=== PATIENT | female | born 1965 | race Caucasian/White ===

== ENCOUNTER 2019-10-27 06:34 | Emergency (ER) | payer SELFPAY ==
[2019-10-27] VITALS (11 sets, daily range): BP systolic 138–180; BP diastolic 56–128; PULSE 60–102; RESP 14–22; TEMP 36.7; O2SAT 92–100; BMI 35.2
--- NOTE | 2019-10-27 06:53 | W.ED.NAVMDI ---
HPI - Nausea/Vomiting/Diarrhea General: Chief complaint: Nausea/Vomiting/Diarrhea Stated complaint: N/V Time Seen by Provider: 10/27/19 06:35 History of Present Illness: HPI Narrative: 54-year-old female presents emergency room with complaint of persistent nausea and vomiting. States symptoms began about 1 to 2 days ago. She is had a low-grade fever subjectively. She had frequent vomiting but no hematochezia or melena diarrhea began this morning she has not been able to eat yesterday or today. She is not really taking anything for it. She has previously had a cholecystectomy and appendectomy as well as a tubal ligation and some orthopedic surgeries. She denies dysuria urgency or frequency there is no association of the discomfort with food. MD elicited complaint: nausea and vomiting Pertinent past history: anorexia Onset (ago): day(s) (1-2) Description of vomiting: bilious Description of diarrhea: lose (Loose stools) Associated nausea: Yes Location of pain: Diffuse Pain consistency: constant Severity: severe Quality: cramping Associated symtoms: Reports anxiety, bloating, loss of apetite, malaise, myalgias and nausea; Denies chest pain or dysuria Review of Systems Const: Reports: malaise ENMT: Denies: throat pain, ear pain, nasal discharge or nasal congestion Card: Denies: chest pain, edema, shortness of breath on exertion or shortness of breath when lying down Resp: Denies: shortness of breath, productive cough or non-productive cough GI: Reports: nausea and bloating : Denies: flank pain, difficulty urinating, painful urination, urinary frequency or urinary urgency Skin/Breast: Denies: rash or itching Psych: Reports: anxiety PFSH ED PFSH: Social History (Updated 08/04/19 @ 13:51 by Nancy Dale LPN) Smoking and tobacco status: never smoked Alcohol intake: never Physical Exam Const: COMMON NORMALS: no apparent distress GENERAL APPEARANCE: cooperative and comfortable ORIENTATION/CONSCIOUSNESS: Yes awake, Yes oriented to person, Yes oriented to place and Yes oriented to time HENMT: COMMON NORMALS: normocephalic, head/scalp atraumatic, hearing grossly normal bilaterally, external ears normal, EAC's normal, TM's normal bilaterally, nasal mucous membranes and turbinates normal, moist oral mucous membranes and oropharynx normal HEAD & SCALP: normocephalic and atraumatic NOSE: nasal mucous membranes and turbinates normal EXTERNAL EAR: Yes external ears normal EXTERNAL AUDITORY CANAL: EAC's normal TYMPANIC MEMBRANE: TM's normal bilaterally Eye: COMMON NORMALS: PERRL, EOMs intact bilaterally, conjunctivae normal and no scleral icterus CONJUNCTIVA: Yes conjunctivae normal PUPIL: Yes PERRL Neck/C-Spine: COMMON NORMALS: full ROM, no lymphadenopathy, supple and no JVD Lymph: LYMPHATIC: no lymphadenopathy noted and no lymphedema noted Resp: COMMON NORMALS: normal respiratory effort, no retractions, no use of accessory muscles and clear to auscultation bilaterally AUSCULTATION: clear to auscultation bilaterally Cardio: COMMON NORMALS: no JVD, regular rate, regular rhythm and no murmurs RATE: regular rate RHYTHM: regular rhythm GI: COMMON NORMALS: soft to palpation and no hepatosplenomegaly AUSCULTATION: Yes normoactive bowel sounds PALPATION: Yes soft, No tender, No guarding and Yes no hepatosplenomegaly Extremity: COMMON NORMALS: normal to inspection, normal capillary refill, no clubbing, cyanosis or edema, no calf tenderness and no pedal edema Neuro: SENSORIUM/ORIENTATION: Yes oriented to person, Yes oriented to place and Yes oriented to time Skin: COMMON NORMALS: no rashes or lesions noted GENERAL SKIN EXAM: no rashes or lesions noted Course Vital Signs: Vital signs: Vital Signs Temperature 98.1 F 10/27/19 06:46 Pulse Rate 62 10/27/19 10:57 Respiratory Rate 16 10/27/19 10:57 Blood Pressure 147/86 10/27/19 10:57 Pulse Oximetry 96 10/27/19 10:57 MDM - Nausea/Vomiting/Diarrhea MDM Narrative: Medical decision making narrative: Patient is feeling somewhat better. Will discharge home with antiemetics avoid anti-inflammatories clear liquid diet for [address] findings. Lab Data: Labs: Lab Results 10/27/19 10/27/19 10/27/19 Range/Units 07:05 07:05 08:39 WBC 10.7 H (4.0-10.0) 10^3/ uL RBC 4.12 (4.1-5.3) 10^6/u L Hgb 12.7 (11.5-15.3) g/dL Hct 40.5 (37.0-47.0) % MCV 98.3 (81-99) fL MCH 30.8 (28.0-34.0) pg MCHC 31.4 (30.0-36.0) g/dL RDW 13.8 (12.1-15.1) % Plt Count 290 (130-400) 10^3/c mm MPV 9.5 (7.4-10.4) fL Neut % (Auto) 80.7 % Lymph % (Auto) 14.2 % [place] % (Auto) 4.4 % Eos % (Auto) 0.2 % Baso % (Auto) 0.3 % Neut # (Auto) 8.7 H (1.8-7.7) 10^3/u L Lymph # (Auto) 1.5 (0.8-4.8) 10^3/u L [place] # (Auto) 0.5 (0.2-0.9) 10^3/u L Eos # (Auto) 0.0 (0.0-0.8) 10^3/u L Baso # (Auto) 0.0 (0.0-0.1) 10^3/u L Nucleated RBC % (a uto) 0 % Nucleated RBCs # 0.0 /100WBC Sodium 139 (136-145) mmol/L Potassium 3.1 L (3.5-5.1) mmol/L Chloride 102 (98-107) mmol/L Carbon Dioxide 17 L (22-29) mmol/L Anion Gap 23.1 H (5-19) BUN 8 (6-20) mg/dL Creatinine 0.9 (0.5-0.9) mg/dL GFR Calculation 65.8 L (90-130) mL/min Glucose 182 H (65-115) mg/dL Calculated Osmolal ity 289 (285-295) mOsm/k g Calcium 10.1 (8.5-10.5) mg/dL Total Bilirubin 0.4 (0.15-1.2) mg/dL AST 18 (0-32) U/L ALT 12 (0-33) U/L Alkaline Phosphata se 123 H (35-105) IU/L Total Protein 8.2 (6.6-8.7) g/dL Albumin 4.4 (3.5-5.2) g/dL Globulin 3.8 (1.3-4.6) g/dL Lipase 16 (13-60) U/L Urine Color Yellow (Yellow) Urine Appearance Clear (CLEAR) Urine pH 6.5 (5-7) Ur Specific Gravit y 1.010 (1.005-1.030) Urine Protein Neg (Negative) Urine Glucose (UA) Norm (Normal) Urine Ketones 1+ H (Negative) Urine Blood Neg (Negative) Urine Nitrate Negative (Negative) Urine Bilirubin Neg (NEGATIVE) Urine Urobilinogen Norm (Negative) mg/dL Ur Leukocyte Geri ase Negative (Negative) Discharge Plan Discharge Patient Disposition: Home, Self-Care Clinical Impression: Gastroenteritis Condition: Stable Prescriptions: New Zofran 4 mg tablet 4 mg PO Q6H PRN (Reason: nausea and vomiting) Qty: 20 RF: 0 No Action ibuprofen 200 mg Tablet 800 mg PO BID PRN (Reason: Pain) RF: 0 phenylephrine HCl 10 mg Tablet 20 mg PO PRN RF: 0 Discharge Orders: Discharge Order (Routine); Ordered 10/27/19 Ordered By: Ariel Baer Referrals: Jacqueline Call MD [Primary Care Provider] - Patient Instructions: Clear Liquid Diet (ED), Gastroenteritis (ED) Discharge Date/Time: 10/27/19 10:58 Coding Level of Care Code ED Security Threat Analyst for Chg Fwd Exam Comprehensive
[2019-10-27] MEDS: ondansetron 2 mg/ML SDV 2 mL 4 MG IVP (07:13)
[2019-10-27 07:14] LABS: Basophils % 0.3 %; Eosinophils % 0.2 %; Hematocrit 40.5 % (37.0-47.0); Hemoglobin 12.7 g/dL (11.5-15.3); Lymphocytes # 1.5 10^3/uL (0.8-4.8); Lymphocytes % 14.2 %; Mean Corpuscular HGB Conc 31.4 g/dL (30.0-36.0); Mean Corpuscular Hemoglobin 30.8 pg (28.0-34.0); Mean Corpuscular Volume 98.3 fL (81-99); Mean Platelet Volume 9.5 fL (7.4-10.4); Monocytes # 0.5 10^3/uL (0.2-0.9); Monocytes % 4.4 %; Neutrophils # 8.7 10^3/uL (1.8-7.7); Neutrophils % 80.7 %; Nucleated Red Blood Cells % 0 %; Platelet Count 290 10^3/cmm (130-400); Red Blood Count 4.12 10^6/uL (4.1-5.3); Red Cell Distribution Width 13.8 % (12.1-15.1); White Blood Count 10.7 10^3/uL (4.0-10.0)
[2019-10-27] MEDS: sodium chloride 0.9% 1,000 ML 999 ML IV (07:14)
[2019-10-27] MEDS: morphine 4 mg/mL SDV 1 mL IVP (07:32)
[2019-10-27] MEDS: LORazepam 2 mg/mL INJ 1 mL 1 MG IVP (07:32)
--- NOTE | 2019-10-27 07:34 | PC.NURSE ---
Asked patient to provide a urine sample at this time. Patient states she is unable to urinate at this time. Bolus is infusing, patient aware a sample is needed. Refuses in and out cath at this time.
[2019-10-27 07:35] LABS: Alanine Aminotransferase 12 U/L (0-33); Albumin Level 4.4 g/dL (3.5-5.2); Alkaline Phosphatase 123 IU/L (35-105); Anion Gap 23.1 (5-19); Aspartate Amino Transferase 18 U/L (0-32); Blood Urea Nitrogen 8 mg/dL (6-20); Calcium 10.1 mg/dL (8.5-10.5); Carbon Dioxide 17 mmol/L (22-29); Chloride 102 mmol/L (98-107); Globulin 3.8 g/dL (1.3-4.6); Glomerular Filtration Rate 65.8 mL/min (90-130); Glucose 182 mg/dL (65-115); Lipase 16 U/L (13-60); Osmolality Calculated 289 mOsm/kg (285-295); Potassium 3.1 mmol/L (3.5-5.1); Sodium 139 mmol/L (136-145); Total Bilirubin 0.4 mg/dL (0.15-1.2); Total Protein 8.2 g/dL (6.6-8.7)
--- NOTE | 2019-10-27 08:02 | PC.NURSE ---
Patient resting in bed comfortably with both eyes closed. No objective or subjective s/s of acute distress or pain noted at this time. Will continue to monitor.
--- NOTE | 2019-10-27 08:32 | PC.NURSE ---
Patient ambulated to restroom with steady gait at this time. Returned to bed without injury.
--- NOTE | 2019-10-27 08:42 | CT_ITS ---
WS: [id number] CT ABDOMEN PELVIS TECHNIQUE: Contrast-enhanced CT of the abdomen and pelvis with coronal and sagittal reformatted image s. CLINICAL INFORMATION: abd pain COMPARISON: June 25, 2019 DLP: 1263.[address] scans at [facility] use at least one of these dose optimization techniques: automat ed exposure control; mA and/or kV adjustment per patient size (includes targeted exams where dose is matched to clinical indication); or iterative reconstruction. FINDINGS: Postoperative changes laparoscopic banding procedure. Mild intrahepatic biliary ductal dilatation unc hanged. Prior cholecystectomy. Liver is normal in appearance. Normal portal vein and splenic vein. Mi ld fatty atrophy of the pancreas. Normal spleen. Adrenal glands are normal. Normal renal parenchymal enhancement. No hydronephrosis. Slightly dilated fluid-filled loop of small bowel in the midabdomen measuring up to 2.3 cm can be see n with small bowel enteritis. No evidence of high-grade obstruction. Normal colon. Normal caliber abdominal aorta. Tiny fat-containing umbilical hernia. Normal bladder.Lung bases are w ell aerated. Prior postoperative changes pedicle screw fixation L2-S1 with interconnecting rods. Interconnecting r ods appear intact. Lucency along the L2 pedicle screws consistent with loosening. Bilateral sacroilia c screw fixation. Notified Ariel Baer DO at 10/27/2019 10:[address]/CT abdomen pelvis w con* [id number] IMPRESSION: 1. Slightly dilated fluid-filled loop of small bowel in the midabdomen can be seen with small bowel enteritis. Small and large bowel otherwise unremarkable. 2. No free fluid in the pelvis. 3. Prior laparoscopic banding procedure. 4. Cholecystectomy with intrahepatic bile duct dilatation likely physiologic. 5. No hydronephrosis in either kidney. 6. Prior postoperative changes pedicle screw fixation L2-S1 with bilateral sac ral iliac screws. Loosening of the L2 pedicle screws as described above.
[2019-10-27 09:07] LABS: Add Urine Microscopic? NO
[2019-10-27 09:15] LABS: Glucose Urine UA Norm (Normal); Protein Urine Neg (Negative); Urine Appearance Clear (CLEAR); Urine Color Yellow (Yellow); pH Urine 6.5 (5-7)
[2019-10-27 09:16] LABS: Bilirubin Urine Neg (NEGATIVE); Blood Urine Neg (Negative); Ketones Urine 1+ (Negative); Leukocyte Esterase Urine Negative (Negative); Nitrate Urine Negative (Negative); Urobilinogen Urine Norm (Negative)
--- NOTE | 2019-10-27 09:50 | PC.NURSE ---
Patient to CT via stretcher by pest control service technician at this time.
[2019-10-27] MEDS: iohexol 300 mg/mL 100 mL Btl IV (09:57)
--- NOTE | 2019-10-27 10:09 | PC.NURSE ---
Patient returned from CT.
--- NOTE | 2019-10-29 11:56 | DCPLANNER ---
Addendum entered by Karen Byrd 10/29/19 12:15: Patient did return mental health case manager phone call, stated that she has not seen her primary care physician, because she does not have any insurance at this time. care manager told patient that case liner will mail patient both of the financial systems analyst applications for the hospital to the patient. Patient also asked if case liner could help patient find a new primary care physician, case liner explained to patient that case liner will try, but with COVID-19 some clinics are not taking new patients at this time, but case liner will call the office of Dr. Mendez to see if she is taking new patients. Patient stated that would be fine. Original Note: care manager called to check on patient after recent visit to the ER. care manager was unable to speak with patient at this time, a voicemail was left for patient to return case liner phone call.
--- NOTE | 2019-11-05 13:46 | DCPLANNER ---
client experience manager called the office of Dr. Mendez to confirm if Dr. Mendez is taking new patients at this time. A follow up appointment is scheduled for October at 9:[address] Mendez. client experience manager called patient to inform patient of the scheduled appointment, unable to speak with patient at this time, a voicemail was left patient to return adult protective caseworker phone call. client experience manager will call patient later to give her the appointment information.
== END 2019-10-27 10:58 | disposition home or self-care (01) ==
PROVIDERS: Emergency Provider Family Medicine; Family Provider Family Medicine; PCP Family Medicine
DX: K52.9 Noninfective gastroenteritis and colitis, unspecified (principal); Z90.49 Acquired absence of other specified parts of digestive tract
CPT/HCPCS: 12345; 36415; 74177; 80053; 81003; 83690; 85025; 96360; 96361; 96374; 96375; 99283; 99284; J2060; J2270; J2405; J7030; Q9967

== ENCOUNTER 2019-12-11 13:50 | Emergency (ER) | payer SELFPAY ==
[2019-12-11] VITALS (7 sets, daily range): BP systolic 139–172; BP diastolic 98–135; PULSE 65–97; RESP 14–20; TEMP 36.8; O2SAT 96–99; BMI 35.2
--- NOTE | 2019-12-11 14:30 | ECG_ITS ---
Measurements Intervals [place] Rate: 84 P: 50 RI: 160 QRS: 37 QRSD: 84 T: 34 QT: 355 QTc: 420 SINUS RHYTHM LOW QRS VOLTAGE IN PRECORDIAL LEADS [QRS DEFLECTION < 1.0 mV IN CHEST LEADS] POSSIBLE RIGHT VENTRICULAR CONDUCTION DELAY [RSR (QR) IN V1/V2] Compared to ECG 05/14/2017 21:21:57 Low QRS voltage now present Indeterminate axis no longer present Electronically Signed On 12-12-2019 11:06:15 CDT by Kevan Ray MD [email or web address]
--- NOTE | 2019-12-11 14:43 | W.ED.GIBLEED ---
HPI - GI Bleed General: Chief complaint: GI Bleed Stated complaint: abd pain, black stool Time Seen by Provider: 12/11/19 14:37 History of Present Illness: HPI Narrative: Patient is a 54-year-old female presenting with abdominal pain for 4 days. She also has had 2 days of black tarry stools. She has had a fair bit of GI pathology in the past. She has a LAP-BAND that she said has slipped. She is been told she has a hiatal hernia. She is been in the ER for persistent vomiting several times in the past year. She has severe nausea but no vomiting today. She admits to a history of alcohol abuse but that was years ago. She does not take anything for reflux at this time. complaint: melena Onset (ago): day(s) (4) Pain Consistency: constant Severity: severe Relieving factors: none Exacerbating factors: eating and movement Associated symptoms: Reports abdominal pain, chills, fever(s), malaise, nausea, poor appetite and weakness; Denies easy bruising, headache(s) or rash Review of Systems General: Reports: 10 or more systems reviewed and unremarkable except in HPI and below Const: Reports: fever(s), chills and malaise Eyes: Denies: change in vision ENMT: Denies: odynophagia Card: Denies: chest pain or swelling of feet/ankles Resp: Denies: dyspnea, productive cough or non-productive cough GI: Reports: abdominal pain, nausea, change in bowel habits and melena : Denies: flank pain or difficulty voiding Musc: Denies: neck pain or back pain Skin/Breast: Denies: rash Neuro: Denies: headache(s), numbness in extremities or weakness in extremities Sergio/Lymph: Denies: easy bruising or easy bleeding PFSH ED PFSH: Social History Smoking and tobacco status: never smoked Alcohol intake: never Current gender identity: Female Physical Exam Const: COMMON NORMALS: patient oriented x3, no limitations and alert GENERAL APPEARANCE: cooperative and in distress HENMT: HEAD & SCALP: normal to inspection FACE & SINUS: normal facial exam Eye: GENERAL EYE: appearance normal, both eyes and all related structures Neck/C-Spine: COMMON NORMALS: supple, no meningeal signs and no JVD Chest: COMMONS NORMALS: normal inspection of the chest Resp: COMMON NORMALS: normal respiratory effort, No use of accessory muscles and clear to auscultation bilaterally AUSCULTATION: clear to auscultation bilaterally Cardio: COMMON NORMALS: no JVD, regular rate, regular rhythm and No murmurs present (Cardio) RATE: regular rate and tachycardic RHYTHM: regular rhythm GI: COMMON NORMALS: Soft to palpation; negative for no masses (Palpable mass below the epigastrium which does not seem to be particularly tender and is not pulsatile) INSPECTION: Yes normal to inspection AUSCULTATION: Yes normoactive bowel sounds PALPATION: Yes Soft to palpation and Yes Tenderness to palpation present (GI) (Diffuse) Back/Pelvis: COMMON NORMALS: thoracic and lumbar spine normal to inspection Extremity: COMMON NORMALS: normal to inspection Neuro: COMMON NORMALS: patient oriented x3, moves all extremities, no focal motor deficits and no sensory deficits noted SENSORIUM/ORIENTATION: Yes alert MENINGEAL SIGNS: Yes no meningeal signs Psych: COMMON NORMALS: mental status grossly normal, cooperative and normal affect Skin: COMMON NORMALS: no rashes or lesions noted and turgor normal GENERAL SKIN EXAM: no rashes or lesions noted and turgor normal Course ED course: The patient reports improvement in her pain with treatment in the ED. Her hemoglobin was basically stable changing from 13.1-12.3 and that was with the administration of a liter of fluid. She had 2 black bowel movements yesterday but has not had any today. We discussed that this is most likely a bleeding ulcer. Given her stable vital signs and fairly stable hemoglobin I think she is safe for discharge. We discussed the option of admission but she would prefer to go home. Her H. pylori was negative. I have put her on pantoprazole and Carafate. I also gave her a small prescription of hydrocodone for pain. She was advised to avoid sodas, acidic foods, aspirin, ibuprofen, Pepto-Bismol. She understands that if she continues to have black stools she must return to the ED for further evaluation. Vital Signs: Vital signs: Vital Signs Temperature 98.2 F 12/11/19 14:04 Pulse Rate 75 12/11/19 19:36 Respiratory Rate 14 12/11/19 19:36 Blood Pressure 146/115 12/11/19 19:36 Pulse Oximetry 97 12/11/19 19:36 MDM - GI Bleed Lab Data: Labs: Lab Results 12/11/19 12/11/19 12/11/19 Range/Units 15:08 15:08 15:08 WBC 7.2 (4.0-10.0) 10^3/ uL RBC 4.16 (4.1-5.3) 10^6/u L Hgb 13.1 (11.5-15.3) g/dL Hct 40.5 (37.0-47.0) % MCV 97.4 (81-99) fL MCH 31.5 (28.0-34.0) pg MCHC 32.3 (30.0-36.0) g/dL RDW 12.6 (12.1-15.1) % Plt Count 266 (130-400) 10^3/c mm MPV 9.6 (7.4-10.4) fL Neut % (Auto) 59.8 % Lymph % (Auto) 30.3 % [place] % (Auto) 6.8 % Eos % (Auto) 2.2 % Baso % (Auto) 0.8 % Neut # (Auto) 4.3 (1.8-7.7) 10^3/u L Lymph # (Auto) 2.2 (0.8-4.8) 10^3/u L [place] # (Auto) 0.5 (0.2-0.9) 10^3/u L Eos # (Auto) 0.2 (0.0-0.8) 10^3/u L Baso # (Auto) 0.1 (0.0-0.1) 10^3/u L Nucleated RBC % (a uto) 0 % Nucleated RBCs # 0.0 /100WBC PT 12.90 (10.5-13.3) SECO NDS INR 0.94 (0.8-1.2) APTT 28.5 (23.9-36.7) SECO NDS Sodium (136-145) mmol/L Potassium (3.5-5.1) mmol/L Chloride (98-107) mmol/L Carbon Dioxide (22-29) mmol/L Anion Gap (5-19) BUN (6-20) mg/dL Creatinine (0.5-0.9) mg/dL GFR Calculation (90-130) mL/min Glucose (65-115) mg/dL Calculated Osmolal ity (285-295) mOsm/k g Lactate (0.5-2.2) mmol/L Calcium (8.5-10.5) mg/dL Magnesium (1.7-2.3) mg/dL Total Bilirubin (0.15-1.2) mg/dL AST (0-32) U/L ALT (0-33) U/L Alkaline Phosphata se (35-105) IU/L Troponin T Baselin e (0-10) ng/mL Troponin T 120 Min [place] (0-10) ng/mL Delta Troponin T (0-10) ABS# Total Protein (6.6-8.7) g/dL Albumin (3.5-5.2) g/dL Globulin (1.3-4.6) g/dL Lipase (13-60) U/L HCG, Qual (Negative) Urine Color (Yellow) Urine Appearance (CLEAR) Urine pH (5-7) Ur Specific Gravit y (1.005-1.030) Urine Protein (Negative) Urine Glucose (UA) (Normal) Urine Ketones (Negative) Urine Blood (Negative) Urine Nitrate (Negative) Urine Bilirubin (NEGATIVE) Urine Urobilinogen (Negative) mg/dL Ur Leukocyte Geri ase (Negative) Urine RBC (0-2) /hpf Urine WBC (0-5) /hpf Ur Squamous Epith Cells (0-5) Urine Bacteria (NONE) Urine Mucus Ethyl Alcohol (0-10) mg/dL H. pylori IgG Anti body Negative (Negative) Blood Type Rho(D) Type Antibody Screen 12/11/19 12/11/19 12/11/19 Range/Units 15:08 15:08 15:08 WBC (4.0-10.0) 10^3/ uL RBC (4.1-5.3) 10^6/u L Hgb (11.5-15.3) g/dL Hct (37.0-47.0) % MCV (81-99) fL MCH (28.0-34.0) pg MCHC (30.0-36.0) g/dL RDW (12.1-15.1) % Plt Count (130-400) 10^3/c mm MPV (7.4-10.4) fL Neut % (Auto) % Lymph % (Auto) % [place] % (Auto) % Eos % (Auto) % Baso % (Auto) % Neut # (Auto) (1.8-7.7) 10^3/u L Lymph # (Auto) (0.8-4.8) 10^3/u L [place] # (Auto) (0.2-0.9) 10^3/u L Eos # (Auto) (0.0-0.8) 10^3/u L Baso # (Auto) (0.0-0.1) 10^3/u L Nucleated RBC % (a uto) % Nucleated RBCs # /100WBC PT (10.5-13.3) SECO NDS INR (0.8-1.2) APTT (23.9-36.7) SECO NDS Sodium 137 (136-145) mmol/L Potassium 4.0 (3.5-5.1) mmol/L Chloride 103 (98-107) mmol/L Carbon Dioxide 20 L (22-29) mmol/L Anion Gap 18.0 (5-19) BUN 13 (6-20) mg/dL Creatinine 0.8 (0.5-0.9) mg/dL GFR Calculation 75.3 L (90-130) mL/min Glucose 120 H (65-115) mg/dL Calculated Osmolal ity 281 L (285-295) mOsm/k g Lactate (0.5-2.2) mmol/L Calcium 9.1 (8.5-10.5) mg/dL Magnesium 2.3 (1.7-2.3) mg/dL Total Bilirubin 0.3 (0.15-1.2) mg/dL AST 17 (0-32) U/L ALT 13 (0-33) U/L Alkaline Phosphata se 121 H (35-105) IU/L Troponin T Baselin e 6 (0-10) ng/mL Troponin T 120 Min [place] (0-10) ng/mL Delta Troponin T (0-10) ABS# Total Protein 7.3 (6.6-8.7) g/dL Albumin 4.5 (3.5-5.2) g/dL Globulin 2.8 (1.3-4.6) g/dL Lipase 36 (13-60) U/L HCG, Qual Negative (Negative) Urine Color (Yellow) Urine Appearance (CLEAR) Urine pH (5-7) Ur Specific Gravit y (1.005-1.030) Urine Protein (Negative) Urine Glucose (UA) (Normal) Urine Ketones (Negative) Urine Blood (Negative) Urine Nitrate (Negative) Urine Bilirubin (NEGATIVE) Urine Urobilinogen (Negative) mg/dL Ur Leukocyte Geri ase (Negative) Urine RBC (0-2) /hpf Urine WBC (0-5) /hpf Ur Squamous Epith Cells (0-5) Urine Bacteria (NONE) Urine Mucus Ethyl Alcohol < 10 (0-10) mg/dL H. pylori IgG Anti body (Negative) Blood Type Rho(D) Type Antibody Screen 12/11/19 12/11/19 12/11/19 Range/Units 15:37 16:26 17:05 WBC (4.0-10.0) 10^3/ uL RBC (4.1-5.3) 10^6/u L Hgb (11.5-15.3) g/dL Hct (37.0-47.0) % MCV (81-99) fL MCH (28.0-34.0) pg MCHC (30.0-36.0) g/dL RDW (12.1-15.1) % Plt Count (130-400) 10^3/c mm MPV (7.4-10.4) fL Neut % (Auto) % Lymph % (Auto) % [place] % (Auto) % Eos % (Auto) % Baso % (Auto) % Neut # (Auto) (1.8-7.7) 10^3/u L Lymph # (Auto) (0.8-4.8) 10^3/u L [place] # (Auto) (0.2-0.9) 10^3/u L Eos # (Auto) (0.0-0.8) 10^3/u L Baso # (Auto) (0.0-0.1) 10^3/u L Nucleated RBC % (a uto) % Nucleated RBCs # /100WBC PT (10.5-13.3) SECO NDS INR (0.8-1.2) APTT (23.9-36.7) SECO NDS Sodium (136-145) mmol/L Potassium (3.5-5.1) mmol/L Chloride (98-107) mmol/L Carbon Dioxide (22-29) mmol/L Anion Gap (5-19) BUN (6-20) mg/dL Creatinine (0.5-0.9) mg/dL GFR Calculation (90-130) mL/min Glucose (65-115) mg/dL Calculated Osmolal ity (285-295) mOsm/k g Lactate (0.5-2.2) mmol/L Calcium (8.5-10.5) mg/dL Magnesium (1.7-2.3) mg/dL Total Bilirubin (0.15-1.2) mg/dL AST (0-32) U/L ALT (0-33) U/L Alkaline Phosphata se (35-105) IU/L Troponin T Baselin e (0-10) ng/mL Troponin T 120 Min [place] 6.00 (0-10) ng/mL Delta Troponin T 0 (0-10) ABS# Total Protein (6.6-8.7) g/dL Albumin (3.5-5.2) g/dL Globulin (1.3-4.6) g/dL Lipase (13-60) U/L HCG, Qual (Negative) Urine Color Yellow (Yellow) Urine Appearance Clear (CLEAR) Urine pH 5 (5-7) Ur Specific Gravit y 1.010 (1.005-1.030) Urine Protein Neg (Negative) Urine Glucose (UA) Norm (Normal) Urine Ketones Negative (Negative) Urine Blood Neg (Negative) Urine Nitrate Negative (Negative) Urine Bilirubin Neg (NEGATIVE) Urine Urobilinogen Norm (Negative) mg/dL Ur Leukocyte Geri ase Negative (Negative) Urine RBC None (0-2) /hpf Urine WBC None (0-5) /hpf Ur Squamous Epith Cells 10-15 H (0-5) Urine Bacteria Trace (NONE) Urine Mucus Trace Ethyl Alcohol (0-10) mg/dL H. pylori IgG Anti body (Negative) Blood Type O Positive Rho(D) Type Positive Antibody Screen Negative 12/11/19 12/11/19 Range/Units 17:05 18:40 WBC (4.0-10.0) 10^3/ uL RBC (4.1-5.3) 10^6/u L Hgb 12.3 (11.5-15.3) g/dL Hct (37.0-47.0) % MCV (81-99) fL MCH (28.0-34.0) pg MCHC (30.0-36.0) g/dL RDW (12.1-15.1) % Plt Count (130-400) 10^3/c mm MPV (7.4-10.4) fL Neut % (Auto) % Lymph % (Auto) % [place] % (Auto) % Eos % (Auto) % Baso % (Auto) % Neut # (Auto) (1.8-7.7) 10^3/u L Lymph # (Auto) (0.8-4.8) 10^3/u L [place] # (Auto) (0.2-0.9) 10^3/u L Eos # (Auto) (0.0-0.8) 10^3/u L Baso # (Auto) (0.0-0.1) 10^3/u L Nucleated RBC % (a uto) % Nucleated RBCs # /100WBC PT (10.5-13.3) SECO NDS INR (0.8-1.2) APTT (23.9-36.7) SECO NDS Sodium (136-145) mmol/L Potassium (3.5-5.1) mmol/L Chloride (98-107) mmol/L Carbon Dioxide (22-29) mmol/L Anion Gap (5-19) BUN (6-20) mg/dL Creatinine (0.5-0.9) mg/dL GFR Calculation (90-130) mL/min Glucose (65-115) mg/dL Calculated Osmolal ity (285-295) mOsm/k g Lactate 0.7 (0.5-2.2) mmol/L Calcium (8.5-10.5) mg/dL Magnesium (1.7-2.3) mg/dL Total Bilirubin (0.15-1.2) mg/dL AST (0-32) U/L ALT (0-33) U/L Alkaline Phosphata se (35-105) IU/L Troponin T Baselin e (0-10) ng/mL Troponin T 120 Min [place] (0-10) ng/mL Delta Troponin T (0-10) ABS# Total Protein (6.6-8.7) g/dL Albumin (3.5-5.2) g/dL Globulin (1.3-4.6) g/dL Lipase (13-60) U/L HCG, Qual (Negative) Urine Color (Yellow) Urine Appearance (CLEAR) Urine pH (5-7) Ur Specific Gravit y (1.005-1.030) Urine Protein (Negative) Urine Glucose (UA) (Normal) Urine Ketones (Negative) Urine Blood (Negative) Urine Nitrate (Negative) Urine Bilirubin (NEGATIVE) Urine Urobilinogen (Negative) mg/dL Ur Leukocyte Geri ase (Negative) Urine RBC (0-2) /hpf Urine WBC (0-5) /hpf Ur Squamous Epith Cells (0-5) Urine Bacteria (NONE) Urine Mucus Ethyl Alcohol (0-10) mg/dL H. pylori IgG Anti body (Negative) Blood Type Rho(D) Type Antibody Screen Discharge Plan Discharge Patient Disposition: Home, Self-Care Clinical Impression: Upper gastrointestinal hemorrhage, Gastritis Condition: Stable Prescriptions: New Carafate 1 gram tablet 1 gm PO TID 28 Days Qty: 84 RF: 0 [place] 5-325 mg tablet 1 tab PO Q6H PRN (Reason: pain) Qty: 14 RF: 0 pantoprazole 40 mg tablet,delayed release (DR/EC) 40 mg PO DAILY 28 Days Qty: 30 RF: 0 No Action Seroquel 100 mg Tablet 100 mg PO DAILY RF: 0 temazepam 15 mg Capsule 15 mg PO BEDTIME RF: 0 Discharge Orders: Discharge Order (Routine); Ordered 12/11/19 Ordered By: Tyesha Melendez Referrals: Jacqueline Call MD [Primary Care Provider] - Discharge Diet: Clear Liquid Discharge Activity: Resume usual activity Patient Instructions: Diet for Ulcers and Gastritis (ED) Activity Restrictions/Additional Instructions: Return to the ED if uncontrolled pain, more black stools, chest pain, shortness of breath, lightheadedness. Follow up with your new doctor early next week. Discharge Date/Time: 12/11/19 19:37 Coding Level of Care Code ED Stripper Black And White for Dami Fwd Exam Comprehensive
[2019-12-11] MEDS: ondansetron 2 mg/ML SDV 2 mL 4 MG IVP (15:13)
[2019-12-11] MEDS: morphine 4 mg/mL SDV 1 mL IVP ×2 (15:15→16:34)
[2019-12-11] MEDS: famotidine 20 mg/2 mL INJ 40 MG IVP (15:17)
[2019-12-11] MEDS: sodium chloride 0.9% 1,000 ML 999 ML IV (15:20)
[2019-12-11 15:27] LABS: Basophils # 0.1 10^3/uL (0.0-0.1); Basophils % 0.8 %; Eosinophils # 0.2 10^3/uL (0.0-0.8); Eosinophils % 2.2 %; Hematocrit 40.5 % (37.0-47.0); Hemoglobin 13.1 g/dL (11.5-15.3); Lymphocytes # 2.2 10^3/uL (0.8-4.8); Lymphocytes % 30.3 %; Mean Corpuscular HGB Conc 32.3 g/dL (30.0-36.0); Mean Corpuscular Hemoglobin 31.5 pg (28.0-34.0); Mean Corpuscular Volume 97.4 fL (81-99); Mean Platelet Volume 9.6 fL (7.4-10.4); Monocytes # 0.5 10^3/uL (0.2-0.9); Monocytes % 6.8 %; Neutrophils # 4.3 10^3/uL (1.8-7.7); Neutrophils % 59.8 %; Nucleated Red Blood Cells % 0 %; Platelet Count 266 10^3/cmm (130-400); Red Blood Count 4.16 10^6/uL (4.1-5.3); Red Cell Distribution Width 12.6 % (12.1-15.1); White Blood Count 7.2 10^3/uL (4.0-10.0)
[2019-12-11 15:36] LABS: INR 0.94 (0.8-1.2)
[2019-12-11 15:38] LABS: Partial Thromboplastin Time 28.5 SECONDS (23.9-36.7)
[2019-12-11 15:40] LABS: HCG, Serum Qual Negative (Negative)
[2019-12-11 15:46] LABS: H. Pylori IgG Antibody Negative (Negative)
[2019-12-11 15:47] LABS: Alanine Aminotransferase 13 U/L (0-33); Albumin Level 4.5 g/dL (3.5-5.2); Alkaline Phosphatase 121 IU/L (35-105); Aspartate Amino Transferase 17 U/L (0-32); Blood Urea Nitrogen 13 mg/dL (6-20); Calcium 9.1 mg/dL (8.5-10.5); Carbon Dioxide 20 mmol/L (22-29); Chloride 103 mmol/L (98-107); Globulin 2.8 g/dL (1.3-4.6); Glomerular Filtration Rate 75.3 mL/min (90-130); Glucose 120 mg/dL (65-115); Lipase 36 U/L (13-60); Magnesium 2.3 mg/dL (1.7-2.3); Osmolality Calculated 281 mOsm/kg (285-295); Sodium 137 mmol/L (136-145); Total Bilirubin 0.3 mg/dL (0.15-1.2); Total Protein 7.3 g/dL (6.6-8.7)
[2019-12-11 15:48] LABS: Troponin(5th) Baseline 6 ng/mL (0-10)
[2019-12-11 15:50] LABS: Bilirubin Urine Neg (NEGATIVE); Blood Urine Neg (Negative); Glucose Urine UA Norm (Normal); Ketones Urine Negative (Negative); Leukocyte Esterase Urine Negative (Negative); Nitrate Urine Negative (Negative); Protein Urine Neg (Negative); Urine Appearance Clear (CLEAR); Urine Color Yellow (Yellow); Urobilinogen Urine Norm (Negative); pH Urine 5 (5-7)
[2019-12-11 16:00] LABS: Add Urine Culture? No; Bacteria Urine TRACE; Mucus Urine TRACE
[2019-12-11 16:32] LABS: Alcohol Level < 10 mg/dL (0-10)
--- NOTE | 2019-12-11 16:32 | CTR_ITS ---
PROCEDURE INFORMATION: Exam: CT Abdomen And Pelvis With Contrast Exam date and time: 12/11/2019 4:38 PM Age: 54 years old Clinical indication: Abdominal pain; Generalized; Prior surgery; Surgery date: 6+ months; Surgery type: Multiple; Patient HX: C/O abd pain and nausea x 5 days now w dark tarry stool; Additional info: Abd pain, h/o lap band, hiatal hernia TECHNIQUE: Imaging protocol: Computed tomography of the abdomen and pelvis with intravenous contrast. Axial, coronal and sagittal reformatted images were created and reviewed. Radiation optimization: All CT scans at this facility use at least one of these dose optimization techniques: automated exposure control; mA and/or kV adjustment per patient size (includes targeted exams where dose is matched to clinical indication); or iterative reconstruction. Contrast material: OMNI 300; Contrast volume: 95 ml; Contrast route: 20G; COMPARISON: CT abdomen pelvis w con* [id number] 10/27/2019 9:53 AM RADIATION DOSE METRICS: Total DLP: 1187.56 mGy-cm FINDINGS: Lungs: Minimal bibasilar atelectatic change. Liver: Unremarkable. Gallbladder and bile ducts: Status post cholecystectomy. Mild central biliary ductal dilatation, likely postsurgical. Pancreas: Unremarkable. Spleen: Unremarkable. Adrenals: Unremarkable. Kidneys and ureters: No mass. No radiodense calculi. No hydronephrosis. Stomach and bowel: Unchanged gastric band. No obstruction. No bowel wall thickening. No pneumatosis. Appendix: Appendix not identified with certainty but no right lower quadrant inflammatory change to suggest acute appendicitis. Intraperitoneal space: No free fluid. No organized fluid collection. No free air. Vasculature: Unremarkable. No aneurysm. Lymph nodes: No pathologically enlarged lymph nodes. Bladder: Unremarkable. Reproductive: Unremarkable. Bones/joints: No acute osseous abnormality. Postsurgical changes associated with prior posterior lumbosacral fusion. Soft tissues: Unremarkable. CT/CT abdomen pelvis w con* [id number]: 1[address] No CT evidence of acute intra-abdominal or pelvic pathology. 2. Additional findings, as above. Radiation Dose CTDIVOL = (mGy): DLP = 1187.56 (mGy-cm)
[2019-12-11] MEDS: iohexol 300 mg/mL 100 mL Btl IV (16:57)
[2019-12-11 17:24] LABS: Lactate (Lactic Acid level) 0.7 mmol/L (0.5-2.2)
[2019-12-11 17:27] LABS: Troponin 5 2HR Delta 0 ABS# (0-10)
[2019-12-11 18:53] LABS: Hemoglobin 12.3 g/dL (11.5-15.3)
--- NOTE | 2019-12-11 19:12 | PC.NURSE ---
report received from JAY Hernandez and care transferred to JAY Shannon
--- NOTE | 2019-12-11 20:30 | ECG_ITS ---
Measurements Intervals [place] Rate: 66 P: 50 NE: 166 QRS: 26 QRSD: 94 T: 28 QT: 372 QTc: 391 SINUS RHYTHM INCOMPLETE RIGHT BUNDLE BRANCH BLOCK [90+ ms QRS DURATION, TERMINAL R IN V1/V2, 40+ ms S IN I/aVL/V4/V5/V6] SEPTAL MYOCARDIAL INFARCTION , OF INDETERMINATE AGE [40+ ms Q WAVE IN V1/V2] Compared to ECG 05/14/2017 21:21:57 Incomplete right bundle-branch block now present Myocardial infarct finding now present Indeterminate axis no longer present Electronically Signed On 12-12-2019 11:09:47 CDT by Kevan Ray MD [id number]
== END 2019-12-11 19:37 | disposition home or self-care (01) ==
PROVIDERS: Emergency Medicine; Emergency Provider Emergency Medicine; PCP Family Medicine
DX: K29.71 Gastritis, unspecified, with bleeding (principal)
CPT/HCPCS: 12345; 36415; 74177; 80053; 80307; 81001; 83605; 83690; 83735; 84484; 84703; 85018; 85025; 85610; 85730; 86677; 86850; 86900; 93005; 93010; 96361; 96374; 96375; 99284; A9270; J2270; J2405; J3490; J7030; Q9967

== ENCOUNTER 2020-03-24 06:06 | Emergency (ER) | payer SELFPAY ==
[2020-03-24 06:12] VITALS: BP 202/119; PULSE 87; RESP 18; TEMP 35.7; O2SAT 100; BMI 36.1
[2020-03-24 06:23] VITALS: BP 180/118
--- NOTE | 2020-03-24 06:34 | W.ED.EAR ---
HPI - Ear Problem General: Chief complaint: Ear Stated complaint: EAR PAIN Time Seen by Provider: 03/24/20 06:18 History of Present Illness: HPI Narrative: 54-year-old female comes in complaining of left ear pain. She is not had any drainage she denies manipulating the ear. There is not been any rash she is states it feels like it swollen shot. There is been no discharge or drainage MD Complaint: ear pain Location: left ear Duration: constant Severity: moderate Relieving factors: nothing Exacerbating factors: nothing Discharge from ear: no Associated symptoms: Reports ear or mastoid pain and external ear pain; Denies fever(s), headache(s), hearing loss, neck pain, rhinorrhea or tinnitus Treatment prior to arrival: none Review of Systems Const: Denies: fever(s) ENMT: Reports: ear or mastoid pain; Denies: tinnitus Resp: Denies: dyspnea, productive cough or non-productive cough GI: Denies: abdominal pain, nausea, vomiting, hematemesis, coffee ground emesis, diarrhea, constipation, bloating, hematochezia or melena Musc: Denies: neck pain Skin/Breast: Denies: rash or pruritus Neuro: Denies: headache(s) PFSH ED PFSH: Social History Smoking and tobacco status: never smoked Alcohol intake: never Current gender identity: Female Physical Exam Const: COMMON NORMALS: no acute distress GENERAL APPEARANCE: cooperative and comfortable ORIENTATION/CONSCIOUSNESS: Yes awake, Yes oriented to person, Yes oriented to place and Yes oriented to time HENMT: COMMON NORMALS: normocephalic, atraumatic, hearing grossly normal bilaterally, external ears normal, EAC's normal, TM's normal bilaterally, Normal nasal mucous membranes and turbinates present, moist oral mucous membranes and oropharynx normal HEAD & SCALP: normocephalic and atraumatic NOSE: Normal nasal mucous membranes and turbinates present EXTERNAL EAR: Yes external ears normal EXTERNAL AUDITORY CANAL: EAC's normal TYMPANIC MEMBRANE: TM's normal bilaterally Eye: COMMON NORMALS: Equal, round and reactive pupils present, EOMs intact bilaterally, conjunctivae normal and no scleral icterus CONJUNCTIVA: Yes conjunctivae normal PUPIL: Yes Equal, round and reactive pupils present Neck/C-Spine: COMMON NORMALS: full ROM, no lymphadenopathy, supple and no JVD Lymph: LYMPHATIC: no lymphadenopathy noted and no lymphedema noted Resp: COMMON NORMALS: normal respiratory effort, No retractions, No use of accessory muscles and clear to auscultation bilaterally AUSCULTATION: clear to auscultation bilaterally Cardio: COMMON NORMALS: no JVD, regular rate, regular rhythm and No murmurs present (Cardio) RATE: regular rate RHYTHM: regular rhythm Neuro: SENSORIUM/ORIENTATION: Yes oriented to person, Yes oriented to place and Yes oriented to time Skin: COMMON NORMALS: no rashes or lesions noted GENERAL SKIN EXAM: no rashes or lesions noted Course Vital Signs: Vital signs: Vital Signs Temperature 96.2 F L 03/24/20 06:12 Pulse Rate 87 03/24/20 06:12 Respiratory Rate 18 03/24/20 06:12 Blood Pressure 180/118 03/24/20 06:23 Pulse Oximetry 100 03/24/20 06:12 MDM - Ear MDM Narrative: Medical decision making narrative: No focal neurologic deficits on exam. There is no evidence of CVA. On examination a year there is no otitis externa no otitis media there is no changes in the skin of the outer ear no abscess no rash no vesicles. There is no other signs suggestive of an early Post's palsy either. Will start on some drops for the external ear I refer her to ENT return if has problems. Discharge Plan Discharge Patient Disposition: Home Clinical Impression: Otalgia of left ear Condition: Stable Prescriptions: New neomycin-polymyxin B-dexameth 3.5mg/mL-10,000 unit/mL-0.1 % drops,suspension 4 drop ophthalmic (eye) QID Qty: 5 RF: 0 diclofenac sodium 75 mg tablet,delayed release (DR/EC) 75 mg PO Q12H PRN (Reason: pain) Qty: 20 RF: 0 No Action Seroquel 100 mg Tablet 100 mg PO DAILY RF: 0 temazepam 15 mg Capsule 15 mg PO BEDTIME RF: 0 [place] 5-325 mg tablet 1 tab PO Q6H PRN (Reason: pain) Qty: 14 RF: 0 Discharge Orders: Discharge Order (Routine); Ordered 03/24/20 Ordered By: Ariel Baer Referrals: Jacqueline Call MD [Primary Care Provider] - Discharge Diet: Usual diet Discharge Activity: Resume usual activity Activity Restrictions/Additional Instructions: Case management will call with referral to ENT Discharge Date/Time: 03/24/20 06:44 Coding Level of Care Code ED Cement Side Laster for Dami Mendez
[2020-03-24 06:36] VITALS: BP 172/98; PULSE 68; RESP 16; O2SAT 99
[2020-03-24] MEDS: ketorolac 30 mg/mL INJ 60 MG IM (06:40)
--- NOTE | 2020-03-24 08:05 | DCPLANNER ---
warranty manager had message to schedule a follow up appointment for patient with Dr. Doyle, ENT. warranty manager faxed patients information to the office of Dr. Doyle. Clinic will call patient with appointment information.
--- NOTE | 2020-03-29 07:39 | DCPLANNER ---
Nat from Dr. Bailon, ENT, called employment case manager stating that the clinic was unable to reach patient. Clinic will mail patient a letter asking patient to contact the clinic to schedule an appointment. car inspection and repair manager was unable to reach patient at this time as well.
== END 2020-03-24 06:44 | disposition home or self-care (01) ==
PROVIDERS: Emergency Provider Family Medicine; PCP Family Medicine
DX: H92.02 Otalgia, left ear (principal)
CPT/HCPCS: 12345; 99281; 99282; J1885

== ENCOUNTER 2020-04-07 15:08 | Emergency (ER) | payer SELFPAY ==
[2020-04-07 15:35] VITALS: BP 172/105; PULSE 84; RESP 18; TEMP 36.5; O2SAT 100; BMI 37.0
--- NOTE | 2020-04-07 15:45 | XRR_ITS ---
PROCEDURE INFORMATION: Exam: XR Chest, 1 View Exam date and time: 04/07/2020 5:17 PM Age: 54 years old Clinical indication: Other: Hbp; Patient HX: High blood pressure; Additional info: HTN, cp TECHNIQUE: Imaging protocol: XR of the chest Views: 1 view. COMPARISON: CR Chest 1 [place] [id number] 05/17/2017 8:29 AM FINDINGS: Lungs: Unremarkable. No consolidation. Pleural space: Unremarkable. No pleural effusion. No pneumothorax. Heart/Mediastinum: Unremarkable. No cardiomegaly. Bones/joints: Unremarkable. XR/XR chest 1V portable [id number] IMPRESSION: No acute findings.
--- NOTE | 2020-04-07 17:45 | ECG_ITS ---
[facility] Test Date: 2020-04-07 Pat Name: Madison Maharaj Department: Room: Gender: Female Stave Block Roller: : 1965 Requested By: Jaydon Rios Order Number: [id number] Linh MD: Ladan Haines M.D. Measurements Intervals [place] Rate: 79 P: 63 [place]: 168 QRS: 59 QRSD: 98 T: 55 QT: 399 QTc: 460 Interpretive Statements SINUS RHYTHM Compared to ECG 12/11/2019 16:50:06 Incomplete right bundle-branch block no longer present Myocardial infarct finding no longer present Electronically Signed On 04-08-2020 8:55:47 CDT by Ladan Haines M.D. [id number]
[2020-04-07 20:24] VITALS: BP 185/117; PULSE 76; RESP 16; O2SAT 98
[2020-04-07 21:04] LABS: Basophils # 0.1 10^3/uL (0.0-0.1); Basophils % 0.6 %; Eosinophils # 0.2 10^3/uL (0.0-0.8); Hematocrit 42.1 % (37.0-47.0); Hemoglobin 13.4 g/dL (11.5-15.3); Lymphocytes # 3.3 10^3/uL (0.8-4.8); Lymphocytes % 35.7 %; Mean Corpuscular HGB Conc 31.8 g/dL (30.0-36.0); Mean Corpuscular Hemoglobin 29.8 pg (28.0-34.0); Mean Corpuscular Volume 93.8 fL (81-99); Mean Platelet Volume 9.5 fL (7.4-10.4); Monocytes # 0.7 10^3/uL (0.2-0.9); Monocytes % 7.3 %; Neutrophils # 5.03 10^3/uL (1.8-7.7); Neutrophils % 54.1 %; Nucleated Red Blood Cells % 0 %; Platelet Count 264 10^3/cmm (130-400); Red Blood Count 4.49 10^6/uL (4.1-5.3); Red Cell Distribution Width 12.7 % (12.1-15.1); White Blood Count 9.3 10^3/uL (4.0-10.0)
--- NOTE | 2020-04-07 21:07 | ED_ITS ---
HPI - Chest Pain General: Chief Complaint: Chest Pain Stated Complaint: HIGH BLOOD PRESSURE Time Seen by Provider: 04/07/20 21:02 History of Present Illness: Associated symptoms: Deny abdominal pain, dyspnea, fever(s), nausea or vomiting Review of Systems Const: Denies: fever(s), chills, body aches or change in appetite Eyes: Denies: blurry vision or eye discomfort ENMT: Denies: throat pain or dental pain Card: Denies: chest pain Resp: Denies: dyspnea GI: Denies: abdominal pain, nausea, vomiting or diarrhea : Denies: dysuria Musc: Denies: neck pain or back pain Skin/Breast: Denies: rash Neuro: Denies: headache(s) Psych: Denies: depression Sergio/Lymph: Denies: easy bruising All/Imm: Denies: urticaria PFSH ED PFSH: Social History Smoking and tobacco status: never smoked Alcohol intake: never Current gender identity: Female Physical Exam Const: COMMON NORMALS: no acute distress, patient oriented x3 and healthy appearing HENMT: COMMON NORMALS: normocephalic and atraumatic HEAD & SCALP: normocephalic and atraumatic Eye: COMMON NORMALS: Equal, round and reactive pupils present and EOMs intact bilaterally PUPIL: Yes Equal, round and reactive pupils present Neck/C-Spine: COMMON NORMALS: full ROM and supple Chest: COMMONS NORMALS: normal inspection of the chest and normal palpation of entire chest wall Resp: COMMON NORMALS: normal respiratory effort, No retractions, No use of accessory muscles and clear to auscultation bilaterally AUSCULTATION: clear to auscultation bilaterally Cardio: COMMON NORMALS: regular rate, regular rhythm and No murmurs present (Cardio) RATE: regular rate RHYTHM: regular rhythm GI: COMMON NORMALS: Normal to inspection, nondistended, normoactive bowel sounds present, Soft to palpation, non-tender and no masses PALPATION: Yes Soft to palpation Extremity: COMMON NORMALS: normal to inspection and full ROM Neuro: COMMON NORMALS: patient oriented x3, moves all extremities and no focal motor deficits Psych: COMMON NORMALS: mental status grossly normal, Normal thought process present and cooperative THOUGHT PROCESS: Normal thought process present Skin: COMMON NORMALS: no rashes or lesions noted and no wounds GENERAL SKIN EXAM: no rashes or lesions noted Course Vital Signs: Vital signs: Vital Signs Temperature 97.7 F 04/07/20 15:35 Pulse Rate 70 04/07/20 21:30 Respiratory Rate 15 04/07/20 21:30 Blood Pressure 183/113 04/07/20 21:30 Pulse Oximetry 98 04/07/20 21:30 MDM - Chest Pain MDM Narrative: Medical decision making narrative: Patient presents here with hypertension. Patient feels improved here and her blood work here is all normal. Her blood pressure has improved here as well. We will start her on lisinopril and she is to monitor her blood pressure 3 times a day and follow-up with PCP in 1 week. She is to return if worsening. Lab Data: Labs: Lab Results 04/07/20 04/07/20 04/07/20 Range/Units 20:51 20:51 20:51 WBC 9.3 (4.0-10.0) 10^3/ uL RBC 4.49 (4.1-5.3) 10^6/u L Hgb 13.4 (11.5-15.3) g/dL Hct 42.1 (37.0-47.0) % MCV 93.8 (81-99) fL MCH 29.8 (28.0-34.0) pg MCHC 31.8 (30.0-36.0) g/dL RDW 12.7 (12.1-15.1) % Plt Count 264 (130-400) 10^3/c mm MPV 9.5 (7.4-10.4) fL Neut % (Auto) 54.1 % Lymph % (Auto) 35.7 % [place] % (Auto) 7.3 % Eos % (Auto) 2.0 % Baso % (Auto) 0.6 % Neut # (Auto) 5.03 (1.8-7.7) 10^3/u L Lymph # (Auto) 3.3 (0.8-4.8) 10^3/u L [place] # (Auto) 0.7 (0.2-0.9) 10^3/u L Eos # (Auto) 0.2 (0.0-0.8) 10^3/u L Baso # (Auto) 0.1 (0.0-0.1) 10^3/u L Nucleated RBC % (a uto) 0 % Nucleated RBCs # 0.0 /100WBC Sodium 136 (136-145) mmol/L Potassium 3.7 (3.5-5.1) mmol/L Chloride 104 (98-107) mmol/L Carbon Dioxide 19 L (22-29) mmol/L Anion Gap 16.7 (5-19) BUN 9 (6-20) mg/dL Creatinine 0.9 (0.5-0.9) mg/dL GFR Calculation 65.8 L (90-130) mL/min Glucose 101 (65-115) mg/dL Calculated Osmolal ity 281 L (285-295) mOsm/k g Calcium 9.7 (8.5-10.5) mg/dL Total Bilirubin 0.2 (0.15-1.2) mg/dL AST 14 (0-32) U/L ALT 11 (0-33) U/L Alkaline Phosphata se 131 H (35-105) IU/L Troponin T Baselin e 6 (0-10) ng/L Total Protein 7.8 (6.6-8.7) g/dL Albumin 4.8 (3.5-5.2) g/dL Globulin 3.0 (1.3-4.6) g/dL EKG Data^: EKG 1: Attestation: I personally reviewed and interpreted this EKG as follows: EKG interpretation date: 04/07/20 EKG interpretation time: 15:42 Interpretation: nsr hr [address] or t wave abnormalities qrs 89 qtc 410 EKG 2: Attestation: I personally reviewed and interpreted this EKG as follows: EKG interpretation date: 04/07/20 EKG interpretation time: 17:50 Interpretation: nsr hr [address] or t wave abnormalities qrs 98 qtc 434 Discharge Plan Discharge Patient Disposition: Home Clinical Impression: Hypertension Qualifiers: Hypertension type: essential hypertension Qualified Code(s): I10 - Essential (primary) hypertension Condition: Stable Prescriptions: New lisinopril 10 mg tablet 10 mg PO DAILY Qty: 30 RF: 0 No Action quetiapine [Seroquel] 100 mg Tablet 100 mg PO DAILY RF: 0 temazepam 15 mg Capsule 15 mg PO BEDTIME RF: 0 ibuprofen 200 mg Tablet 200 - 400 mg PO Q4H PRN (Reason: FEVER/PAIN) RF: 0 Discharge Orders: Discharge Order (Routine); Ordered 04/07/20 Ordered By: Kristi Blanco Referrals: Jacqueline Call MD [Primary Care Provider] - 1-3 days Discharge Diet: Advance as tolerated Discharge Activity: Resume usual activity Patient Instructions: Hypertension (ED) Coding Level of Care Code ED 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
[2020-04-07 21:20] LABS: Troponin(5th) Baseline 6 ng/L (0-10)
[2020-04-07 21:22] LABS: Alanine Aminotransferase 11 U/L (0-33); Albumin Level 4.8 g/dL (3.5-5.2); Alkaline Phosphatase 131 IU/L (35-105); Anion Gap 16.7 (5-19); Aspartate Amino Transferase 14 U/L (0-32); Blood Urea Nitrogen 9 mg/dL (6-20); Calcium 9.7 mg/dL (8.5-10.5); Carbon Dioxide 19 mmol/L (22-29); Chloride 104 mmol/L (98-107); Glomerular Filtration Rate 65.8 mL/min (90-130); Glucose 101 mg/dL (65-115); Osmolality Calculated 281 mOsm/kg (285-295); Potassium 3.7 mmol/L (3.5-5.1); Sodium 136 mmol/L (136-145); Total Bilirubin 0.2 mg/dL (0.15-1.2); Total Protein 7.8 g/dL (6.6-8.7)
[2020-04-07 21:30] VITALS: BP 183/113; PULSE 70; RESP 15; O2SAT 98
[2020-04-07] MEDS: hyDRALAzine 20 mg/mL INJ 1 mL 10 MG IVP (21:31)
[2020-04-07 21:50] VITALS: BP 175/92; PULSE 71; RESP 15; O2SAT 99
[2020-04-07 22:00] VITALS: BP 175/92; PULSE 70; RESP 19; TEMP 36.5; O2SAT 98
== END 2020-04-07 22:00 | disposition home or self-care (01) ==
PROVIDERS: Nurse Practitioner Family; Emergency Provider Emergency Medicine; PCP Family Medicine
DX: I10 Essential (primary) hypertension (principal)
CPT/HCPCS: 12345; 36415; 71045; 80053; 84484; 85025; 93005; 96374; 96375; 99283; J0360

== ENCOUNTER 2020-10-13 18:58 | Outpatient (CLI) | payer SELFPAY ==
--- NOTE | 2020-10-13 19:19 | XRR_ITS ---
PROCEDURE INFORMATION: Exam: XR Pelvis Exam date and time: 10/13/2020 7:29 PM Age: 55 years old Clinical indication: Pelvic pain; Prior surgery; Surgery date: 6+ months; Additional info: Bony pelvic pain TECHNIQUE: Imaging protocol: XR pelvis. Views: 1 or 2 view. COMPARISON: No relevant prior studies available. FINDINGS: Bones/joints: There are postsurgical changes of posterior spinal fusion not completely included on this examination. There are pedicle screws into the pedicles at L3 through S2 and also into both iliac bones. There is old healed fracture of the right inferior pubic ramus. No acute fracture is identified. Soft tissues: Unremarkable. XR/XR pelvis 1-2V* [id number] IMPRESSION: 1. No acute fracture is identified. 2. Postsurgical findings.
== END 2020-10-13 18:59 | disposition home or self-care (01) ==
LOC: RAD 19:02
PROVIDERS: PCP Family Medicine; Visit Provider Nurse Practitioner
DX: M89.8X8 Other specified disorders of bone, other site (principal)
CPT/HCPCS: 72170

== ENCOUNTER 2020-10-15 14:58 | Emergency (ER) | payer SELFPAY ==
[2020-10-15 15:28] VITALS: BP 172/112; PULSE 82; RESP 18; TEMP 37.3; O2SAT 100; BMI 42.0
--- NOTE | 2020-10-15 15:43 | W.ED.EXTPRO ---
HPI - Extremity Problem General: Chief complaint: Extremity Problem,Nontraumatic Stated complaint: Right elbow pain Time Seen by Provider: 10/15/20 15:35 Source: patient Mode of arrival: ambulatory Limitations: no limitations History of Present Illness: HPI Narrative: 55-year-old female who has history of chronic right elbow pain. She has had multiple surgeries on her right elbow in the past. Housework yesterday and thinks she strained that elbow. States she woke up this morning with severe pain is much worse with any movement. States is improved with rest. She rates her pain a 7 out of 10. Denies any fevers. Denies any vomiting or diarrhea. MD Complaint: extremity pain Associated symptoms: Deny chest pain, fever(s) or rash Review of Systems Const: Denies: fever(s), chills, body aches or change in appetite Eyes: Denies: blurry vision or eye discomfort ENMT: Denies: throat pain or dental pain Card: Denies: chest pain Resp: Denies: dyspnea GI: Denies: abdominal pain, nausea, vomiting or diarrhea : Denies: dysuria Musc: Reports: joint pain Skin/Breast: Denies: rash Neuro: Denies: headache(s) Psych: Denies: depression Sergio/Lymph: Denies: easy bruising All/Imm: Denies: urticaria PFSH ED PFSH: Social History Smoking and tobacco status: never smoked Alcohol intake: never Current gender identity: Female Physical Exam Const: COMMON NORMALS: no acute distress, patient oriented x3 and healthy appearing HENMT: COMMON NORMALS: normocephalic and atraumatic HEAD & SCALP: normocephalic and atraumatic Eye: COMMON NORMALS: Equal, round and reactive pupils present and EOMs intact bilaterally PUPIL: Yes Equal, round and reactive pupils present Neck/C-Spine: COMMON NORMALS: full ROM and supple Chest: COMMONS NORMALS: normal inspection of the chest and normal palpation of entire chest wall Resp: COMMON NORMALS: normal respiratory effort, No retractions, No use of accessory muscles and clear to auscultation bilaterally AUSCULTATION: clear to auscultation bilaterally Cardio: COMMON NORMALS: regular rate, regular rhythm and No murmurs present (Cardio) RATE: regular rate RHYTHM: regular rhythm GI: COMMON NORMALS: Normal to inspection, nondistended, normoactive bowel sounds present, Soft to palpation, non-tender and no masses PALPATION: Yes Soft to palpation Extremity: COMMON NORMALS: full ROM NARRATIVE EXTREMITY EXAM: Multiple scars to right elbow from previous surgeries no warmth to touch. Patient does have range of motion but has pain with range of motion. Distal pulses and sensation intact. Neuro: COMMON NORMALS: patient oriented x3, moves all extremities and no focal motor deficits Psych: COMMON NORMALS: mental status grossly normal, Normal thought process present and cooperative THOUGHT PROCESS: Normal thought process present Skin: COMMON NORMALS: no rashes or lesions noted and no wounds GENERAL SKIN EXAM: no rashes or lesions noted Course Vital Signs: Vital signs: Vital Signs Temperature 99.1 F 10/15/20 15:28 Pulse Rate 82 10/15/20 15:28 Respiratory Rate 18 10/15/20 15:28 Blood Pressure 172/112 10/15/20 15:28 Pulse Oximetry 100 10/15/20 15:28 MDM - Extremity (Nontraumatic) MDM Narrative: Medical decision making narrative: Patient presents with elbow pain that is chronic in nature. X-ray showed no acute abnormalities. 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 She has full range of motion of her arm here. She has had multiple surgeries on her arm as well. We will place her in a sling write her pain meds and she is to follow-up with PCP in 2 to 4 days. She is return if worsening. She understands agrees to plan. Imaging Data^: Xray Ortho: Attestation: I personally reviewed and interpreted this imaging study as follows: Radiologist's impression: [address] [address] XRay Report Signed Patient: Madison Maharaj Unit #: [id number] : 1965 Age/Sex: 55 / F ADM Date: 10/15/20 Loc: ER Room/Bed: Attending Dr: Ordering Provider/Ordering MD: Kristi Blanco MD Date of Service: 10/15/20 Procedure(s): XR elbow RT min 3V* [id number] Accession Number(s): [id number] Report Number: [id number] PROCEDURE INFORMATION: Exam: XR Right Elbow Exam date and time: 10/15/2020 3:42 PM Age: 55 years old Clinical indication: Pain; Elbow; Right; Prior surgery TECHNIQUE: Imaging protocol: XR Right elbow. Views: 3 or more views. COMPARISON: No relevant prior studies available. FINDINGS: Bones/joints: Severe arthritis. Subluxation of elbow joint. Radius and olecranon on positioned posteriorly. Erosive changes of radial head, likely chronic impaction by the distal humerus. Sclerotic remodeling changes distal humeral bone and flattening of the cortical bone. Diffuse osteophytic spurring. Probably elbow joint effusion. Soft tissues: No significant finding. XR/XR elbow RT min 3V* [id number] IMPRESSION: 1. There is subluxation of the elbow joint with likely chronic impaction of the humerus upon the coronoid process region of the ulna and the radial head causing chronic osseous remodeling changes and severe productive osteoarthritis changes. Acute injury cannot be excluded. 2. Prior elbow radiographs from 11/15/2018 were not available for review at the time of this interpretation; recommend correlation with those images. Dictated By: Rodney Abebe Signed By: Rodney Abebe Signed Date/Time: 10/15/201615 DD/ 14 Discharge Plan Discharge Patient Disposition: Home Clinical Impression: Elbow pain, right Condition: Stable Prescriptions: New hydrocodone-acetaminophen 5-325 mg tablet 1 tab PO Q6H PRN (Reason: pain) Qty: 10 RF: 0 No Action quetiapine [Seroquel] 100 mg Tablet 100 mg PO DAILY RF: 0 temazepam 15 mg Capsule 15 mg PO BEDTIME RF: 0 ibuprofen 200 mg Tablet 200 - 400 mg PO Q4H PRN (Reason: FEVER/PAIN) RF: 0 lisinopril 10 mg tablet 10 mg PO DAILY Qty: 30 RF: 0 Discharge Orders: Discharge ED (Routine); Ordered 10/15/20 Ordered By: Kristi Blanco Referrals: Jacqueline Call MD [Primary Care Provider] - 1-3 days Discharge Diet: Advance as tolerated Discharge Activity: Resume usual activity Patient Instructions: Elbow Sprain (ED), Opioid Safety Coding Level of Care Code ED Discount Clerk for [facility] Fwd Exam Comprehensive
[2020-10-15] MEDS: HYDROcodone-acetaminophen 5-325 mg Tablet 1 TAB PO (15:49)
== END 2020-10-15 16:29 | disposition home or self-care (01) ==
PROVIDERS: Emergency Provider Emergency Medicine; PCP Family Medicine
DX: M25.521 Pain in right elbow (principal)
CPT/HCPCS: 73080; 99283

== ENCOUNTER 2021-02-22 12:32 | Emergency (ER) | payer SELFPAY ==
[2021-02-22 13:16] VITALS: BP 168/120; PULSE 83; RESP 18; TEMP 36.7; O2SAT 96
--- NOTE | 2021-02-22 15:43 | CT_ITS ---
WS: [id number] CT ABDOMEN AND PELVIS WITH CONTRAST HISTORY: rule out LEFT sided pelvic mass TECHNIQUE: Imaging performed of the abdomen and pelvis with IV contrast. Single phase imaging of the abdomen. Coronal and sagittal reformats are submitted. All CT scans at [facility] use at least one of these dose optimization techniques: automated exposure control; mA and/or kV adjustment per patient size (includes targeted exams where dose is matched to clinical indication); or iterativ e reconstruction. IV CONTRAST: Omnipaque 300; 95 mL IV. Oral contrast: No DLP: 1608.96 mGy.cm COMPARISON: 12/11/2019 Lower thorax: Lung bases are clear. Heart is normal size. Small hiatal hernia. Prior gastric banding. Liver/biliary system: Normal size with no intrahepatic dilatation. Gallbladder: Status post cholecystectomy. Pancreas: Normal size pancreas and pancreatic duct. No adjacent inflammation. Spleen: Normal size spleen. No mass or infarct. Adrenal glands: Normal. Right kidney: Normal. Left kidney: Normal. Aorta: Normal. Lymphadenopathy: None. Free fluid: None. GI tract: Appendix is not identified. No GI tract obstruction. No diverticulitis or diverticulosis. Abdominal wall: Very small fat-containing umbilical hernia. Pelvis: No free fluid or adenopathy within the pelvis. Bones: Posterior lumbar fusion hardware from L2 to S1. Prior healed fracture RIGHT superior and infer ior pubic rami. CT/CT abdomen pelvis w con* [id number] IMPRESSION: 1. No pelvic mass. 2. Prior cholecystectomy. 3. Appendix not identified may been surgically removed. 4. Prior gastric banding. 5. No ascites or adenopathy.
[2021-02-22 16:04] LABS: Basophils # 0.1 10^3/uL (0.0-0.1); Basophils % 0.6 %; Eosinophils # 0.3 10^3/uL (0.0-0.8); Eosinophils % 2.4 %; Hemoglobin 12.8 g/dL (11.5-15.3); Lymphocytes # 2.6 10^3/uL (0.8-4.8); Lymphocytes % 23.8 %; Mean Corpuscular HGB Conc 31.2 g/dL (30.0-36.0); Mean Corpuscular Hemoglobin 29.2 pg (28.0-34.0); Mean Corpuscular Volume 93.6 fL (81-99); Mean Platelet Volume 9.4 fL (7.4-10.4); Monocytes # 0.9 10^3/uL (0.2-0.9); Monocytes % 7.8 %; Neutrophils # 7.02 10^3/uL (1.8-7.7); Neutrophils % 64.8 %; Nucleated Red Blood Cells % 0 %; Platelet Count 305 10^3/cmm (130-400); Red Blood Count 4.38 10^6/uL (4.1-5.3); Red Cell Distribution Width 14.6 % (12.1-15.1); White Blood Count 10.8 10^3/uL (4.0-10.0)
[2021-02-22] MEDS: iohexol 300 mg/mL 100 mL Btl IV (16:10)
[2021-02-22 16:14] LABS: Add Urine Microscopic? YES; Bilirubin Urine Neg (Negative); Blood Urine Neg (Negative); Glucose Urine UA Norm (Normal); Ketones Urine Negative (Negative); Leukocyte Esterase Urine 2+ (Negative); Nitrate Urine Negative (Negative); Protein Urine Neg (Negative); Urine Appearance Hazy (CLEAR); Urine Color Yellow (Yellow); Urobilinogen Urine Norm (Negative); pH Urine 6.5 (5-7)
[2021-02-22 16:16] LABS: Add Urine Culture? No; Bacteria Urine 2+ /hpf; Squamous Epithelial Cell Urine 25-40 /hpf (0-5); WBC Urine 15-25 /hpf (0-5)
--- NOTE | 2021-02-22 16:21 | USR_ITS ---
PROCEDURE INFORMATION: Exam: US Pelvis, Transvaginal Exam date and time: 02/22/2021 4:21 PM Age: 55 years old Clinical indication: Pelvic pain. Uterine ablation. Left ovary removal for cysts. Five months of severe left-sided pain. Evaluate for lesion. TECHNIQUE: Imaging protocol: Real-time transvaginal pelvic ultrasound with image documentation. Transvaginal imaging was used for better evaluation of the endometrium, adnexa, and/or cervix. COMPARISON: CT abdomen pelvis w con* [id number] 02/22/2021 3:56 PM FINDINGS: The uterus measures 6.1 x 1.8 x 3.4 cm. The endometrial stripe measures 0.1 cm in thickness. A nabothian cyst is noted in the cervix. The right ovary measures 2.5 x 1.6 x 2.8 cm. No suspicious lesion is seen in the right ovary. The left ovary has been removed. Doppler interrogation of the right ovary reveals high resistance arterial blood flow. There is no free pelvic fluid. The postvoid residual is 289 cc. There is apparent dependent debris in the bladder. US/US transvaginal [id number] IMPRESSION: 1. Normal appearing right ovary. The blood flow in the right ovary appears high resistance. Correlate for right pelvic pain. 2. Large postvoid residual (289 cc). Apparent dependent debris in the bladder. Correlate with urinalysis to assess for cystitis. 3. Status post left oophorectomy.
[2021-02-22 17:02] LABS: Alanine Aminotransferase 13 U/L (0-33); Albumin Level 3.8 g/dL (3.5-5.2); Alkaline Phosphatase 131 IU/L (35-105); Anion Gap 14.2 (5-19); Aspartate Amino Transferase 14 U/L (0-32); Blood Urea Nitrogen 14 mg/dL (6-20); Calcium 8.2 mg/dL (8.5-10.5); Carbon Dioxide 25 mmol/L (22-29); Chloride 103 mmol/L (98-107); Globulin 3.1 g/dL (1.3-4.6); Glucose 117 mg/dL (65-115); Lipase 31 U/L (13-60); Osmolality Calculated 290 mOsm/kg (285-295); Potassium 3.2 mmol/L (3.5-5.1); Sodium 139 mmol/L (136-145); Total Bilirubin 0.3 mg/dL (0.15-1.2); Total Protein 6.9 g/dL (6.6-8.7)
[2021-02-22] MEDS: ketorolac 30 mg/mL INJ IVP (17:20)
[2021-02-22] MEDS: acetaminophen 500 mg Tablet PO (17:20)
[2021-02-22 17:24] VITALS: BP 181/107; PULSE 84; RESP 18; TEMP 37.1; O2SAT 98
--- NOTE | 2021-02-22 17:39 | ED_ITS ---
HPI - Female Genitourinary General: Chief complaint: Urogenital-Female Stated complaint: states feels like prolapsed uterus Time Seen by Provider: 02/22/21 14:51 History of Present Illness: HPI Narrative: Patient is a 55-year-old female presents the emergency room with complaints of worsening left pelvic pain for the last year. Patient states that since 5 days ago this pain has gotten worse. Patient describes intermittent cramping pain upon ambulating. Patient denies any history of vaginal prolapse, vaginal discharge, dysuria, hematuria, or any recent sexual activity. No history of GC or complaining a past. Patient says that since that time, she also has difficulty urinating. She has a history of prior spinal fusion from more than 10 years ago denies any recent trauma or fall. Patient denies any saddle symptoms, difficulty stooling, melena or hematochezia, lower extremity weakness or numbness. Patient tells me that over the last 5 days, she has only been able to urinate a small amount. Onset: 5 days ago acutely, 1 year chronically Duration: 1 year Location: home severity moderate Review of Systems Narrative: Constitutional: no subjective fever, no generalized weakness HEENT: No vision changes CV: No chest pain, no palpitations PULM: no cough, nodyspnea. GI: No abdominal pain, no N/V/D. : No dysuria, +L pelvic pain MSKEL: No muscle pain SKIN: No new rashes, no lesions. NEURO: No headache, no focal weakness. HEME: No visible bruises PSYCH: Normal mood PFSH ED PFSH: Social History Smoking and tobacco status: never smoked Alcohol intake: never Current gender identity: Female Physical Exam Narrative: EXAM NARRATIVE: Head: Atraumatic Eyes: PERRL, conjunctiva without injection ENT: Mucous membrane moist NECK: Supple without lymphadenopathy LUNGS: LCAB, no crackles/rhonchi or rales CV: RRR ABDOMEN: Soft, nontender in all quadrants, no guarding or rebound tenderness EXTREMITY: Normal ROM, 5/5 strength in all extremities, SKIN: No rash or erythema NEURO: Awake and alert. No focal motor deficits. no saddle anesthesia, sensation intact in the lower extremities PSYCH: Normal mood and affect. : Exam supervised by patient's nurse provider. External genitalia intact, mild discharge in the vaginal vault, no visbile protruding prolapse, +moderate L adnexal tenderness, no CMT or cervical drainage BACK: Well-healed scar in the lumbar area, no fluctuance, no induration, no erythema in the lumbar region. Course Vital Signs: Vital signs: Vital Signs Temperature 98.8 F 02/22/21 18:36 Pulse Rate 87 02/22/21 18:36 Respiratory Rate 16 02/22/21 18:36 Blood Pressure 166/90 02/22/21 18:36 Pulse Oximetry 99 02/22/21 18:36 MDM - Female MDM Narrative: Medical decision making narrative: Patient is a 55-year-old female who presents the emergency room with complaints of left pelvic pain x1 year now acutely worsening x5 days in the setting of decreased urinary output. On exam, patient has left-sided's adnexal tenderness and mild vaginal discharge. She does not have any signs of cauda equina. It is unclear what is a source of urinary retention. Patient has been observed to make 20cc urine in the emergency room. After voiding, patient is noted to still have a [address] abdomen pelvis did not show any signs of focal infection or other IMPREGNATING MACHINE OPERATOR pathologies. Patient was offered a Hawkins catheter for which she agrees. Have discussed with patient that she needs to follow-up with her primary care doctor as well as a IMPREGNATING MACHINE OPERATOR provider for further evaluation of her pain. It is unclear at this point time what is the cause of her symptoms. UA showed WBC with bacteria. Will treat as UTI today. At 7PM, patient was successfully able to void. There are debris of the bladder on US and I have informed patient to follow up with her PCP for this finding. Increased resistance seen on ultrasound report of the right side. Patient has no right-sided adnexal tenderness. No suspicion for IMPREGNATING MACHINE OPERATOR pathology on the right pelvis. I have discussed findings extensively with patient. Rx cephalexin BID x 7 days She is given strict return precautions any worsening pain, increased drainage, dysuria, urinary retention, or any complication from the Hawkins. Lab Data: Labs: Lab Results 02/22/21 02/22/21 02/22/21 Range/Units 15:25 16:00 16:00 WBC 10.8 H (4.0-10.0) 10^3/ uL RBC 4.38 (4.1-5.3) 10^6/u L Hgb 12.8 (11.5-15.3) g/dL Hct 41.0 (37.0-47.0) % MCV 93.6 (81-99) fL MCH 29.2 (28.0-34.0) pg MCHC 31.2 (30.0-36.0) g/dL RDW 14.6 (12.1-15.1) % Plt Count 305 (130-400) 10^3/c mm MPV 9.4 (7.4-10.4) fL Neut % (Auto) 64.8 % Lymph % (Auto) 23.8 % [place] % (Auto) 7.8 % Eos % (Auto) 2.4 % Baso % (Auto) 0.6 % Neut # (Auto) 7.02 (1.8-7.7) 10^3/u L Lymph # (Auto) 2.6 (0.8-4.8) 10^3/u L [place] # (Auto) 0.9 (0.2-0.9) 10^3/u L Eos # (Auto) 0.3 (0.0-0.8) 10^3/u L Baso # (Auto) 0.1 (0.0-0.1) 10^3/u L Nucleated RBC % (a uto) 0 % Nucleated RBCs # 0.0 /100WBC Sodium 139 (136-145) mmol/L Potassium 3.2 L (3.5-5.1) mmol/L Chloride 103 (98-107) mmol/L Carbon Dioxide 25 (22-29) mmol/L Anion Gap 14.2 (5-19) BUN 14 (6-20) mg/dL Creatinine 1.0 H (0.5-0.9) mg/dL GFR Calculation 58.0 L (90-130) mL/min Glucose 117 H (65-115) mg/dL Calculated Osmolal ity 290 (285-295) mOsm/k g Calcium 8.2 L (8.5-10.5) mg/dL Total Bilirubin 0.3 (0.15-1.2) mg/dL AST 14 (0-32) U/L ALT 13 (0-33) U/L Alkaline Phosphata se 131 H (35-105) IU/L Total Protein 6.9 (6.6-8.7) g/dL Albumin 3.8 (3.5-5.2) g/dL Globulin 3.1 (1.3-4.6) g/dL Lipase 31 (13-60) U/L Urine Color Yellow (Yellow) Urine Appearance Hazy A (CLEAR) Urine pH 6.5 (5-7) Ur Specific Gravit y 1.010 (1.005-1.030) Urine Protein Neg (Negative) Urine Glucose (UA) Norm (Normal) Urine Ketones Negative (Negative) Urine Blood Neg (Negative) Urine Nitrate Negative (Negative) Urine Bilirubin Neg (Negative) Urine Urobilinogen Norm (Negative) mg/dL Ur Leukocyte Geri ase 2+ H (Negative) Urine RBC None (0-2) /hpf Urine WBC 15-25 H (0-5) /hpf Ur Squamous Epith Cells 25-40 H (0-5) /hpf Amorphous Sediment Not Reportable Urine Bacteria 2+ H (NONE) /hpf Imaging Data: Other Imaging: Radiologist's impression: [address] [id number] Scan ReportSigned Patient: Madison Maharaj #: [id number]: 1965Acct#:[id number]/Sex: 55 / FADM Date: 02/22/21Loc: ERRoom/Bed:Attending Dr: Ordering Provider/Ordering MD: Joseph Parker MD Date of Service: 02/22/21 Procedure(s): CT abdomen pelvis w con* [id number] Accession Number(s): [id number] Report Number: [id number] WS: [id number] CT ABDOMEN AND PELVIS WITH CONTRAST HISTORY: rule out LEFT sided pelvic mass TECHNIQUE: Imaging performed of the abdomen and pelvis with IV contrast. Single phase imaging of the abdomen. Coronal and sagittal reformats are submitted. All CT scans at [facility] use at least one of these dose optimization techniques: automated exposure control; mA and/or kV adjustment per patient size (includes targeted exams where dose is matched to clinical indication); or iterative reconstruction. IV CONTRAST: Omnipaque 300; 95 mL IV. Oral contrast: No DLP: 1608.96 mGy.cm COMPARISON: 12/11/2019 Lower thorax: Lung bases are clear. Heart is normal size. Small hiatal hernia. Prior gastric banding. Liver/biliary system: Normal size with no intrahepatic dilatation. Gallbladder: Status post cholecystectomy. Pancreas: Normal size pancreas and pancreatic duct. No adjacent inflammation. Spleen: Normal size spleen. No mass or infarct. Adrenal glands: Normal. Right kidney: Normal. Left kidney: Normal. Aorta: Normal. Lymphadenopathy: None. Free fluid: None. GI tract: Appendix is not identified. No GI tract obstruction. No diverticulitis or diverticulosis. Abdominal wall: Very small fat-containing umbilical hernia. Pelvis: No free fluid or adenopathy within the pelvis. Bones: Posterior lumbar fusion hardware from L2 to S1. Prior healed fracture RIGHT superior and inferior pubic rami. CT/CT abdomen pelvis w con* [id number] IMPRESSION: 1. No pelvic mass. 2. Prior cholecystectomy. 3. Appendix not identified may been surgically removed. 4. Prior gastric banding. 5. No ascites or adenopathy. Dictated By:Cherri Martinez DOSigned By:Cherri Martinez DOSigned Date/Time:02/22/21 1612 Discharge Plan Discharge Patient Disposition: Home Clinical Impression: Pelvic pain Condition: Stable Prescriptions: New cephalexin 500 mg capsule 500 mg PO BID 7 Days Qty: 14 RF: 0 No Action tizanidine 2 mg capsule 2 mg PO TID PRN (Reason: MUSCLE SPASMS) RF: 0 temazepam 15 mg Capsule 30 mg PO BEDTIME RF: 0 ibuprofen 200 mg Tablet 200 - 400 mg PO Q4H PRN (Reason: FEVER/PAIN) RF: 0 lisinopril 10 mg tablet 10 mg PO DAILY Qty: 30 RF: 0 quetiapine 50 mg tablet 50 mg PO DAILY RF: 0 Discharge Orders: Discharge ED (Routine); Ordered 02/22/21 Ordered By: Joseph Parker Referrals: Jacqueline Call MD [Primary Care Provider] - Discharge Diet: Usual diet Discharge Activity: Resume usual activity Patient Instructions: Pelvic Pain Coding Level of Care Code ED Accounts Payable Coordinator for Dami Mendez
[2021-02-22 18:36] VITALS: BP 166/90; PULSE 87; RESP 16; TEMP 37.1; O2SAT 99
--- NOTE | 2021-02-26 14:04 | DCPLANNER ---
Patient called field case manager asking about a referral to [facility]. molding manager looked to an order for the referral, there was no order, but physician mentioned in notes that patient would need to follow up with [facility]. molding manager called [facility], gave clinic patients information. molding manager was told that patients information would be printed and reviewed. Clinic will call patient with appointment information.
--- NOTE | 2021-03-06 08:28 | DCPLANNER ---
Patient has a follow up appointment scheduled for Friday, March 30, 2021 at 8:[address] Araiza at [facility]. Clinic will call patient with appointment information.
--- NOTE | 2021-04-04 14:52 | DCPLANNER ---
Patient has a followup appointment scheduled with [facility] - this appointment was cancelled.
== END 2021-02-22 18:55 | disposition home or self-care (01) ==
PROVIDERS: Emergency Provider Emergency Medicine; PCP Family Medicine
DX: R10.2 Pelvic and perineal pain (principal)
CPT/HCPCS: 74177; 76830; 80053; 81001; 83690; 85025; 87081; 87205; 87210; 96374; 99283; J1885; Q9967

== ENCOUNTER 2021-02-26 16:27 | Emergency (ER) | payer SELFPAY ==
[2021-02-26 17:36] VITALS: BP 177/115; PULSE 91; RESP 20; TEMP 36.8; O2SAT 98
[2021-02-26 21:15] LABS: Basophils # 0.1 10^3/uL (0.0-0.1); Basophils % 0.5 %; Eosinophils # 0.2 10^3/uL (0.0-0.8); Eosinophils % 2.1 %; Hematocrit 42.3 % (37.0-47.0); Hemoglobin 13.3 g/dL (11.5-15.3); Lymphocytes # 2.6 10^3/uL (0.8-4.8); Lymphocytes % 25.3 %; Mean Corpuscular HGB Conc 31.4 g/dL (30.0-36.0); Mean Corpuscular Hemoglobin 29.8 pg (28.0-34.0); Mean Corpuscular Volume 94.8 fL (81-99); Mean Platelet Volume 9.9 fL (7.4-10.4); Monocytes # 0.7 10^3/uL (0.2-0.9); Monocytes % 7.2 %; Neutrophils # 6.52 10^3/uL (1.8-7.7); Neutrophils % 64.2 %; Nucleated Red Blood Cells % 0 %; Platelet Count 272 10^3/cmm (130-400); Red Blood Count 4.46 10^6/uL (4.1-5.3); Red Cell Distribution Width 14.5 % (12.1-15.1); White Blood Count 10.2 10^3/uL (4.0-10.0)
[2021-02-26 21:42] LABS: Alanine Aminotransferase 11 U/L (0-33); Albumin Level 3.8 g/dL (3.5-5.2); Alkaline Phosphatase 139 IU/L (35-105); Anion Gap 17.6 (5-19); Aspartate Amino Transferase 16 U/L (0-32); Blood Urea Nitrogen 9 mg/dL (6-20); Calcium 8.4 mg/dL (8.5-10.5); Carbon Dioxide 20 mmol/L (22-29); Chloride 102 mmol/L (98-107); Globulin 3.7 g/dL (1.3-4.6); Glucose 106 mg/dL (65-115); Osmolality Calculated 283 mOsm/kg (285-295); Sodium 137 mmol/L (136-145); Total Bilirubin 0.3 mg/dL (0.15-1.2); Total Protein 7.5 g/dL (6.6-8.7)
[2021-02-26 21:44] LABS: Potassium 2.6 mmol/L (3.5-5.1)
--- NOTE | 2021-02-26 21:45 | PC.NURSE ---
lab called and stated that critical low potassium 2.6. reported to dr. bright.
--- NOTE | 2021-02-26 23:53 | CTR_ITS ---
PROCEDURE INFORMATION: Exam: CT Abdomen And Pelvis With Contrast Exam date and time: 02/26/2021 11:53 PM Age: 55 years old Clinical indication: Abdominal pain; Localized; Lower; Prior surgery; Surgery type: Gastric, gb; Additional info: Abd pain. Increased vaginal pain TECHNIQUE: Imaging protocol: Computed tomography of the abdomen and pelvis with contrast. Radiation optimization: All CT scans at this facility use at least one of these dose optimization techniques: automated exposure control; mA and/or kV adjustment per patient size (includes targeted exams where dose is matched to clinical indication); or iterative reconstruction. Contrast material: OMNI 300; Contrast volume: 95 ml; Contrast route: INTRAVENOUS (IV); COMPARISON: CT abdomen pelvis w con* [id number] 02/22/2021 3:56 PM RADIATION DOSE METRICS: Total DLP (mGy-cm): 1541.62 FINDINGS: Lungs: The lung bases are clear. Liver: Unremarkable. Gallbladder and bile ducts: Prior cholecystectomy, no significant biliary tree dilation. Pancreas: Unremarkable. Spleen: Unremarkable. Adrenal glands: Unremarkable. Kidneys and ureters: No hydronephrosis of either kidney. No visible ureteral calculus. No perinephric fluid. The kidneys enhance homogeneously. Stomach and bowel: Prior gastric banding surgery. Possibility of slightly thickened mucosa/wall in the distal antrum of the stomach. This is a nonspecific appearance, and could be transient on CT, but could also represent evidence for gastritis or peptic ulcer disease. Please correlate clinically. There are no CT findings to strongly suggest diverticulitis. Appendix: The appendix is not identified with certainty, however no pericecal inflammatory changes are seen. Intraperitoneal space: No free air, ascites, or bowel distention. Vasculature: No evidence for abdominal aortic aneurysm. Lymph nodes: No retroperitoneal adenopathy. Urinary bladder: Possibly some mild diffuse urinary bladder wall thickening. Evaluation is somewhat limited, as the bladder is not well distended. While nonspecific, this could indicate evidence for cystitis. Please correlate clinically. Reproductive: No definite abnormal ovarian/adnexal cyst or mass by CT. Bones/joints: As before, prior lumbar spine surgical fusion from L2 through S1. Old fractures of the right superior and inferior pubic rami. Soft tissues: Very small umbilical hernia, containing only fat. CT/CT abdomen pelvis w con* [id number] IMPRESSION: 1. No free air or bowel distention. 2. Possible mild urinary bladder wall thickening, see above. 3. No hydronephrosis of either kidney. No visible ureteral calculus. No perinephric fluid. 4. Possible thickened mucosa/wall in the distal stomach, see above discussion. 5. No CT evidence to suggest appendicitis, however a normal appendix is not definitely visible. 6. No diverticulitis. 7. Other findings discussed above. Radiation Dose CTDIVOL = (mGy): DLP = 1541.62 (mGy-cm)
--- NOTE | 2021-02-26 23:59 | ED_ITS ---
HPI - Female Genitourinary General: Chief complaint: Urogenital-Female Stated complaint: PELVIC PAIN/UTI COMPLICATIONS Time Seen by Provider: 02/26/21 23:44 Source: patient and EMS Mode of arrival: EMS Limitations: no limitations History of Present Illness: HPI Narrative: 55-year-old female states that she diagnosed a UTI 4 days ago and states that her symptoms of worsened. She states she is having worsening vaginal pain and dysuria. States her pain is very sharp in nature and rates today 7 out of 10. She denies any vomiting diarrhea. Denies any fever. She is currently on Keflex. Denies any flank pain. Associated symptoms: Reports abdominal pain; Deny headache(s) Review of Systems Const: Denies: fever(s), chills, body aches or change in appetite Eyes: Denies: blurry vision or eye discomfort ENMT: Denies: throat pain or dental pain Card: Denies: chest pain Resp: Denies: dyspnea GI: Reports: abdominal pain : Reports: dysuria Musc: Denies: neck pain or back pain Skin/Breast: Denies: rash Neuro: Denies: headache(s) Psych: Denies: depression Sergio/Lymph: Denies: easy bruising All/Imm: Denies: urticaria PFSH ED PFSH: Social History Smoking and tobacco status: never smoked Alcohol intake: never Current gender identity: Female Physical Exam Const: COMMON NORMALS: no acute distress, patient oriented x3 and healthy appearing HENMT: COMMON NORMALS: normocephalic and atraumatic HEAD & SCALP: normocephalic and atraumatic Eye: COMMON NORMALS: Equal, round and reactive pupils present and EOMs intact bilaterally PUPIL: Yes Equal, round and reactive pupils present Neck/C-Spine: COMMON NORMALS: full ROM and supple Chest: COMMONS NORMALS: normal inspection of the chest and normal palpation of entire chest wall Resp: COMMON NORMALS: normal respiratory effort, No retractions, No use of accessory muscles and clear to auscultation bilaterally AUSCULTATION: clear to auscultation bilaterally Cardio: COMMON NORMALS: regular rate, regular rhythm and No murmurs present (Cardio) RATE: regular rate RHYTHM: regular rhythm GI: COMMON NORMALS: Normal to inspection, nondistended, normoactive bowel sounds present, Soft to palpation, non-tender and no masses PALPATION: Yes So ft to palpation Extremity: COMMON NORMALS: normal to inspection and full ROM Neuro: COMMON NORMALS: patient oriented x3, moves all extremities and no focal motor deficits Psych: COMMON NORMALS: mental status grossly normal, Normal thought process present and cooperative THOUGHT PROCESS: Normal thought process present Skin: COMMON NORMALS: no rashes or lesions noted and no wounds GENERAL SKIN EXAM: no rashes or lesions noted Course Vital Signs: Vital signs: Vital Signs Temperature 98.2 F 02/26/21 17:36 Pulse Rate 84 02/27/21 01:00 Respiratory Rate 18 02/27/21 01:33 Blood Pressure 118/68 02/27/21 01:00 Pulse Oximetry 98 02/27/21 01:00 MDM - Female MDM Narrative: Medical decision making narrative: Patient presents here with pelvic pain CT scan here is negative blood work is normal as well. Her potassium improved after potassium replacement she is stable for discharge. She is to follow-up with PCP and return if worsening. Lab Data: Labs: Lab Results 02/26/21 02/26/21 02/26/21 Range/Units 21:05 21:05 21:05 WBC 10.2 H (4.0-10.0) 10^3/ uL RBC 4.46 (4.1-5.3) 10^6/u L Hgb 13.3 (11.5-15.3) g/dL Hct 42.3 (37.0-47.0) % MCV 94.8 (81-99) fL MCH 29.8 (28.0-34.0) pg MCHC 31.4 (30.0-36.0) g/dL RDW 14.5 (12.1-15.1) % Plt Count 272 (130-400) 10^3/c mm MPV 9.9 (7.4-10.4) fL Neut % (Auto) 64.2 % Lymph % (Auto) 25.3 % [place] % (Auto) 7.2 % Eos % (Auto) 2.1 % Baso % (Auto) 0.5 % Neut # (Auto) 6.52 (1.8-7.7) 10^3/u L Lymph # (Auto) 2.6 (0.8-4.8) 10^3/u L [place] # (Auto) 0.7 (0.2-0.9) 10^3/u L Eos # (Auto) 0.2 (0.0-0.8) 10^3/u L Baso # (Auto) 0.1 (0.0-0.1) 10^3/u L Nucleated RBC % (a uto) 0 % Nucleated RBCs # 0.0 /100WBC Sodium 137 (136-145) mmol/L Potassium 2.6 L* (3.5-5.1) mmol/L Chloride 102 (98-107) mmol/L Carbon Dioxide 20 L (22-29) mmol/L Anion Gap 17.6 (5-19) BUN 9 (6-20) mg/dL Creatinine 0.8 (0.5-0.9) mg/dL GFR Calculation 75.0 L (90-130) mL/min Glucose 106 (65-115) mg/dL Calculated Osmolal ity 283 L (285-295) mOsm/k g Calcium 8.4 L (8.5-10.5) mg/dL Magnesium 2.4 H (1.7-2.3) mg/dL Total Bilirubin 0.3 (0.15-1.2) mg/dL AST 16 (0-32) U/L ALT 11 (0-33) U/L Alkaline Phosphata se 139 H (35-105) IU/L Total Protein 7.5 (6.6-8.7) g/dL Albumin 3.8 (3.5-5.2) g/dL Globulin 3.7 (1.3-4.6) g/dL Urine Color (Yellow) Urine Appearance (CLEAR) Urine pH (5-7) Ur Specific Gravit y (1.005-1.030) Urine Protein (Negative) Urine Glucose (UA) (Normal) Urine Ketones (Negative) Urine Blood (Negative) Urine Nitrate (Negative) Urine Bilirubin (Negative) Urine Urobilinogen (Negative) mg/dL Ur Leukocyte Geri ase (Negative) Urine RBC (0-2) /hpf Urine WBC (0-5) /hpf Ur Squamous Epith Cells (0-5) /hpf Amorphous Sediment Urine Bacteria (NONE) /hpf Urine Sperm /hpf 02/27/21 02/27/21 Range/Units 01:12 02:03 WBC (4.0-10.0) 10^3/ uL RBC (4.1-5.3) 10^6/u L Hgb (11.5-15.3) g/dL Hct (37.0-47.0) % MCV (81-99) fL MCH (28.0-34.0) pg MCHC (30.0-36.0) g/dL RDW (12.1-15.1) % Plt Count (130-400) 10^3/c mm MPV (7.4-10.4) fL Neut % (Auto) % Lymph % (Auto) % [place] % (Auto) % Eos % (Auto) % Baso % (Auto) % Neut # (Auto) (1.8-7.7) 10^3/u L Lymph # (Auto) (0.8-4.8) 10^3/u L [place] # (Auto) (0.2-0.9) 10^3/u L Eos # (Auto) (0.0-0.8) 10^3/u L Baso # (Auto) (0.0-0.1) 10^3/u L Nucleated RBC % (a uto) % Nucleated RBCs # /100WBC Sodium 139 (136-145) mmol/L Potassium 3.4 L (3.5-5.1) mmol/L Chloride 104 (98-107) mmol/L Carbon Dioxide 22 (22-29) mmol/L Anion Gap 16.4 (5-19) BUN 10 (6-20) mg/dL Creatinine 0.7 (0.5-0.9) mg/dL GFR Calculation 87.5 L (90-130) mL/min Glucose 109 (65-115) mg/dL Calculated Osmolal ity 288 (285-295) mOsm/k g Calcium 8.6 (8.5-10.5) mg/dL Magnesium (1.7-2.3) mg/dL Total Bilirubin (0.15-1.2) mg/dL AST (0-32) U/L ALT (0-33) U/L Alkaline Phosphata se (35-105) IU/L Total Protein (6.6-8.7) g/dL Albumin (3.5-5.2) g/dL Globulin (1.3-4.6) g/dL Urine Color Yellow (Yellow) Urine Appearance Turbid (CLEAR) Urine pH 7 (5-7) Ur Specific Gravit y 1.005 (1.005-1.030) Urine Protein Trace (Negative) Urine Glucose (UA) Norm (Normal) Urine Ketones Negative (Negative) Urine Blood Neg (Negative) Urine Nitrate Negative (Negative) Urine Bilirubin Neg (Negative) Urine Urobilinogen Norm (Negative) mg/dL Ur Leukocyte Geri ase Trace H (Negative) Urine RBC 0-4 H (0-2) /hpf Urine WBC 5-10 H (0-5) /hpf Ur Squamous Epith Cells 5-10 H (0-5) /hpf Amorphous Sediment Not Reportable Urine Bacteria Trace (NONE) /hpf Urine Sperm 1+ /hpf Imaging Data: CT Abd/Pel: Attestation: I personally reviewed and interpreted this imaging study as follows: Radiologist's impression: [place] [address] CT Scan Report Signed Patient: Madison Maharaj Unit #: [id number] : 1965 Age/Sex: 55 / F ADM Date: 02/26/21 Loc: ER Room/Bed: Attending Dr: Ordering Provider/Ordering MD: Kristi Blanco MD Date of Service: 02/26/21 Procedure(s): CT abdomen pelvis w con* [id number] Accession Number(s): [id number] Report Number: [id number] PROCEDURE INFORMATION: Exam: CT Abdomen And Pelvis With Contrast Exam date and time: 02/26/2021 11:53 PM Age: 55 years old Clinical indication: Abdominal pain; Localized; Lower; Prior surgery; Surgery type: Gastric, gb; Additional info: Abd pain. Increased vaginal pain TECHNIQUE: Imaging protocol: Computed tomography of the abdomen and pelvis with contrast. Radiation optimization: All CT scans at this facility use at least one of these dose optimization techniques: automated exposure control; mA and/or kV adjustment per patient size (includes targeted exams where dose is matched to clinical indication); or iterative reconstruction. Contrast material: OMNI 300; Contrast volume: 95 ml; Contrast route: INTRAVENOUS (IV); COMPARISON: CT abdomen pelvis w con* [id number] 02/22/2021 3:56 PM RADIATION DOSE METRICS: Total DLP (mGy-cm): 1541.62 FINDINGS: Lungs: The lung bases are clear. Liver: Unremarkable. Gallbladder and bile ducts: Prior cholecystectomy, no significant biliary tree dilation. Pancreas: Unremarkable. Spleen: Unremarkable. Adrenal glands: Unremarkable. Kidneys and ureters: No hydronephrosis of either kidney. No visible ureteral calculus. No perinephric fluid. The kidneys enhance homogeneously. Stomach and bowel: Prior gastric banding surgery. Possibility of slightly thickened mucosa/wall in the distal antrum of the stomach. This is a nonspecific appearance, and could be transient on CT, but could also represent evidence for gastritis or peptic ulcer disease. Please correlate clinically. There are no CT findings to strongly suggest diverticulitis. Appendix: The appendix is not identified with certainty, however no pericecal inflammatory changes are seen. Intraperitoneal space: No free air, ascites, or bowel distention. Vasculature: No evidence for abdominal aortic aneurysm. Lymph nodes: No retroperitoneal adenopathy. Urinary bladder: Possibly some mild diffuse urinary bladder wall thickening. Evaluation is somewhat limited, as the bladder is not well distended. While nonspecific, this could indicate evidence for cystitis. Please correlate clinically. Reproductive: No definite abnormal ovarian/adnexal cyst or mass by CT. Bones/joints: As before, prior lumbar spine surgical fusion from L2 through S1. Old fractures of the right superior and inferior pubic rami. Soft tissues: Very small umbilical hernia, containing only fat. CT/CT abdomen pelvis w con* [id number] IMPRESSION: 1. No free air or bowel distention. 2. Possible mild urinary bladder wall thickening, see above. 3. No hydronephrosis of either kidney. No visible ureteral calculus. No perinephric fluid. 4. Possible thickened mucosa/wall in the distal stomach, see above discussion. 5. No CT evidence to suggest appendicitis, however a normal appendix is not definitely visible. 6. No diverticulitis. 7. Other findings discussed above. Radiation Dose CTDIVOL = (mGy): DLP = 1541.62 (mGy-cm) Dictated By: Colin Xiong MD Signed By: Colin Xiong MD Signed Date/Time: 02/27/21152 DD/ 0 Discharge Plan Discharge Patient Disposition: Home Clinical Impression: Pelvic pain, Hypokalemia Condition: Stable Prescriptions: New hydrocodone-acetaminophen 5-325 mg tablet 1 tab PO Q6H PRN (Reason: pain) Qty: 14 RF: 0 ondansetron 4 mg tablet,disintegrating 4 mg PO Q6H PRN (Reason: nausea and vomiting) Qty: 14 RF: 0 No Action tizanidine 2 mg capsule 2 mg PO TID PRN (Reason: MUSCLE SPASMS) RF: 0 temazepam 15 mg Capsule 30 mg PO BEDTIME RF: 0 ibuprofen 200 mg Tablet 200 - 400 mg PO Q4H PRN (Reason: FEVER/PAIN) RF: 0 lisinopril 10 mg tablet 10 mg PO DAILY Qty: 30 RF: 0 quetiapine 50 mg tablet 50 mg PO DAILY RF: 0 cephalexin 500 mg capsule 500 mg PO BID 7 Days Qty: 14 RF: 0 Discharge Orders: Discharge ED (Routine); Ordered 02/27/21 Ordered By: Kristi Blanco Referrals: Jacqueline Call MD [Primary Care Provider] - 1-3 days Discharge Diet: Advance as tolerated Discharge Activity: Resume usual activity Patient Instructions: Hypokalemia (ED), Opioid Safety, Pelvic Pain Coding Level of Care Code ED Emergency Dispatcher for Chg Fwd Exam Comprehensive
[2021-02-27 00:07] LABS: Magnesium 2.4 mg/dL (1.7-2.3)
[2021-02-27] MEDS: iohexol 300 mg/mL 100 mL Btl IV (00:11)
[2021-02-27] MEDS: ondansetron 2 mg/ML SDV 2 mL 4 MG IVP (00:50)
[2021-02-27 01:00] VITALS: BP 118/68; PULSE 84; RESP 20; O2SAT 98
[2021-02-27] MEDS: potassium chloride premix 100 ML 50 MEQ IV (01:00)
[2021-02-27 01:29] LABS: Bilirubin Urine Neg (Negative); Blood Urine Neg (Negative); Glucose Urine UA Norm (Normal); Ketones Urine Negative (Negative); Leukocyte Esterase Urine Trace (Negative); Nitrate Urine Negative (Negative); Protein Urine Trace (Negative); Specific Gravity, Urine 1.005 (1.005-1.030); Urine Appearance Turbid (CLEAR); Urine Color Yellow (Yellow); Urobilinogen Urine Norm (Negative); pH Urine 7 (5-7)
[2021-02-27 01:30] LABS: Add Urine Culture? Yes; Add Urine Microscopic? YES; Bacteria Urine TRACE /hpf; RBC Urine 0-4 /hpf (0-2); Sperm Urine 1+ /hpf
[2021-02-27 01:33] VITALS: RESP 18
[2021-02-27] MEDS: morphine 4 mg/mL SDV 1 mL IVP (01:33)
[2021-02-27] MEDS: potassium chloride ER 20 mEq Tablet 40 MEQ PO (01:34)
[2021-02-27 02:31] LABS: Anion Gap 16.4 (5-19); Blood Urea Nitrogen 10 mg/dL (6-20); Calcium 8.6 mg/dL (8.5-10.5); Carbon Dioxide 22 mmol/L (22-29); Chloride 104 mmol/L (98-107); Glomerular Filtration Rate 87.5 mL/min (90-130); Glucose 109 mg/dL (65-115); Osmolality Calculated 288 mOsm/kg (285-295); Potassium 3.4 mmol/L (3.5-5.1); Sodium 139 mmol/L (136-145)
[2021-02-27 03:44] VITALS: BP 132/78; PULSE 88; RESP 18; O2SAT 96
== END 2021-02-27 03:45 | disposition home or self-care (01) ==
PROVIDERS: Physician Assistant; Emergency Provider Emergency Medicine; PCP Family Medicine
DX: R10.2 Pelvic and perineal pain (principal); E87.6 Hypokalemia
CPT/HCPCS: 36415; 74177; 80048; 80053; 81001; 83735; 85025; 87086; 96365; 96366; 96375; 99284; J2270; J2405; J3480; Q9967

== ENCOUNTER 2021-03-16 13:54 | Outpatient (CLI) | payer SELFPAY ==
--- NOTE | 2021-03-16 14:00 | CT_ITS ---
WS: [id number] Exam: CT lumbar spine w con [id number] Date/Time of Exam: 03/16/2021 2:01 PM Reason For Exam: PAIN IN LEFT HIP, HX OF LUMBAR FUSION DLP: 1989.[address] scans at [facility] use at least one of these dose optimization techniques: automat ed exposure control; mA and/or kV adjustment per patient size (includes targeted exams where dose is matched to clinical indication); or iterative reconstruction. The lumbar spine evaluated in the axial plane with sagittal and coronal reformatted images. Compared to prior study 11/24/2007. There is interbody fusion of the lumbar spine from L2 to S1 with posterior rods and pedicle screws. T he fusion is in normal alignment. Decompression laminectomy also noted at L4-5. The pedicle screws in the upper plate of T2 appear to have eroded into the cephalad end plate of L2. There is a lucent laurie ction about the pedicle screws of L2 suggesting there may be a motion or loosening. No sign of the paulson rdware fracture. Detail of the spinal canal and neural sac is somewhat limited due to metallic deflex ion artifact however no obvious canal stenosis is noted. Screws also extend into the bilateral iliac bones. No acute fracture or bone destruction noted. Paraspinal soft tissue structures appear grossly normal. CT/CT lumbar spine w con [id number] IMPRESSION: 1. Interbody fusion of the lumbar spine from L2 to S1 with posterior rods and p edicle screws. The fusion appears to be in satisfactory alignment. Decompressio n laminectomy at L4-5. 2. No obvious spinal canal stenosis or disc herniation however detail of the sp inal canal is limited by metallic deflexion artifact. 3. The pedicle screws in L2 have eroded through the cephalad end plate of the L 2 vertebra with lucent interface along both screws suggesting the possibility o f loosening. The remaining hardware components appear to be intact.
--- NOTE | 2021-03-16 14:00 | CT_ITS ---
WS: [id number] Exam: CT hip LT wo con* [id number] Date/Time of Exam: 03/16/2021 2:01 PM Reason For Exam: PAIN IN LEFT HIP DLP: 662.[address] scans at [facility] use at least one of these dose optimization techniques: automat ed exposure control; mA and/or kV adjustment per patient size (includes targeted exams where dose is matched to clinical indication); or iterative reconstruction. The left hip is evaluated in the axial plane with sagittal and coronal reformatted images. No acute hip fracture or dislocation. There are nondisplaced healing fractures of the right and left inferior pubic rami. An additional old healed fracture of the inferior right pubic ramus is noted. No joint effusion is seen. The joint compartment is relatively well maintained. Adjacent myofascial str uctures are unremarkable. Extensive hardware in the lower lumbar spine and sacrum with screws extendi ng into the right and left iliac bones. The subcutaneous fat is clear. CT/CT hip LT wo con* [id number] IMPRESSION: 1. No acute hip fracture. 2. Healing nondisplaced fractures of the right and left inferior pubic rami. 3. There is also an old healed fracture of the right inferior pubic ramus.
[2021-03-16] MEDS: iohexol 300 mg/mL 100 mL Btl IV (14:40)
== END 2021-03-16 13:55 | disposition home or self-care (01) ==
LOC: RADWPI 13:56
PROVIDERS: PCP Family Medicine; Visit Provider Family Medicine
DX: M25.552 Pain in left hip (principal); Z98.890 Other specified postprocedural states; M43.26 Fusion of spine, lumbar region
CPT/HCPCS: 72132; 73700; Q9967

== ENCOUNTER 2021-04-26 08:19 | Observation (INO) | payer SELFPAY ==
[2021-04-26] VITALS (9 sets, daily range): BP systolic 137–171; BP diastolic 72–129; PULSE 67–134; RESP 12–18; TEMP 36.3–37.1; O2SAT 95–99; BMI 40.6; BMI 40.4
--- NOTE | 2021-04-26 | US_ITS ---
WS: [id number] Ultrasound-guided port access INDICATION: Gastric lap banding drainage TECHNIQUE: The procedure including risks benefits complications were discussed with the patient who a greed to proceed. Patient was prepped and draped in usual sterile fashion. After 1% lidocaine using u ltrasound guidance the gastric lap band port was accessed with a 20-gauge spinal needle and approxima tely 3 to 4 cc of fluid aspirated. No immediate complications. US/US guide [facility] [id number] IMPRESSION: Uncomplicated gastric lap band port access
--- NOTE | 2021-04-26 08:46 | CT_ITS ---
WS: [id number] CT ABDOMEN PELVIS TECHNIQUE: Contrast-enhanced CT of the abdomen and pelvis with coronal and sagittal reformatted image s. CLINICAL INFORMATION: abd pain COMPARISON: March 16, 2021 DLP: 1505.[address] scans at [facility] use at least one of these dose optimization techniques: automated e xposure control; mA and/or kV adjustment per patient size (includes targeted exams where dose is matc hed to clinical indication); or iterative reconstruction. FINDINGS: Prior postoperative changes gastric banding. Small esophageal hiatal hernia appears progressed since February 27, 2021. Fluid and food products in the distal esophagus at the esophageal hiatal hernia abov e the gastric banding with air-fluid level. Distal stomach is normal in appearance. Lung bases are well aerated. Mild diffuse fatty infiltration liver. Prior cholecystectomy. Normal spl een. Normal pancreatic parenchymal enhancement. Adrenal glands are normal. Normal renal parenchymal e nhancement. Normal caliber abdominal aorta. No evidence of high-grade small or large bowel obstruction. Tiny fat-containing umbilical hernia. No abdominal or periaortic lymphadenopathy. No pelvic or inguinal lymphadenopathy. Prior postoperative c hanges pedicle screw fixation L2-S1. Associated laminectomy defects. Bilateral sacroiliac screw fixat ion. Chronic inferior pubic rami fractures with callus formation. Right inferior pubic ramus fracture with callus formation. CT/CT abdomen pelvis w con* [id number] IMPRESSION: 1. Prior gastric banding with progressed small esophageal hiatal hernia with a ir-fluid level and debris in the distal esophagus above the gastric banding. Re commend bariatric surgery consultation and correlation for gastric banding slip page with intermittent obstruction above the banding. 2. Mild diffuse fatty infiltration of the liver. 3. Fat-containing umbilical hernia. 4. Postoperative changes lumbar spine and pelvis. 5. Chronic pubic rami fractures with callus formation. Notified Ariel Baer DO at 04/26/2021 9:39 AM.
--- NOTE | 2021-04-26 09:05 | W.ED.ABDPA2 ---
HPI - Abdominal Pain General: Chief Complaint: Abdominal Pain Stated Complaint: Abdominal Pain, Dehydrated Time Seen by Provider: 04/26/21 08:22 History of Present Illness: HPI narrative: 56-year-old female presents emergency room with complaints of nausea vomiting and diarrhea for the last 2 days. She states she cannot keep anything down including her medications. She denies any hematochezia melena hematemesis cough cramps denies any dysuria urgency or frequency. She denies any fever. She has had a previous bariatric surgery she states it failed she had had a gastric sleeve and it is malpositioned now but have not done anything to correct this evidently. MD elicited complaint: abdominal pain Pertinent past history: other (Previous gastric bypass) Onset (ago): day(s) Pain Consistency: constant Location: Epigastric Severity: severe Quality: cramping Radiation: none Exacerbating factors: eating Relieving factors: nothing Associated Symptoms: Reports anorexia, bloating, GI cramping, heartburn, nausea, poor appetite and vomiting; Denies belching, change in bowel habits, change in stool character, chills, coffee ground emesis, constipation, diarrhea, dyspepsia, dysuria, excessive flatus, fever(s), hematochezia, hematuria, hematemesis, fecal incontinence, loose stools, melena and syncope Review of Systems Const: Denies: fever(s) or chills ENMT: Denies: throat pain, ear or mastoid pain, nasal discharge or nasal congestion Card: Denies: syncope Resp: Denies: dyspnea, productive cough or non-productive cough GI: Reports: nausea, vomiting, heartburn, bloating and GI cramping; Denies: hematemesis, coffee ground emesis, diarrhea, constipation, belching, excessive flatus, fecal incontinence, change in bowel habits, change in stool character, hematochezia or melena : Denies: dysuria or hematuria Skin/Breast: Denies: rash or pruritus PFSH ED PFSH: Medical History Gastritis Hypertension Hypokalemia Upper gastrointestinal hemorrhage Surgical History H/O gastric sleeve Social History (Reviewed 04/27/21 @ 07:03 by DEANNA Reeves Smoking and tobacco status: never smoked Alcohol intake: former Year of sobriety/quit date alcohol: 3 yr Substance/Drug Use: never Adopted: No Caregiver/support person: No Lives independently: Yes Household members: friend(s) Housing: Apartment Current gender identity: Female Physical Exam Const: COMMON NORMALS: no acute distress GENERAL APPEARANCE: cooperative and comfortable ORIENTATION/CONSCIOUSNESS: Yes awake, Yes oriented to person, Yes oriented to place and Yes oriented to time HENMT: COMMON NORMALS: normocephalic, atraumatic and hearing grossly normal bilaterally HEAD & SCALP: normocephalic and atraumatic Neck/C-Spine: COMMON NORMALS: no JVD Resp: COMMON NORMALS: normal respiratory effort, No retractions, No use of accessory muscles and clear to auscultation bilaterally AUSCULTATION: clear to auscultation bilaterally Cardio: COMMON NORMALS: no JVD, regular rate, regular rhythm and No murmurs present (Cardio) RATE: regular rate RHYTHM: regular rhythm GI: COMMON NORMALS: No hepatosplenomegaly present AUSCULTATION: Yes normoactive bowel sounds PALPATION: Yes Tenderness to palpation present (GI) (Epigastric), No Guarding due to palpation present (GI) and Yes No hepatosplenomegaly present Extremity: COMMON NORMALS: normal to inspection, capillary refill normal, no clubbing, cyanosis or edema, no calf tenderness and no pedal edema Neuro: SENSORIUM/ORIENTATION: Yes oriented to person, Yes oriented to place and Yes oriented to time Skin: COMMON NORMALS: no rashes or lesions noted GENERAL SKIN EXAM: no rashes or lesions noted Course Vital Signs: Vital signs: Vital Signs Temperature 98.7 F 04/27/21 03:25 Pulse Rate 55 L 04/27/21 03:25 Respiratory Rate 18 04/27/21 03:28 Blood Pressure 164/94 04/27/21 03:25 Pulse Oximetry 97 04/27/21 03:25 MDM - Abdominal Pain MDM Narrative: Medical decision making narrative: Reviewed images with Dr. Ruiz discussed with Dr. Rose. Patient has a gastric band in place. Dr. Rose old that is well-positioned. However there is low distal esophageal thickening and fluid collection its essentially causing what amounts of distal esophageal obstruction. The reservoir for the band is visible in the abdominal wall however is angled. Dr. Puga asked that we try to withdraw some fluid out of it. Patient states fluids been taken out previously but she states he only took 2 to 3 mL out. Under ultrasound guidance using sterile technique visualize the reservoir using the CT was able to determine the location of the diaphragm it is oriented soup. Yearly but somewhat canted posteriorly. Was able to visualize the needle impacting the reservoir but was not able to get the needle to enter into the reservoir. Made several attempts and asked Dr. Ruiz to attempt. He also made several attempts was able to get a couple of mils out. However did not seem to cause too much symptom relief with the patient. By that time fluids and antiemetics given had resolved quite a bit of her symptoms. Sandra go ahead and place patient in observation discussed with hospitalist orders are written Dr. Rose will consult. Labs and imaging and EKG reviewed on the as found on the chart. Lab Data: Labs: Lab Results 04/26/21 04/26/21 04/26/21 09:10 09:27 09:27 WBC 7.5 10^3/uL 10^3/ uL (4.0-10.0) RBC 4.24 10^6/uL 10^6 /uL (4.1-5.3) Hgb 12.7 g/dL g/dL (11.5-15.3) Hct 40.1 % % (37.0-47.0) MCV 94.6 fl fl (81-99) MCH 30.0 pg pg (28.0-34.0) MCHC 31.7 g/dL g/dL (30.0-36.0) RDW 13.7 % % (12.1-15.1) Plt Count 250 10^3/cmm 10^3 /cmm (130-400) MPV 9.8 fL fL (7.4-10.4) Neut % (Auto) 74.2 % % Lymph % (Auto) 17.9 % % [place] % (Auto) 6.3 % % Eos % (Auto) 0.8 % % Baso % (Auto) 0.5 % % Neut # (Auto) 5.54 10^3/uL 10^3 /uL (1.8-7.7) Lymph # (Auto) 1.3 10^3/uL 10^3/ uL (0.8-4.8) [place] # (Auto) 0.5 10^3/uL 10^3/ uL (0.2-0.9) Eos # (Auto) 0.1 10^3/uL 10^3/ uL (0.0-0.8) Baso # (Auto) 0.0 10^3/uL 10^3/ uL (0.0-0.1) Nucleated RBC % (a uto) 0 % % Nucleated RBCs # 0.0 /100WBC /100W BC Sodium 136 mmol/L mmol/L (136-145) Potassium 3.0 mmol/L L mmol /L (3.5-5.1) Chloride 105 mmol/L mmol/L (98-107) Carbon Dioxide 15 mmol/L L mmol/ L (22-29) Anion Gap 19.0 (5-19) BUN 10 mg/dL mg/dL (6-20) Creatinine 1.0 mg/dL H mg/dL (0.5-0.9) GFR Calculation 57.8 mL/min L mL/ min (90-130) Glucose 132 mg/dL H mg/dL (65-115) Calculated Osmolal ity 283 mOsm/kg L mOs m/kg (285-295) Calcium 9.1 mg/dL mg/dL (8.5-10.5) Iron TIBC % Saturation Unsat Iron Binding Total Bilirubin 0.2 mg/dL mg/dL (0.15-1.2) AST 12 U/L U/L (0-32) ALT 14 U/L U/L (0-33) Alkaline Phosphata se 166 IU/L H IU/L (35-105) Total Protein 7.0 g/dL g/dL (6.6-8.7) Albumin 3.9 g/dL g/dL (3.5-5.2) Globulin 3.1 g/dL g/dL (1.3-4.6) Lipase 28 U/L U/L (13-60) Vitamin B12 Folate Procalcitonin TSH Urine Color Yellow (Yellow) Urine Appearance Cloudy (CLEAR) Urine pH 5 (5-7) Ur Specific Gravit y 1.020 (1.005-1.030) Urine Protein 1+ H (Negative) Urine Glucose (UA) Norm (Normal) Urine Ketones 1+ H (Negative) Urine Blood Neg (Negative) Urine Nitrate Negative (Negative) Urine Bilirubin 1+ H (Negative) Urine Urobilinogen 1 mg/dL H mg/dL (Negative) Ur Leukocyte Geri ase 1+ H (Negative) Urine RBC 0-4 /hpf H /hpf (0-2) Urine WBC 10-15 /hpf H /hpf (0-5) Ur Squamous Epith Cells 15-25 /hpf H /hpf (0-5) Amorphous Sediment Not Reportable Urine Bacteria 2+ /hpf H /hpf (NONE) Hyaline Casts 10-15 /lpf H /lpf Urine Mucus Trace /hpf /hpf 04/26/21 04/26/21 04/26/21 09:27 09:27 09:27 WBC RBC Hgb Hct MCV MCH MCHC RDW Plt Count MPV Neut % (Auto) Lymph % (Auto) [place] % (Auto) Eos % (Auto) Baso % (Auto) Neut # (Auto) Lymph # (Auto) [place] # (Auto) Eos # (Auto) Baso # (Auto) Nucleated RBC % (a uto) Nucleated RBCs # Sodium Potassium Chloride Carbon Dioxide Anion Gap BUN Creatinine GFR Calculation Glucose Calculated Osmolal ity Calcium Iron 49 ug/dL ug/dL (37-145) TIBC 245 mcg/dl mcg/dl % Saturation 20.0 % % (20-50) Unsat Iron Binding 196 ug/dL ug/dL (112-347) Total Bilirubin AST ALT Alkaline Phosphata se Total Protein Albumin Globulin Lipase Vitamin B12 438 pg/mL pg/mL (232-1245) Folate 5.7 ng/mL ng/mL (4.8-37.3) Procalcitonin 0.04 ng/mL ng/mL (0-0.5) TSH 0.43 uIU/mL uIU/m L (0.27-4.20) Urine Color Urine Appearance Urine pH Ur Specific Gravit y Urine Protein Urine Glucose (UA) Urine Ketones Urine Blood Urine Nitrate Urine Bilirubin Urine Urobilinogen Ur Leukocyte Geri ase Urine RBC Urine WBC Ur Squamous Epith Cells Amorphous Sediment Urine Bacteria Hyaline Casts Urine Mucus Discharge Plan Discharge Patient Disposition: Admitted As Inpatient Admit Provider: Cruz Frye Clinical Impression: Nausea and vomiting, Complication of gastric band procedure, Hypokalemia, H/O gastric sleeve Condition: Stable Coding Level of Care Code ED Information Technology Project Manager for Chg Fwd Exam Comprehensive
[2021-04-26] MEDS: ondansetron 2 mg/ML SDV 2 mL 4 MG IVP ×2 (09:14→19:19)
[2021-04-26] MEDS: sodium chloride 0.9% 1,000 ML 999 ML IV ×2 (09:14→10:24)
[2021-04-26 09:36] LABS: Basophils % 0.5 %; Eosinophils # 0.1 10^3/uL (0.0-0.8); Eosinophils % 0.8 %; Hematocrit 40.1 % (37.0-47.0); Hemoglobin 12.7 g/dL (11.5-15.3); Lymphocytes # 1.3 10^3/uL (0.8-4.8); Lymphocytes % 17.9 %; Mean Corpuscular HGB Conc 31.7 g/dL (30.0-36.0); Mean Corpuscular Volume 94.6 fl (81-99); Mean Platelet Volume 9.8 fL (7.4-10.4); Monocytes # 0.5 10^3/uL (0.2-0.9); Monocytes % 6.3 %; Neutrophils # 5.54 10^3/uL (1.8-7.7); Neutrophils % 74.2 %; Nucleated Red Blood Cells % 0 %; Platelet Count 250 10^3/cmm (130-400); Red Blood Count 4.24 10^6/uL (4.1-5.3); Red Cell Distribution Width 13.7 % (12.1-15.1); White Blood Count 7.5 10^3/uL (4.0-10.0)
[2021-04-26 09:45] LABS: Add Urine Microscopic? YES; Bilirubin Urine 1+ (Negative); Blood Urine Neg (Negative); Glucose Urine UA Norm (Normal); Ketones Urine 1+ (Negative); Leukocyte Esterase Urine 1+ (Negative); Nitrate Urine Negative (Negative); Protein Urine 1+ (Negative); Urine Appearance Cloudy (CLEAR); Urine Color Yellow (Yellow); Urobilinogen Urine 1 mg/dL (Negative); pH Urine 5 (5-7)
[2021-04-26] MEDS: morphine 4 mg/mL SDV 1 mL IVP (09:56)
[2021-04-26 10:02] LABS: Alanine Aminotransferase 14 U/L (0-33); Albumin Level 3.9 g/dL (3.5-5.2); Alkaline Phosphatase 166 IU/L (35-105); Aspartate Amino Transferase 12 U/L (0-32); Blood Urea Nitrogen 10 mg/dL (6-20); Calcium 9.1 mg/dL (8.5-10.5); Carbon Dioxide 15 mmol/L (22-29); Chloride 105 mmol/L (98-107); Globulin 3.1 g/dL (1.3-4.6); Glomerular Filtration Rate 57.8 mL/min (90-130); Glucose 132 mg/dL (65-115); Lipase 28 U/L (13-60); Osmolality Calculated 283 mOsm/kg (285-295); Sodium 136 mmol/L (136-145); Total Bilirubin 0.2 mg/dL (0.15-1.2)
[2021-04-26 10:06] LABS: RBC Urine 0-4 /hpf (0-2)
[2021-04-26 10:07] LABS: Add Urine Culture? No; Bacteria Urine 2+ /hpf; Mucus Urine TRACE /hpf; Squamous Epithelial Cell Urine 15-25 /hpf (0-5)
[2021-04-26 14:46] LABS: Iron 49 ug/dL (37-145); Total Iron Binding Capacity 245 mcg/dl; Unsaturated Iron Binding 196 ug/dL (112-347)
[2021-04-26 14:54] LABS: Thyroid Stimulating Hormone 0.43 uIU/mL (0.27-4.20)
[2021-04-26 15:00] LABS: Folate Level 5.7 ng/mL (4.8-37.3)
[2021-04-26 15:01] LABS: Procalcitonin 0.04 ng/mL (0-0.5); Vitamin B12 438 pg/mL (232-1245)
--- NOTE | 2021-04-26 15:15 | PM.HP ---
Providers/Chief Complaint Admitting Physician: Cruz Frye MD Primary Care Provider: Jacqueline Call MD Chief Complaint: Abdominal Pain, Dehydrated History of Present Illness Madison Maharaj is a 56 year old female past medical history of hypertension, anxiety disorder, post gastric sleeve more than 20 years ago presented to the ER today because of poor oral intake, nausea and vomiting worsening over last 1 week. Patient states since she had gastric sleeve she has never felt okay. She states she has never been able to drink or eat more than 3 cc. States for the last 10 years patient has been suffering because of poor oral intake, GERD and nausea with vomiting. States 5 years ago she was recommended to have gastric sleeve removed but could not because she had lost her insurance. States for last 1 week she has has worsening of symptoms with reflux, nausea and vomiting even on thinking about food. On presentation to the ER was found to have a normal CBC, chemistry showing potassium of 3, creatinine of 1 with alkaline phosphatase of 166. CT abdomen pelvis was done with results as below. Port was accessed with radiology and 3 mL of fluid was removed through the gastric sleeve to relieve pressure Review of Systems General: Reports: 10 or more systems reviewed and unremarkable except in HPI and below Const: Denies: fever(s), chills, body aches, change in appetite, change in weight, malaise, night sweats, diaphoresis, change in sleep pattern, daytime sleepiness or snoring Eyes: Denies: change in vision, blurry vision, photophobia, eye discomfort or eye discharge ENMT: Denies: throat pain, enlarged tonsils, hoarseness, mouth pain, oral sores, dry mouth, tinnitus, nasal congestion or post nasal drip Card: Denies: chest pain, palpitations, irregular heart rhythm, edema, swelling of feet/ankles, lightheadedness, syncope, pre-syncope, dyspnea on exertion, orthopnea, leg pain with exertion or acrocyanosis Resp: Denies: dyspnea, productive cough, non-productive cough, wheezing, stridor, pain on inspiration, change in phlegm color, hemoptysis or chest congestion GI: Denies: abdominal pain, nausea, vomiting, hematemesis, coffee ground emesis, dysphagia, heartburn, diarrhea, constipation, bloating, GI cramping, change in bowel habits, pain on defecation, hematochezia or melena : Denies: flank pain, dysuria, urinary frequency, urinary urgency, urinary hesitancy, nocturia or hematuria Musc: Denies: neck pain, back pain, extremity pain, joint pain, joint swelling, joint redness, joint stiffness or limited range of motion Neuro: Denies: headache(s), numbness in extremities, weakness in extremities, sensory changes, lack of coordination, difficulty walking, frequent falls, dizziness, vertigo, confusion, Slurred speech present, difficulty communicating thoughts or seizure-like activity Psych: Denies: anxiety, depression, mood swings, panic attacks, hopelessness or irritability Endo: Denies: polyuria, polydipsia, tired all the time, cold intolerance, excessive sweating, flushing or heat intolerance Sergio/Lymph: Denies: easy bruising or easy bleeding All/Imm: Denies: tongue swelling, facial swelling or acute wheezing Medications/Allergies Home Medications Medication Instructions Recorded Confirmed Last Taken Type temazepam 30 mg PO BEDTIME 12/11/19 04/26/21 02/21/21 History ibuprofen 800 mg PO BID 04/07/20 04/26/21 02/22/21 History quetiapine 50 mg PO BEDTIME 02/22/21 04/26/21 02/22/21 History hydrocodone-ibuprofen 1 tab PO BID PRN 04/26/21 04/26/21 04/24/21 History lisinopril 20 mg PO QAM 04/26/21 04/26/21 04/26/21 History tizanidine 2 mg PO TID PRN 04/26/21 04/26/21 Unknown History Allergies Allergy/AdvReac Type Severity Reaction Status Date / Time codeine Allergy rash Verified 04/26/21 11:46 PFSH Acute PFSH: Medical History (Updated 04/26/21 @ 15:19 by Cruz Frye MD) Gastritis Hypertension Hypokalemia Upper gastrointestinal hemorrhage Surgical History (Updated 04/26/21 @ 15:19 by Cruz Frye MD) H/O gastric sleeve Social History (Updated 04/26/21 @ 15:19 by Cruz Frye MD) Smoking and tobacco status: never smoked Alcohol intake: former Year of sobriety/quit date alcohol: 3 yr Substance/Drug Use: never Adopted: No Caregiver/support person: No Lives independently: Yes Household members: friend(s) Housing: Apartment Current gender identity: Female Vitals/I&O/Wt Last Vital Signs Temp 97.3 F L 04/26/21 08:34 Pulse 67 04/26/21 13:32 Resp 12 04/26/21 13:32 BP 137/72 04/26/21 13:32 Pulse Ox 99 04/26/21 13:32 04/26/21 04/26/21 04/26/21 06:59 14:59 22:59 Intake Total 1999 Balance 1999 Weight last 48 hrs Weight 93.894 kg Weight 94.347 kg Physical Exam Narrative: EXAM NARRATIVE: General: No acute distress, AO x3, anxious HEENT: PERRLA, pupils bilaterally equal and reactive Chest: Normal vesicular breath sounds, no added sounds, equal good air entry bilaterally CVS: S1-S2 regular, no murmurs, no tachycardia, no gallops, no rubs Abdomen: Soft, nontender, no organomegaly, bowel sounds present Neuro: No focal deficits, no facial deformity, AO x3, power 5/5 in all limbs Data : 04/26/21 09:27 04/26/21 09:27 A&P Assessment and plan (1) Nausea and vomiting: Status: Acute (2) H/O gastric sleeve: Status: Acute (3) Hypokalemia: Status: Acute (4) Hypertension: Status: Acute Qualifiers: Hypertension type: essential hypertension Qualified Code(s): I10 - Essential (primary) hypertension Additional A&P Information Nausea and vomiting: Post gastric sleeve surgery: Most likely secondary to gastric band slippage with intermittent obstruction above banding. 3 mL fluid removed. Case discussed with Dr. Rose. Has been consulted from ER. Ice chips. Advance gradually. Zofran as needed. Protonix [address] potassium. D5 NS with 20 mEq fluid at 100 cc/h Hypertension: Goal blood pressure less than 140/90 mmHg. Continue home dose of lisinopril. We will continue to monitor. Continue other chronic medication. Check iron panel, lipid panel, A1c, vitamin B12, folate level. Full code. N.p.o. except ice chips. Protonix for PUD prophylaxis. Attestations Medical Necessity Statement*: less than 2 MN for poor oral intake in setting of gastric band dysfunction Time Spent in Patient Care: Greater than 35 minutes (>than 50% of time spent in counselling and/or direct pt care on unit). Coding Level of Care Code Acute Public Information Relations Manager for Chg Fwd Diagnoses Nausea and vomiting R11.2 H/O gastric sleeve Z90.3 Hypokalemia E87.6 Hypertension I10 Hypertension type: essential hypertension
[2021-04-26] MEDS: potassium chloride ER 20 mEq Tablet 40 MEQ PO (15:35)
[2021-04-26] MEDS: morphine 4 mg/mL SDV 1 mL 1 MG IVP (15:35)
[2021-04-26] MEDS: pantoprazole 40 mg SDV IVP (15:35)
[2021-04-26] MEDS: D5-NS 0.45% + KCL 20 mEq 20 MEQ/1,000 ML BAG 100 MEQ IV (15:36)
--- NOTE | 2021-04-26 17:23 | P.CONIM_ITS ---
Providers/Reason For Consult Consulting Physician/Specialty*: Aden Rose MD Reason for Consult*: Complication related to gastric band Requesting Physician: Dr. Atkinson Attending Physician: Cruz Frye MD Primary Care Provider: Jacqueline Call MD History of Present Illness History of Present Illness Chief Complaint: Issues with the band History of present illness: Ms. Madison Maharaj is a pleasant 56 year old fem toshia had laparoscopic gastric band placed about 10 years ago or so in [facility] with initial weight of 242 pounds where she dropped to 200 pounds and currently she is 207, patient's last time had a gastric band adjustment about 5 years ago,patient reporst she always had issues with adjustments and could tolerate much fluid being added,patient had repeated visits to the emergency department with repeated CT scans of the abdomen and pelvis likely due to complication related to her gastric band. Patient cames today to the ER with worsening symptoms over the past week with repeated nausea and vomiting. And undergone a CT scan of the abdomen pelvis that did show; 1. Prior gastric banding with progressed small esophageal hiatal hernia with air-fluid level and debris in the distal esophagus above the gastric banding. Recommend bariatric surgery consultation and correlation for gastric banding slippage with intermittent obstruction above the banding. 2. Mild diffuse fatty infiltration of the liver. 3. Fat-containing umbilical hernia. 4. Postoperative changes lumbar spine and pelvis. 5. Chronic pubic rami fractures with callus formation. Bariatric surgery was consulted for further evaluation. and Potential intervention. My recommendation when I was contacted to aspirate all the fluid in the band as multiple attempts were done and ultimately interventional radi ology was able to aspirate 3 to 4 mL under ultrasound guidance bedside in the ER.to give some relief to the patient. Patient was seen and evaluated thereafter on medsurg floor. Review of Systems General: Reports: 10 or more systems reviewed and unremarkable except in HPI and below Meds/Allergies Home Medications and Allergies Home Medications Medication Instructions Recorded Confirmed Last Taken Type temazepam 30 mg PO BEDTIME 12/11/19 04/26/21 02/21/21 History ibuprofen 800 mg PO BID 04/07/20 04/26/21 02/22/21 History quetiapine 50 mg PO BEDTIME 02/22/21 04/26/21 02/22/21 History hydrocodone-ibuprofen 1 tab PO BID PRN 04/26/21 04/26/21 04/24/21 History lisinopril 20 mg PO QAM 04/26/21 04/26/21 04/26/21 History tizanidine 2 mg PO TID PRN 04/26/21 04/26/21 Unknown History Allergies Allergy/AdvReac Type Severity Reaction Status Date / Time codeine Allergy rash Verified 04/26/21 11:46 Current Medications Current Medications Generic Name Dose Route Start Last Admin Trade Name Freq PRN Reason Stop Dose Admin Potassium Chloride/Dextrose/Sod Cl 20 meq in 1,000 mls @ 100 mls/hr 04/26/21 14:04 04/26/21 15:36 D5-Ns 0.45% + Kcl 20 Meq IV 100 mls/hr .Q10H EILEEN Administration Morphine Sulfate 1 mg 04/26/21 15:02 04/26/21 15:35 Morphine 4 Mg/Ml Sdv 1 Ml IVP 1 mg Q4H PRN Administration SEVERE PAIN Pantoprazole Sodium 40 mg 04/26/21 15:30 04/26/21 15:35 Pantoprazole 40 Mg Sdv IVP 40 mg Q12H EILEEN Administration PFSH Acute PFSH: Medical History Gastritis Hypertension Hypokalemia Upper gastrointestinal hemorrhage Surgical History H/O gastric sleeve Social History Smoking and tobacco status: never smoked Alcohol intake: former Year of sobriety/quit date alcohol: 3 yr Substance/Drug Use: never Adopted: No Caregiver/support person: No Lives independently: Yes Household members: friend(s) Housing: Apartment Current gender identity: Female Vitals/I&O/Wt Last Vital Signs Temp 98.8 F 04/26/21 16:00 Pulse 79 04/26/21 16:00 Resp 18 04/26/21 16:00 BP 165/78 04/26/21 16:00 Pulse Ox 98 04/26/21 16:00 04/26/21 04/26/21 04/26/21 06:59 14:59 22:59 Intake Total 1999 Balance 2000 / 2000 60 / 2060 Weight last 48 hrs Weight 207 lb Weight 208 lb Physical Exam Const: COMMON NORMALS: no acute distress and patient oriented x3 GENERAL APPEARANCE: cooperative ORIENTATION/CONSCIOUSNESS: Yes awake, Yes oriented to person, Yes oriented to place and Yes oriented to time HENMT: COMMON NORMALS: normocephalic HEAD & SCALP: normocephalic Eye: COMMON NORMALS: Equal, round and reactive pupils present and no scleral icterus PUPIL: Yes Equal, round and reactive pupils present Lymph: LYMPHATIC: no lymphadenopathy noted Chest: COMMONS NORMALS: normal inspection of the chest Resp: COMMON NORMALS: normal respiratory effort and clear to auscultation bilaterally AUSCULTATION: clear to auscultation bilaterally Cardio: COMMON NORMALS: S1 normal heart sound present and S2 normal heart sound present; negative for No murmurs present (Cardio) HEART SOUNDS: S1 normal heart sound present and S2 normal heart sound present GI: COMMON NORMALS: Soft to palpation; negative for No hepatosplenomegaly present INSPECTION: Yes normal to inspection PALPATION: Yes Soft to palpation, No Firmness to palpation present (GI), No Tenderness to palpation present (GI), No Guarding due to palpation present (GI), No Rigid due to palpation, No No hepatosplenomegaly present and Yes Other GI palpation findings present (Palpable port of the gastric band and epigastric area.) Neuro: COMMON NORMALS: patient oriented x3 SENSORIUM/ORIENTATION: Yes oriented to person, Yes oriented to place and Yes oriented to time Psych: COMMON NORMALS: mental status grossly normal Skin: COMMON NORMALS: no rashes or lesions noted GENERAL SKIN EXAM: no rashes or lesions noted A&P Assessment and plan (1) Complication of gastric band procedure: After thorough history physical examination and reviewing the chart and images with my personal interpretation of the CT scan of the Abdomen and pelvis.The placement of the gastric band has a normal phi angle without evidence of prolapse or slippage. Or evidence of erosion. We will start the patient slowly on ice chips and water tonight Patient will benefit tremendously from laparoscopic explantation of the gastric band down the road We will have the patient prior to surgery to be placed on liquid protein diet to downsize the volume of the liver to facilitate exposure. Meanwhile continue IV fluid resuscitation and monitor urine output with repeat blood work in the morning Assurance and education All questions have been answered and all concerns have been addressed to patient's satisfaction. Status: Acute Consult Attestations Medical Necessity Statement: Per admitting service Time Spent in Patient Care: 16 - 35 minutes (>than 50% of time spent in counselling and/or direct pt care on unit) . Coding Level of Care Code Acute Table And Desk Finisher for Chg Fwd Exam Comprehensive Diagnoses Complication of gastric band procedure K95.09
[2021-04-26] MEDS: scopolamine 1.5 Patch 1 PATCH TRANSDERMA (18:01)
[2021-04-26] MEDS: quetiapine 25 mg Tablet 50 MG PO (20:45)
[2021-04-26] MEDS: temazepam 15 mg Capsule 30 MG PO (20:45)
[2021-04-27 03:25] VITALS: BP 164/94; PULSE 55; RESP 14; TEMP 37.1; O2SAT 97
[2021-04-27 03:28] VITALS: RESP 18
[2021-04-27] MEDS: morphine 4 mg/mL SDV 1 mL 1 MG IVP (03:28)
[2021-04-27] MEDS: D5-NS 0.45% + KCL 20 mEq 20 MEQ/1,000 ML BAG 100 MEQ IV ×2 (03:29→12:38)
[2021-04-27] MEDS: pantoprazole 40 mg SDV IVP (03:40)
[2021-04-27] MEDS: ondansetron 2 mg/ML SDV 2 mL 4 MG IVP ×2 (04:48→12:38)
[2021-04-27] MEDS: lisinopril 10 mg Tablet 20 MG PO (05:15)
[2021-04-27 05:44] LABS: Basophils % 0.5 %; Eosinophils # 0.2 10^3/uL (0.0-0.8); Eosinophils % 2.7 %; Hematocrit 35.8 % (37.0-47.0); Hemoglobin 11.5 g/dL (11.5-15.3); Lymphocytes # 1.9 10^3/uL (0.8-4.8); Lymphocytes % 34.2 %; Mean Corpuscular HGB Conc 32.1 g/dL (30.0-36.0); Mean Corpuscular Hemoglobin 30.6 pg (28.0-34.0); Mean Corpuscular Volume 95.2 fl (81-99); Mean Platelet Volume 9.9 fL (7.4-10.4); Monocytes # 0.5 10^3/uL (0.2-0.9); Monocytes % 9.8 %; Neutrophils # 2.88 10^3/uL (1.8-7.7); Neutrophils % 52.6 %; Nucleated Red Blood Cells % 0 %; Platelet Count 202 10^3/cmm (130-400); Red Blood Count 3.76 10^6/uL (4.1-5.3); Red Cell Distribution Width 13.9 % (12.1-15.1); White Blood Count 5.5 10^3/uL (4.0-10.0)
[2021-04-27 06:06] LABS: Alanine Aminotransferase 61 U/L (0-33); Albumin Level 3.6 g/dL (3.5-5.2); Alkaline Phosphatase 251 IU/L (35-105); Anion Gap 11.5 (5-19); Aspartate Amino Transferase 95 U/L (0-32); Blood Urea Nitrogen 7 mg/dL (6-20); Calcium 8.6 mg/dL (8.5-10.5); Carbon Dioxide 19 mmol/L (22-29); Chloride 113 mmol/L (98-107); Chol HDL Ratio 4.59 mg/dL (0.0-4.40); Cholesterol 202 mg/dL (0-200); Globulin 2.8 g/dL (1.3-4.6); Glomerular Filtration Rate 104.2 mL/min (90-130); Glucose 95 mg/dL (65-115); HDL Cholesterol 44 mg/dL (60-100); LDL Cholesterol Calculated 139 mg/dL (50-129); Magnesium 1.8 mg/dL (1.7-2.3); Osmolality Calculated 288 mOsm/kg (285-295); Phosphorus 2.2 mg/dL (2.5-4.5); Potassium 3.5 mmol/L (3.5-5.1); Sodium 140 mmol/L (136-145); Total Bilirubin 0.6 mg/dL (0.15-1.2); Total Protein 6.4 g/dL (6.6-8.7); Triglycerides 97 mg/dL (0-150); VLDL Cholestrol Calculation 19 mg/dL (0-30)
[2021-04-27 06:08] LABS: Estmated Average Glucose 100; Hemoglobin A1C 5.1 % (4.0-6.0)
[2021-04-27 07:24] VITALS: BP 132/80; PULSE 52; RESP 16; TEMP 36.8; O2SAT 97
--- NOTE | 2021-04-27 11:08 | PC.CHAP ---
Pastoral Care Encounter/Spiritual Assessment Type of Contact [] Declined jewelry setter visit [] Patient/Family/Request visit [] Outpatient visit [] Follow-up visit [] Physician referral [] Code/Alert [x] Routine visit [] Staff referral [] Actively dying [] Patient sleeping [] Family support [] [] Out of room [] Palliative care [] [] Receiving care in room [] Pre-surgical visit [] Trauma [] Long length of stay [] ICU visit [] Other: Relational/Emotional Strength [] Patient feels connected with others/family/visitors/staff [] Distress [] Loneliness/isolation [] Abandonment Spirituality of Patient [] Person of Sabra [] Attends Druze of their Sabra [] Believes in Prayer [] Reads Bible or Orthodoxy materials [] There are Spiritual issues to be addressed Head Of Product Interventions [x] Prayer [x Active listening [x] Non-anxious presence [x] Spiritual/emotional support [] Crisis/trauma care [] Spiritual counseling [] Bereavement support [] Provided bereavement packet [] Provided Bible/devotional materials [] Provided toy/stuffed animal, coloring book to patient or family member [] Provided Communion [] Anointing/[place] [] Salvation [x] Completed spiritual assessment [] Other: Impact on Illness or Injury [] Angry [] Fearful [] Anxious [] Often cries [] Exhaustion [] Unable to work [] Unable to attend sabianist [] Unable to walk/stand [] Unable to read [] Unable to drive [] Unable to eat/drink [] Unable to sleep [] Unable to be with family [] Patient intubated [] Other: Summary preparing to return home... will be back in hospital in approx 10 days for surgery ... we prayed for surgery and total healing of her body Time spent with patient 5 min
[2021-04-27 11:33] VITALS: BP 160/90; PULSE 66; RESP 16; TEMP 36.8; O2SAT 99
--- NOTE | 2021-04-27 12:30 | PM.PN ---
Subjective Subjective: Interval history: Patient was seen and examined today, seems to be overall doing better. Tolerating better p.o. intake. Adequate urine output. No acute events overnight. Medications: Reviewed: Yes Vitals/I&O/Wt Last Vital Signs Temp 98.3 F 04/27/21 11:33 Pulse 66 04/27/21 11:33 Resp 16 04/27/21 11:33 BP 160/90 04/27/21 11:33 Pulse Ox 99 04/27/21 11:33 04/26/21 04/27/21 04/27/21 22:59 06:59 14:59 Intake Total 60 / 2060 1000 / 3060 480 / 480 Output Total 600 / 600 400 / 1000 Balance -540 / 1460 600 / 2060 480 / 480 Weight last 48 hrs Weight 207 lb 6 oz Weight 207 lb Weight 208 lb Physical Exam Narrative: EXAM NARRATIVE: Patient is conscious alert oriented X3 BMI 40.5 Head and neck examination PERRLA no masses no cervical lymphadenopathy no jaundice Abdomen nontender nondistended soft no organomegaly guarding or rigidity/no signs of peritonitis Port palpable in place in the epigastric area Morbidly obese Data : 04/27/21 05:16 04/27/21 05:16 A&P Assessment and plan (1) Complication of gastric band procedure: We will start the patient on post bariatric surgery phase 1 diet Also, education with regard to liquid protein diet for 10 days to downsize the volume of the liver. With the plan for laparoscopic possible open explantation of gastric band Once patient tolerates p.o. intake can be discharged and follow-up at the bariatric surgery office in a week Raise the head of the bed 4-6 inches Frequent small meals through the day Avoid smoking or Chewing Tobacco Avoid excess coffee, tea, and other caffeinated beverages Avoid garments that fit tightly through the abdomen Avoid eating before going to sleep Avoid nonsteroidal anti-inflammatory drugs (NSAIDs) when possible Anti-reflux diet Anti-reflux medications as prescribed Emphasis on weight management Status: Acute Attestations Medical Necessity Statement*: Per admitting service Time Spent in Patient Care: (>than 50% of time spent in counselling and/or direct pt care on unit). Coding Level of Care Code Acute Inspector Production Plastic Parts for Dami Mendez Diagnoses Complication of gastric band procedure K95.09
--- NOTE | 2021-04-27 13:37 | PM.DCS ---
Discharge Providers Date of Admission: 04/26/21 14:06 Date of Discharge: April 27, 2021 Attending Provider at Admission: Cruz Frye MD Attending Provider at Discharge: Cruz Frye MD Primary Care Provider: Jacqueline Call MD Diagnoses at Discharge Discharge Diagnosis (1) Complication of gastric band procedure: Status: Acute Reason for Visit Reason for Visit: Abdominal Pain, Dehydrated Hospital Course Hospital Course Madison Maharaj is a 56 year old female past medical history of hypertension, anxiety disorder, post gastric sleeve more than 20 years ago presented to the ER today because of poor oral intake, nausea and vomiting worsening over last 1 week. Patient states since she had gastric sleeve she has never felt okay. She states she has never been able to drink or eat more than 3 cc. States for the last 10 years patient has been suffering because of poor oral intake, GERD and nausea with vomiting. States 5 years ago she was recommended to have gastric sleeve removed but could not because she had lost her insurance. States for last 1 week she has has worsening of symptoms with reflux, nausea and vomiting even on thinking about food. On presentation to the ER was found to have a normal CBC, chemistry showing potassium of 3, creatinine of 1 with alkaline phosphatase of 166. CT abdomen pelvis was done with results as below. Port was accessed with radiology and 3 mL of fluid was removed through the gastric sleeve to relieve pressure. Patient was started on IV resuscitation. Started on ice chips. Bariatric surgeon was consulted. Diet was gradually advanced to clear liquid diet. She tolerated clear liquid diet. On admission was found to be hypokalemic which was repleted. She has been discharged in hemodynamically stable condition with advised to follow-up with bariatric surgery as an outpatient. Diet has been modified as per bariatric team. Physical Exam Narrative: EXAM NARRATIVE: General: No acute distress, AO x3, anxious HEENT: PERRLA, pupils bilaterally equal and reactive Chest: Normal vesicular breath sounds, no added sounds, equal good air entry bilaterally CVS: S1-S2 regular, no murmurs, no tachycardia, no gallops, no rubs Abdomen: Soft, nontender, no organomegaly, bowel sounds present Neuro: No focal deficits, no facial deformity, AO x3, power 5/5 in all limbs Discharge Data Data Completed and Pending: Completed Studies During Hospitalization Category Date Time Status CT abdomen pelvis w con* [id number] Stat Cat Scan 04/26/21 08:46 Completed [place] softtissue fl dr wick [id number] Urge nt Ultrasound 04/26/21 Completed Labs from last 24 hours 04/27/21 04/27/21 04/27/21 05:16 05:16 05:16 WBC 5.5 RBC 3.76 L Hgb 11.5 Hct 35.8 L MCV 95.2 MCH 30.6 MCHC 32.1 RDW 13.9 Plt Count 202 MPV 9.9 Neut % (Auto) 52.6 Lymph % (Auto) 34.2 Cataño % (Auto) 9.8 Eos % (Auto) 2.7 Baso % (Auto) 0.5 Neut # (Auto) 2.88 Lymph # (Auto) 1.9 Cataño # (Auto) 0.5 Eos # (Auto) 0.2 Baso # (Auto) 0.0 Nucleated RBC % (a uto) 0 Nucleated RBCs # 0.0 Sodium 140 Potassium 3.5 Chloride 113 H Carbon Dioxide 19 L Anion Gap 11.5 BUN 7 Creatinine 0.6 GFR Calculation 104.2 Glucose 95 Estimat Average Gl ucose 100 Hemoglobin A1c 5.1 Calculated Osmolal ity 288 Calcium 8.6 Phosphorus 2.2 L Magnesium 1.8 Iron TIBC % Saturation Unsat Iron Binding Total Bilirubin 0.6 AST 95 H ALT 61 H Alkaline Phosphata se 251 H Total Protein 6.4 L Albumin 3.6 Globulin 2.8 Triglycerides 97 Cholesterol 202 H LDL Cholesterol, C alc 139 H Total VLDL Cholest mateo 19 HDL Cholesterol 44 L Cholesterol/HDL Ra braxton 4.59 H Vitamin B12 Folate Procalcitonin TSH 04/26/21 04/26/21 04/26/21 09:27 09:27 09:27 WBC RBC Hgb Hct MCV MCH MCHC RDW Plt Count MPV Neut % (Auto) Lymph % (Auto) Cataño % (Auto) Eos % (Auto) Baso % (Auto) Neut # (Auto) Lymph # (Auto) Cataño # (Auto) Eos # (Auto) Baso # (Auto) Nucleated RBC % (a uto) Nucleated RBCs # Sodium Potassium Chloride Carbon Dioxide Anion Gap BUN Creatinine GFR Calculation Glucose Estimat Average Gl ucose Hemoglobin A1c Calculated Osmolal ity Calcium Phosphorus Magnesium Iron 49 TIBC 245 % Saturation 20.0 Unsat Iron Binding 196 Total Bilirubin AST ALT Alkaline Phosphata se Total Protein Albumin Globulin Triglycerides Cholesterol LDL Cholesterol, C alc Total VLDL Cholest mateo HDL Cholesterol Cholesterol/HDL Ra braxton Vitamin B12 438 Folate 5.7 Procalcitonin 0.04 TSH 0.43 Addt'l Data from Hospital Stay: Laboratory Results WBC 5.5 10^3/uL (4.0- 10.0) 04/27/21 05:16 RBC 3.76 10^6/uL (4.1 -5.3) L 04/27/21 05:16 Hgb 11.5 g/dL (11.5-1 5.3) 04/27/21 05:16 Hct 35.8 % (37.0-47.0 ) L 04/27/21 05:16 MCV 95.2 fl (81-99) 04/27/21 05:16 MCH 30.6 pg (28.0-34. 0) 04/27/21 05:16 MCHC 32.1 g/dL (30.0-3 6.0) 04/27/21 05:16 RDW 13.9 % (12.1-15.1 ) 04/27/21 05:16 Plt Count 202 10^3/cmm (130 -400) 04/27/21 05:16 MPV 9.9 fL (7.4-10.4) 04/27/21 05:16 Neut % (Auto) 52.6 % 04/27/21 05:16 Lymph % (Auto) 34.2 % 04/27/21 05:16 Cataño % (Auto) 9.8 % 04/27/21 05:16 Eos % (Auto) 2.7 % 04/27/21 05:16 Baso % (Auto) 0.5 % 04/27/21 05:16 Neut # (Auto) 2.88 10^3/uL (1.8 -7.7) 04/27/21 05:16 Lymph # (Auto) 1.9 10^3/uL (0.8- 4.8) 04/27/21 05:16 Cataño # (Auto) 0.5 10^3/uL (0.2- 0.9) 04/27/21 05:16 Eos # (Auto) 0.2 10^3/uL (0.0- 0.8) 04/27/21 05:16 Baso # (Auto) 0.0 10^3/uL (0.0- 0.1) 04/27/21 05:16 Nucleated RBC % (a uto) 0 % 04/27/21 05:16 Nucleated RBCs # 0.0 /100WBC 04/27/21 05:16 Sodium 140 mmol/L (136-1 45) 04/27/21 05:16 Potassium 3.5 mmol/L (3.5-5 .1) 04/27/21 05:16 Chloride 113 mmol/L (98-10 7) H 04/27/21 05:16 Carbon Dioxide 19 mmol/L (22-29) L 04/27/21 05:16 Anion Gap 11.5 (5-19) 04/27/21 05:16 BUN 7 mg/dL (6-20) 04/27/21 05:16 Creatinine 0.6 mg/dL (0.5-0. 9) 04/27/21 05:16 GFR Calculation 104.2 mL/min (90- 130) 04/27/21 05:16 Glucose 95 mg/dL (65-115) 04/27/21 05:16 Estimat Average Gl ucose 100 04/27/21 05:16 Hemoglobin A1c 5.1 % (4.0-6.0) 04/27/21 05:16 Calculated Osmolal ity 288 mOsm/kg (285- 295) 04/27/21 05:16 Calcium 8.6 mg/dL (8.5-10 .5) 04/27/21 05:16 Phosphorus 2.2 mg/dL (2.5-4. 5) L 04/27/21 05:16 Magnesium 1.8 mg/dL (1.7-2. 3) 04/27/21 05:16 Iron 49 ug/dL (37-145) 04/26/21 09:27 TIBC 245 mcg/dl 04/26/21 09:27 % Saturation 20.0 % (20-50) 04/26/21 09:27 Unsat Iron Binding 196 ug/dL (112-34 7) 04/26/21 09:27 Total Bilirubin 0.6 mg/dL (0.15-1 .2) 04/27/21 05:16 AST 95 U/L (0-32) H 04/27/21 05:16 ALT 61 U/L (0-33) H 04/27/21 05:16 Alkaline Phosphata se 251 IU/L (35-105) H 04/27/21 05:16 Total Protein 6.4 g/dL (6.6-8.7 ) L 04/27/21 05:16 Albumin 3.6 g/dL (3.5-5.2 ) 04/27/21 05:16 Globulin 2.8 g/dL (1.3-4.6 ) 04/27/21 05:16 Triglycerides 97 mg/dL (0-150) 04/27/21 05:16 Cholesterol 202 mg/dL (0-200) H 04/27/21 05:16 LDL Cholesterol, C alc 139 mg/dL (50-129 ) H 04/27/21 05:16 Total VLDL Cholest mateo 19 mg/dL (0-30) 04/27/21 05:16 HDL Cholesterol 44 mg/dL (60-100) L 04/27/21 05:16 Cholesterol/HDL Ra braxton 4.59 mg/dL (0.0-4 .40) H 04/27/21 05:16 Lipase 28 U/L (13-60) 04/26/21 09:27 Vitamin B12 438 pg/mL (232-12 45) 04/26/21 09:27 Folate 5.7 ng/mL (4.8-37 .3) 04/26/21 09:27 Procalcitonin 0.04 ng/mL (0-0.5 ) 04/26/21 09:27 TSH 0.43 uIU/mL (0.27 -4.20) 04/26/21 09:27 Urine Color Yellow (Yellow) 04/26/21 09:10 Urine Appearance Cloudy (CLEAR) 04/26/21 09:10 Urine pH 5 (5-7) 04/26/21 09:10 Ur Specific Gravit y 1.020 (1.005-1.0 30) 04/26/21 09:10 Urine Protein 1+ (Negative) H 04/26/21 09:10 Urine Glucose (UA) Norm (Normal) 04/26/21 09:10 Urine Ketones 1+ (Negative) H 04/26/21 09:10 Urine Blood Neg (Negative) 04/26/21 09:10 Urine Nitrate Negative (Negati ve) 04/26/21 09:10 Urine Bilirubin 1+ (Negative) H 04/26/21 09:10 Urine Urobilinogen 1 mg/dL (Negative ) H 04/26/21 09:10 Ur Leukocyte Geri ase 1+ (Negative) H 04/26/21 09:10 Urine RBC 0-4 /hpf (0-2) H 04/26/21 09:10 Urine WBC 10-15 /hpf (0-5) H 04/26/21 09:10 Ur Squamous Epith Cells 15-25 /hpf (0-5) H 04/26/21 09:10 Amorphous Sediment Not Reportable 04/26/21 09:10 Urine Bacteria 2+ /hpf (NONE) H 04/26/21 09:10 Hyaline Casts 10-15 /lpf H 04/26/21 09:10 Urine Mucus Trace /hpf 04/26/21 09:10 Impressions Drainage Catheter Insertion 04/26/21 00:00 IMPRESSION: Uncomplicated gastric lap band port access Abdomen/Pelvis CT 04/26/21 08:46 IMPRESSION: 1. Prior gastric banding with progressed small esophageal hiatal hernia with air-fluid level and debris in the distal esophagus above the gastric banding. Recommend bariatric surgery consultation and correlation for gastric banding slippage with intermittent obstruction above the banding. 2. Mild diffuse fatty infiltration of the liver. 3. Fat-containing umbilical hernia. 4. Postoperative changes lumbar spine and pelvis. 5. Chronic pubic rami fractures with callus formation. Notified Ariel Bear DO at 04/26/2021 9:39 AM. Vitals: Last Vital Signs Temp 98.3 F 04/27/21 11:33 Pulse 66 04/27/21 11:33 Resp 16 04/27/21 11:33 BP 160/90 04/27/21 11:33 Pulse Ox 99 04/27/21 11:33 Discharge Plan Discharge Patient Disposition: Home Condition: Stable Prescriptions: New ondansetron HCl [Zofran] 4 mg tablet 4 mg PO Q8H PRN (Reason: nausea and vomiting) 4 Days Qty: 10 RF: 0 Continued temazepam 15 mg Capsule 30 mg PO BEDTIME RF: 0 hydrocodone-ibuprofen 7.5-200 mg tablet 1 tab PO BID PRN (Reason: Pain) RF: 0 tizanidine 2 mg tablet 2 mg PO TID PRN (Reason: Muscle Spasm) RF: 0 lisinopril 10 mg tablet 20 mg PO QAM RF: 0 ibuprofen 200 mg Tablet 800 mg PO BID RF: 0 quetiapine 50 mg tablet 50 mg PO BEDTIME RF: 0 Discharge Orders: Discharge Order (Routine); Ordered 04/27/21 Ordered By: Aden Rose Referrals: Aden Rose MD [Physician] - 04/30/21 10:00 am () Discharge Diet: As Directed Patient Instructions: Full Liquid Diet (DC), Opioid Safety Activity Restrictions/Additional Instructions: Raise the head of the bed 4-6 inches Frequent small meals through the day Avoid smoking or Chewing Tobacco Avoid excess coffee, tea, and other caffeinated beverages Avoid garments that fit tightly through the abdomen Avoid eating before going to sleep Avoid nonsteroidal anti-inflammatory drugs (NSAIDs) when possible Anti-reflux diet Anti-reflux medications as prescribed Emphasis on weight management Diet Stage 1 Goals: ? Drink 4 to 6 ounces of fluid per hour. ? Aim for a total of 64 ounces of fluid daily. Add the following food/beverages to your diet: Clear broth or bouillon 100% no sugar added apple, cranberry, or grape juice. Dilute with 1 part juice and 1 part water. No citrus justice (i.e. organe juice, grapefruit juice, etc.) Limit to 8 ounces per or less per day. Tea (do not add milk) Coffee (do not add milk or creamer) Sugar-free gelatin Sugar-free popsicles Sugar-free flavored beverages (Crystal Light?, Sugar-Free Ag-Aid?, Propel?, PowerAde Zero?, Vitamin Water 10?, Fruit?0?, Sob? Lean?, etc.) Artificial sweetener of your choice Specific education and handouts were given to the patient with regard to liquid protein shakes Discharge Attestations Time Spent in Discharge Care*: greater than 30 min Specific Discharge Activities: educating patient, discussing with pcp/other providers, discussing with clinical case manager/social workers/dc planners, documenting/other paperwork and evaluating patient/reviewing data Status at Discharge: Cognitive status at discharge: cognitively intact, Behavioral status at discharge: cooperative, Functional status at discharge: independent ambulation Overall status at discharge: patient is back to baseline Quality Metrics Clinical Quality Measures During this hospital stay, did patient experience: None Coding Level of Care Code Acute Chg FW DC note Diagnoses Complication of gastric band procedure K95.09
--- NOTE | 2021-04-27 15:29 | PC.NURSE ---
patient verbalized understanding of discharge instructions, home medications, and follow up appointments. patient was given written instructions from Dr. Rose office about following a high protein diet for the next 10-15 days. I discussed this information extensively with the patient and she verbalized understanding.
[2021-04-27 15:41] VITALS: BP 160/90; PULSE 66; RESP 16; TEMP 36.8; O2SAT 99
--- NOTE | 2021-05-03 10:10 | PC.SOCIAL ---
discharge follow up call made, spoke with patient. patient reports she is better. patient had her follow up appointment with Dr. Rose yesterday. at this appointment she scheduled to have her lap band removed on 05-08. patient is tolerating diet and following instructions per Dr. Rose. patient denies questions or concerns.
== END 2021-04-27 15:43 | disposition home or self-care (01) ==
LOC: ER 11:28 → MEDSURG 04-27 05:24
PROVIDERS: Physician Assistant; Admitting Provider Student in an Organized Health Care Education/Training Program; Emergency Provider Family Medicine; PCP Family Medicine; Visit Provider Student in an Organized Health Care Education/Training Program
DX: K95.09 Other complications of gastric band procedure (principal); I10 Essential (primary) hypertension; F41.9 Anxiety disorder, unspecified; E66.01 Morbid (severe) obesity due to excess calories; Z68.41 Body mass index [BMI] 40.0-44.9, adult; E87.6 Hypokalemia; Z90.3 Acquired absence of stomach [part of]
CPT/HCPCS: 10030; 36415; 74177; 76942; 80053; 80061; 81001; 82607; 82746; 83036; 83540; 83550; 83690; 83735; 84100; 84145; 84443; 85025; 96361; 96365; 96366; 96367; 96375; 96376; 99285; C9113; G0378; J0690; J2270; J2405; J7030; Q9967; S2083

== ENCOUNTER → 2021-05-02 16:22 | Outpatient (BNVA) | payer SELFPAY | PROVIDERS: PCP Family Medicine; Visit Provider Surgery | DX: Z20.822 Contact with and (suspected) exposure to COVID-19 (principal); K95.09 Other complications of gastric band procedure | CPT/HCPCS: 87635 ==

== ENCOUNTER 2021-05-08 16:12 | Observation (INO) | payer SELFPAY ==
[2021-05-07 10:33] VITALS: BMI 5736.5
[2021-05-08] VITALS (17 sets, daily range): BP systolic 146–183; BP diastolic 88–108; PULSE 63–93; RESP 14–20; TEMP 36.2–36.7; O2SAT 94–98; BMI 39.8
[2021-05-08] MEDS: pantoprazole 40 mg SDV IVP (14:01)
[2021-05-08] MEDS: heparin 5,000 unit/mL INJ 1 mL 5000 UNIT SUBCUT (14:02)
[2021-05-08] MEDS: scopolamine 1.5 Patch 1 PATCH TRANSDERMA (14:03)
[2021-05-08] MEDS: acetaminophen 1,000 MG/100 ML PIGGYBACK 400 MG IV ×2 (14:03→19:59)
[2021-05-08] MEDS: midazolam 1 mg/mL INJ 2 mL 2 MG IVP (14:09)
--- NOTE | 2021-05-08 14:14 | P.ANESASSM_ITS ---
Pre-Anesthetic Assessment Pre-Anesthetic Assessment: Height/Weight: Height 1.52 m Weight 92.533 kg Temp Pulse Resp BP Pulse Ox 97.9 F 63 18 183/107 97 05/08/21 13:39 05/08/21 13:39 05/08/21 13:39 05/08/21 13:39 05/08/21 13:39 Proposed Procedure: Operation Date: 05/08/21 13:15 Proposed Procedures p Laparoscopic Removal Gastric Band [id number] K95.0(Not Applicable) - Aden Rose MD s EGD(Not Applicable) - Aden Rose MD Was Beta Demetra taken within 24 hours: N/A Was Clonidine taken within 24 hours: N/A Last intake: Intake Last Liquid Date 05/08/21 Last Liquid Time 09:00 Last Solid Date 05/08/21 Last Solid Time 09:00 Social: Social History: No alcohol and No tobacco Exam: Pre-Anes Outpt Exam: alert, oriented x 3, clear to auscultation bilate rally and regular rate & rhythm Airway: Submandibular: WNL Cervical ROM: WNL MP: 2 Dentition: False CV/HEM: CV/HEM: HTN GI: Comments: N/V with previous gastric band Neuropsych: Neuropsych: Anxiety Anesthetic Plan: ASA status: 3 Anesthesia: General Other: Mod RSI Risk of > 500 ml blood loss (7ml/kg in children): No Meds/Allergies Current Medications: Current Medications Generic Name Dose Route Start Last Admin Trade Name Freq PRN Reason Stop Dose Admin Midazolam HCl 2 mg 05/08/21 12:53 05/08/21 14:09 Midazolam 1 Mg/M l Inj 2 Ml IVP 1 mg Q5M PRN Administration Preop Anxiety PFSH Anesthesia PFSH: Medical History Gastritis Hypertension Hypokalemia Upper gastrointestinal hemorrhage Surgical History (Updated 05/02/21 @ 15:57 by Denice Brown) H/O gastric sleeve Social History Alcohol intake: former Year of sobriety/quit date alcohol: 3 yr Adopted: No Caregiver/support person: No Lives independently: Yes Household members: friend(s) Housing: Apartment Current gender identity: Female Data Anesthesia Cardiac Studies: No Data to Display
[2021-05-08] MEDS: sodium chloride 0.9% 1,000 ML 999 ML IV (14:17)
--- NOTE | 2021-05-08 14:34 | W.PM.OPSUD ---
Surgery/Procedure H&P Update DATE OF PROCEDURE: May 08, 2021 DATE H&P PERFORMED: 05/02/21 H&P UPDATE INFORMATION: I have reviewed H&P completed within last 30 days, I have examined patient prior to procedure and No changes to prior documentation PREOP DIAGNOSIS: The same PLANNED PROCEDURE: Operation Date: 05/08/21 13:15 Proposed Procedures p Laparoscopic Removal Gastric Band [id number] K95.0(Not Applicable) - Aden Rose MD s EGD(Not Applicable) - Aden Rose MD
--- NOTE | 2021-05-08 16:27 | PM.OP ---
Operative Report Date of procedure: May 08, 2021 Pre-op Diagnosis: The same Post-op diagnosis: same Procedure Done: Laparoscopic explantation of gastric band and intraoperative EGD Implants: 15 [place] Citizen round Dale drain Specimens removed/disposition: Gastric band see a realize type for gross pathology Surgeon: Aden Rose Business Administration Program Chair: Surgical christine Billings Circulating nurse Ines Anesthesia: General (GETA DARIUS Monique, Dr. Toscano and Beatriz) Estimated blood loss (mL): 20 IV fluids (mL): 900 Urine output (mL): 500 Condition: stable Disposition: observation Procedure: After identifying the patient in the holding area, patient was given Heparin subcutaneous, patient was then taken to the OR placed in supine position, intubated by anesthesia, IV antibiotics were given per protocol, SCDs were on and functioning, and the blockers were updated. Hawkins catheter was inserted by the circulating nurse revealing clear urine, prep and drape of the abdomen was done under the usual sterile technique. I started by 15 cm below the xiphoid and 3 cm to the left of the midline 15 blade knife was used for skin incision, I used a 5 mm Opti-Vu port access to the abdominal cavity with a (0)10 mm scope, low flow gas followed by high flow at a pressure of 15 mm Hg, Anesthesia was asked to have the patient in reverse T Roldan.Under direct vision I was able to place another 12 mm port at the epigastric region towards the left of the midline , followed by 5 mm trocar was placed 3 fingerbreadths below the 12 mm trocar and towards the midline. At this point the index 5 mm trocar was replaced by 12 mm trocar Some adhesions were noticed towards the right side of the abdomen that there were taken down by LigaSure device under direct visualization. Retched forceps was introduced via an epigastric incision to left the liver up after placing it onto the left charity of the diaphragm. I started Dissection using the LigaSure at the band(Realize Brand) site following the tubing system ,combination of sharp and blunt dissection was used revealing the band encircling the stomach and evidence of pseudocapsule was noticed.I was able to take some of the adhesions down with appropriate hemostasis without violating the stomach.,appropriate dissection was achieved freeing the band from the surrounding adhesions without difficulty. Noticed that the gastric pouch proximal to the gastric band shows edema and mild inflammatory changes At this point I was able to unbuckle the band buckle,at this point the band was completely freed out from the encirclement around the stomach. I scrubbed out and inserted in an upper endoscopy for completion purpose and had my personnel assistant to clamp distally onto the stomach,irrigation was done,I insufflated CO2 gas within the stomach to check for any leaks and there was nothing identified nor injuries, was no evidence of leak of air within the abdominal cavity,the esophagus and stomach looked within normal, the upper endoscopy was performed under direct visualization of the laparoscopic view. At that point I deflated the stomach and the scope was retrieved out without complication I re-scrubbed again and created transverse incision at the previous scar of the actual port placement, I was able to dissect it and laparoscopically I cut the tubing and retrieved the port part and passed it to the circulating nurse for gross pathology, the rest of the tubing and the band system was retrieved out from the epigastric 12 mm trocar and the whole band system now was sent for gross pathology. Thorough irrigation and suction was done, a laparoscopic survey was achieved showing no injury or bleeding At that point I elected to place a 15 [place] Citizen rounded Dale drain underneath the left lobe of the liver at the site of the explantation of the band, appropriate hemostasis was achieved, the drain was introduced via the 5 mm port, secured to the abdominal wall with 2/0 nylon x2 Bilateral TAP (transversus abdominous plain peripheral nerve block )block using Exparel 20 mL Exparel 40 ml Normal saline 20 ml bupivacaine 0.25% 30 mL on each side injected 20 mL injected the port sites Under direct visualization a Jose Puri device was used to close the 12 mm port sites using #1 PDS suture, at that point gas was allowed to deflate, trocars were taken out under direct visualization.Skin dotty were used to close skin incisions, thorough irrigation was done at the port site followed by hemostasis, 2-0 Vicryl was used to close the subcutaneous layer, followed by skin dotty then dry dressings Counts of instruments,needles and sponges were completed at the end of the procedure The Hawkins catheter was kept I Was present for the whole entire procedure Patient tolerated the procedure well and got extubated and was taken to the recovery room.
[2021-05-08] MEDS: HYDROmorphone 1 mg/mL INJ 1 mL 0.5 MG IVP ×2 (16:45→17:00)
[2021-05-08] MEDS: ondansetron 2 mg/ML SDV 2 mL 4 MG IVP (16:57)
[2021-05-08] MEDS: diphenhydrAMINE 50 mg/mL SDV 1mL 12.5 MG IVP (16:59)
[2021-05-08] MEDS: sodium chloride 0.9% 1,000 ML 30 ML IV (17:05)
--- NOTE | 2021-05-08 17:09 | ANE.PACU2 ---
Inpatient post-anesthesia follow up: Airway intact: Yes Vital signs: Temperature 97.9 F Pulse Rate 63 Respiratory Rate 18 Blood Pressure 183/107 Pulse Oximetry 94 Oxygen Delivery Me thod Room Air Oxygen Flow Rate Fraction of Inspir ed Oxygen Hydration adequate: Yes Nausea and vomiting: No Pain level: 4 Mental status: Baseline
[2021-05-08] MEDS: morphine 4 mg/mL SDV 1 mL 2 MG IVP ×3 (18:36→23:51)
[2021-05-08] MEDS: lactated ringers 1,000 ML 150 ML IV (18:37)
[2021-05-09] VITALS (14 sets, daily range): BP systolic 104–174; BP diastolic 62–90; PULSE 61–88; RESP 12–20; TEMP 36.6–36.8; O2SAT 92–97
[2021-05-09] MEDS: lactated ringers 1,000 ML 150 ML IV ×3 (00:41→15:19)
[2021-05-09 03:00] LABS: Hematocrit 35.3 % (37.0-47.0)
[2021-05-09 03:13] LABS: Anion Gap 13.8 (5-19); Blood Urea Nitrogen 8 mg/dL (6-20); Calcium 7.8 mg/dL (8.5-10.5); Carbon Dioxide 19 mmol/L (22-29); Chloride 108 mmol/L (98-107); Glomerular Filtration Rate 87.2 mL/min (90-130); Glucose 114 mg/dL (65-115); Osmolality Calculated 283 mOsm/kg (285-295); Potassium 3.8 mmol/L (3.5-5.1); Sodium 137 mmol/L (136-145)
[2021-05-09] MEDS: morphine 4 mg/mL SDV 1 mL 2 MG IVP ×4 (03:26→10:15)
[2021-05-09] MEDS: heparin 5,000 unit/mL INJ 1 mL 5000 UNIT SUBCUT ×2 (04:45→16:31)
--- NOTE | 2021-05-09 05:43 | PC.NURSE ---
SHIFT SUMMARY Has had a good night. Received IV Morphine for pain prn and has had good relief with this. Did also receive dose of IV Tylenol. IV fluids infusing at 150ml/hr rate. Dressing and bandaids to abdomen all C&D. Drain intact with 30ml drainage emptied tonight. Sanguinous at beginning of shift and is now more serosanguinous. Has remained NPO and has had no c/o nausea. 1700ml urine output from Hawkins this shift. Up this am and ambulated in deutsch well. To chair after ambulation. Working on IS. c/o getting thirsty. Will have GI series this am then will be allowed liquids. Pt voices understanding
--- NOTE | 2021-05-09 06:17 | P.PN_ITS ---
Subjective Subjective: Interval history: Patient overall feels well, little bit sore. Adequate urine output. 30 mL serosanguinous output per drain Medications: Reviewed: Yes Vitals/I&O/Wt Last Vital Signs Temp 97.9 F 05/09/21 05:44 Pulse 71 05/09/21 06:00 Resp 16 05/09/21 05:44 BP 104/62 05/09/21 05:44 Pulse Ox 92 05/09/21 05:44 05/08/21 05/08/21 05/09/21 14:59 22:59 06:59 Intake Total 100 / 100 1160 / 1260 910 / 2170 Output Total 2295 / 2295 455 / 2750 Balance 100 / 100 -1135 / -1035 455 / -580 Weight last 48 hrs Weight 204 lb Weight 204 lb Physical Exam Narrative: EXAM NARRATIVE: Patient is conscious alert oriented X3 BMI 39.8 Head and neck examination PERRLA no masses no cervical lymphadenopathy no jaundice Cardiac examination audible S1-S2 no murmurs no gallops no arrhythmias Chest is clear bilateral,abscence of Rhonchi or wheezes,no surgical emphysema Abdomen nontender except mildly at the incision sites. Nondistended soft no organomegaly guarding or rigidity/no signs of peritonitis. Drain in place with serosanguineous output. Hawkins catheter in place with clear urine Extremities no cyanosis no clubbing no edema Urinary Catheter Management^: F: Cath Placed During This Visit: yes, but has since been removed by the nurse Reason for Continuing Indwelling Catheter: Decision to DC Catheter Urinary Catheter Date of Insertion: 05/08/21 Urinary Catheter Time of Insertion: 15:00 Date Urinary Catheter Removed: 05/09/21 Time Urinary Catheter Discontinued: 06:15 Data : 05/09/21 02:17 05/09/21 02:17 A&P Assessment and plan (1) Status post gastric banding surgery: Assessment 56 years old female patient undergone laparoscopic explantation of gastric band 05/08/2021 and intra-abdominal drain placement Plan Follow an upper GI study once this is done we will start the patient slowly on clear liquid diet. Encourage ambulation Plan to discharge patient home today once tolerates appropriate p.o. intake Assurance and education All questions have been answered and all concerns have been addressed to patient's satisfaction. Status: Acute Attestations Medical Necessity Statement*: Observation status for perioperative care, following an upper GI study in patients clinical progress Time Spent in Patient Care: (>than 50% of time spent in counselling and/or direct pt care on unit) . Coding Level of Care Code Acute Manager Employee Relations for Chg Fwd Diagnoses Status post gastric banding surgery Z98.84
--- NOTE | 2021-05-09 06:19 | PC.NURSE ---
DR BRONSON Rose here this am to see pt. Order received to remove Hawkins.
--- NOTE | 2021-05-09 08:00 | FL_ITS ---
WS: [id number] UPPER GI TECHNICAL: Limited upper GI postoperative with Gastrografin FLUOROSCOPY TIME: 3 minutes CLINICAL INFORMATION: Status Post laparoscopic gastric band explantation COMPARISON: None. FINDINGS: Limited upper GI postoperative with Gastrografin. Small amount of Gastrografin was ingested . No evidence of leak. Removal of gastric band with improved narrowing at the gastroesophageal juncti on. Tertiary contractions with esophageal spasm in the distal esophagus with slightly delayed emptyin g. Normal filling of the stomach. Small volume stomach. Stomach did not empty after several minutes l ikely postoperative. Surgical drains. PA/PA upper GI series [id number] IMPRESSION: 1. Removal of laparoscopic band with improved esophageal narrowing at the GE j unction compared to the prior examinations. 2. Slightly delayed esophageal emptying with tertiary contractions and esophag eal spasm distal esophagus. 3. Normal filling of the proximal and mid stomach. Overall small volume stomac h. 4. No evidence of leak.
[2021-05-09] MEDS: diatrizoate meglumine 120 mL Sol PO (09:10)
--- NOTE | 2021-05-09 10:29 | PC.CHAP ---
Pastoral Care Encounter/Spiritual Assessment Type of Contact [] Declined therapeutic strategy lead visit [] Patient/Family/Request visit [] Outpatient visit [] Follow-up visit [] Physician referral [] Code/Alert [X] Routine visit [] Staff referral [] Actively dying [] Patient sleeping [] Family support [] [] Out of room [] Palliative care [] [X] Receiving care in room [] Pre-surgical visit [] Trauma [] Long length of stay [] ICU visit [] Other: Relational/Emotional Strength [] Patient feels connected with others/family/visitors/staff [] Distress [] Loneliness/isolation [] Abandonment Spirituality of Patient [] Person of Sabra [] Attends Baptist of their Sabra [] Believes in Prayer [] Reads Bible or Restorationism materials [] There are Spiritual issues to be addressed Lamination Inspector Interventions [] Prayer [] Active listening [] Non-anxious presence [] Spiritual/emotional support [] Crisis/trauma care [] Spiritual counseling [] Bereavement support [] Provided bereavement packet [] Provided Bible/devotional materials [] Provided toy/stuffed animal, coloring book to patient or family member [] Provided Communion [] Anointing/Stowell [] Salvation [] Completed spiritual assessment [] Other: Impact on Illness or Injury [] Angry [] Fearful [] Anxious [] Often cries [] Exhaustion [] Unable to work [] Unable to attend catholic [] Unable to walk/stand [] Unable to read [] Unable to drive [] Unable to eat/drink [] Unable to sleep [] Unable to be with family [] Patient intubated [] Other: Summary Time spent with patient
[2021-05-09] MEDS: HYDROcodone-acetaminophen 5-325 mg Tablet 1 TAB PO ×2 (13:03→19:07)
--- NOTE | 2021-05-09 14:35 | PC.NUTR ---
Nutrition consult received for post bariatric surgery. Modified diet order per protocol to reflect Bariatric Phase 1 diet per bariatric clinic guidelines. Spoke with pt who denies questions/concerns at this time. Encouraged consumption of Prosource supplement as tolerated. Encouraged pt to discuss MVI with physician, given difficulty consuming balanced diet. See full RD assessment for further details.
[2021-05-09] MEDS: acetaminophen 1,000 MG/100 ML PIGGYBACK 400 MG IV (16:30)
--- NOTE | 2021-05-09 19:10 | PC.NURSE ---
PATIENT HAS BEEN UNCOMFORTABLE SEVERAL TIMES TODAY. THIS NURSE ADMINISTERED PAIN MEDICATION. PATIENT WAS UNABLE TO VOID AFTER ARENAS REMOVAL. DR. PARTIDA NOTIFIED AND ORDERED STRAIGHT CATH. THIS NURSE STRAIGHT CATH X1. PATIENT WAS STILL UNABLE TO VOID. DR. MUNSON NOTIFIED. ARENAS INSERTED. 1500ML OF URINE OUTPUT. PATIENT ENCOURAGED TO SLOW DOWN THE PO INTAKE. PATIENT WALKED 4 LAPS TODAY. ENCOURAGE AMBULATION AND SITTING IN THE CHAIR.
[2021-05-09] MEDS: tizanidine 4 mg Tablet 2 MG PO (20:37)
[2021-05-09] MEDS: quetiapine 25 mg Tablet 50 MG PO (20:37)
[2021-05-09] MEDS: temazepam 15 mg Capsule 30 MG PO (20:37)
[2021-05-10] VITALS: BP 119/71; PULSE 72; RESP 16; TEMP 36.7; O2SAT 92
[2021-05-10] MEDS: acetaminophen 1,000 MG/100 ML PIGGYBACK 400 MG IV (01:22)
[2021-05-10 02:46] LABS: Hematocrit 32.2 % (37.0-47.0)
[2021-05-10 03:18] VITALS: RESP 16
[2021-05-10] MEDS: morphine 4 mg/mL SDV 1 mL 2 MG IVP (03:18)
[2021-05-10 03:21] LABS: Anion Gap 13.3 (5-19); Blood Urea Nitrogen 7 mg/dL (6-20); Calcium 8.1 mg/dL (8.5-10.5); Carbon Dioxide 21 mmol/L (22-29); Chloride 106 mmol/L (98-107); Glomerular Filtration Rate 87.2 mL/min (90-130); Glucose 83 mg/dL (65-115); Osmolality Calculated 281 mOsm/kg (285-295); Potassium 3.3 mmol/L (3.5-5.1); Sodium 137 mmol/L (136-145)
[2021-05-10] MEDS: lactated ringers 1,000 ML 75 ML IV (03:42)
[2021-05-10 04:00] VITALS: BP 122/73; PULSE 70; RESP 17; TEMP 36.8; O2SAT 91
[2021-05-10] MEDS: heparin 5,000 unit/mL INJ 1 mL 5000 UNIT SUBCUT (04:57)
[2021-05-10] MEDS: HYDROcodone-acetaminophen 5-325 mg Tablet 1 TAB PO ×2 (06:24→13:58)
[2021-05-10] MEDS: tizanidine 4 mg Tablet 2 MG PO (07:53)
[2021-05-10 08:00] VITALS: BP 165/99; PULSE 92; RESP 18; TEMP 36.7; O2SAT 91
--- NOTE | 2021-05-10 10:49 | P.PN_ITS ---
Subjective Subjective: Interval history: Patient overall feels better. Adequate urine output. Pain under better control. Minimal output per abdominal drain Medications: Reviewed: Yes Vitals/I&O/Wt Last Vital Signs Temp 98.1 F 05/10/21 08:00 Pulse 92 05/10/21 08:00 Resp 18 05/10/21 08:00 BP 165/99 05/10/21 08:00 Pulse Ox 91 05/10/21 08:00 05/09/21 05/10/21 05/10/21 22:59 06:59 14:59 Intake Total 340 / 2530 100 / 2630 Output Total 1040 / 1540 1256 / 2796 1500 / 1500 Balance -700 / 990 -1156 / -166 -1500 / -1500 Weight last 48 hrs Weight 204 lb Physical Exam Narrative: EXAM NARRATIVE: Patient is conscious alert oriented X3 BMI 39.8 Head and neck examination PERRLA no masses no cervical lymphadenopathy no jaundice Cardiac examination audible S1-S2 no murmurs no gallops no arrhythmias Chest is clear bilateral,abscence of Rhonchi or wheezes,no surgical emphysema Abdomen nontender except mildly at the incision sites. Nondistended soft no organomegaly guarding or rigidity/no signs of peritonitis. Drain in place with minimal serosanguineous output. Hawkins catheter in place with clear urine Extremities no cyanosis no clubbing no edema Urinary Catheter Management^: F: Cath Placed During This Visit: yes, but has since been removed by the nurse Reason for Continuing Indwelling Catheter: Acute Urinary Retention or Obstruction Urinary Catheter Date of Insertion: 05/10/21 Urinary Catheter Time of Insertion: 09:30 Date Urinary Catheter Removed: 05/10/21 Time Urinary Catheter Discontinued: 07:01 Data : 05/10/21 02:32 05/10/21 02:32 A&P Assessment and plan (1) Status post gastric banding surgery: Assessment 56 years old female patient undergone laparoscopic explantation of gastric band 05/08/2021 and intra-abdominal drain placement Plan We will attempt discontinue Hawkins catheter and monitor the patient clinically, if she continues to have retention of urine we may need to administer another one. DC scopolamine patch for concern of potential side effects about urinary retention Otherwise we will plan to send the patient home today on oral pain medications and antinausea agents. Drain care and education Assurance and education All questions have been answered and all concerns have been addressed to patient's satisfaction. Status: Acute Attestations Medical Necessity Statement*: Patient required observation status for perioperative care including appropriate pain control.. And met the appropriate criteria for discharge home today. Time Spent in Patient Care: (>than 50% of time spent in counselling and/or direct pt care on unit) . Coding Level of Care Code Acute Underwater Welder for Chg Fwd Diagnoses Status post gastric banding surgery Z98.84
--- NOTE | 2021-05-10 10:52 | P.SS_ITS ---
Short Stay Summary Providers Date of Admit/Discharge: 05/10/21 Attending Provider: Aden Rose MD Primary Care Provider: Jacqueline Call MD Chief Complaint: lap gastric band HPI History of Present Illness Ms. Madison Maharaj is a 56 year old female had complications with a previously placed laparoscopic adjustable gastric band more than 10 years ago. Started to encounter issues with the band in the form of repeated nausea and vomiting. Multiple visits to the emergency department. Bariatric surgery was consulted for further evaluation and patient undergone preop evaluation for potential laparoscopic explantation of gastric band Review of Systems General: Reports: 10 or more systems reviewed and unremarkable except in HPI and below Home Meds/Allergies Home Medications and Allergies Home Medications Medication Instructions Recorded Confirmed Type temazepam 30 mg PO BEDTIME 12/11/19 05/07/21 History quetiapine 50 mg PO BEDTIME 02/22/21 05/07/21 History hydrocodone-ibuprofen 1 tab PO BID PRN 04/26/21 05/07/21 History lisinopril 20 mg PO QAM 04/26/21 05/07/21 History tizanidine 2 mg PO TID PRN 04/26/21 05/07/21 History Allergies Allergy/AdvReac Type Severity Reaction Status Date / Time codeine Allergy rash Verified 05/10/21 10:53 PFSH Acute PFSH: Medical History Gastritis Hypertension Hypokalemia Upper gastrointestinal hemorrhage Surgical History (Updated 05/10/21 @ 10:53 by Aden Rose MD) H/O gastric sleeve Social History Alcohol intake: former Year of sobriety/quit date alcohol: 3 yr Adopted: No Caregiver/support person: No Lives independently: Yes Household members: friend(s) Housing: Apartment Current gender identity: Female Vitals/I&O/Wt Last Vital Signs Temp 98.1 F 05/10/21 08:00 Pulse 92 05/10/21 08:00 Resp 18 05/10/21 08:00 BP 165/99 05/10/21 08:00 Pulse Ox 91 05/10/21 08:00 05/09/21 05/10/21 05/10/21 22:59 06:59 14:59 Intake Total 340 / 2530 100 / 2630 Output Total 1040 / 1540 1256 / 2796 1500 / 1500 Balance -700 / 990 -1156 / -166 -1500 / -1500 Weight last 48 hrs Weight 204 lb Physical Exam Urinary Catheter Management^: F: Cath Placed During This Visit: yes, but has since been removed by the nurse Reason for Continuing Indwelling Catheter: Acute Urinary Retention or Obstruction Urinary Catheter Date of Insertion: 05/10/21 Urinary Catheter Time of Insertion: 09:30 Date Urinary Catheter Removed: 05/10/21 Time Urinary Catheter Discontinued: 07:01 Hospital Course Hospital Course This is a pleasant 56 years old female patient undergone uneventful laparoscopic explantation of gastric band with intra-abdominal drain placement. And intraoperative EGD. Postoperative day 1 patient undergone upper GI study that showed no evidence of extravasation or leak. Patient tolerated p.o. intake and continued to have stable vital signs and adequate urine output. Yet she did have some issues with pain control that required extending her hospital stay for another night, for better pain control. Also an attempt of discontinuing the Hawkins catheter was not successful as the patient had urinary retention that required initially in and out catheter. Followed by insertion of Hawkins catheter. And another attempt today to discontinue the Hawkins catheter and patient continued to retain urine. So an other Hawkins catheter was inserted and the plan to discharge home with Hawkins catheter education. Otherwise patient continued to be tolerating p.o. intake and passing gas Discharge Summary 56 years old female patient undergone laparoscopic adjustable gastric band explantation and intraoperative EGD. Patient continued to be tolerating p.o. intake and met the appropriate and safe criteria for discharge home today with specific education about drain care and education as well as Hawkins catheter care and education. Incentive spirometer education as well was given to the patient. We will plan to have the patient follow-up in 1 week at the bariatric surgery office. SSS Data Data Completed and Pending: Completed Studies During Hospitalization Category Date Time [place] [id number] Routine Exams 05/09/21 08:00 Completed Pending at discharge Category Date Time Status ES surgery / GI i mages Routine Exams 05/08/21 13:42 Taken Basic Metabolic P jose AM LABS Lab 05/11/21 04:00 Ordered Hemoglobin and He matocrit AM LABS Lab 05/11/21 04:00 Ordered Pathology: Surgic al [PTH] Routine Pth 05/08/21 17:05 Received Diagnoses at Discharge Discharge Diagnosis (1) Status post gastric banding surgery: Status: Acute Permanent problem details: We will plan to discharge patient home today Discharge Plan Discharge Patient Disposition: Home Condition: Stable Prescriptions: New tramadol 50 mg tablet 50 mg PO Q6H PRN (Reason: pain) Qty: 28 RF: 0 Zofran 4 mg tablet 4 mg PO Q6H PRN (Reason: nausea and vomiting) Qty: 30 RF: 1 cyclobenzaprine 10 mg tablet 10 mg PO TID PRN (Reason: muscle spasm) Qty: 30 RF: 1 Continued temazepam 15 mg Capsule 30 mg PO BEDTIME RF: 0 hydrocodone-ibuprofen 7.5-200 mg tablet 1 tab PO BID PRN (Reason: Pain) RF: 0 tizanidine 2 mg tablet 2 mg PO TID PRN (Reason: Muscle Spasm) RF: 0 lisinopril 10 mg tablet 20 mg PO QAM RF: 0 quetiapine 50 mg tablet 50 mg PO BEDTIME RF: 0 Discharge Orders: Discharge Order (Routine); Ordered 05/10/21 Ordered By: Aden Rose Referrals: Aden Rose MD [Physician] - (Return to bariatric surgery office in 1 week) Discharge Diet: As Directed Discharge Activity: Limit activity as instructed Patient Instructions: Opioid Safety Activity Restrictions/Additional Instructions: 1. Patient can shower after 48 hours from surgery 2. Remove secondary dressing can take down after 48 hours. Please pay attention to drain while taking a shower. 3. Up and walking as tolerated 4. Do not lift more than 5 pounds first 2 weeks after surgery and not more than 25 pounds 6 to 8 weeks after surgery. 5. Do not operate heavy machinery or drive while using pain medications. 6.Contact the office or return to the ER for worsening nausea vomiting fevers or chills, or noticing any redness around incision sites or discharge. Diet education Stage 1 When do I start this stage? The day after your surgery (Day 1). You will get to start this stage after you pass the upper GI study and/or methylene blue test. How long will I be on this stage? Day 1 thru day 2 or until you are discharged from the hospital. Goals: ? Drink 4 to 6 ounces of fluid per hour. ? Aim for a total of 64 ounces of fluid daily. Add the following food/beverages to your diet: Clear broth or bouillon 100% no sugar added apple, cranberry, or grape juice. Dilute with 1 part juice and 1 part water. No citrus justice (i.e. organe juice, grapefruit juice, etc.) Limit to 8 ounces per or less per day. Tea (do not add milk) Coffee (do not add milk or creamer) Sugar-free gelatin Sugar-free popsicles Sugar-free flavored beverages (Crystal Light?, Sugar-Free Ag-Aid?, Propel?, PowerAde Zero?, Vitamin Water 10?, Fruit?0?, Sob? Lean?, etc.) Artificial sweetener of your choice Stage 2 When do I start this stage? Day 3 (or once you are discharged from the hospital) How long will I be on this stage? Day 3 thru Day 13 Goals: ? Drink 4 to 6 ounces of fluid per hour. ? Aim for a total of 64 ounces of fluid daily. ? Aim to meet protein goals with liquid protein supplements Add the following food/beverages to your diet: Protein supplements (thin, water-based supplement may be easier to digest at first while milk-based supplements may feel ``heavy?? and uncomfortable at first) Milk: 1%, skim, light soy milk, or lactose-free milk Attestations Medical Necessity Statement*: Observation for perioperative care. Time Spent in Patient Care*: greater than 30 min Specific Discharge Activities: Specific discharge activities: educating patient Status at Discharge: Cognitive status at discharge: cognitively intact , Behavioral status at discharge: cooperative , Overall status at discharge: patient is progressing back to baseline Quality Metrics Clinical Quality Measures: During this hospital stay, did patient experience: None Coding Level of Care Code Acute Metal Patternmaker for Chg Fwd Diagnoses Status post gastric banding surgery Z98.84
[2021-05-10 14:18] VITALS: BP 165/99; PULSE 92; RESP 18; TEMP 36.7; O2SAT 91
[2021-05-10 14:21] VITALS: BP 165/99; PULSE 92; RESP 18; TEMP 36.7; O2SAT 91
--- NOTE | 2021-05-10 15:06 | PC.NURSE ---
Dr. Rose recommended patient follow up with Dr. Do regarding the casarez catheter. I and made the patient an appointment with Dr. Do on 05/25 at 0730. I called multiple times in an attempt to speak directly with the patient, however it went straight to voicemail. I left a voicemail for patient of when her appointment is with Dr. Do and if she was needing to call and change the appointment, the number is to reach his clinic. I also informed her of the new pain Rx that was sent to [facility] pharmacy and instructed her to call [phone]. [phone] if she has any further questions/concerns.
== END 2021-05-10 14:21 | disposition home or self-care (01) ==
LOC: MEDSURG 16:12
PROVIDERS: Admitting Provider Surgery; PCP Family Medicine; Visit Provider Surgery
PROC: 0DP64CZ Removal of Extraluminal Device from Stomach, Percutaneous Endoscopic Approach (ICD-10-PCS; CPT 43772; principal; 2021-05-08 13:05)
PROC: 0DJ08ZZ Inspection of Upper Intestinal Tract, Via Natural or Artificial Opening Endoscopic (ICD-10-PCS; CPT 43235; 2021-05-08 13:05)
DX: K95.89 Other complications of other bariatric procedure (principal); R11.2 Nausea with vomiting, unspecified; I10 Essential (primary) hypertension; F41.9 Anxiety disorder, unspecified
CPT/HCPCS: 43774; 36415; 51702; 51798; 74240; 80048; 85014; 85018; 88300; 96365; 96372; C9113; G0378; J0360; J0690; J1100; J1170; J1200; J1644; J2250; J2270; J2405; J2704; J2710; J3010; J3490; J7030; Q9963

== ENCOUNTER 2021-11-03 04:32 | Emergency (ER) | payer SELFPAY ==
[2021-11-03 04:37] VITALS: BP 182/152; PULSE 132; RESP 18; TEMP 36.7; O2SAT 96; BMI 39.0
--- NOTE | 2021-11-03 04:43 | ED_ITS ---
HPI - Allergic Reaction General: Chief complaint: Allergic Reaction Stated complaint: Allergic Reaction Time Seen by Provider: 11/03/21 04:36 Source: patient Mode of arrival: ambulatory Limitations: no limitations History of Present Illness: HPI narrative: 56-year-old female states that she had an area of redness on her chin few days ago she thought it might be poison sumac. States she been using a cream on it and woke up this morning with a yellow and crusting and having increased pain and swelling. She has no tongue swelling no difficulty swallowing at this time. She does have quite a bit of redness to her chin denies any fevers. Associated symptoms: Deny abdominal pain, nausea or vomiting Review of Systems Const: Denies: fever(s), chills, body aches or change in appetite Eyes: Denies: blurry vision or eye discomfort ENMT: Denies: throat pain or dental pain Card: Denies: chest pain Resp: Denies: dyspnea GI: Denies: abdominal pain, nausea, vomiting or diarrhea : Denies: dysuria Musc: Denies: neck pain or back pain Skin/Breast: Reports: rash and erythema Neuro: Denies: headache(s) Psych: Denies: depression Sergio/Lymph: Denies: easy bruising All/Imm: Denies: urticaria PFSH ED PFSH: Medical History Complication of gastric band procedure Gastritis Hypertension Hypokalemia Nausea and vomiting Upper gastrointestinal hemorrhage Urinary retention Surgical History H/O gastric sleeve Status post gastric banding surgery We will plan to discharge patient home today Social History Alcohol intake: former Year of sobriety/quit date alcohol: 3 yr Physical Exam Const: COMMON NORMALS: no acute distress, patient oriented x3 and healthy appearing HENMT: COMMON NORMALS: normocephalic and atraumatic HEAD & SCALP: normocephalic and atraumatic OTHER: Erythema and swelling to chin with secondary impetigo no tongue swelling no difficulty swallowing Eye: COMMON NORMALS: Equal, round and reactive pupils present and EOMs intact bilaterally PUPIL: Yes Equal, round and reactive pupils present Neck/C-Spine: COMMON NORMALS: full ROM and supple Chest: COMMONS NORMALS: normal inspection of the chest and normal palpation of entire chest wall Resp: COMMON NORMALS: normal respiratory effort, No retractions, No use of accessory muscles and clear to auscultation bilaterally AUSCULTATION: clear to auscultation bilaterally Cardio: COMMON NORMALS: regular rate, regular rhythm and No murmurs present (Cardio) RATE: regular rate RHYTHM: regular rhythm GI: COMMON NORMALS: Normal to inspection, nondistended, normoactive bowel sounds present, Soft to palpation, non-tender and no masses PALPATION: Yes Soft to palpation Extremity: COMMON NORMALS: normal to inspection and full ROM Neuro: COMMON NORMALS: patient oriented x3, moves all extremities and no focal motor deficits Psych: COMMON NORMALS: mental status grossly normal, Normal thought process present and cooperative THOUGHT PROCESS: Normal thought process present Skin: COMMON NORMALS: no rashes or lesions noted and no wounds GENERAL SKIN EXAM: no rashes or lesions noted Course Vital Signs: Vital signs: Vital Signs Temperature 98.0 F 11/03/21 04:37 Pulse Rate 132 H 11/03/21 04:37 Respiratory Rate 18 11/03/21 04:37 Blood Pressure 182/152 11/03/21 04:37 Pulse Oximetry 96 11/03/21 04:37 MDM - Allergic Reaction Medical Decision Making Patient presents here with allergic reaction possibly to facial cream does have secondary impetigo as well we will place her on Bactroban along with prednisone also is having some sinus pain we will place her on Keflex as well she is to follow-up with PCP in 2 to 4 days return if worsening she understands agrees to plan. Discharge Plan Discharge Patient Disposition: Home Clinical Impression: Allergic reaction, Impetigo, Sinusitis Condition: Stable Prescriptions: New cephalexin 500 mg capsule 500 mg PO QID 7 Days Qty: 28 0RF prednisone 50 mg tablet 50 mg PO DAILY Qty: 5 0RF mupirocin 2 % ointment 1 applic topical TID 7 Days Qty: 22 0RF No Action hydrocodone-acetaminophen 5-325 mg tablet 1 tab PO Q6H PRN (Reason: pain) 7 Days Qty: 28 0RF tramadol 50 mg tablet 50 mg PO Q6H PRN (Reason: pain) Qty: 14 0RF temazepam 15 mg Capsule 30 mg PO BEDTIME 0RF hydrocodone-ibuprofen 7.5-200 mg tablet 1 tab PO BID PRN (Reason: Pain) 0RF tizanidine 2 mg tablet 2 mg PO TID PRN (Reason: Muscle Spasm) 0RF lisinopril 10 mg tablet 20 mg PO QAM 0RF Zofran 4 mg tablet 4 mg PO Q6H PRN (Reason: nausea and vomiting) Qty: 30 1RF cyclobenzaprine 10 mg tablet 10 mg PO TID PRN (Reason: muscle spasm) Qty: 30 1RF hydrocodone-acetaminophen 5-325 mg tablet 1 tab PO Q6H PRN (Reason: pain) Qty: 28 0RF quetiapine 50 mg tablet 50 mg PO BEDTIME 0RF Discharge Orders: Discharge ED (Routine); Ordered 11/03/21 Ordered By: Kristi Blanco Referrals: Jacqueline Call MD [Primary Care Provider] - 1-3 days Discharge Diet: Advance as tolerated Discharge Activity: Resume usual activity Patient Instructions: Impetigo (ED), General Allergic Reaction (ED), Opioid Safety Coding Level of Care Code ED Physical Therapy Professor for Chg Fwd Exam Comprehensive
[2021-11-03] MEDS: diphenhydrAMINE 50 mg/mL SDV 1mL IVP (05:09)
[2021-11-03 05:10] VITALS: BP 169/114; PULSE 102; RESP 18; O2SAT 95
[2021-11-03 05:30] VITALS: BP 160/106; PULSE 107; RESP 18; O2SAT 96
== END 2021-11-03 05:30 | disposition home or self-care (01) ==
PROVIDERS: Emergency Provider Emergency Medicine; PCP Family Medicine
DX: T78.40XA Allergy, unspecified, initial encounter (principal); L01.09 Other impetigo; J32.9 Chronic sinusitis, unspecified; I10 Essential (primary) hypertension
CPT/HCPCS: 96374; 96375; 99283; J1200; J2930

== ENCOUNTER 2021-12-30 08:45 | Emergency (ER) | payer SELFPAY ==
[2021-12-30 08:51] VITALS: BP 179/137; PULSE 94; RESP 16; TEMP 36.7; O2SAT 99; BMI 40.0
--- NOTE | 2021-12-30 09:25 | W.ED.ALLEREA ---
HPI - Allergic Reaction General: Chief complaint: Allergic Reaction Stated complaint: rash/swelling of face/pain Time Seen by Provider: 12/30/21 09:01 Source: patient Mode of arrival: ambulatory Limitations: no limitations History of Present Illness: HPI narrative: 56-year-old female presents to the ER today for reaction. Patient reports she had something similar to this about 3 months ago. At that time she thought she was exposed to poison yousif and received steroids and improved. Patient reports about a week ago she started noticing some swelling and went to an urgent care and was given a steroid shot. Patient reports there was some improvement for a couple days however over the last 24 hours things have significantly worsened. Patient reports the swelling and itching is located only on her face. She reports swelling around her lips in addition to major itching. She reports feeling around her eyes. She denies any tongue swelling or shortness of breath. Patient is unsure of what she might of come in contact with. She reports she does have some outside plants however she has tried everything to avoid any type of poison yousif and does not know where she would be exposed at. Patient has never had food allergy testing. She reports she does not like seafood however does admit she ate at a [employer] last week prior to this starting. Patient has been taking Claritin and Benadryl sometimes at home. Review of Systems General: Reports: 10 or more systems reviewed and unremarkable except in HPI and below PFSH ED PFSH: Medical History Complication of gastric band procedure Gastritis Hypertension Hypokalemia Nausea and vomiting Upper gastrointestinal hemorrhage Urinary retention Surgical History H/O gastric sleeve Status post gastric banding surgery We will plan to discharge patient home today Social History Alcohol intake: former Year of sobriety/quit date alcohol: 3 yr Physical Exam Const: COMMON NORMALS: average body habitus, patient oriented x3, no limitations, healthy appearing and alert HENMT: FACE & SINUS: erythema and edema OTHER: Patient has significant swelling of the face along with erythema. There is no drainage noted. No blisters noted. This is the diffuse angioedema of the face. No tongue or throat swelling is noted. Patient is speaking without difficulty. Patients airway appears clear. Eye: OTHER: Swelling noted around bilateral eyes Neck/C-Spine: COMMON NORMALS: full ROM and no lymphadenopathy Resp: COMMON NORMALS: normal respiratory effort and No retractions EFFORT & INSPECTION: Yes able to speak in complete sentences Cardio: COMMON NORMALS: regular rate and regular rhythm RATE: regular rate RHYTHM: regular rhythm Extremity: COMMON NORMALS: normal to inspection and full ROM Neuro: COMMON NORMALS: patient oriented x3 SENSORIUM/ORIENTATION: Yes alert Psych: COMMON NORMALS: mental status grossly normal and Normal thought process present THOUGHT PROCESS: Normal thought process present Skin: NARRATIVE SKIN EXAM: See facial exam. Mild maculopapular rash noted to left thumb. Course ED course: 56-year-old female presents to the ER today for an allergic reaction. Patient reports she had this about 2 months ago but then about a week ago it reappeared and was significantly worse this time. Patient reports she went to an urgent care and received a steroid shot 2 days ago. She reports that improved slightly that day however when she woke up this morning it was significantly worse. Patient reports swelling around her entire face. Denies any difficulty breathing, throat or tongue swelling. Patient is unsure what she might of come into contact with. We discussed that patient appears to be having allergic reaction. This does not appear to be an infection. Patient does not have a PCP and has never had allergy testing. We will do Solu-Medrol 125 mg in the ER today in addition to Benadryl. Vital Signs: Vital signs: Vital Signs Temperature 98.0 F 12/30/21 08:51 Pulse Rate 94 12/30/21 08:51 Respiratory Rate 16 12/30/21 08:51 Blood Pressure 179/137 12/30/21 08:51 Pulse Oximetry 99 12/30/21 08:51 MDM - Allergic Reaction Medical Decision Making 56-year-old female presents to the ER today for an allergic reaction. Patient reports she had this about 2 months ago but then about a week ago it reappeared and was significantly worse this time. Patient reports she went to an urgent care and received a steroid shot 2 days ago. She reports that improved slightly that day however when she woke up this morning it was significantly worse. Patient reports swelling around her entire face. Denies any difficulty breathing, throat or tongue swelling. Patient is unsure what she might of come into contact with. We discussed that patient appears to be having allergic reaction. This does not appear to be an infection. Patient does not have a PCP and has never had allergy testing. We will do Solu-Medrol 125 mg in the ER today in addition to Benadryl. We will send patient home with a 2-week taper of prednisone as likely she was not given enough last time and therefore never completely improved. We will also send patient home with famotidine. She should continue daily Claritin and Benadryl. Discussed with patient the importance of establishing care with a PCP for allergy testing. I feel this is likely something she is ingested such as shellfish that she needs to be aware of. Patient also has elevated blood pressure in the ER which needs to be discussed with the PCP. I think likely today's elevated blood pressure is secondary to patient's discomfort. Return to the ER with new or worsening symptoms. Patient verbalized understanding and is in agreement with the treatment plan. Critical Care Time Critical Care Time: Critical Care Time: No Discharge Plan Discharge Patient Disposition: Home Clinical Impression: Allergic reaction Condition: Stable Prescriptions: New famotidine 20 mg tablet 20 mg PO BID 14 Days Qty: 28 0RF prednisone 10 mg tablet 10 mg PO DAILY Qty: 40 0RF Rx Instructions: Take 4 tabs PO daily x 4 days, then 3 tabs daily x 4 days, then 2 tabs daily x 4 days, then 1 tab daily x 4 days. No Action dexamethasone sodium phosphate 4 mg/mL solution 8 mg IM ONCE Qty: 2 0RF temazepam 15 mg Capsule 30 mg PO BEDTIME 0RF tizanidine 2 mg tablet 2 mg PO TID PRN (Reason: Muscle Spasm) 0RF lisinopril 10 mg tablet 20 mg PO QAM 0RF Zofran 4 mg tablet 4 mg PO Q6H PRN (Reason: nausea and vomiting) Qty: 30 1RF cyclobenzaprine 10 mg tablet 10 mg PO TID PRN (Reason: muscle spasm) Qty: 30 1RF quetiapine 50 mg tablet 50 mg PO BEDTIME 0RF Discharge Orders: Discharge ED (Routine); Ordered 12/30/21 Ordered By: Sussy Mckeon Referrals: Jacqueline Call MD [Primary Care Provider] - Discharge Diet: Usual diet Discharge Activity: Resume usual activity Activity Restrictions/Additional Instructions: Take prednisone and famotidine as prescribed. Okay to also take Benadryl every 4-6 hours for itching. Continue to take Claritin daily. Would recommend following up with a PCP to discuss allergy testing. Return to the ER with new or worsening symptoms. Coding Level of Care Code ED Net Developer With [employer] for Dami Mendez
[2021-12-30] MEDS: diphenhydrAMINE 50 mg/mL SDV 1mL 25 MG IVP ×2 (09:28→09:58)
[2021-12-30] MEDS: famotidine 20 mg/2 mL INJ 40 MG IVP (09:58)
[2021-12-30 11:05] VITALS: PULSE 67; RESP 16; O2SAT 97
== END 2021-12-30 11:11 | disposition home or self-care (01) ==
PROVIDERS: Emergency Provider Physician Assistant; PCP Family Medicine
DX: T78.40XA Allergy, unspecified, initial encounter (principal); R22.0 Localized swelling, mass and lump, head; I10 Essential (primary) hypertension
CPT/HCPCS: 96374; 96375; 96376; 99284; J1200; J2930; J3490

== ENCOUNTER 2022-01-01 12:06 | Emergency (ER) | payer SELFPAY ==
[2022-01-01 12:11] VITALS: BP 190/128; PULSE 97; RESP 18; TEMP 36.8; O2SAT 98; BMI 40.2
--- NOTE | 2022-01-01 12:45 | W.ED.ALLEREA ---
HPI - Allergic Reaction General: Chief complaint: Allergic Reaction Stated complaint: Face swollen, Allergic rx Time Seen by Provider: 01/01/22 12:23 Source: patient Mode of arrival: ambulatory Limitations: no limitations History of Present Illness: HPI narrative: 56-year-old female presents to the emergency room with complaint of facial swelling redness and desquamation. She has been taking oral steroids at home states he feels like her face is burning. She had a recent outdoor exposure to poison sumac and she has been using topical MD complaint: allergic reaction and facial swelling Onset (ago): day(s) Associated symptoms: Reports facial swelling, itching, lip swelling and rash; Deny abdominal pain, difficulty breathing, dysphagia, dizziness, hoarseness, nausea, tongue swelling or vomiting Severity: moderate Treatment prior to arrival: steroids and topical medicine Review of Systems Const: Denies: fever(s), chills, body aches, change in appetite, fatigue or malaise ENMT: Denies: hoarseness Card: Denies: chest pain, edema, dyspnea on exertion or orthopnea Resp: Denies: dyspnea, productive cough or non-productive cough GI: Denies: abdominal pain, nausea, vomiting or dysphagia : Denies: flank pain, difficulty voiding, dysuria, urinary frequency or urinary urgency Skin/Breast: Reports: rash, pruritus, erythema and skin pain Neuro: Denies: dizziness All/Imm: Reports: facial swelling; Denies: tongue swelling PFSH ED PFSH: Medical History Complication of gastric band procedure Gastritis Hypertension Hypokalemia Nausea and vomiting Upper gastrointestinal hemorrhage Urinary retention Surgical History H/O gastric sleeve Status post gastric banding surgery We will plan to discharge patient home today Social History Alcohol intake: former Year of sobriety/quit date alcohol: 3 yr Physical Exam Const: GENERAL APPEARANCE: cooperative and comfortable ORIENTATION/CONSCIOUSNESS: Yes awake, Yes oriented to person, Yes oriented to place and Yes oriented to time HENMT: COMMON NORMALS: normocephalic and atraumatic HEAD & SCALP: normocephalic and atraumatic Neck/C-Spine: COMMON NORMALS: no JVD Resp: COMMON NORMALS: normal respiratory effort, No retractions, No use of accessory muscles and clear to auscultation bilaterally AUSCULTATION: clear to auscultation bilaterally Cardio: COMMON NORMALS: no JVD, regular rate, regular rhythm and No murmurs present (Cardio) RATE: regular rate RHYTHM: regular rhythm Extremity: COMMON NORMALS: normal to inspection, capillary refill normal, no clubbing, cyanosis or edema, no calf tenderness and no pedal edema Neuro: SENSORIUM/ORIENTATION: Yes oriented to person, Yes oriented to place and Yes oriented to time Skin: COMMON NORMALS: no rashes or lesions noted GENERAL SKIN EXAM: no rashes or lesions noted Course Vital Signs: Vital signs: Vital Signs Temperature 98.2 F 01/01/22 12:11 Pulse Rate 97 01/01/22 12:11 Respiratory Rate 18 01/01/22 12:11 Blood Pressure 190/128 01/01/22 12:11 Pulse Oximetry 98 01/01/22 12:11 MDM - Allergic Reaction Medical Decision Making With the patient's permission sent a picture of the rash of the patient's face Dr. Gottlieb. Discussed that with her we both think this is probably a topical neomycin sensitivity. Dr. Gottlieb recommended that in cases like this she will frequently have the patient use topical hydrocortisone 2.5% and a oral steroid taper. Medical Records I reviewed the patient's medical records. Lab Data I reviewed the patient's lab results. Discharge Plan Discharge Patient Disposition: Home Clinical Impression: Contact dermatitis due to neomycin Condition: Stable Prescriptions: New hydrocortisone 2.5 % cream 1 applic topical BID 7 Days Qty: 28 0RF No Action temazepam 15 mg Capsule 30 mg PO BEDTIME 0RF tizanidine 2 mg tablet 2 mg PO TID PRN (Reason: Muscle Spasm) 0RF lisinopril 10 mg tablet 20 mg PO QAM 0RF Zofran 4 mg tablet 4 mg PO Q6H PRN (Reason: nausea and vomiting) Qty: 30 1RF cyclobenzaprine 10 mg tablet 10 mg PO TID PRN (Reason: muscle spasm) Qty: 30 1RF quetiapine 50 mg tablet 50 mg PO BEDTIME 0RF famotidine 20 mg tablet 20 mg PO BID 14 Days Qty: 28 0RF prednisone 10 mg tablet 10 mg PO DAILY Qty: 40 0RF Rx Instructions: Take 4 tabs PO daily x 4 days, then 3 tabs daily x 4 days, then 2 tabs daily x 4 days, then 1 tab daily x 4 days. Discharge Orders: Discharge ED (Routine); Ordered 01/01/22 Ordered By: Ariel Baer Referrals: Jacqueline Call MD [Primary Care Provider] - Discharge Diet: Usual diet Discharge Activity: Resume usual activity Patient Instructions: Opioid Safety Activity Restrictions/Additional Instructions: Follow-up with your primary care if not improving. Coding Level of Care Code ED Telephone Answering Service Operator for Chg Fwd Exam Detailed
[2022-01-01 13:21] VITALS: BP 164/124; PULSE 98; RESP 18; O2SAT 98
[2022-01-01] MEDS: HYDROcodone-acetaminophen 5-325 mg Tablet 1 TAB PO (13:23)
== END 2022-01-01 13:23 | disposition home or self-care (01) ==
PROVIDERS: Emergency Provider Family Medicine; PCP Family Medicine
DX: L23.3 Allergic contact dermatitis due to drugs in contact with skin (principal); T36.5X5A Adverse effect of aminoglycosides, initial encounter
CPT/HCPCS: 99283

== ENCOUNTER 2022-02-03 01:30 | Emergency (ER) | payer MEDICAID, SELFPAY ==
[2022-02-03 01:52] VITALS: BP 169/108; PULSE 105; RESP 16; TEMP 36.6; O2SAT 99; BMI 38.8
[2022-02-03 02:36] VITALS: BP 169/108; PULSE 105; RESP 16; TEMP 36.6; O2SAT 99
--- NOTE | 2022-02-03 02:47 | W.ED.GENADLT ---
HPI - General Adult General: Chief complaint: General Medical Stated complaint: allergic reaction Time Seen by Provider: 02/03/22 02:22 History of Present Illness: 56-year-old female who has had 5 episodic outbreaks of this similar rash since July. She is unaware of a cause. At first she thought it might be exposure to a food versus poison yousif or sumac. She has a burning rash to her entire face with some small areas of desquamation. It stretches down into her neck. She has itching to her arms with patchy areas of rash there is well. No fever. No mucosal involvement. No other systemic symptoms Onset (ago): day(s) Location: head, neck, left, right and upper extremity Severity: moderate Quality: burning Relieving factors: other Associated symptoms: Reports rash; Deny chest pain, confusion, cough, dyspnea, fevers/chills, headache(s), nausea, short of breath or vomiting Review of Systems Card: Denies: chest pain Resp: Denies: dyspnea GI: Denies: nausea or vomiting Skin/Breast: Reports: rash, pruritus, erythema, skin pain and skin swelling Neuro: Denies: headache(s) or confusion PFSH ED PFSH: Medical History Complication of gastric band procedure Gastritis Hypertension Hypokalemia Nausea and vomiting Upper gastrointestinal hemorrhage Urinary retention Surgical History H/O gastric sleeve Status post gastric banding surgery We will plan to discharge patient home today Social History Alcohol intake: former Year of sobriety/quit date alcohol: 3 yr Physical Exam Const: GENERAL APPEARANCE: cooperative; not comfortable HENMT: COMMON NORMALS: normocephalic and atraumatic HEAD & SCALP: normocephalic and atraumatic FACE & SINUS: erythema and edema (mild) NOSE: Normal nares present MOUTH: Normal oral and palatal mucosa present and tongue normal Eye: COMMON NORMALS: Equal, round and reactive pupils present and EOMs intact bilaterally PUPIL: Yes Equal, round and reactive pupils present Chest: CHEST: Yes Symmetrical chest wall rise Resp: COMMON NORMALS: normal respiratory effort, No use of accessory muscles and clear to auscultation bilaterally AUSCULTATION: clear to auscultation bilaterally Cardio: COMMON NORMALS: regular rate and regular rhythm RATE: regular rate RHYTHM: regular rhythm GI: COMMON NORMALS: Soft to palpation PALPATION: Yes Soft to palpation Skin: NARRATIVE SKIN EXAM: Widespread facial erythema with mild edema. There is some desquamation present. No signs of necrosis. Erythema stretches to neck. No neck edema. Urticarial type lesions to the bilateral forearms. Course Vital Signs: Vital signs: Vital Signs Temperature 97.8 F 02/03/22 03:33 Pulse Rate 98 02/03/22 03:33 Respiratory Rate 16 02/03/22 03:33 Blood Pressure 157/97 02/03/22 03:33 Pulse Oximetry 98 02/03/22 03:33 [facility] - General Adult Medical Decision Making 5 episodes of a similar burning rash to the face and arms in this patient. Does not appear to be simple contact dermatitis. She has some mild swelling. She will be prescribed steroids and antihistamines, steroids and a taper for 2 weeks. Given the repeated nature of this problem, she will be referred to dermatology for further management, and potentially a biopsy. Discharge Plan Discharge Patient Disposition: Home Clinical Impression: Dermatitis Condition: Stable Prescriptions: New prednisone 10 mg tablet See Rx Instructions .ROUTE .COMPLEX Qty: 40 0RF Rx Instructions: 4 [id number], 3 [id number], 2 [id number], 1 [id number] No Action temazepam 15 mg Capsule 30 mg PO BEDTIME 0RF tizanidine 2 mg tablet 2 mg PO TID PRN (Reason: Muscle Spasm) 0RF lisinopril 10 mg tablet 20 mg PO QAM 0RF Zofran 4 mg tablet 4 mg PO Q6H PRN (Reason: nausea and vomiting) Qty: 30 1RF cyclobenzaprine 10 mg tablet 10 mg PO TID PRN (Reason: muscle spasm) Qty: 30 1RF quetiapine 50 mg tablet 50 mg PO BEDTIME 0RF prednisone 10 mg tablet 10 mg PO DAILY Qty: 40 0RF Rx Instructions: Take 4 tabs PO daily x 4 days, then 3 tabs daily x 4 days, then 2 tabs daily x 4 days, then 1 tab daily x 4 days. Discharge Orders: Discharge ED (Routine); Ordered 02/03/22 Ordered By: Calvin Kumar Referrals: Jacqueline Call MD [Primary Care Provider] - Rosa Gottlieb DO [Physician] - 4-7 days Patient Instructions: Dermatitis (ED) Activity Restrictions/Additional Instructions: Take Benadryl every 6 hours, 25 mg, for the next 48 hours, then as needed. You should also use famotidine twice daily, 20 mg. Prescribed prednisone as directed. Case management order has been placed for a dermatology referral for you. You should get a call from them this coming week regarding an appointment. Coding Level of Care Code ED Sales Clerk Food for Dami Mendez
[2022-02-03] MEDS: diphenhydrAMINE 50 mg Capsule PO (02:57)
[2022-02-03] MEDS: LORazepam 1 mg Tablet PO (02:57)
[2022-02-03] MEDS: famotidine 20 mg Tablet 40 MG PO (02:57)
[2022-02-03] MEDS: predniSONE 20 mg Tablet 60 MG PO (02:57)
[2022-02-03 03:33] VITALS: BP 157/97; PULSE 98; RESP 16; TEMP 36.6; O2SAT 98
--- NOTE | 2022-02-04 12:27 | DCPLANNER ---
sort manager had message to schedule a follow up appointment for patient with dermatology. sort manager can not make a referral to dermatology from the ER unless the ER physician speaks with Dr. Gottlieb about patient. sort manager called patient and informed patient of this.
== END 2022-02-03 03:34 | disposition home or self-care (01) ==
PROVIDERS: Emergency Provider Emergency Medicine; PCP Family Medicine
DX: L30.9 Dermatitis, unspecified (principal); I10 Essential (primary) hypertension
CPT/HCPCS: 99283; J7512; Q0163

== ENCOUNTER 2022-02-05 08:37 | Emergency (ER) | payer MEDICAID, SELFPAY ==
[2022-02-05 08:45] VITALS: BP 179/121; PULSE 115; RESP 18; TEMP 36.6; O2SAT 99; BMI 39.0
--- NOTE | 2022-02-05 08:47 | W.ED.SKABFB ---
Documented by User: LUIS FERNANDO Eckert 02/05/22 09:41 HPI - Skin/Abscess/Foreign Bdy General: Chief complaint: Skin/Abscess/Foreign Body Stated complaint: poison yousif all over face Time Seen by Provider: 02/05/22 08:39 Source: patient Mode of arrival: ambulatory Limitations: no limitations History of Present Illness: Patient is a 56-year-old female presents to ED today with complaints of a rash. Patient states the rash initially started in October. She has been seen here in the ED 5 times for this rash as well as an urgent care visit and states she is continually getting diagnosed with allergic/contact dermatitis and treated with steroids and antihistamines. She states over this time period rash has just progressively worsened and states she is absolutely miserable. She describes the rash as extremely painful, burning, and tight. States rash to the face weeps clear fluid. Denies mucosal lesions. She states rash was initially just on her face but is now spreading to her anterior trunk and upper extremities. She does feel like steroids will help short-term. MD complaint: rash Onset (ago): month(s) Tetanus up to date: yes Location: face, chest, LUE, RUE, L hand and R hand Severity: severe Quality: burning Pain Consistency: constant Relieving factors: other (steroids) Exacerbating factors: none Context: none Associated symptoms: Reports no associated symptoms; Deny chills, fever(s), nausea or vomiting Treatments prior to arrival: OTC topical medication, Benadryl and corticosteroid Review of Systems Const: Denies: fever(s), chills, body aches, fatigue or malaise Eyes: Reports: other (swelling periorbitally); Denies: change in vision, blurry vision or photophobia ENMT: Denies: throat pain or odynophagia Card: Denies: chest pain Resp: Denies: dyspnea GI: Denies: abdominal pain, nausea, vomiting or diarrhea Musc: Denies: neck pain, back pain, extremity pain or joint pain Skin/Breast: Reports: rash Neuro: Denies: headache(s), numbness in extremities, weakness in extremities or sensory changes PFS ED PFSH: Medical History (Updated 02/05/22 @ 10:53 by MARILYN Mcdaniel) Complication of gastric band procedure Gastritis Hypertension Hypokalemia Nausea and vomiting Polymorphic photodermatitis Upper gastrointestinal hemorrhage Urinary retention Surgical History H/O gastric sleeve Status post gastric banding surgery We will plan to discharge patient home today Social History Smoking and tobacco status: never smoked Alcohol intake: former Year of sobriety/quit date alcohol: 3 yr Physical Exam Const: COMMON NORMALS: patient oriented x3, no limitations, alert and well nourished GENERAL APPEARANCE: cooperative and in distress (patient is sobing due to burning nature of rash) ORIENTATION/CONSCIOUSNESS: Yes awake, Yes oriented to person, Yes oriented to place and Yes oriented to time HENMT: COMMON NORMALS: normocephalic and atraumatic HEAD & SCALP: normal to inspection, normocephalic and atraumatic FACE & SINUS: other (see skin assessment below) MOUTH: Normal oral and palatal mucosa present, lip normal and other (does have some white plaques noted to tongue) THROAT: posterior oropharynx normal, tonsils normal and uvula midline Neck/C-Spine: COMMON NORMALS: full ROM and no lymphadenopathy GENERAL: Yes normal visual inspection Resp: COMMON NORMALS: normal respiratory effort and clear to auscultation bilaterally AUSCULTATION: clear to auscultation bilaterally Cardio: COMMON NORMALS: regular rhythm RATE: tachycardic RHYTHM: regular rhythm Extremity: GENERAL: Yes normal exam except as noted Neuro: NAV COMA SCALE: document GCS findings Elizabeth coma scale eye opening: Spontaneous Elizabeth coma scale verbal response: Orientated Nav coma scale motor response: Obey commands Nav coma scale total score: 15 COMMON NORMALS: patient oriented x3, CN's II-XII intact bilaterally, moves all extremities, no focal motor deficits and no sensory deficits noted SENSORIUM/ORIENTATION: Yes alert, Yes oriented to person, Yes oriented to place and Yes oriented to time Skin: RASHES: rashes noted OTHER: patient has a diffusely erythematous rash affecting her entire face with sloughing scales; erythema extends onto anterior chest and onto dorsal aspects of bilateral UEs/hands; rash to extremities consists more of maculopapular excoriated lesions Course Consultations: Consultation #1: Dr. Gottlieb-sent pictures of rash and she will graciously see in office for evaluation/possible biopsy. Vital Signs: Vital signs: Vital Signs Temperature 97.9 F 02/05/22 08:45 Pulse Rate 99 02/05/22 09:45 Respiratory Rate 18 02/05/22 09:45 Blood Pressure 158/120 02/05/22 09:45 Pulse Oximetry 98 02/05/22 09:45 MDM - Skin/Abscess/Foreign Bdy Medicial Decision Making This makes patient's 5th ED visit for rash. She has also been seen at walk-in clinics. Ultimately she continues to be placed on steroids, antihistamines, topical therapies and rash is not improving. Patient is absolutely miserable on exam. I do not think we are doing her much justice from an ED standpoint. I consulted with Dr. Gottlieb who graciously will see her immediately after her DC here and will evaluate her/biopsy rash if indicated. Discharge Plan Discharge Patient Disposition: Home Clinical Impression: Dermatitis Condition: Stable Prescriptions: No Action lidocaine-epinephrine (PF) 2 %-1:200,000 solution 2 ml SUBCUT ONCE Qty: 20 0RF Triple Antibiotic 3.5-400-5,000 [id number] ointment in packet 1 applic topical ONCE Qty: 1 0RF hydroxyzine HCl 25 mg tablet 25 mg PO QID PRN (Reason: itching) 7 Days Qty: 30 0RF triamcinolone acetonide 0.1 % ointment 1 applic topical BID Qty: 454 2RF Rx Instructions: apply to affected area no more than 2 weeks per month. prednisone 10 mg tablet See Rx Instructions PO DAILY Qty: 84 0RF Rx Instructions: 6 tabs PO X 4 days 5 tabs PO X 4 days 4 tabs by mouth X 4 days 3 tabs by mouth X 4 days 2 tab by mouth X 4 days 1 tab daily for 4 days temazepam 15 mg Capsule 30 mg PO BEDTIME 0RF tizanidine 2 mg tablet 2 mg PO TID PRN (Reason: Muscle Spasm) 0RF lisinopril 10 mg tablet 20 mg PO QAM 0RF Zofran 4 mg tablet 4 mg PO Q6H PRN (Reason: nausea and vomiting) Qty: 30 1RF cyclobenzaprine 10 mg tablet 10 mg PO TID PRN (Reason: muscle spasm) Qty: 30 1RF quetiapine 50 mg tablet 50 mg PO BEDTIME 0RF prednisone 10 mg tablet See Rx Instructions .ROUTE .COMPLEX Qty: 40 0RF Rx Instructions: 4 [id number], 3 [id number], 2 LJyYheg7b, 1 JNyVgxs5h prednisone 10 mg tablet 10 mg PO DAILY Qty: 40 0RF Rx Instructions: Take 4 tabs PO daily x 4 days, then 3 tabs daily x 4 days, then 2 tabs daily x 4 days, then 1 tab daily x 4 days. Discharge Orders: Discharge ED (Routine); Ordered 02/05/22 Ordered By: Martina Anglin Referrals: Jacqueline Call MD [Primary Care Provider] - Rosa Gottlieb DO [Physician] - Activity Restrictions/Additional Instructions: GO STRAIGHT OVER TO [facility] TO SEE DR. GOTTLIEB FOR FURTHER EVALUATION OF YOUR RASH. Coding Level of Care Code ED Machine Featheredger And Reducer for Chg Fwd Exam Comprehensive Documented by User: Ariel Baer DO 02/05/22 16:46 HPI - Skin/Abscess/Foreign Bdy General: Chief complaint: Skin/Abscess/Foreign Body Stated complaint: poison yousif all over face Time Seen by Provider: 02/05/22 08:39 PFSH ED PFSH: Medical History (Updated 02/05/22 @ 10:53 by MARILYN Mcdaniel) Complication of gastric band procedure Gastritis Hypertension Hypokalemia Nausea and vomiting Polymorphic photodermatitis Upper gastrointestinal hemorrhage Urinary retention Surgical History H/O gastric sleeve Status post gastric banding surgery We will plan to discharge patient home today Social History Smoking and tobacco status: never smoked Alcohol intake: former Year of sobriety/quit date alcohol: 3 yr Physical Exam Neuro: NAV COMA SCALE: document GCS findings Nav coma scale total score: 15 Course Vital Signs: Vital signs: Vital Signs Temperature 97.9 F 02/05/22 08:45 Pulse Rate 99 07/19/22 09:45 Respiratory Rate 18 02/05/22 09:45 Blood Pressure 158/120 02/05/22 09:45 Pulse Oximetry 98 02/05/22 09:45 MDM - Skin/Abscess/Foreign Bdy Medicial Decision Making This makes patient's 5th ED visit for rash. She has also been seen at walk-in clinics. Ultimately she continues to be placed on steroids, antihistamines, topical therapies and rash is not improving. Patient is absolutely miserable on exam. I do not think we are doing her much justice from an ED standpoint. I consulted with Dr. Gottlieb who graciously will see her immediately after her DC here and will evaluate her/biopsy rash if indicated. Chart reviewed and patient discussed with midlevel. Agree with assessment and plan. Discharge Plan Discharge Patient Disposition: Home Clinical Impression: Dermatitis Condition: Stable Prescriptions: No Action lidocaine-epinephrine (PF) 2 %-1:200,000 solution 2 ml SUBCUT ONCE Qty: 20 0RF Triple Antibiotic 3.5-400-5,000 [id number] ointment in packet 1 applic topical ONCE Qty: 1 0RF hydroxyzine HCl 25 mg tablet 25 mg PO QID PRN (Reason: itching) 7 Days Qty: 30 0RF triamcinolone acetonide 0.1 % ointment 1 applic topical BID Qty: 454 2RF Rx Instructions: apply to affected area no more than 2 weeks per month. prednisone 10 mg tablet See Rx Instructions PO DAILY Qty: 84 0RF Rx Instructions: 6 tabs PO X 4 days 5 tabs PO X 4 days 4 tabs by mouth X 4 days 3 tabs by mouth X 4 days 2 tab by mouth X 4 days 1 tab daily for 4 days temazepam 15 mg Capsule 30 mg PO BEDTIME 0RF tizanidine 2 mg tablet 2 mg PO TID PRN (Reason: Muscle Spasm) 0RF lisinopril 10 mg tablet 20 mg PO QAM 0RF Zofran 4 mg tablet 4 mg PO Q6H PRN (Reason: nausea and vomiting) Qty: 30 1RF cyclobenzaprine 10 mg tablet 10 mg PO TID PRN (Reason: muscle spasm) Qty: 30 1RF quetiapine 50 mg tablet 50 mg PO BEDTIME 0RF prednisone 10 mg tablet See Rx Instructions .ROUTE .COMPLEX Qty: 40 0RF Rx Instructions: 4 [id number], 3 KAlRfyk9e, 2 HWqKram2x, 1 [id number] prednisone 10 mg tablet 10 mg PO DAILY Qty: 40 0RF Rx Instructions: Take 4 tabs PO daily x 4 days, then 3 tabs daily x 4 days, then 2 tabs daily x 4 days, then 1 tab daily x 4 days. Discharge Orders: Discharge ED (Routine); Ordered 02/05/22 Ordered By: Martina Anglin Referrals: Jacqueline Call MD [Primary Care Provider] - Rosa Gottlieb DO [Physician] - Activity Restrictions/Additional Instructions: GO STRAIGHT OVER TO [facility] TO SEE DR. GOTTLIEB FOR FURTHER EVALUATION OF YOUR RASH. Coding Level of Care Code ED Machine Featheredger And Reducer for Chg Fwd Exam Comprehensive
[2022-02-05 09:43] VITALS: BP 158/120; PULSE 99; RESP 18; O2SAT 98
[2022-02-05 09:45] VITALS: BP 158/120; PULSE 99; RESP 18; O2SAT 98
== END 2022-02-05 09:47 | disposition home or self-care (01) ==
PROVIDERS: Emergency Provider Physician Assistant; PCP Family Medicine
DX: L30.9 Dermatitis, unspecified (principal); I10 Essential (primary) hypertension
CPT/HCPCS: 99282

== ENCOUNTER 2022-02-07 13:55 | Outpatient (CLI) | payer MEDICAID, SELFPAY ==
[2022-02-07 14:43] LABS: Basophils # 0.1 10^3/uL (0.0-0.1); Basophils % 0.3 %; Eosinophils # 0.1 10^3/uL (0.0-0.8); Eosinophils % 0.5 %; Hematocrit 43.5 % (37.0-47.0); Hemoglobin 13.2 g/dL (11.5-15.3); Lymphocytes # 3.4 10^3/uL (0.8-4.8); Mean Corpuscular HGB Conc 30.3 g/dL (30.0-36.0); Mean Corpuscular Hemoglobin 30.3 pg (28.0-34.0); Mean Corpuscular Volume 99.8 fl (81-99); Mean Platelet Volume 9.5 fL (7.4-10.4); Monocytes # 1.2 10^3/uL (0.2-0.9); Monocytes % 8.4 %; Neutrophils # 9.72 10^3/uL (1.8-7.7); Neutrophils % 66.8 %; Nucleated Red Blood Cells % 0 %; Platelet Count 333 10^3/cmm (130-400); Red Blood Count 4.36 10^6/uL (4.1-5.3); Red Cell Distribution Width 13.6 % (12.1-15.1); White Blood Count 14.6 10^3/uL (4.0-10.0)
[2022-02-07 15:06] LABS: Alanine Aminotransferase 20 U/L (0-33); Albumin Level 4.4 g/dL (3.5-5.2); Alkaline Phosphatase 133 IU/L (35-105); Aspartate Amino Transferase 21 U/L (0-32); Blood Urea Nitrogen 18 mg/dL (6-20); Calcium 9.4 mg/dL (8.5-10.5); Carbon Dioxide 20 mmol/L (22-29); Chloride 104 mmol/L (98-107); Globulin 3.1 g/dL (1.3-4.6); Glomerular Filtration Rate 57.8 mL/min (90-130); Glucose 91 mg/dL (65-115); Osmolality Calculated 291 mOsm/kg (285-295); Sodium 140 mmol/L (136-145); Total Bilirubin 0.3 mg/dL (0.15-1.2); Total Protein 7.5 g/dL (6.6-8.7)
[2022-02-07 15:07] LABS: Anion Gap 19.2 (5-19); Potassium 3.2 mmol/L (3.5-5.1)
[2022-02-08 11:13] LABS: COMPLEMENT COMPONENT C3C 133 mg/dL (83-193); COMPLEMENT COMPONENT C4C 40 mg/dL (15-57)
[2022-02-08 12:28] LABS: THYROID PEROXIDASE ANTIBODIES <1 IU/mL (<9)
[2022-02-08 13:43] LABS: CENTROMERE B ANTIBODY <1.0 NEG AI (<1.0 NEG); JO-1 ANTIBODY <1.0 NEG AI (<1.0 NEG); RNP ANTIBODY <1.0 NEG AI (<1.0 NEG); SCL-70 ANTIBODY <1.0 NEG AI (<1.0 NEG); SJOGREN'S ANTIBODY (SS-A) <1.0 NEG AI (<1.0 NEG); SM ANTIBODY <1.0 NEG AI (<1.0 NEG); SS-B <1.0 NEG AI (<1.0 NEG)
[2022-02-08 14:44] LABS: COMPLEMENT, TOTAL (CH50) >60 U/mL (31-60)
[2022-02-08 15:52] LABS: ANA SCREEN, IFA NEGATIVE (NEGATIVE)
[2022-02-09 09:28] LABS: DNA AB (DS) CRITHIDIA,IFA NEGATIVE (NEGATIVE)
== END 2022-02-07 13:56 | disposition home or self-care (01) ==
PROVIDERS: PCP Family Medicine; Visit Provider Nurse Practitioner Family
DX: L56.4 Polymorphous light eruption (principal)
CPT/HCPCS: 36415; 80053; 85025; 86160; 86162; 86235; 86255; 86376

== ENCOUNTER 2022-02-14 09:47 | Observation (INO) | payer MEDICAID, SELFPAY ==
[2022-02-14] VITALS (15 sets, daily range): BP systolic 104–176; BP diastolic 86–127; PULSE 89–105; RESP 14–30; TEMP 36.9–37.4; O2SAT 93–100; BMI 39.0
--- NOTE | 2022-02-14 10:03 | CT_ITS ---
WS: [id number] CT ABDOMEN AND PELVIS NONCONTRAST HISTORY: Mid abdominal pain for 6 hours. TECHNIQUE: Imaging performed through the abdomen and pelvis. Coronal and sagittal reformats are submi tted. All CT scans at [facility] use at least one of these dose optimization techniques: auto mated exposure control; mA and/or kV adjustment per patient size (includes targeted exams where dose is matched to clinical indication); or iterative reconstruction. DLP: 767.39 mGy.cm COMPARISON: 04/26/2021 Lower thorax: Lung bases are clear. Visualized heart is normal. Small hiatal hernia. Gastric band has been removed since the prior examination. Liver: Hepatic steatosis. No mass or bile duct dilatation. Gallbladder: Prior cholecystectomy. Pancreas: Normal size and attenuation. Normal pancreatic duct. No pancreatitis or mass. Spleen: Normal. Adrenal glands: Normal. No mass. Right kidney: Very minimal central pelvis dilatation and mild fat stranding. No obstruction. No stone identified within the ureter or kidney. Left kidney: Normal size kidney with no mass or hydronephrosis. Aorta: Normal abdominal aorta, no aneurysm or atherosclerosis. No free fluid, intraperitoneal air or significant lymphadenopathy. GI tract: Prior appendectomy. Normal stomach distention. Normal small bowel. Normal colon. Abdominal wall: Small umbilical hernia contains fat only. Pelvis: No free fluid or adenopathy. Normally distended bladder. Normal uterus and ovaries. Osseous structures: Posterior lumbar fusion at multiple levels. Increase in the lumbar lordosis. CT/CT abdomen pelvis wo con [id number] IMPRESSION: 1. Prior appendectomy and cholecystectomy. 2. Very minimal fat stranding in the RIGHT renal pelvis and ectasia of the sil al pelvis. May represent a mild case of pyelonephritis. No obstructing stone id entified. 3. Interval removal of the gastric lap band. 4. Small hiatal hernia.
[2022-02-14 10:13] LABS: Basophils # 0.1 10^3/uL (0.0-0.1); Basophils % 0.3 %; Hematocrit 37.1 % (37.0-47.0); Lymphocytes % 7.8 %; Mean Corpuscular HGB Conc 32.3 g/dL (30.0-36.0); Mean Corpuscular Hemoglobin 30.4 pg (28.0-34.0); Mean Corpuscular Volume 93.9 fl (81-99); Mean Platelet Volume 9.8 fL (7.4-10.4); Monocytes # 1.2 10^3/uL (0.2-0.9); Monocytes % 4.9 %; Neutrophils # 21.76 10^3/uL (1.8-7.7); Neutrophils % 85.7 %; Nucleated Red Blood Cells % 0 %; Platelet Count 297 10^3/cmm (130-400); Red Blood Count 3.95 10^6/uL (4.1-5.3); Red Cell Distribution Width 12.8 % (12.1-15.1); White Blood Count 25.4 10^3/uL (4.0-10.0)
--- NOTE | 2022-02-14 10:22 | W.ED.ABDPA2 ---
HPI - Abdominal Pain General: Chief Complaint: Abdominal Pain Stated Complaint: ABD PAIN Source: patient Mode of arrival: ambulatory Limitations: no limitations History of Present Illness: 56-year-old female presents emergency room complaining of abdominal pain. Is complaining of pain she first can the epigastric area. States it began about 6 hours ago she has been nauseous complaining severe cramping. Patient previous had bariatric surgery and then subsequently went on to have a gastric sleeve removed. Denies any dysuria urgency or frequency no hematemesis coffee-ground emesis. No diarrhea. She denies any chest pain or shortness of breath. MD elicited complaint: abdominal pain Pertinent past history: other (History of bariatric surgery with gastric sleeve and subsequent removal) Onset (ago): hour(s) (6) Pain Consistency: constant Location: None Severity: mild Quality: cramping Radiation: none Migration to: no migration Exacerbating factors: eating and movement Relieving factors: nothing Associated Symptoms: Reports bloating, GI cramping, dyspepsia, nausea and poor appetite; Denies anorexia, belching, change in bowel habits, change in stool character, chills, coffee ground emesis, constipation, diarrhea, dysuria, excessive flatus, fever(s), heartburn, hematochezia, hematuria, hematemesis, fecal incontinence, loose stools, melena, syncope and vomiting Review of Systems Const: Denies: fever(s), chills, fatigue or malaise ENMT: Denies: throat pain, ear or mastoid pain, nasal discharge or nasal congestion Card: Denies: chest pain, palpitations or syncope Resp: Denies: dyspnea, productive cough or non-productive cough GI: Reports: abdominal pain, nausea, bloating and GI cramping; Denies: vomiting, hematemesis, coffee ground emesis, dysphagia, heartburn, early satiety, diarrhea, constipation, belching, excessive flatus, fecal incontinence, change in bowel habits, change in stool character, hematochezia or melena : Denies: flank pain, difficulty voiding, dysuria, urinary frequency, urinary urgency or hematuria Skin/Breast: Denies: rash or pruritus PFSH ED PFSH: Medical History Complication of gastric band procedure Gastritis Hypertension Hypokalemia Nausea and vomiting Polymorphic photodermatitis Upper gastrointestinal hemorrhage Urinary retention Surgical History H/O gastric sleeve History of ankle surgery History of appendectomy History of back surgery x2 History of cholecystectomy History of elbow surgery History of oophorectomy History of tubal ligation 1998 Status post gastric banding surgery We will plan to discharge patient home today Social History Smoking and tobacco status: never smoked Alcohol intake: former Year of sobriety/quit date alcohol: 3 yr Physical Exam Const: GENERAL APPEARANCE: cooperative and comfortable ORIENTATION/CONSCIOUSNESS: Yes awake, Yes oriented to person, Yes oriented to place and Yes oriented to time HENMT: COMMON NORMALS: normocephalic, atraumatic and hearing grossly normal bilaterally HEAD & SCALP: normocephalic and atraumatic Resp: COMMON NORMALS: normal respiratory effort, No retractions, No use of accessory muscles and clear to auscultation bilaterally AUSCULTATION: clear to auscultation bilaterally Cardio: COMMON NORMALS: regular rate, regular rhythm and No murmurs present (Cardio) RATE: regular rate RHYTHM: regular rhythm GI: COMMON NORMALS: No hepatosplenomegaly present AUSCULTATION: Yes normoactive bowel sounds PALPATION: Yes Tenderness to palpation present (GI) (Periumbilical epigastric region relatively diffuse), No Guarding due to palpation present (GI) and Yes No hepatosplenomegaly present : COMMON NORMALS: No no CVA tenderness BLADDER/KIDNEY EXAM: No no CVA tenderness Back/Pelvis: COMMON NORMALS: negative for no CVA tenderness Extremity: COMMON NORMALS: normal to inspection, capillary refill normal, no clubbing, cyanosis or edema, no calf tenderness and no pedal edema Neuro: SENSORIUM/ORIENTATION: Yes oriented to person, Yes oriented to place and Yes oriented to time Skin: COMMON NORMALS: no rashes or lesions noted GENERAL SKIN EXAM: no rashes or lesions noted Course Vital Signs: Vital signs: Vital Signs Temperature 99.4 F 02/14/22 11:57 Pulse Rate 89 02/14/22 17:12 Respiratory Rate 20 H 02/14/22 17:12 Blood Pressure 171/118 02/14/22 17:12 Pulse Oximetry 98 02/14/22 17:12 Oxygen Delivery Me thod 02/14/22 16:36 MDM - Abdominal Pain Medical Decision Making White count markedly elevated CT does not show anything definitive there is question of pyelonephritis her urine is clear. We will go ahead and admit her discussed the hospitalist orders written Medical Records I reviewed the patient's medical records. Lab Data I reviewed the patient's lab results. : 02/14/22 10:07 02/14/22 13:21 Labs/Radiology: Radiology Impressions Abdomen/Pelvis CT 02/14/22 10:03 IMPRESSION: 1. Prior appendectomy and cholecystectomy. 2. Very minimal fat stranding in the RIGHT renal pelvis and ectasia of the renal pelvis. May represent a mild case of pyelonephritis. No obstructing stone identified. 3. Interval removal of the gastric lap band. 4. Small hiatal hernia. Laboratory Results WBC 25.4 10^3/uL (4.0-10.0) H 02/14/22 10:07 RBC 3.95 10^6/uL (4.1-5.3) L 02/14/22 10:07 Hgb 12.0 g/dL (11.5-15.3) 02/14/22 10:07 Hct 37.1 % (37.0-47.0) 02/14/22 10:07 MCV 93.9 fl (81-99) 02/14/22 10:07 MCH 30.4 pg (28.0-34.0) 02/14/22 10:07 MCHC 32.3 g/dL (30.0-36.0) 02/14/22 10:07 RDW 12.8 % (12.1-15.1) 02/14/22 10:07 Plt Count 297 10^3/cmm (130-400) 02/14/22 10:07 MPV 9.8 fL (7.4-10.4) 02/14/22 10:07 Neut % (Auto) 85.7 % 02/14/22 10:07 Lymph % (Auto) 7.8 % 02/14/22 10:07 [place] % (Auto) 4.9 % 02/14/22 10:07 Eos % (Auto) 0.0 % 02/14/22 10:07 Baso % (Auto) 0.3 % 02/14/22 10:07 Neut # (Auto) 21.76 10^3/uL (1.8-7.7) H 02/14/22 10:07 Lymph # (Auto) 2.0 10^3/uL (0.8-4.8) 02/14/22 10:07 [place] # (Auto) 1.2 10^3/uL (0.2-0.9) H 02/14/22 10:07 Eos # (Auto) 0.0 10^3/uL (0.0-0.8) 02/14/22 10:07 Baso # (Auto) 0.1 10^3/uL (0.0-0.1) 02/14/22 10:07 Nucleated RBC % (auto) 0 % 02/14/22 10:07 Nucleated RBCs # 0.0 /100WBC 02/14/22 10:07 Sodium 133 mmol/L (136-145) L 02/14/22 13:21 Potassium 2.9 mmol/L (3.5-5.1) L 02/14/22 13:21 Chloride 93 mmol/L (98-107) L 02/14/22 13:21 Carbon Dioxide 19 mmol/L (22-29) L 02/14/22 13:21 Anion Gap 23.9 (5-19) H 02/14/22 13:21 BUN 17 mg/dL (6-20) 02/14/22 13:21 Creatinine 1.4 mg/dL (0.5-0.9) H 02/14/22 13:21 GFR Calculation 39.2 mL/min (90-130) L 02/14/22 13:21 Glucose 132 mg/dL (65-115) H 02/14/22 13:21 Calculated Osmolality 279 mOsm/kg (285-295) L 02/14/22 13:21 Calcium 9.2 mg/dL (8.5-10.5) 02/14/22 13:21 Total Bilirubin 1.2 mg/dL (0.15-1.2) 02/14/22 13:21 AST 84 U/L (0-32) H 02/14/22 13:21 ALT 50 U/L (0-33) H 02/14/22 13:21 Alkaline Phosphatase 324 IU/L (35-105) H 02/14/22 13:21 Total Protein 7.8 g/dL (6.6-8.7) 02/14/22 13:21 Albumin 4.3 g/dL (3.5-5.2) 02/14/22 13:21 Globulin 3.5 g/dL (1.3-4.6) 02/14/22 13:21 Lipase 64 U/L (13-60) H 02/14/22 13:21 Urine Color Yellow (Yellow) 02/14/22 11:42 Urine Appearance Clear (CLEAR) 02/14/22 11:42 Urine pH 5 (5-7) 02/14/22 11:42 Ur Specific [place] 1.010 (1.005-1.030) 02/14/22 11:42 Urine Protein Neg (Negative) 02/14/22 11:42 Urine Glucose (UA) Norm (Normal) 02/14/22 11:42 Urine Ketones Negative (Negative) 02/14/22 11:42 Urine Blood Neg (Negative) 02/14/22 11:42 Urine Nitrate Negative (Negative) 02/14/22 11:42 Urine Bilirubin Neg (Negative) 02/14/22 11:42 Urine Urobilinogen Norm mg/dL (Negative) 02/14/22 11:42 Ur Leukocyte Esterase Negative (Negative) 02/14/22 11:42 Discharge Plan Discharge Patient Disposition: Admitted As Inpatient Admit Provider: Davion Alejandro Clinical Impression: Abdominal pain, Leukocytosis Condition: Stable Coding Level of Care Code ED Reaming Press Operator for Chg Fwd Exam Detailed
[2022-02-14] MEDS: ondansetron 2 mg/ML SDV 2 mL 4 MG IVP (10:23)
[2022-02-14] MEDS: morphine 4 mg/mL SDV 1 mL IVP ×3 (10:24→21:47)
[2022-02-14] MEDS: sodium chloride 0.9% 1,000 ML 999 ML IV (10:26)
--- NOTE | 2022-02-14 11:41 | PC.NURSE ---
Assisted patient to restroom. Patient crying, appears uncomfortable. This RN also updated daughter, Keyana, via telephone.
[2022-02-14 11:59] LABS: Add Urine Microscopic? NO; Charge for UA Resulting for Rev
[2022-02-14 12:10] LABS: Bilirubin Urine Neg (Negative); Blood Urine Neg (Negative); Glucose Urine UA Norm (Normal); Ketones Urine Negative (Negative); Leukocyte Esterase Urine Negative (Negative); Nitrate Urine Negative (Negative); Protein Urine Neg (Negative); Urine Appearance Clear (CLEAR); Urine Color Yellow (Yellow); Urobilinogen Urine Norm (Negative); pH Urine 5 (5-7)
[2022-02-14 13:51] LABS: Alanine Aminotransferase 50 U/L (0-33); Albumin Level 4.3 g/dL (3.5-5.2); Alkaline Phosphatase 324 IU/L (35-105); Aspartate Amino Transferase 84 U/L (0-32); Blood Urea Nitrogen 17 mg/dL (6-20); Calcium 9.2 mg/dL (8.5-10.5); Carbon Dioxide 19 mmol/L (22-29); Chloride 93 mmol/L (98-107); Globulin 3.5 g/dL (1.3-4.6); Glomerular Filtration Rate 39.2 mL/min (90-130); Glucose 132 mg/dL (65-115); Lipase 64 U/L (13-60); Osmolality Calculated 279 mOsm/kg (285-295); Sodium 133 mmol/L (136-145); Total Bilirubin 1.2 mg/dL (0.15-1.2); Total Protein 7.8 g/dL (6.6-8.7)
[2022-02-14 13:58] LABS: Anion Gap 23.9 (5-19); Potassium 2.9 mmol/L (3.5-5.1)
[2022-02-14] MEDS: cefTRIAXone 1,000 MG in sodium chloride 0.9% (plus) 50 ML 100 MG IV (14:34)
[2022-02-14] MEDS: HYDROmorphone 1 mg/mL INJ 1 mL 0.5 MG IVP (16:31)
[2022-02-14] MEDS: piperacillin-tazobactam 3.375 GM in sodium chloride 0.9% (plus) 50 ML IV ×2 (16:34→23:49)
--- NOTE | 2022-02-14 16:37 | PM.HP ---
Providers/Chief Complaint Primary Care Provider: Jacqueline Call MD Chief Complaint: ABD PAIN History of Present Illness Madison Maharaj is a 56 year old female who carries history of hiatal hernia, hypertension, presented to the hospital chief complaint of worsening dental pain. Patient is stating that yesterday around 6:30 PM she started experiencing abdominal cramps and pain which gradually gotten worse, she also felt dizzy when she was shopping with her daughter, she has vomited more than 15 times since last night. She has not noticed any fever, chest pain, shortness of breath, diarrhea. She is denying dysuria, urinary frequency. Is suffering from poison yousif skin dermatitis She is on steroids Her work-up is consistent with leukocytosis without signs of sepsis she is dehydrated, has ABE, hypokalemia, I have given her hyoscyamine Her laparoscopic band was removed by Dr. Rose CT scan abdomen pelvis consistent with pyelonephritis Small hiatal hernia She does not meet sepsis criteria, she is tachypneic because of abdominal pain, leukocytosis is secondary to use of steroids she has been taking for contact dermatitis Review of Systems Const: Denies: fever(s) Eyes: Denies: change in vision ENMT: Denies: throat pain Card: Denies: chest pain Resp: Denies: dyspnea GI: Reports: abdominal pain, nausea and vomiting : Denies: flank pain Musc: Denies: neck pain Skin/Breast: Reports: rash Neuro: Denies: headache(s) Psych: Reports: anxiety Endo: Denies: polyuria Sergio/Lymph: Denies: easy bruising All/Imm: Reports: urticaria Medications/Allergies Home Medications Medication Instructions Recorded Confirmed Last Taken Type temazepam 15 mg capsule 30 mg PO BEDTIME 12/11/19 02/14/22 02/13/22 History lisinopril 10 mg tablet 20 mg PO QAM 04/26/21 02/14/22 05/07/21 History tizanidine 2 mg tablet 2 mg PO TID PRN Muscle Spasm 04/26/21 02/14/22 05/06/21 History prednisone 10 mg tablet See Rx Instructions PO DAILY #84 02/05/22 02/14/22 Unknown Rx tabs triamcinolone acetonide 0.1 % 1 applic topical BID #454 grams 02/05/22 02/14/22 Unknown Rx topical ointment gabapentin 100 mg capsule 100 mg PO BEDTIME 02/14/22 02/14/22 02/13/22 History ibuprofen 200 mg tablet (Advil) 400 mg PO Q6H PRN Pain 02/14/22 02/14/22 Unknown History Allergies Allergy/AdvReac Type Severity Reaction Status Date / Time codeine Allergy rash Verified 02/14/22 11:40 PFSH Acute PFSH: Medical History Complication of gastric band procedure Gastritis Hypertension Hypokalemia Nausea and vomiting Polymorphic photodermatitis Upper gastrointestinal hemorrhage Urinary retention Surgical History H/O gastric sleeve History of ankle surgery History of appendectomy History of back surgery x2 History of cholecystectomy History of elbow surgery History of oophorectomy History of tubal ligation 1998 Status post gastric banding surgery We will plan to discharge patient home today Social History Smoking and tobacco status: never smoked Alcohol intake: former Year of sobriety/quit date alcohol: 3 yr Vitals/I&O/Wt Last Vital Signs Temp 99.4 F 02/14/22 11:57 Pulse 99 02/14/22 16:36 Resp 16 02/14/22 16:36 BP 156/127 02/14/22 16:36 Pulse Ox 96 02/14/22 16:36 O2 Del Method 02/14/22 16:36 02/14/22 02/14/22 02/14/22 06:59 14:59 22:59 Intake Total 1050 / 1050 Balance 1050 / 1050 Weight last 48 hrs Weight 90.718 kg Physical Exam Narrative: Patient is in distress complaining of abdominal pain However abdominal exam is soft nontender to palpate, slight tenderness in midepigastric region She has maculopapular rash, contact dermatitis Awake and alert nonfocal neuro exam No signs of edema Clinically looks dehydrated Dry cracked lips She is on room air saturating well Able to follow my commands Appropriate mood and affect Data : 02/14/22 10:07 02/14/22 13:21 Micro: Microbiology 02/14/22 14:29 Blood Culture - Preliminary Blood SPECIMEN COLLECTED 02/14/22 14:27 Blood Culture - Preliminary Blood SPECIMEN COLLECTED A&P Assessment and plan (1) Abdominal pain: Status: Acute (2) Leukocytosis: Status: Acute (3) Polymorphic photodermatitis: Status: Acute (4) ABE (acute kidney injury): Status: Acute (5) Dehydration: Status: Acute (6) Hypokalemia: Status: Acute Plan Symptomatic exacerbation of hiatal hernia Pyelonephritis concern on CT abdomen pelvis I will start her on Zosyn She did not meet sepsis criteria Leukocytosis secondary to use of steroids which she has been taking for IV poison contact dermatitis She is afebrile Satting well on room air I will give her hyoscyamine and opioids Ischemic status concern is low at this point, her abdomen is soft to touch, responding to hyoscyamine No signs of peritonitis Check lactic acid If her lactic acid is high this could be secondary to dehydration, patient is stating that she has more than 20 episodes of emesis in last 12 hours Hypokalemia related to dehydration and vomiting Potassium repleted continue on D5 normal saline with potassium ABE related to dehydration and Improvement anticipated with IV fluid hydration Patient is full code Clear liquid diet advance gradually DVT prophylaxis: Heparin Attestations Medical Necessity Statement*: Anticipating discharge within 48 hours Time Spent in Patient Care: 40 Coding Level of Care Code Acute Repairer Veneer Sheet for Dami Mendez Diagnoses Abdominal pain R10.9 Leukocytosis D72.829 Polymorphic photodermatitis L56.4 ABE (acute kidney injury) N17.9 Dehydration E86.0 Hypokalemia E87.6
--- NOTE | 2022-02-14 17:34 | PC.NURSE ---
Report called to JAY Ruggiero
[2022-02-14] MEDS: dextrose 5%-ns + KCl 40 40 MEQ/1,000 ML BAG 100 MEQ IV (18:10)
[2022-02-14] MEDS: pantoprazole 40 mg SDV IVP (18:13)
[2022-02-14] MEDS: heparin 5,000 unit/mL INJ 1 mL 5000 UNIT SUBCUT (18:19)
[2022-02-14 19:20] LABS: Lactate (Lactic Acid level) 1.8 mmol/L (0.5-2.2)
[2022-02-14 19:27] LABS: Procalcitonin 0.16 ng/mL (0-0.5)
[2022-02-14] MEDS: temazepam 15 mg Capsule 30 MG PO (21:47)
[2022-02-15] VITALS (13 sets, daily range): BP systolic 110–172; BP diastolic 68–95; PULSE 73–96; RESP 12–20; TEMP 36.8–37.2; O2SAT 93–98
[2022-02-15] MEDS: morphine 4 mg/mL SDV 1 mL IVP ×4 (02:12→18:51)
[2022-02-15] MEDS: ondansetron 2 mg/ML SDV 2 mL 4 MG IVP (02:38)
[2022-02-15] MEDS: dextrose 5%-ns + KCl 40 40 MEQ/1,000 ML BAG 100 MEQ IV ×2 (02:38→16:19)
--- NOTE | 2022-02-15 02:49 | PC.NURSE ---
Patient has only been able to void 100 ml of urine tonight after multiple attempts. Bladder scan showed >[address] Lindsey notified.
[2022-02-15] MEDS: heparin 5,000 unit/mL INJ 1 mL 5000 UNIT SUBCUT ×2 (03:46→17:59)
[2022-02-15] MEDS: HYDROmorphone 1 mg/mL INJ 1 mL 0.2 MG IVP (03:46)
[2022-02-15 03:48] LABS: Amphetamines Screen Urine Negative (Negative); Barbiturates Screen Urine Negative (Negative); Benzodiazepines Screen Urine Positive (Negative); Cocaine Screen Urine Negative (Negative); Opiate Screen Urine Positive (Negative); PCP Screen Urine Negative (Negative); THC Screen Urine Positive (Negative)
[2022-02-15 05:31] LABS: Basophils # 0.1 10^3/uL (0.0-0.1); Basophils % 0.4 %; Eosinophils # 0.1 10^3/uL (0.0-0.8); Eosinophils % 0.6 %; Hematocrit 40.1 % (37.0-47.0); Lymphocytes # 2.8 10^3/uL (0.8-4.8); Lymphocytes % 21.6 %; Mean Corpuscular HGB Conc 29.9 g/dL (30.0-36.0); Mean Corpuscular Volume 100.3 fl (81-99); Mean Platelet Volume 9.6 fL (7.4-10.4); Monocytes # 1.1 10^3/uL (0.2-0.9); Monocytes % 8.3 %; Neutrophils # 8.89 10^3/uL (1.8-7.7); Neutrophils % 68.4 %; Nucleated Red Blood Cells % 0 %; Platelet Count 250 10^3/cmm (130-400); Red Cell Distribution Width 13.2 % (12.1-15.1)
[2022-02-15 05:57] LABS: C Reactive Protein 66.6 mg/L (0.0-4.9)
[2022-02-15 05:58] LABS: Alanine Aminotransferase 124 U/L (0-33); Albumin Level 3.7 g/dL (3.5-5.2); Alkaline Phosphatase 338 IU/L (35-105); Anion Gap 17.4 (5-19); Aspartate Amino Transferase 183 U/L (0-32); Blood Urea Nitrogen 13 mg/dL (6-20); Calcium 8.3 mg/dL (8.5-10.5); Carbon Dioxide 22 mmol/L (22-29); Chloride 104 mmol/L (98-107); Globulin 2.6 g/dL (1.3-4.6); Glomerular Filtration Rate 65.2 mL/min (90-130); Glucose 133 mg/dL (65-115); Magnesium 1.8 mg/dL (1.7-2.3); Osmolality Calculated 292 mOsm/kg (285-295); Potassium 3.4 mmol/L (3.5-5.1); Sodium 140 mmol/L (136-145); Total Bilirubin 1.5 mg/dL (0.15-1.2); Total Protein 6.3 g/dL (6.6-8.7)
[2022-02-15] MEDS: piperacillin-tazobactam 3.375 GM in sodium chloride 0.9% (plus) 50 ML IV ×2 (07:50→15:19)
[2022-02-15] MEDS: pantoprazole 40 mg SDV IVP ×2 (08:05→17:58)
[2022-02-15] MEDS: amlodipine 10 mg Tablet PO (08:14)
--- NOTE | 2022-02-15 09:55 | PC.CHAP ---
Pastoral Care Encounter/Spiritual Assessment Type of Contact [] Declined butcher helper visit [] Patient/Family/Request visit [] Outpatient visit [] Follow-up visit [] Physician referral [] Code/Alert [x] Routine visit [] Staff referral [] Actively dying [] Patient sleeping [] Family support [] [] Out of room [] Palliative care [] [] Receiving care in room [] Pre-surgical visit [] Trauma [] Long length of stay [] ICU visit [] Other: Relational/Emotional Strength []x Patient feels connected with others/family/visitors/staff [] Distress [] Loneliness/isolation [] Abandonment Spirituality of Patient [x] Person of Sabra [] Attends Gnosticist of their Sabra [x [] There are Spiritual issues to be addressed Before And After School Daycare Worker Interventions [x] Prayer [x] Spiritual counseling [] Bereavement support [] Provided bereavement packet [] Provided Bible/devotional materials [] Provided toy/stuffed animal, coloring book to patient or family member [] Provided Communion [] Anointing/[place] [] Salvation [x] Completed spiritual assessment [] Other: Impact on Illness or Injury [] Angry [] Fearful [] Anxious [] Often cries [] Exhaustion [] Unable to work [] Unable to attend samaritan [] Unable to walk/stand [] Unable to read [] Unable to drive [] Unable to eat/drink [] Unable to sleep [] Unable to be with family [] Patient intubated [] Other: Summary Time spent with patient
--- NOTE | 2022-02-15 09:56 | PC.CHAP ---
Pastoral Care Encounter/Spiritual Assessment Type of Contact [] Declined sales intern visit [] Patient/Family/Request visit [] Outpatient visit [] Follow-up visit [] Physician referral [] Code/Alert [] Routine visit [] Staff referral [] Actively dying [] Patient sleeping [] Family support [] [] Out of room [] Palliative care [] [] Receiving care in room [] Pre-surgical visit [] Trauma [] Long length of stay [] ICU visit [] Other: Relational/Emotional Strength [] Patient feels connected with others/family/visitors/staff [] Distress [] Loneliness/isolation [] Abandonment Spirituality of Patient [] Person of Sabra [] Attends Faith of their Sabra [] Believes in Prayer [] Reads Bible or Muslim materials [] There are Spiritual issues to be addressed Nailing Machine Operator Automatic Interventions [] Prayer [] Active listening [] Non-anxious presence [] Spiritual/emotional support [] Crisis/trauma care [] Spiritual counseling [] Bereavement support [] Provided bereavement packet [] Provided Bible/devotional materials [] Provided toy/stuffed animal, coloring book to patient or family member [] Provided Communion [] Anointing/[place] [] Salvation [] Completed spiritual assessment [] Other: Impact on Illness or Injury [] Angry [] Fearful [] Anxious [] Often cries [] Exhaustion [] Unable to work [] Unable to attend lutheran [] Unable to walk/stand [] Unable to read [] Unable to drive [] Unable to eat/drink [] Unable to sleep [] Unable to be with family [] Patient intubated [] Other: Summary Time spent with patient
--- NOTE | 2022-02-15 10:50 | PM.PN ---
Subjective Subjective: Leukocytosis trending down Does endorse to taking medical marijuana Afebrile Patient is not ready to be discharged, she has had emesis overnight Hypokalemia Vitals/I&O/Wt Last Vital Signs Temp 98.6 F 02/15/22 07:51 Pulse 96 02/15/22 09:31 Resp 17 02/15/22 09:31 BP 146/76 02/15/22 07:51 Pulse Ox 95 02/15/22 09:31 O2 Del Method 02/15/22 09:31 02/14/22 02/15/22 02/15/22 22:59 06:59 14:59 Intake Total 1340 / 1340 896.667 / 2236.667 120 / 120 Output Total 700 / 701 Balance 1339 / 1339 196.667 / 1535.667 120 / 120 Weight last 48 hrs Weight 90.718 kg Weight 90.718 kg Physical Exam Narrative: patient is in semi-Anderson position Currently on room air Skin erythema has improved I do not appreciate any conjunctival ulcer, mucosal ulcers Nonfocal neuro exam Abdomen is soft, no tenderness rigidity guarding or peritonitis Clinically she looks dehydrated In distress because abdominal discomfort S1, S2 Lungs are clear to auscultation Urinary Catheter Management: Hawkins: Cath Placed During This Visit: yes Reason for Continuing Indwelling Catheter: Acute Urinary Retention or Obstruction Urinary Catheter Date of Insertion: 02/15/22 Urinary Catheter Time of Insertion: 03:36 Data : 02/15/22 05:07 02/15/22 05:07 Micro: Microbiology 02/14/22 14:29 Blood Culture - Preliminary Blood SPECIMEN COLLECTED 02/14/22 14:27 Blood Culture - Preliminary Blood SPECIMEN COLLECTED A&P Assessment and plan (1) Hypokalemia: Status: Acute (2) Dehydration: Status: Acute (3) ABE (acute kidney injury): Status: Acute (4) Abdominal pain: Status: Acute (5) Leukocytosis: Status: Acute (6) Polymorphic photodermatitis: Status: Acute Plan Recurrent nausea vomiting Hiatal hernia, cyclical vomiting Skin is showing blistering lesion 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 Will request lab to send for ferritin level I would not give steroids at this point Leukocytosis trending down Afebrile Concern for pyelonephritis Zosyn was given empirically at the time of admission She is still experiencing emesis I will check A1c level to see if she has any component of gastroparesis Normotensive Continue IV fluid hydration ABE resolved Full code Advance diet to GI soft DVT prophylaxis on board Continue hyoscyamine Attestations Medical Necessity Statement*: Continue medical management Time Spent in Patient Care: 30 Coding Level of Care Code Acute Retirement Administrator for Chg Fwd Diagnoses Hypokalemia E87.6 Dehydration E86.0 ABE (acute kidney injury) N17.9 Abdominal pain R10.9 Leukocytosis D72.829 Polymorphic photodermatitis L56.4
[2022-02-15] MEDS: metoclopramide 5 mg/mL SDV 2 mL IVP ×2 (12:00→17:59)
[2022-02-15 12:09] LABS: Estmated Average Glucose 108; Hemoglobin A1C 5.4 % (4.0-6.0)
[2022-02-15] MEDS: temazepam 15 mg Capsule 30 MG PO (20:54)
[2022-02-16] MEDS: piperacillin-tazobactam 3.375 GM in sodium chloride 0.9% (plus) 50 ML IV (01:08)
[2022-02-16] MEDS: tizanidine 4 mg Tablet 2 MG PO (01:09)
--- NOTE | 2022-02-16 03:17 | PC.NURSE ---
notified by ms access database developer of pt wanting to leave [facility]a. entered pts room and she was very upset and stated, i am leaving! notified of her intent. I then educ pt of all risks of leaving and why she needs to stay. I also educ pt of benefits of staying. pt is [id number], able to make decisions for herself pt still insisted on leaving and signed ama paper. casarez and iv removed without incident. security on floor escorted her safely to the er entrance and called ride.
--- NOTE | 2022-02-16 13:48 | PM.DCS ---
Discharge Providers Date of Admission: 02/14/22 15:06 Date of Discharge: February 21, 2022 Attending Provider at Admission: Davion Alejandro MD Attending Provider at Discharge: Davion Alejandro MD Primary Care Provider: Jacqueline Call MD Diagnoses at Discharge Discharge Diagnosis (1) Hypokalemia: Status: Acute (2) Dehydration: Status: Acute (3) ABE (acute kidney injury): Status: Acute (4) Abdominal pain: Status: Acute (5) Leukocytosis: Status: Acute (6) Polymorphic photodermatitis: Status: Acute Reason for Visit Reason for Visit: ABD PAIN Hospital Course Hospital Course 56-year female who was admitted for management of recurrent vomiting. 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 Her symptoms subsided with use of multiple antiemetics especially Reglan and Phenergan. She did not respond much to Zofran. Replenished. Hemoglobin A1c was not high, no signs of obstruction on abdominal imaging. She was treated for possible pyelonephritis with IV antibiotics. Patient left AGAINST MEDICAL ADVICE Physical Exam Urinary Catheter Management: Hawkins: Cath Placed During This Visit: yes Reason for Continuing Indwelling Catheter: Acute Urinary Retention or Obstruction Urinary Catheter Date of Insertion: 02/15/22 Urinary Catheter Time of Insertion: 03:36 Discharge Data Studies Completed and Pending Completed Studies During Hospitalization Category Date Time Status CT abdomen pelvis con [id number] Stat Cat Scan 02/14/22 10:03 Completed Pending at discharge Category Date Time Status Miscellaneous Test Routine Lab 02/15/22 12:02 Received Radiology Impressions Abdomen/Pelvis CT 02/14/22 10:03 IMPRESSION: 1. Prior appendectomy and cholecystectomy. 2. Very minimal fat stranding in the RIGHT renal pelvis and ectasia of the renal pelvis. May represent a mild case of pyelonephritis. No obstructing stone identified. 3. Interval removal of the gastric lap band. 4. Small hiatal hernia. Laboratory Results WBC 13.0 10^3/uL (4.0-10.0) H 02/15/22 05:07 RBC 4.00 10^6/uL (4.1-5.3) L 02/15/22 05:07 Hgb 12.0 g/dL (11.5-15.3) 02/15/22 05:07 Hct 40.1 % (37.0-47.0) 02/15/22 05:07 MCV 100.3 fl (81-99) H D 02/15/22 05:07 MCH 30.0 pg (28.0-34.0) 02/15/22 05:07 MCHC 29.9 g/dL (30.0-36.0) L D 02/15/22 05:07 RDW 13.2 % (12.1-15.1) 02/15/22 05:07 Plt Count 250 10^3/cmm (130-400) 02/15/22 05:07 MPV 9.6 fL (7.4-10.4) 02/15/22 05:07 Neut % (Auto) 68.4 % 02/15/22 05:07 Lymph % (Auto) 21.6 % 02/15/22 05:07 [place] % (Auto) 8.3 % 02/15/22 05:07 Eos % (Auto) 0.6 % 02/15/22 05:07 Baso % (Auto) 0.4 % 02/15/22 05:07 Neut # (Auto) 8.89 10^3/uL (1.8-7.7) H 02/15/22 05:07 Lymph # (Auto) 2.8 10^3/uL (0.8-4.8) 02/15/22 05:07 [place] # (Auto) 1.1 10^3/uL (0.2-0.9) H 02/15/22 05:07 Eos # (Auto) 0.1 10^3/uL (0.0-0.8) 02/15/22 05:07 Baso # (Auto) 0.1 10^3/uL (0.0-0.1) 02/15/22 05:07 Nucleated RBC % (auto) 0 % 02/15/22 05:07 Nucleated RBCs # 0.0 /100WBC 02/15/22 05:07 Sodium 140 mmol/L (136-145) 02/15/22 05:07 Potassium 3.4 mmol/L (3.5-5.1) L 02/15/22 05:07 Chloride 104 mmol/L (98-107) 02/15/22 05:07 Carbon Dioxide 22 mmol/L (22-29) 02/15/22 05:07 Anion Gap 17.4 (5-19) 02/15/22 05:07 BUN 13 mg/dL (6-20) 02/15/22 05:07 Creatinine 0.9 mg/dL (0.5-0.9) 02/15/22 05:07 GFR Calculation 65.2 mL/min (90-130) L 02/15/22 05:07 Glucose 133 mg/dL (65-115) H 02/15/22 05:07 Estimat Average Glucose 108 02/15/22 05:07 Hemoglobin A1c 5.4 % (4.0-6.0) 02/15/22 05:07 Calculated Osmolality 292 mOsm/kg (285-295) 02/15/22 05:07 Lactate 1.8 mmol/L (0.5-2.2) 02/14/22 18:19 Calcium 8.3 mg/dL (8.5-10.5) L 02/15/22 05:07 Magnesium 1.8 mg/dL (1.7-2.3) 02/15/22 05:07 Total Bilirubin 1.5 mg/dL (0.15-1.2) H 02/15/22 05:07 AST 183 U/L (0-32) H 02/15/22 05:07 ALT 124 U/L (0-33) H 02/15/22 05:07 Alkaline Phosphatase 338 IU/L (35-105) H 02/15/22 05:07 C-Reactive Protein 66.6 mg/L (0.0-4.9) H 02/15/22 05:07 Total Protein 6.3 g/dL (6.6-8.7) L 02/15/22 05:07 Albumin 3.7 g/dL (3.5-5.2) 02/15/22 05:07 Globulin 2.6 g/dL (1.3-4.6) 02/15/22 05:07 Lipase 64 U/L (13-60) H 02/14/22 13:21 Procalcitonin 0.16 ng/mL (0-0.5) 02/14/22 18:19 Urine Color Yellow (Yellow) 02/14/22 11:42 Urine Appearance Clear (CLEAR) 02/14/22 11:42 Urine pH 5 (5-7) 02/14/22 11:42 Ur Specific [place] 1.010 (1.005-1.030) 02/14/22 11:42 Urine Protein Neg (Negative) 02/14/22 11:42 Urine Glucose (UA) Norm (Normal) 02/14/22 11:42 Urine Ketones Negative (Negative) 02/14/22 11:42 Urine Blood Neg (Negative) 02/14/22 11:42 Urine Nitrate Negative (Negative) 02/14/22 11:42 Urine Bilirubin Neg (Negative) 02/14/22 11:42 Urine Urobilinogen Norm mg/dL (Negative) 02/14/22 11:42 Ur Leukocyte Esterase Negative (Negative) 02/14/22 11:42 Urine Opiates Screen Positive ng/mL (Negative) H 02/15/22 02:50 Ur Barbiturates Screen Negative ng/mL (Negative) 02/15/22 02:50 Ur Phencyclidine Scrn Negative ng/mL (Negative) 02/15/22 02:50 Ur Amphetamines Screen Negative ng/mL (Negative) 02/15/22 02:50 U Benzodiazepines Scrn Positive ng/mL (Negative) H 02/15/22 02:50 Urine Cocaine Screen Negative ng/mL (Negative) 02/15/22 02:50 U Marijuana (THC) Screen Positive ng/mL (Negative) H 02/15/22 02:50 Vitals Last Vital Signs Temp 98.3 F 02/15/22 23:00 Pulse 83 02/15/22 23:00 Resp 13 02/15/22 23:00 BP 151/83 02/15/22 23:00 Pulse Ox 95 02/15/22 23:00 O2 Del Method 02/15/22 23:00 Discharge Plan Discharge Patient Disposition: Left Against Medical Advice Condition: Stable Prescriptions: No Action triamcinolone acetonide 0.1 % ointment 1 applic topical BID Qty: 454 2RF Rx Instructions: apply to affected area no more than 2 weeks per month. prednisone 10 mg tablet See Rx Instructions PO DAILY Qty: 84 0RF Rx Instructions: 6 tabs PO X 4 days 5 tabs PO X 4 days 4 tabs by mouth X 4 days 3 tabs by mouth X 4 days 2 tab by mouth X 4 days 1 tab daily for 4 days temazepam 15 mg Capsule 30 mg PO BEDTIME tizanidine 2 mg tablet 2 mg PO TID PRN (Reason: Muscle Spasm) lisinopril 10 mg tablet 20 mg PO QAM gabapentin 100 mg capsule 100 mg PO BEDTIME Advil 200 mg Tablet 400 mg PO Q6H PRN (Reason: Pain) Referrals: Jacqueline Call MD [Primary Care Provider] - Discharge Attestations Time Spent in Discharge Care*: less than 30 min Status at Discharge: Cognitive status at discharge: cognitively intact, Behavioral status at discharge: cooperative, Quality Metrics Clinical Quality Measures [ No reported AMI, CVA or VTE this stay] Coding Level of Care Code Acute Chg [facility] note Diagnoses Hypokalemia E87.6 Dehydration E86.0 ABE (acute kidney injury) N17.9 Abdominal pain R10.9 Leukocytosis D72.829 Polymorphic photodermatitis L56.4
== END 2022-02-16 03:00 | disposition left against medical advice (07) ==
LOC: ER 10:25 → MEDSURG 17:19
PROVIDERS: Admitting Provider Internal Medicine; Emergency Provider Family Medicine; PCP Family Medicine; Visit Provider Internal Medicine
DX: E87.6 Hypokalemia (principal); E86.0 Dehydration; N17.9 Acute kidney failure, unspecified; R10.9 Unspecified abdominal pain; D72.829 Elevated white blood cell count, unspecified; L56.4 Polymorphous light eruption; Z53.29 Procedure and treatment not carried out because of patient's decision for other reasons; Z98.84 Bariatric surgery status
CPT/HCPCS: 36415; 51702; 51798; 74176; 80053; 80306; 81003; 83036; 83605; 83690; 83735; 84145; 84202; 85025; 86140; 87040; 96365; 96367; 96372; 96375; 96376; 99285; C9113; G0378; J0696; J1170; J1644; J1980; J2270; J2405; J2543; J2765; J7030

== ENCOUNTER 2022-03-19 11:14 | Emergency (ER) | payer MEDICAID, SELFPAY ==
[2022-03-19 11:18] VITALS: BP 201/128; PULSE 122; RESP 20; TEMP 36.6; O2SAT 97; BMI 38.0
[2022-03-19 13:07] LABS: Basophils # 0.1 10^3/uL (0.0-0.1); Basophils % 0.3 %; Hematocrit 41.1 % (37.0-47.0); Hemoglobin 12.8 g/dL (11.5-15.3); Lymphocytes # 1.4 10^3/uL (0.8-4.8); Lymphocytes % 8.3 %; Mean Corpuscular HGB Conc 31.1 g/dL (30.0-36.0); Mean Corpuscular Hemoglobin 30.3 pg (28.0-34.0); Mean Corpuscular Volume 97.2 fl (81-99); Mean Platelet Volume 9.9 fL (7.4-10.4); Monocytes # 0.7 10^3/uL (0.2-0.9); Neutrophils # 15.11 10^3/uL (1.8-7.7); Neutrophils % 86.7 %; Nucleated Red Blood Cells % 0 %; Platelet Count 350 10^3/cmm (130-400); Red Blood Count 4.23 10^6/uL (4.1-5.3); Red Cell Distribution Width 13.8 % (12.1-15.1); White Blood Count 17.4 10^3/uL (4.0-10.0)
[2022-03-19 13:30] LABS: Protein Urine Trace (Negative); Urine Appearance Cloudy (CLEAR); Urine Color Yellow (Yellow); pH Urine 5 (5-7)
[2022-03-19 13:31] LABS: Alanine Aminotransferase 22 U/L (0-33); Albumin Level 4.4 g/dL (3.5-5.2); Alkaline Phosphatase 173 U/L (35-105); Anion Gap 24.6 (5-19); Aspartate Amino Transferase 21 U/L (0-32); Blood Urea Nitrogen 18 mg/dL (6-20); Calcium 10.4 mg/dL (8.5-10.5); Carbon Dioxide 17 mmol/L (22-29); Chloride 98 mmol/L (98-107); Globulin 4.3 g/dL (1.3-4.6); Glomerular Filtration Rate 51.8 mL/min (90-130); Glucose 195 mg/dL (65-115); Lipase 44 U/L (13-60); Osmolality Calculated 289 mOsm/kg (285-295); Potassium 3.6 mmol/L (3.5-5.1); Sodium 136 mmol/L (136-145); Total Bilirubin 0.3 mg/dL (0.15-1.2); Total Protein 8.7 g/dL (6.6-8.7)
[2022-03-19 13:31] LABS: Add Urine Microscopic? YES; Bilirubin Urine Neg (Negative); Blood Urine 2+ (Negative); Glucose Urine UA Trace (Normal); Ketones Urine Negative (Negative); Leukocyte Esterase Urine 1+ (Negative); Nitrate Urine Negative (Negative); Urobilinogen Urine Norm (Negative)
[2022-03-19 13:38] LABS: Creatinine Clr Calc Pharmacy 57.8527
[2022-03-19] MEDS: ondansetron 2 mg/ML SDV 2 mL 4 MG IVP (13:38)
[2022-03-19] MEDS: sodium chloride 0.9% 1,000 ML 999 ML IV ×2 (13:42→15:34)
--- NOTE | 2022-03-19 13:56 | ED_ITS ---
HPI - Nausea/Vomiting/Diarrhea General: Chief complaint: Nausea/Vomiting/Diarrhea Stated complaint: Vomitting/Fever Time Seen by Provider: 03/19/22 13:11 Source: patient Mode of arrival: ambulatory History of Present Illness: 56-year-old female presents emergency room with nausea and vomiting she also complaining of a low-grade fever. She is tachycardic. She had a similar episode a month ago and was found to be in acute acute renal failure. She has had a low-grade fever no cough no anosmia she had some diarrhea early on but that is resolved. No dysuria urgency or frequency. MD elicited complaint: nausea and vomiting Onset (ago): hour(s) Description of vomiting: watery Description of diarrhea: semi-solid Associated nausea: Yes Associated abdominal pain: Yes Location of pain: Diffuse Pain consistency: intermittent Severity: moderate Quality: cramping Exacerbating factors: none Relieving factors: none Associated symtoms: Reports anxiety, anorexia and nausea; Denies altered mental status, bloating, change in vision, chest pain, cough, diaphoresis, decreased urine output, dizziness, dysuria, epistaxis, fatigue, fecal incontinence, fevers/chills, headache(s), malaise, myalgias, numbness, palpitations, rash, short of breath, syncope, tenesmus or tinnitus Review of Systems Const: Denies: fever(s), chills, fatigue, malaise or diaphoresis Eyes: Denies: change in vision ENMT: Denies: tinnitus or epistaxis Card: Denies: chest pain, palpitations or syncope Resp: Denies: dyspnea, productive cough or non-productive cough GI: Reports: abdominal pain, nausea, vomiting and diarrhea; Denies: bloating or fecal incontinence : Denies: flank pain, difficulty voiding, dysuria, urinary frequency or urinary urgency Skin/Breast: Denies: rash or pruritus Neuro: Denies: headache(s) or dizziness Psych: Reports: anxiety PFSH ED PFSH: Medical History Abdominal pain ABE (acute kidney injury) Complication of gastric band procedure Dehydration Gastritis Hypertension Hypokalemia Hypokalemia Leukocytosis Nausea and vomiting Polymorphic photodermatitis Upper gastrointestinal hemorrhage Urinary retention Surgical History H/O gastric sleeve History of ankle surgery History of appendectomy History of back surgery x2 History of cholecystectomy History of elbow surgery History of oophorectomy History of tubal ligation 1998 Status post gastric banding surgery We will plan to discharge patient home today Social History Smoking and tobacco status: never smoked Alcohol intake: former Year of sobriety/quit date alcohol: 3 yr Physical Exam Const: EXAM LIMITATIONS: no altered mental status GENERAL APPEARANCE: cooperative and comfortable ORIENTATION/CONSCIOUSNESS: Yes awake, Yes oriented to person, Yes oriented to place and Yes oriented to time HENMT: COMMON NORMALS: normocephalic, atraumatic, hearing grossly normal bilaterally, external ears normal, EAC's normal, TM's normal bilaterally, Normal nasal mucous membranes and turbinates present, moist oral mucous membranes and oropharynx normal HEAD & SCALP: normocephalic and atraumatic NOSE: Normal nasal mucous membranes and turbinates present EXTERNAL EAR: Yes external ears normal EXTERNAL AUDITORY CANAL: EAC's normal TYMPANIC MEMBRANE: TM's normal bilaterally Eye: COMMON NORMALS: Equal, round and reactive pupils present, EOMs intact bilaterally, conjunctivae normal and no scleral icterus CONJUNCTIVA: Yes conj unctivae normal PUPIL: Yes Equal, round and reactive pupils present Neck/C-Spine: COMMON NORMALS: full ROM, no lymphadenopathy, supple and no JVD Lymph: LYMPHATIC: no lymphadenopathy noted and no lymphedema noted Resp: COMMON NORMALS: normal respiratory effort, No retractions, No use of accessory muscles and clear to auscultation bilaterally AUSCULTATION: clear to auscultation bilaterally Cardio: COMMON NORMALS: no JVD, regular rate, regular rhythm and No murmurs present (Cardio) RATE: regular rate RHYTHM: regular rhythm GI: COMMON NORMALS: Soft to palpation and No hepatosplenomegaly present AUSCULTATION: Yes normoactive bowel sounds PALPATION: Yes Soft to palpation, No Tenderness to palpation present (GI), No Guarding due to palpation present (GI) and Yes No hepatosplenomegaly present Extremity: COMMON NORMALS: normal to inspection, capillary refill normal, no clubbing, cyanosis or edema, no calf tenderness and no pedal edema Neuro: SENSORIUM/ORIENTATION: Yes oriented to person, Yes oriented to place and Yes oriented to time Skin: COMMON NORMALS: no rashes or lesions noted GENERAL SKIN EXAM: no rashes or lesions noted Course Vital Signs: Vital signs: Vital Signs Temperature 97.9 F 03/19/22 11:18 Pulse Rate 115 H 03/19/22 16:56 Respiratory Rate 18 03/19/22 16:56 Blood Pressure 198/124 03/19/22 16:56 Pulse Oximetry 99 03/19/22 16:56 Oxygen Delivery Me thod 03/19/22 11:18 MDM - Nausea/Vomiting/Diarrhea Medical Decision Making Labs and imaging reviewed. Patient is feeling better after fluids. Anion gap is elevated she is feeling much better after IV fluids. We will go and disch arge home encourage clear liquid diet for 48 hours. Medical Records I reviewed the patient's medical records. Lab Data I reviewed the patient's lab results. : 03/19/22 12:53 03/19/22 12:53 Radiology Impressions Abdomen/Pelvis CT 03/19/22 14:57 IMPRESSION: 1. No acute abdominal or pelvic abnormalities are identified. 2. No free air or ascites. 3. Prior cholecystectomy and appendectomy. 4. Extensive postsurgical lumbar fusion changes and laminectomy defects from L2 to the pelvis. 5. Suspect loosening involving the L2 pedicle screws due to the lucency. Chest X-Ray 03/19/22 14:57 IMPRESSION: 1. Negative chest. Laboratory Results WBC 17.4 10^3/uL (4.0-10.0) H 03/19/22 12:53 RBC 4.23 10^6/uL (4.1-5.3) 03/19/22 12:53 Hgb 12.8 g/dL (11.5-15.3) 03/19/22 12:53 Hct 41.1 % (37.0-47.0) 03/19/22 12:53 MCV 97.2 fl (81-99) 03/19/22 12:53 MCH 30.3 pg (28.0-34.0) 03/19/22 12:53 MCHC 31.1 g/dL (30.0-36.0) 03/19/22 12:53 RDW 13.8 % (12.1-15.1) 03/19/22 12:53 Plt Count 350 10^3/cmm (130-400) 03/19/22 12:53 MPV 9.9 fL (7.4-10.4) 03/19/22 12:53 Neut % (Auto) 86.7 % 03/19/22 12:53 Lymph % (Auto) 8.3 % 03/19/22 12:53 [place] % (Auto) 4.0 % 03/19/22 12:53 Eos % (Auto) 0.0 % 03/19/22 12:53 Baso % (Auto) 0.3 % 03/19/22 12:53 Neut # (Auto) 15.11 10^3/uL (1.8-7.7) H 03/19/22 12:53 Lymph # (Auto) 1.4 10^3/uL (0.8-4.8) 03/19/22 12:53 [place] # (Auto) 0.7 10^3/uL (0.2-0.9) 03/19/22 12:53 Eos # (Auto) 0.0 10^3/uL (0.0-0.8) 03/19/22 12:53 Baso # (Auto) 0.1 10^3/uL (0.0-0.1) 03/19/22 12:53 Nucleated RBC % (auto) 0 % 03/19/22 12:53 Nucleated RBCs # 0.0 /100WBC 03/19/22 12:53 Sodium 136 mmol/L (136-145) 03/19/22 12:53 Potassium 3.6 mmol/L (3.5-5.1) 03/19/22 12:53 Chloride 98 mmol/L (98-107) 03/19/22 12:53 Carbon Dioxide 17 mmol/L (22-29) L 03/19/22 12:53 Anion Gap 24.6 (5-19) H 03/19/22 12:53 BUN 18 mg/dL (6-20) 03/19/22 12:53 Creatinine 1.1 mg/dL (0.5-0.9) H 03/19/22 12:53 GFR Calculation 51.8 mL/min (90-130) L 03/19/22 12:53 Glucose 195 mg/dL (65-115) H 03/19/22 12:53 Calculated Osmolality 289 mOsm/kg (285-295) 03/19/22 12:53 Calcium 10.4 mg/dL (8.5-10.5) 03/19/22 12:53 Total Bilirubin 0.3 mg/dL (0.15-1.2) 03/19/22 12:53 AST 21 U/L (0-32) 03/19/22 12:53 ALT 22 U/L (0-33) 03/19/22 12:53 Alkaline Phosphatase 173 U/L (35-105) H 03/19/22 12:53 Total Protein 8.7 g/dL (6.6-8.7) 03/19/22 12:53 Albumin 4.4 g/dL (3.5-5.2) 03/19/22 12:53 Globulin 4.3 g/dL (1.3-4.6) 03/19/22 12:53 Lipase 44 U/L (13-60) 03/19/22 12:53 Urine Color Yellow (Yellow) 03/19/22 12:52 Urine Appearance Cloudy (CLEAR) 03/19/22 12:52 Urine pH 5 (5-7) 03/19/22 12:52 Ur Specific [place] 1.030 (1.005-1.030) 03/19/22 12:52 Urine Protein Trace (Negative) 03/19/22 12:52 Urine Glucose (UA) Trace (Normal) H 03/19/22 12:52 Urine Ketones Negative (Negative) 03/19/22 12:52 Urine Blood 2+ (Negative) H 03/19/22 12:52 Urine Nitrate Negative (Negative) 03/19/22 12:52 Urine Bilirubin Neg (Negative) 03/19/22 12:52 Urine Urobilinogen Norm mg/dL (Negative) 03/19/22 12:52 Ur Leukocyte Esterase 1+ (Negative) H 03/19/22 12:52 Urine RBC 0-4 /hpf (0-2) H 03/19/22 12:52 Urine WBC 0-4 /hpf (0-5) H 03/19/22 12:52 Ur Squamous Epith Cells 5-10 /hpf (0-5) H 03/19/22 12:52 Amorphous Sediment Not Reportable 03/19/22 12:52 Urine Bacteria 1+ /hpf (NONE) H 03/19/22 12:52 Discharge Plan Discharge Patient Disposition: Home Clinical Impression: Gastroenteritis Condition: Stable Prescriptions: New promethazine 25 mg tablet 25 mg PO Q6H PRN (Reason: nausea and vomiting) Qty: 20 0RF No Action temazepam 15 mg Capsule 30 mg PO BEDTIME tizanidine 2 mg tablet 2 mg PO TID PRN (Reason: Muscle Spasm) lisinopril 10 mg tablet 20 mg PO QAM Discharge Orders: Discharge ED (Routine); Ordered 03/19/22 Ordered By: Ariel Baer Referrals: Jacqueline Call MD [Primary Care Provider] - Discharge Diet: Clear Liquid Discharge Activity: Increase activity as tolerated Patient Instructions: Opioid Safety Activity Restrictions/Additional Instructions: 24 to 48 hours clinical diet advance as tolerated. Use promethazine as needed. Coding Level of Care Code ED [employer] for Dami Fwd Exam Comprehensive
[2022-03-19 14:08] LABS: Add Urine Culture? No; Bacteria Urine 1+ /hpf; RBC Urine 0-4 /hpf (0-2); WBC Urine 0-4 /hpf (0-5)
--- NOTE | 2022-03-19 14:57 | CT_ITS ---
WS: [id number] CT ABDOMEN AND PELVIS WITH CONTRAST HISTORY: Abdominal pain, vomiting and fever. TECHNIQUE: Imaging performed of the abdomen and pelvis with IV contrast. Single phase imaging of the abdomen. Coronal and sagittal reformats are submitted. All CT scans at [facility] use at [address] one of these dose optimization techniques: automated exposure control; mA and/or kV adjustment per patient size (includes targeted exams where dose is matched to clinical indication); or iterative re construction. IV CONTRAST: Omnipaque 350; 80 mL IV. Oral contrast: No DLP: 777.07 mGy.cm COMPARISON: 02/14/2022 Lower thorax: Lung bases are clear. Heart is normal size. Mild circumferential thickening of the dist al esophagus and small hiatal hernia. Liver/biliary system: Normal size liver with mild central bile duct dilatation. Gallbladder: Status post cholecystectomy. Pancreas: Normal size pancreas and pancreatic duct. No adjacent inflammation. Spleen: Normal size spleen. No mass or infarct. Adrenal glands: Normal. Right kidney: Low normal size kidney at 8.7 cm in length. There is a small extrarenal pelvis with no obstruction. No perinephric stranding or ureteral dilatation. Left kidney: Normal. Aorta: Mild atherosclerosis with no aneurysm. Lymphadenopathy: None. Free fluid: None. GI tract: Stomach is mildly distended with fluid. No small bowel obstruction. Prior appendectomy. No mucosal thickening throughout the colon. No evidence for acute diverticulitis. Abdominal wall: Fat containing umbilical hernia. Pelvis: Normally distended urinary bladder. No soft tissue masses. Uterus is normal size. Bones: Extensive posterior lumbar fusion from L2 to the sacrum. Lucency noted around the L2 pedicle s crews may indicate loosening. CT/CT abdomen pelvis w con* [id number] IMPRESSION: 1. No acute abdominal or pelvic abnormalities are identified. 2. No free air or ascites. 3. Prior cholecystectomy and appendectomy. 4. Extensive postsurgical lumbar fusion changes and laminectomy defects from L 2 to the pelvis. 5. Suspect loosening involving the L2 pedicle screws due to the lucency.
--- NOTE | 2022-03-19 14:57 | XR_ITS ---
WS: [id number] Exam: XR chest 1V portable [id number] Date/Time of Exam: 03/19/2022 3:15 PM Reason For Exam: dyspnea/cough Comparison 07/11/2021. The lungs are clear and fully expanded. Normal cardiomediastinal silhouette. Several old right-sided rib fractures. No pleural effusion. XR/XR chest 1V portable [id number] IMPRESSION: 1. Negative chest.
[2022-03-19 15:14] VITALS: RESP 18
[2022-03-19] MEDS: fentaNYL 50 mcg/mL INJ 2mL IVP (15:14)
[2022-03-19] MEDS: iohexol 350 mg/mL 100 mL Btl IV (15:24)
[2022-03-19 15:35] VITALS: BP 198/124; PULSE 111; RESP 18; O2SAT 99
[2022-03-19 16:56] VITALS: BP 198/124; PULSE 115; RESP 18; O2SAT 99
== END 2022-03-19 16:57 | disposition home or self-care (01) ==
PROVIDERS: Emergency Medicine; Emergency Provider Family Medicine; PCP Family Medicine
DX: K52.9 Noninfective gastroenteritis and colitis, unspecified (principal); I10 Essential (primary) hypertension
CPT/HCPCS: 71045; 74177; 80053; 81001; 83690; 85025; 96361; 96374; 96375; 99285; J2405; J3010; J7030; Q9967

== ENCOUNTER 2022-06-21 12:54 | Outpatient (CLI) | payer BC, MEDICAID, SELFPAY ==
[2022-06-21 13:25] LABS: Basophils % 0.4 %; Eosinophils # 0.2 10^3/uL (0.0-0.8); Eosinophils % 2.4 %; Hematocrit 41.2 % (37.0-47.0); Hemoglobin 13.3 g/dL (11.5-15.3); Lymphocytes % 27.4 %; Mean Corpuscular HGB Conc 32.3 g/dL (30.0-36.0); Mean Corpuscular Hemoglobin 30.9 pg (28.0-34.0); Mean Corpuscular Volume 95.8 fl (81-99); Mean Platelet Volume 9.5 fL (7.4-10.4); Monocytes # 0.6 10^3/uL (0.2-0.9); Monocytes % 8.4 %; Neutrophils # 4.53 10^3/uL (1.8-7.7); Neutrophils % 61.1 %; Nucleated Red Blood Cells % 0 %; Platelet Count 366 10^3/cmm (130-400); Red Cell Distribution Width 14.5 % (12.1-15.1); White Blood Count 7.4 10^3/uL (4.0-10.0)
[2022-06-21 13:42] LABS: Alanine Aminotransferase 13 U/L (0-33); Albumin Level 3.7 g/dL (3.5-5.2); Alkaline Phosphatase 162 U/L (35-105); Blood Urea Nitrogen 11 mg/dL (6-20); Calcium 9.3 mg/dL (8.5-10.5); Carbon Dioxide 16 mmol/L (22-29); Chloride 104 mmol/L (98-107); Globulin 3.9 g/dL (1.3-4.6); Glomerular Filtration Rate 51.6 mL/min (90-130); Glucose 123 mg/dL (65-115); Osmolality Calculated 275 mOsm/kg (285-295); Sodium 132 mmol/L (136-145); Total Bilirubin 0.2 mg/dL (0.15-1.2); Total Protein 7.6 g/dL (6.6-8.7)
[2022-06-21 13:45] LABS: Anion Gap 16.5 (5-19); Aspartate Amino Transferase 18 U/L (0-32); Potassium 4.5 mmol/L (3.5-5.1)
[2022-06-21 14:19] LABS: LAB Peripheral Smear Sent for Review
[2022-06-21 14:21] LABS: Hepatitis A Antibody IgM Non-Reactive (Nonreactive); Hepatitis B Core AB, Total Reactive (Nonreactive); Hepatitis B Surface AB 284.6 (11.5-1000); Hepatitis B Surface Antigen Non-Reactive (Nonreactive); Hepatitis C Virus Antibody Reactive (Nonreactive)
[2022-06-21 14:45] LABS: HIV 1 & 2 Antibody Non-Reactive (Non-Reactiv); HIV 1 & 2 Antigen Non-Reactive (Non-Reactiv)
[2022-06-24 11:45] LABS: COMPLEMENT COMPONENT C3C 131 mg/dL (83-193); COMPLEMENT COMPONENT C4C 40 mg/dL (15-57)
[2022-06-24 13:39] LABS: THYROID PEROXIDASE ANTIBODIES <1 IU/mL (<9)
[2022-06-24 14:24] LABS: Quantiferon Mitogen >10.00 IU/mL; Quantiferon Nil 0.01 IU/mL; Quantiferon Plus TB1 0.01 IU/mL; Quantiferon Plus TB2 0.01 IU/mL; Quantiferon TB Gold NEGATIVE (NEGATIVE)
[2022-06-24 14:34] LABS: ANA SCREEN, IFA NEGATIVE (NEGATIVE); CENTROMERE B ANTIBODY <1.0 NEG AI (<1.0 NEG); JO-1 ANTIBODY <1.0 NEG AI (<1.0 NEG); RNP ANTIBODY <1.0 NEG AI (<1.0 NEG); SCL-70 ANTIBODY <1.0 NEG AI (<1.0 NEG); SJOGREN'S ANTIBODY (SS-A) <1.0 NEG AI (<1.0 NEG); SM ANTIBODY <1.0 NEG AI (<1.0 NEG); SS-B <1.0 NEG AI (<1.0 NEG)
[2022-06-24 14:50] LABS: COMPLEMENT, TOTAL (CH50) >60 U/mL (31-60)
[2022-06-25 14:59] LABS: DNA AB (DS) CRITHIDIA,IFA NEGATIVE (NEGATIVE)
[2022-06-25 23:25] LABS: HEP C RNA Viral Load Quant <1.18 NOT DETECTED Log IU/mL (NOT DETECTED); HEP C RNA Viral Load Quant <15 NOT DETECTED IU/mL (NOT DETECTED)
== END 2022-06-21 12:55 | disposition home or self-care (01) ==
LOC: LAB 12:55
PROVIDERS: PCP Family Medicine; Visit Provider Dermatology
DX: K12.0 Recurrent oral aphthae (principal); D89.89 Other specified disorders involving the immune mechanism, not elsewhere classified; L53.9 Erythematous condition, unspecified; M25.50 Pain in unspecified joint
CPT/HCPCS: 36415; 80053; 80503; 85025; 86160; 86162; 86235; 86255; 86376; 86480; 86705; 86706; 86709; 86803; 87340; 87522; 87806

== ENCOUNTER 2022-11-29 08:03 | Outpatient (CLI) | payer BC, MEDICAID, SELFPAY ==
--- NOTE | 2022-11-29 08:19 | MR_ITS ---
WS: [id number] MRI CERVICAL SPINE NONCONTRAST HISTORY: ANESTHESIA OF SKIN, numbness LEFT hand. COMPARISON: 02/28/2015 Technique: Multiplanar, multisequence noncontrast imaging of the cervical spine. Very mild straightening of the normal lordosis. No fractures or marrow edema. Signal within the cervical cord is normal. Visualized posterior fossa is unremarkable. Craniocervical junction, C1 and C2 relationship, odontoid process and soft tissues are normal. C2-C3: Normal. C3-C4: Normal. C4-C5: Normal. C5-C6: Very mild annular disc bulge. Very shallow central disc protrusion. No stenosis or contact on the cord. C6-C7: Mild annular disc bulge with a very tiny central disc protrusion. No cord contact. No stenosis . C7-T1: Normal. Paraspinal soft tissue are normal. MR/MR cervical spin wo con* [id number] IMPRESSION: 1. No significant disc protrusion or stenosis within the cervical spine. 2. Very small central disc protrusions at C5-6 and C6-7.
== END 2022-11-29 08:04 | disposition home or self-care (01) ==
PROVIDERS: PCP Family Medicine; Visit Provider Family Medicine
DX: R20.0 Anesthesia of skin (principal); M50.223 Other cervical disc displacement at C6-C7 level
CPT/HCPCS: 72141

== ENCOUNTER 2022-12-14 03:53 | Emergency (ER) | payer BC, MEDICAID, SELFPAY ==
[2022-12-14 03:55] VITALS: BP 168/91; PULSE 82; RESP 18; TEMP 36.6; O2SAT 100
--- NOTE | 2022-12-14 04:06 | XRR_ITS ---
PROCEDURE INFORMATION: Exam: XR Chest Exam date and time: 12/14/2022 4:32 AM Age: 57 years old Clinical indication: Other: Dysphagia TECHNIQUE: Imaging protocol: Radiologic exam of the chest. Views: 1 view. COMPARISON: CR XR chest 1V portable [id number] 03/19/2022 3:08 PM FINDINGS: Lungs: Unremarkable. No consolidation. Pleural spaces: Unremarkable. No pleural effusion. No pneumothorax. Heart/Mediastinum: Unremarkable. No cardiomegaly. Bones/joints: Unremarkable. XR/XR chest 1V portable [id number] IMPRESSION: No acute findings.
--- NOTE | 2022-12-14 04:29 | PC.NURSE ---
Patient states that she is in a homeless [facility] and has no place to put her things. She has to rehome her dog. Patient started having panic attacks and could not breathe. Patient was having trouble swallowing the last few weeks. Today patient was eating and the tiny piece of porkchop got stuck and she could not get it up or down.
[2022-12-14] MEDS: LORazepam 1 mg Tablet PO (04:31)
--- NOTE | 2022-12-14 04:31 | W.ED.GENADLT ---
HPI - General Adult General: Chief complaint: Airway/Esophagus Foreign Body Stated complaint: ANXIETY Time Seen by Provider: 12/14/22 03:56 Source: patient and EMS Mode of arrival: EMS Limitations: no limitations History of Present Illness: 57-year-old female states she is eating last night at 6 PM states she has had a history of esophageal strictures she had a gastric bypass states she had a choking episode states she has had severe anxiety as she has been under a lot of stressors she has been living in a homeless long-term just lately states she is been extremely anxious since having that episode. She is very anxious in the room when I am interviewing her. She denies any chest pain denies any cough she has been able to swallow liquids since. Associated symptoms: Deny chest pain, dyspnea, headache(s), nausea, rash or vomiting Review of Systems Const: Denies: fever(s), chills, body aches or change in appetite ENMT: Reports: throat pain; Denies: dental pain Card: Denies: chest pain Resp: Denies: dyspnea GI: Denies: abdominal pain, nausea, vomiting or diarrhea Musc: Denies: neck pain or back pain Skin/Breast: Denies: rash Neuro: Denies: headache(s) Psych: Reports: anxiety All/Imm: Denies: urticaria PFSH ED PFSH: Medical History Abdominal pain ABE (acute kidney injury) Complication of gastric band procedure Dehydration Gastritis Hypertension Hypokalemia Hypokalemia Leukocytosis Nausea and vomiting Pityriasis rubra pilaris Polymorphic photodermatitis Upper gastrointestinal hemorrhage Urinary retention Surgical History H/O gastric sleeve History of ankle surgery History of appendectomy History of back surgery x2 History of cholecystectomy History of elbow surgery History of oophorectomy History of tubal ligation 1998 Status post gastric banding surgery We will plan to discharge patient home today Social History Smoking and tobacco status: never smoked Alcohol intake: former Year of sobriety/quit date alcohol: 3 yr Substance/Drug Use: never Physical Exam Const: COMMON NORMALS: no acute distress, patient oriented x3 and healthy appearing GENERAL APPEARANCE: anxious HENMT: COMMON NORMALS: normocephalic and atraumatic HEAD & SCALP: normocephalic and atraumatic Neck/C-Spine: COMMON NORMALS: full ROM and supple Chest: COMMONS NORMALS: normal inspection of the chest and normal palpation of entire chest wall Resp: COMMON NORMALS: normal respiratory effort, No retractions, No use of accessory muscles and clear to auscultation bilaterally AUSCULTATION: clear to auscultation bilaterally Cardio: COMMON NORMALS: regular rate, regular rhythm and No murmurs present (Cardio) RATE: regular rate RHYTHM: regular rhythm GI: COMMON NORMALS: Normal to inspection, nondistended, normoactive bowel sounds present, Soft to palpation, non-tender and no masses PALPATION: Yes Soft to palpation Extremity: COMMON NORMALS: normal to inspection and full ROM Neuro: COMMON NORMALS: patient oriented x3, moves all extremities and no focal motor deficits Psych: COMMON NORMALS: mental status grossly normal, Normal thought process present and cooperative THOUGHT PROCESS: Normal thought process present Skin: COMMON NORMALS: no rashes or lesions noted and no wounds GENERAL SKIN EXAM: no rashes or lesions noted Course Vital Signs: Vital signs: Vital Signs Temperature 97.8 F 12/14/22 03:55 Pulse Rate 78 12/14/22 05:15 Respiratory Rate 16 12/14/22 05:15 Blood Pressure 128/105 12/14/22 05:15 Pulse Oximetry 100 12/14/22 05:15 Oxygen Delivery Me thod Room Air 12/14/22 03:55 MDM - General Adult Medical Decision Making Patient presents with anxiety likely causing some of her dysphagia she is able to swallow here x-ray is normal she is stable for discharge she is to follow-up with she will get a follow-up with surgery as well she is to return if worsening she understands agrees to plan. Medical Records I reviewed the patient's medical records. Imaging Data CXR: I personally reviewed and interpreted this imaging study as follows: My impression: No acute abnormality Discharge Plan Discharge Patient Disposition: Home Clinical Impression: Anxiety, Difficulty swallowing Condition: Stable Prescriptions: New hydroxyzine HCl 50 mg tablet 50 mg PO Q8H PRN (Reason: anxiety) Qty: 20 0RF No Action pimecrolimus [Elidel] 1 % cream 1 applic topical BID Qty: 100 0RF Rx Instructions: Apply twice a day to red, itchy areas on face promethazine-DM 6.25-15 mg/5 mL syrup 5 ml PO Q6H PRN (Reason: cough) Qty: 118 0RF azithromycin 250 mg tablet See Rx Instructions PO .COMPLEX Qty: 6 0RF Rx Instructions: For 250 mg dose pack: take 500 mg today (day 1), then 250 mg for 4 days (days 2-5) PO acetaminophen [Tylenol 8 Hour] 650 mg tablet extended release 650 mg PO Q12H Humira(CF) Pen 40 mg/0.4 mL pen injector kit See Rx Instructions SUBCUT .COMPLEX Qty: 2 3RF Rx Instructions: inject one - 40 mg/0.4 mL pen every 2 weeks SUBCUT temazepam 15 mg Capsule 30 mg PO BEDTIME tizanidine 2 mg tablet 2 mg PO TID PRN (Reason: Muscle Spasm) lisinopril 10 mg tablet 20 mg PO QAM gabapentin 100 mg Capsule 100 mg PO DAILY Discharge Orders: Discharge ED (Routine); Ordered 12/14/22 Ordered By: Kristi Blanco Referrals: Eren Bonilla DO [Physician] - 1-3 days Jacqueline Call MD [Primary Care Provider] - 1-3 days Discharge Diet: Advance as tolerated Discharge Activity: Resume usual activity Patient Instructions: Anxiety (ED), Dysphagia (ED) Coding Level of Care Code ED Equities Trader for Dami Mendez
[2022-12-14] MEDS: lidocaine 2% viscous 15 ML, aluminum-mag hydrox-simethicon 30 ML, sucralfate oral liq 1 GM PO (04:33)
[2022-12-14 05:15] VITALS: BP 128/105; PULSE 78; RESP 16; O2SAT 100
[2022-12-14] MEDS: LORazepam 2 mg/mL INJ 1 mL 1 MG IM (05:16)
== END 2022-12-14 05:24 | disposition home or self-care (01) ==
PROVIDERS: Emergency Provider Emergency Medicine; PCP Family Medicine
DX: F41.9 Anxiety disorder, unspecified (principal); R13.10 Dysphagia, unspecified; I10 Essential (primary) hypertension
CPT/HCPCS: 71045; 96372; 99284; J2060

== ENCOUNTER 2023-01-01 09:41 | Emergency (ER) | payer BC, MEDICAID, SELFPAY ==
[2023-01-01] VITALS (7 sets, daily range): BP systolic 135–187; BP diastolic 79–132; PULSE 68–114; TEMP 37; O2SAT 94–100; BMI 33.2
--- NOTE | 2023-01-01 10:06 | XR_ITS ---
WS: [id number] XR chest 1V portable [id number] REASON FOR EXAM: dyspnea/cough FINDINGS: The chest is unchanged compared to 12/14/2022. The heart and mediastinum are within normal limits. Calcified granulomatous disease bilaterally. No active pulmonary parenchymal or pleural disease noted. No significant abnormality of the bony thorax. XR/XR chest 1V portable [id number] IMPRESSION: Stable chest without acute abnormality.
--- NOTE | 2023-01-01 10:18 | ED_ITS ---
HPI - Abdominal Pain General: Chief Complaint: Abdominal Pain Stated Complaint: N/V Weakness, abd pain Time Seen by Provider: 01/01/23 09:46 Source: patient Mode of arrival: ambulatory History of Present Illness: 57-year-old female presents emergency room complaining of right-sided abdominal pain and flank pain for the last 5 days she had problems with urinary retention in the past she also had multiple back surgeries denies hematochezia melena hematemesis coffee-ground emesis has had some nausea and vomiting intermittently with that. She states she chronically has back pain but this feels different. She has not had any dysuria urgency or frequency. States the pain is intermittent is an aching throbbing-like pain in her low back. She states she usually takes lisinopril for the pain. MD elicited complaint: abdominal pain and flank pain Onset (ago): day(s) (5) Pain Consistency: intermittent Location: R flank and Other (Right low back) Severity: severe Quality: cramping Radiation: none Exacerbating factors: nothing Relieving factors: nothing Associated Symptoms: Denies anorexia, belching, bloating, change in bowel habits, change in stool character, chills, coffee ground emesis, constipation, GI cramping, diarrhea, dyspepsia, dysuria, excessive flatus, fever(s), heartburn, hematochezia, hematuria, hematemesis, fecal incontinence, loose stools, melena, nausea, poor appetite, syncope and vomiting Review of Systems Const: Denies: fever(s) or chills Card: Denies: syncope GI: Denies: nausea, vomiting, hematemesis, coffee ground emesis, heartburn, diarrhea, constipation, bloating, GI cramping, belching, excessive flatus, fecal incontinence, change in bowel habits, change in stool character, hematochezia or melena : Denies: dysuria or hematuria PFSH ED PFSH: Medical History Abdominal pain ABE (acute kidney injury) Complication of gastric band procedure Dehydration Gastritis Hypertension Hypokalemia Hypokalemia Leukocytosis Nausea and vomiting Pityriasis rubra pilaris Polymorphic photodermatitis Upper gastrointestinal hemorrhage Urinary retention Surgical History H/O gastric sleeve History of ankle surgery History of appendectomy History of back surgery x2 History of cholecystectomy History of elbow surgery History of oophorectomy History of tubal ligation 1998 Status post gastric banding surgery We will plan to discharge patient home today Social History Smoking and tobacco status: never smoked Alcohol intake: former Year of sobriety/quit date alcohol: 3 yr Substance/Drug Use: never Physical Exam Const: GENERAL APPEARANCE: cooperative and comfortable ORIENTATION/CONSCIOUSNESS: Yes awake, Yes oriented to person, Yes oriented to place and Yes oriented to time HENMT: COMMON NORMALS: normocephalic, atraumatic and hearing grossly normal bilaterally HEAD & SCALP: normocephalic and atraumatic Resp: COMMON NORMALS: normal respiratory effort, No retractions, No use of accessory muscles and clear to auscultation bilaterally AUSCULTATION: clear to auscultation bilaterally Cardio: COMMON NORMALS: regular rate, regular rhythm and No murmurs present (Cardio) RATE: regular rate RHYTHM: regular rhythm GI: COMMON NORMALS: Soft to palpation and No hepatosplenomegaly present AUSCULTATION: Yes normoactive bowel sounds PALPATION: Yes Soft to palpation, No Tenderness to palpation present (GI), No Guarding due to palpation present (GI) and Yes No hepatosplenomegaly present Extremity: COMMON NORMALS: normal to inspection, capillary refill normal, no clubbing, cyanosis or edema, no calf tenderness and no pedal edema Neuro: SENSORIUM/ORIENTATION: Yes oriented to person, Yes oriented to place and Yes oriented to time Skin: COMMON NORMALS: no rashes or lesions noted GENERAL SKIN EXAM: no rashes or lesions noted Course Vital Signs: Vital signs: Vital Signs Temperature 98.6 F 01/01/23 09:49 Pulse Rate 90 01/01/23 14:48 Blood Pressure 161/94 01/01/23 14:48 Pulse Oximetry 97 01/01/23 14:48 Oxygen Delivery Me thod Room Air 01/01/23 13:30 MDM - Abdominal Pain Medical Decision Making Labs and imaging reviewed. White count is normal but she did have elevated liver enzymes and normal bilirubin ultrasound gallbladder done no dilation of the common bile duct previous cholecystectomy. Discussed with the patient. Lipase is slightly elevated as well. Urine showed contamination discharge home have her follow-up with her primary care doctor she has tested positive in the past for core hepatitis B as well as hepatitis C antibody she tells me she has been tested she may need to be reevaluated return if she has further problems. Medical Records I reviewed the patient's medical records. Lab Data I reviewed the patient's lab results. 01/01/23 10:54 01/01/23 10:54 Labs/Radiology: Radiology Impressions Chest X-Ray 01/01/23 10:06 IMPRESSION: Stable chest without acute abnormality. Gallbladder Ultrasound 01/01/23 11:57 IMPRESSION: 1. Prior cholecystectomy. 2. Mild atrophy RIGHT kidney. Laboratory Results WBC 6.4 10^3/uL (4.0-10.0) 01/01/23 10:54 RBC 4.24 10^6/uL (4.1-5.3) 01/01/23 10:54 Hgb 12.7 g/dL (11.5-15.3) 01/01/23 10:54 Hct 40.2 % (37.0-47.0) 01/01/23 10:54 MCV 94.8 fl (81-99) 01/01/23 10:54 MCH 30.0 pg (28.0-34.0) 01/01/23 10:54 MCHC 31.6 g/dL (30.0-36.0) 01/01/23 10:54 RDW 13.2 % (12.1-15.1) 01/01/23 10:54 Plt Count 273 10^3/cmm (130-400) 01/01/23 10:54 MPV 9.3 fL (7.4-10.4) 01/01/23 10:54 Neut % (Auto) 73.6 % 01/01/23 10:54 Lymph % (Auto) 17.6 % 01/01/23 10:54 [place] % (Auto) 7.2 % 01/01/23 10:54 Eos % (Auto) 0.8 % 01/01/23 10:54 Baso % (Auto) 0.5 % 01/01/23 10:54 Neut # (Auto) 4.68 10^3/uL (1.8-7.7) 01/01/23 10:54 Lymph # (Auto) 1.1 10^3/uL (0.8-4.8) 01/01/23 10:54 [place] # (Auto) 0.5 10^3/uL (0.2-0.9) 01/01/23 10:54 Eos # (Auto) 0.1 10^3/uL (0.0-0.8) 01/01/23 10:54 Baso # (Auto) 0.0 10^3/uL (0.0-0.1) 01/01/23 10:54 Nucleated RBC % (auto) 0 % 01/01/23 10:54 Nucleated RBCs # 0.0 /100WBC 01/01/23 10:54 Sodium 139 mmol/L (136-145) 01/01/23 10:54 Potassium 3.5 mmol/L (3.5-5.1) 01/01/23 10:54 Chloride 105 mmol/L (98-107) 01/01/23 10:54 Carbon Dioxide 21 mmol/L (22-29) L 01/01/23 10:54 Anion Gap 16.5 (5-19) 01/01/23 10:54 BUN 10 mg/dL (6-20) 01/01/23 10:54 Creatinine 0.7 mg/dL (0.5-0.9) 01/01/23 10:54 GFR Calculation 86.9 mL/min (90-130) L 01/01/23 10:54 Glucose 145 mg/dL (65-115) H 01/01/23 10:54 Calculated Osmolality 290 mOsm/kg (285-295) 01/01/23 10:54 Calcium 9.6 mg/dL (8.5-10.5) 01/01/23 10:54 Total Bilirubin 0.6 mg/dL (0.15-1.2) 01/01/23 10:54 AST 144 U/L (0-32) H 01/01/23 10:54 ALT 268 U/L (0-33) H 01/01/23 10:54 Alkaline Phosphatase 269 U/L (35-105) H 01/01/23 10:54 Total Protein 7.2 g/dL (6.6-8.7) 01/01/23 10:54 Albumin 4.1 g/dL (3.5-5.2) 01/01/23 10:54 Globulin 3.1 g/dL (1.3-4.6) 01/01/23 10:54 Lipase 74 U/L (13-60) H 01/01/23 10:54 Urine Color Yellow (Yellow) 01/01/23 09:56 Urine Appearance Cloudy (CLEAR) A 01/01/23 09:56 Urine pH 5 (5-7) 01/01/23 09:56 Ur Specific [place] 1.020 (1.005-1.030) 01/01/23 09:56 Urine Protein 1+ (Negative) H 01/01/23 09:56 Urine Glucose (UA) Norm (Normal) 01/01/23 09:56 Urine Ketones Negative (Negative) 01/01/23 09:56 Urine Blood Neg (Negative) 01/01/23 09:56 Urine Nitrate Negative (Negative) 01/01/23 09:56 Urine Bilirubin Neg (Negative) 01/01/23 09:56 Urine Urobilinogen 1 mg/dL (Negative) H 01/01/23 09:56 Ur Leukocyte Esterase Trace (Negative) H 01/01/23 09:56 Urine RBC 0-4 /hpf (0-2) H 01/01/23 09:56 Urine WBC 5-10 /hpf (0-5) H 01/01/23 09:56 Ur Squamous Epith Cells 15-25 /hpf (0-5) H 01/01/23 09:56 Amorphous Sediment 1+ /hpf 01/01/23 09:56 Urine Bacteria 2+ /hpf (NONE) H 01/01/23 09:56 Hyaline Casts 0-4 /lpf H 01/01/23 09:56 Urine Yeast 1+ /hpf H 01/01/23 09:56 Hepatitis A IgM Ab Non-reactive (Nonreactive) 01/01/23 10:54 Hep Bs Antigen Non-reactive (Nonreactive) 01/01/23 10:54 Hep B Core IgM Ab Non-reactive (Nonreactive) 01/01/23 10:54 Hepatitis C Antibody Reactive (Nonreactive) H 01/01/23 10:54 Discharge Plan Discharge Patient Disposition: Home Clinical Impression: Abdominal pain, Back pain Condition: Stable Prescriptions: New promethazine 25 mg tablet 25 mg PO Q6H PRN (Reason: nausea and vomiting) Qty: 20 0RF No Action acetaminophen [Tylenol 8 Hour] 650 mg tablet extended release 650 mg PO Q12H temazepam 15 mg Capsule 30 mg PO BEDTIME tizanidine 2 mg tablet 2 mg PO TID PRN (Reason: Muscle Spasm) lisinopril 10 mg tablet 20 mg PO QAM quetiapine 50 mg tablet 50 mg PO DAILY gabapentin 100 mg Capsule 100 mg PO DAILY Discharge Orders: Discharge ED (Routine); Ordered 01/01/23 Ordered By: Ariel Baer Referrals: Jacqueline Call MD [Primary Care Provider] - Patient Instructions: Abdominal Pain (ED), Opioid Safety, Pain Management Coding Level of Care Code ED Tier Lift Operator for Dami Mendez
--- NOTE | 2023-01-01 10:25 | ECG_ITS ---
[facility] Test Date: 2023-01-01 Pat Name: Madison Maharaj Department: Room: Gender: Female Manager Of Construction: : 1965 Requested By: Ariel Ivan Order Number: [id number] Linh MD: Johann Schreiber M.D. Measurements Intervals [place] Rate: 65 P: 51 [place]: 174 QRS: 33 QRSD: 88 T: 44 QT: 363 QTc: 380 Interpretive Statements SINUS RHYTHM MODERATE ST DEPRESSION [0.05+ mV ST DEPRESSION] Compared to ECG 04/07/2020 17:50:07 ST (T wave) deviation now present Electronically Signed On 01-01-2023 13:20:06 CDT by Johann Schreiber M.D. [id number]
[2023-01-01 10:38] LABS: Add Urine Microscopic? YES; Bilirubin Urine Neg (Negative); Blood Urine Neg (Negative); Glucose Urine UA Norm (Normal); Ketones Urine Negative (Negative); Leukocyte Esterase Urine Trace (Negative); Nitrate Urine Negative (Negative); Protein Urine 1+ (Negative); Urine Appearance Cloudy (CLEAR); Urine Color Yellow (Yellow); Urobilinogen Urine 1 mg/dL (Negative); pH Urine 5 (5-7)
[2023-01-01 10:39] LABS: Add Urine Culture? Yes; Amorphous Sediment Urine 1+ /hpf; Bacteria Urine 2+ /hpf; Hyaline Casts Urine 0-4 /lpf; RBC Urine 0-4 /hpf (0-2); Squamous Epithelial Cell Urine 15-25 /hpf (0-5)
[2023-01-01] MEDS: ketorolac 30 mg/mL INJ IVP (10:54)
[2023-01-01] MEDS: morphine 4 mg/mL SDV 1 mL IVP (10:54)
[2023-01-01] MEDS: ondansetron 2 mg/ML SDV 2 mL 4 MG IVP (10:54)
[2023-01-01 11:02] LABS: Basophils % 0.5 %; Eosinophils # 0.1 10^3/uL (0.0-0.8); Eosinophils % 0.8 %; Hematocrit 40.2 % (37.0-47.0); Hemoglobin 12.7 g/dL (11.5-15.3); Lymphocytes # 1.1 10^3/uL (0.8-4.8); Lymphocytes % 17.6 %; Mean Corpuscular HGB Conc 31.6 g/dL (30.0-36.0); Mean Corpuscular Volume 94.8 fl (81-99); Mean Platelet Volume 9.3 fL (7.4-10.4); Monocytes # 0.5 10^3/uL (0.2-0.9); Monocytes % 7.2 %; Neutrophils # 4.68 10^3/uL (1.8-7.7); Neutrophils % 73.6 %; Nucleated Red Blood Cells % 0 %; Platelet Count 273 10^3/cmm (130-400); Red Blood Count 4.24 10^6/uL (4.1-5.3); Red Cell Distribution Width 13.2 % (12.1-15.1); White Blood Count 6.4 10^3/uL (4.0-10.0)
[2023-01-01 11:22] LABS: Alanine Aminotransferase 268 U/L (0-33); Albumin Level 4.1 g/dL (3.5-5.2); Alkaline Phosphatase 269 U/L (35-105); Anion Gap 16.5 (5-19); Aspartate Amino Transferase 144 U/L (0-32); Blood Urea Nitrogen 10 mg/dL (6-20); Calcium 9.6 mg/dL (8.5-10.5); Carbon Dioxide 21 mmol/L (22-29); Chloride 105 mmol/L (98-107); Globulin 3.1 g/dL (1.3-4.6); Glomerular Filtration Rate 86.9 mL/min (90-130); Glucose 145 mg/dL (65-115); Osmolality Calculated 290 mOsm/kg (285-295); Potassium 3.5 mmol/L (3.5-5.1); Sodium 139 mmol/L (136-145); Total Bilirubin 0.6 mg/dL (0.15-1.2); Total Protein 7.2 g/dL (6.6-8.7)
--- NOTE | 2023-01-01 11:56 | ECG_ITS ---
[facility] Test Date: 2023-01-01 Pat Name: Madison Maharaj Department: Room: Gender: Female Supervisor Remelt: : 1965 Requested By: Ariel Ivan Order Number: [id number] Linh MD: Johann Schreiber M.D. Measurements Intervals [place] Rate: 88 P: 68 SC: 155 QRS: 27 QRSD: 94 T: 44 QT: 326 QTc: 396 Interpretive Statements SINUS RHYTHM Compared to ECG 01/01/2023 10:25:06 ST (T wave) deviation no longer present Electronically Signed On 01-01-2023 13:55:19 CDT by Johann Schreiber M.D. [id number]
--- NOTE | 2023-01-01 11:57 | US_ITS ---
WS: [id number] RIGHT UPPER QUADRANT ULTRASOUND HISTORY: Elevated transaminases. COMPARISON: 06/23/2018 Liver: 14.0 cm in length. Normal size liver and echogenicity. No bile duct dilatation or mass. Portal Vein: Normal hepatopetal flow with monophasic waveform. Gallbladder: Prior cholecystectomy. CBD: 0.5 cm Pancreas: Poorly visualized. Right kidney: 8.7 cm in length. Low normal size kidney with mild cortical thinning throughout. No obs truction. Aorta and IVC: Unremarkable abdominal aorta and IVC. No ascites. US/US gall bladder [id number] IMPRESSION: 1. Prior cholecystectomy. 2. Mild atrophy RIGHT kidney.
[2023-01-01] MEDS: LORazepam 2 mg/mL INJ 1 mL IVP (12:14)
[2023-01-01 12:45] LABS: Hepatitis A Antibody IgM Non-Reactive (Nonreactive); Hepatitis B Core IgM Non-Reactive (Nonreactive); Hepatitis B Surface Antigen Non-Reactive (Nonreactive); Hepatitis C Virus Antibody Reactive (Nonreactive)
[2023-01-01 12:56] LABS: Lipase 74 U/L (13-60)
[2023-01-03 15:24] LABS: HEP C RNA Viral Load Quant <1.18 NOT DETECTED Log IU/mL (NOT DETECTED); HEP C RNA Viral Load Quant <15 NOT DETECTED IU/mL (NOT DETECTED)
== END 2023-01-01 14:40 | disposition home or self-care (01) ==
PROVIDERS: Emergency Provider Family Medicine; PCP Family Medicine
DX: R10.9 Unspecified abdominal pain (principal); M54.9 Dorsalgia, unspecified; Z90.49 Acquired absence of other specified parts of digestive tract
CPT/HCPCS: 36415; 71045; 76705; 80053; 80074; 81001; 83690; 85025; 87086; 87522; 93005; 96374; 96375; 99285; J1885; J2060; J2270; J2405

== ENCOUNTER 2023-01-19 14:02 | Inpatient (IN) | payer BC, SELFPAY ==
[2023-01-19 14:19] VITALS: BP 143/92; PULSE 94; RESP 22; TEMP 36.8; O2SAT 96
[2023-01-19 14:47] LABS: Basophils % 0.6 %; Eosinophils # 0.2 10^3/uL (0.0-0.8); Eosinophils % 2.6 %; Hematocrit 41.4 % (37.0-47.0); Lymphocytes # 1.6 10^3/uL (0.8-4.8); Lymphocytes % 24.8 %; Mean Corpuscular HGB Conc 31.4 g/dL (30.0-36.0); Mean Corpuscular Hemoglobin 30.6 pg (28.0-34.0); Mean Corpuscular Volume 97.4 fl (81-99); Mean Platelet Volume 9.1 fL (7.4-10.4); Monocytes # 0.5 10^3/uL (0.2-0.9); Monocytes % 7.9 %; Neutrophils # 4.19 10^3/uL (1.8-7.7); Neutrophils % 63.6 %; Nucleated Red Blood Cells % 0 %; Platelet Count 253 10^3/cmm (130-400); Red Blood Count 4.25 10^6/uL (4.1-5.3); Red Cell Distribution Width 13.7 % (12.1-15.1); White Blood Count 6.6 10^3/uL (4.0-10.0)
--- NOTE | 2023-01-19 14:49 | W.ED.PSYCHS ---
HPI - Psych General: Chief Complaint: Psychiatric Symptoms Stated Complaint: psych eval and skin rash Time Seen by Provider: 01/19/23 14:12 History of Present Illness: Patient says she is under a lot of stress and is having suicidal ideations at this time. Patient also states she has some form of dermatitis that she has seen a patient support tech for and it is stress related and is states she has had a flareup. Patient does not have a plan as far as her suicidal ideations at this time but she is very anxious and has been inpatient in the past before. Review of Systems General: Reports: 10 or more systems reviewed and unremarkable except in HPI and below PFSH ED PFSH: Medical History Abdominal pain ABE (acute kidney injury) Complication of gastric band procedure Dehydration Gastritis Hypertension Hypokalemia Hypokalemia Leukocytosis Nausea and vomiting Pityriasis rubra pilaris Polymorphic photodermatitis Upper gastrointestinal hemorrhage Urinary retention Surgical History H/O gastric sleeve History of ankle surgery History of appendectomy History of back surgery x2 History of cholecystectomy History of elbow surgery History of oophorectomy History of tubal ligation 1998 Status post gastric banding surgery We will plan to discharge patient home today Social History Smoking and tobacco status: never smoked Alcohol intake: former Year of sobriety/quit date alcohol: 3 yr Substance/Drug Use: never Physical Exam Const: COMMON NORMALS: no acute distress, average body habitus, patient oriented x3, no limitations, healthy appearing, alert and well nourished HENMT: COMMON NORMALS: normocephalic, atraumatic, hearing grossly normal bilaterally, external ears normal, Normal external nose present and moist oral mucous membranes HEAD & SCALP: normocephalic and atraumatic NOSE: Normal external nose present EXTERNAL EAR: Yes external ears normal Neck/C-Spine: COMMON NORMALS: no JVD Chest: COMMONS NORMALS: normal inspection of the chest and normal palpation of entire chest wall Resp: COMMON NORMALS: normal respiratory effort, No retractions, No use of accessory muscles and clear to auscultation bilaterally AUSCULTATION: clear to auscultation bilaterally Cardio: COMMON NORMALS: no JVD, regular rate, regular rhythm, S1 normal heart sound present, S2 normal heart sound present, No gallops present (Cardio), No clicks present (Cardio), No murmurs present (Cardio) and No rub (Cardio) RATE: regular rate RHYTHM: regular rhythm HEART SOUNDS: S1 normal heart sound present and S2 normal heart sound present GI: COMMON NORMALS: Normal to inspection, nondistended, normoactive bowel sounds present, Soft to palpation, non-tender, No hepatosplenomegaly present and no masses PALPATION: Yes Soft to palpation and Yes No hepatosplenomegaly present : COMMON NORMALS: Yes no CVA tenderness BLADDER/KIDNEY EXAM: Yes no CVA tenderness Back/Pelvis: COMMON NORMALS: no CVA tenderness Neuro: COMMON NORMALS: patient oriented x3 SENSORIUM/ORIENTATION: Yes alert Skin: NARRATIVE SKIN EXAM: Dry flaky red skin rash periorbital and perioral regions. Course Vital Signs: Vital signs: Vital Signs Temperature 98.2 F 01/19/23 14:19 Pulse Rate 94 01/19/23 14:19 Respiratory Rate 22 H 01/19/23 14:19 Blood Pressure 143/92 01/19/23 14:19 Pulse Oximetry 96 01/19/23 14:19 MDM - Psych Medical Decision Making Patient presents to the ER with suicidal ideation. She has been in the [facility] before. Patient would like to go back again. Lab work was obtained which is unremarkable. Dr. Matias will be consulted anticipate patient being admitted to the [facility]. Differential Diagnosis Likely suicidal ideation, depression and acute anxiety; Unlikely acute psychosis, chronic schizophrenia, bipolar disorder or drug-induced psychotic disorder Medical Records I reviewed the patient's medical records. Lab Data I reviewed the patient's lab results. 01/19/23 14:40 01/19/23 14:40 Laboratory Results WBC 6.6 10^3/uL (4.0-10.0) 01/19/23 14:40 RBC 4.25 10^6/uL (4.1-5.3) 01/19/23 14:40 Hgb 13.0 g/dL (11.5-15.3) 01/19/23 14:40 Hct 41.4 % (37.0-47.0) 01/19/23 14:40 MCV 97.4 fl (81-99) 01/19/23 14:40 MCH 30.6 pg (28.0-34.0) 01/19/23 14:40 MCHC 31.4 g/dL (30.0-36.0) 01/19/23 14:40 RDW 13.7 % (12.1-15.1) 01/19/23 14:40 Plt Count 253 10^3/cmm (130-400) 01/19/23 14:40 MPV 9.1 fL (7.4-10.4) 01/19/23 14:40 Neut % (Auto) 63.6 % 01/19/23 14:40 Lymph % (Auto) 24.8 % 01/19/23 14:40 [place] % (Auto) 7.9 % 01/19/23 14:40 Eos % (Auto) 2.6 % 01/19/23 14:40 Baso % (Auto) 0.6 % 01/19/23 14:40 Neut # (Auto) 4.19 10^3/uL (1.8-7.7) 01/19/23 14:40 Lymph # (Auto) 1.6 10^3/uL (0.8-4.8) 01/19/23 14:40 [place] # (Auto) 0.5 10^3/uL (0.2-0.9) 01/19/23 14:40 Eos # (Auto) 0.2 10^3/uL (0.0-0.8) 01/19/23 14:40 Baso # (Auto) 0.0 10^3/uL (0.0-0.1) 01/19/23 14:40 Nucleated RBC % (auto) 0 % 01/19/23 14:40 Nucleated RBCs # 0.0 /100WBC 01/19/23 14:40 Sodium 136 mmol/L (136-145) 01/19/23 14:40 Potassium 4.2 mmol/L (3.5-5.1) 01/19/23 14:40 Chloride 106 mmol/L (98-107) 01/19/23 14:40 Carbon Dioxide 18 mmol/L (22-29) L 01/19/23 14:40 Anion Gap 16.2 (5-19) 01/19/23 14:40 BUN 12 mg/dL (6-20) 01/19/23 14:40 Creatinine 0.9 mg/dL (0.5-0.9) 01/19/23 14:40 GFR Calculation 65.0 mL/min (90-130) L 01/19/23 14:40 Glucose 127 mg/dL (65-115) H 01/19/23 14:40 Calculated Osmolality 283 mOsm/kg (285-295) L 01/19/23 14:40 Calcium 9.5 mg/dL (8.5-10.5) 01/19/23 14:40 Total Bilirubin 0.2 mg/dL (0.15-1.2) 01/19/23 14:40 AST 21 U/L (0-32) 01/19/23 14:40 ALT 23 U/L (0-33) 01/19/23 14:40 Alkaline Phosphatase 139 U/L (35-105) H 01/19/23 14:40 Total Protein 7.5 g/dL (6.6-8.7) 01/19/23 14:40 Albumin 4.1 g/dL (3.5-5.2) 01/19/23 14:40 Globulin 3.4 g/dL (1.3-4.6) 01/19/23 14:40 Salicylates < 0.3 mg/dL (3-10) L 01/19/23 14:40 Acetaminophen < 5.0 ug/mL (10-30) L 01/19/23 14:40 Ethyl Alcohol < 10 mg/dL (0-10) 01/19/23 14:40 Discharge Plan Discharge Patient Disposition: Admitted As Inpatient Clinical Impression: Suicidal ideation Condition: Stable Coding Level of Care Code ED Supervisor Scrap Preparation for Dami Mendez
[2023-01-19] MEDS: dexamethasone 10 mg/mL INJ IM (14:53)
[2023-01-19 15:04] LABS: Alanine Aminotransferase 23 U/L (0-33); Albumin Level 4.1 g/dL (3.5-5.2); Alkaline Phosphatase 139 U/L (35-105); Anion Gap 16.2 (5-19); Aspartate Amino Transferase 21 U/L (0-32); Blood Urea Nitrogen 12 mg/dL (6-20); Calcium 9.5 mg/dL (8.5-10.5); Carbon Dioxide 18 mmol/L (22-29); Chloride 106 mmol/L (98-107); Globulin 3.4 g/dL (1.3-4.6); Glucose 127 mg/dL (65-115); Osmolality Calculated 283 mOsm/kg (285-295); Potassium 4.2 mmol/L (3.5-5.1); Sodium 136 mmol/L (136-145); Total Bilirubin 0.2 mg/dL (0.15-1.2); Total Protein 7.5 g/dL (6.6-8.7)
[2023-01-19 15:05] LABS: Acetaminophen < 5.0 ug/mL (10-30); Alcohol Level < 10 mg/dL (0-10); Salicylate < 0.3 mg/dL (3-10)
[2023-01-19] MEDS: acetaminophen 500 mg Tablet 1000 MG PO (15:47)
[2023-01-19] MEDS: diphenhydrAMINE 50 mg Capsule PO (15:55)
[2023-01-19 16:13] VITALS: BP 175/106; PULSE 66; RESP 17; TEMP 36.8; O2SAT 97
--- NOTE | 2023-01-19 17:42 | PC.NURSE ---
Patient's pharmacy is in [place]. Patient's current meds are as follows: quetiapine 50mg 1 daily tamazepam 15mg 2 tablets at bedtime gabapentin 100mg 2 tabs at bedtime tizanidine 2mg, 2 tabs TID meds not restarted; need approval from Dr. Martins
[2023-01-19 17:44] LABS: Add Urine Microscopic? NO; Bilirubin Urine Neg (Negative); Blood Urine Neg (Negative); Glucose Urine UA Norm (Normal); Ketones Urine Negative (Negative); Leukocyte Esterase Urine Negative (Negative); Nitrate Urine Negative (Negative); Protein Urine Neg (Negative); Specific Gravity, Urine 1.005 (1.005-1.030); Urine Appearance Clear (CLEAR); Urine Color Colorless (Yellow); Urobilinogen Urine Norm (Negative); pH Urine 5 (5-7)
[2023-01-19 17:45] LABS: Charge for UA Resulting for Rev
[2023-01-19 17:54] LABS: Amphetamines Screen Urine Negative (Negative); Barbiturates Screen Urine Negative (Negative); Benzodiazepines Screen Urine Positive (Negative); Cocaine Screen Urine Negative (Negative); Opiate Screen Urine Negative (Negative); PCP Screen Urine Negative (Negative); THC Screen Urine Positive (Negative)
[2023-01-19] MEDS: hyDROXYzine 25 mg Capsule 50 MG PO (18:01)
--- NOTE | 2023-01-19 18:01 | PC.NURSE ---
PRN VISTARIL 50 MG GIVEN PO PER PT C/O STATED ANXIETY
[2023-01-19] MEDS: OLANZapine 5 mg ODT PO (20:13)
[2023-01-19] MEDS: temazepam 15 mg Capsule 30 MG PO (20:13)
[2023-01-19] MEDS: gabapentin 100 mg Capsule 200 MG PO (20:13)
[2023-01-19] MEDS: tizanidine 4 mg Tablet 2 MG PO (20:13)
[2023-01-19] MEDS: ibuprofen 600 mg Tablet PO (20:13)
[2023-01-19] MEDS: quetiapine 25 mg Tablet 50 MG PO (20:14)
[2023-01-19 21:31] VITALS: BP 153/95; PULSE 102; RESP 16; TEMP 36.8; O2SAT 98
[2023-01-20 06:00] VITALS: BP 132/88; PULSE 85; RESP 16; TEMP 36.6; O2SAT 98
[2023-01-20] MEDS: lisinopril 20 mg Tablet PO (06:09)
[2023-01-20] MEDS: ibuprofen 600 mg Tablet PO ×2 (07:56→17:19)
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
[2023-01-20] MEDS: duloxetine 30 mg Capsule PO (11:29)
[2023-01-20] MEDS: tizanidine 4 mg Tablet 2 MG PO ×2 (11:29→21:34)
[2023-01-20 14:00] VITALS: BP 123/87; PULSE 86; RESP 16; TEMP 36.7; O2SAT 98
[2023-01-20] MEDS: hyDROXYzine 25 mg Capsule 50 MG PO (15:31)
[2023-01-20] MEDS: triamcinolone 0.1% cream 15 gm 1 APPLIC TOPICAL (19:23)
[2023-01-20 19:40] VITALS: BP 168/98; PULSE 98; RESP 18; TEMP 36.4; O2SAT 98
[2023-01-20] MEDS: quetiapine 100 mg Tablet 200 MG PO (21:34)
[2023-01-20] MEDS: gabapentin 100 mg Capsule 200 MG PO (21:35)
[2023-01-20] MEDS: temazepam 15 mg Capsule 30 MG PO (21:35)
[2023-01-20] MEDS: acetaminophen 325 mg Tablet 650 MG PO (21:52)
[2023-01-21 06:00] VITALS: BP 132/85; PULSE 69; RESP 18; TEMP 36.6; O2SAT 97
[2023-01-21] MEDS: lisinopril 20 mg Tablet PO (06:21)
[2023-01-21] MEDS: tizanidine 4 mg Tablet 2 MG PO ×3 (06:26→21:22)
[2023-01-21] MEDS: duloxetine 30 mg Capsule PO (08:25)
[2023-01-21] MEDS: OLANZapine 5 mg ODT PO (08:25)
[2023-01-21] MEDS: ibuprofen 600 mg Tablet PO (11:42)
[2023-01-21 14:00] VITALS: BP 110/74; PULSE 72; RESP 16; TEMP 36.9; O2SAT 98
--- NOTE | 2023-01-21 17:21 | W.PM.NPUPNS ---
Subjective NPU Subjective: Patient is a 57-year-old white female with PTSD and depression admitted with suicidal ideation. She continued to report multiple medical issues. She had continue to report depression and complained of multiple problems including having blood in her stool and complaints of urinary retention that have been going on for several weeks. She had isolated herself on the milieu. She had reported continued sleep continuity disruption. She had reported having difficulties with relaxation in general. She continued to report low energy and low motivation. The patient had described multiple medication trials having been unsuccessful at managing her depression and was interested in alternative treatment modalities which were discussed including transcranial magnetic stimulation. She had reported struggles with managing her worry. She had reported infrequent suicidal thoughts and stated that she felt that she was declining. Mental Status Exam MSE Comments: Patient is a casually dressed friendly white female who appeared overweight. Her gait appeared slow and steady. Her hygiene was fair. There was significant evidence of moderate psychomotor retardation. There was no evidence of any abnormal involuntary motor movements tics or tremors appreciated. Her speech was normal in regards to rate, rhythm, and prosody. Her mood was described as depressed today. Her affect was mood congruent and restricted in range. Her thought process was linear,logical and goal-directed. Her thought content showed evidence of suicidal ideation with no active plan. She denied any homicidal ideation. She did not appear to be responding to internal stimuli. There was no clear evidence of delusional thinking. Her recent and remote memory were grossly intact. Her attention span appeared fair. Her insight was poor. Her judgment is limited. Her impulse control appeared poor. Was many somatic complaints noted. Vitals/I&O/Wt Last Vital Signs Temp 98.5 F 01/21/23 14:00 Pulse 72 01/21/23 14:00 Resp 16 01/21/23 14:00 BP 110/74 01/21/23 14:00 Pulse Ox 98 01/21/23 14:00 O2 Del Method Room Air 01/21/23 14:00 Data NPU 01/19/23 14:40 01/19/23 14:40 A&P Assessment and plan (1) Major depressive disorder, recurrent severe without psychotic features: (2) Suicidal ideation: (3) PTSD (post-traumatic stress disorder): (4) Social anxiety disorder: Plan The patient is a 57-year-old white female admitted with worsening depression with suicidal ideation with a past history of PTSD and chronic problems with anxiety. She would likely benefit from further evaluation and treatment on an inpatient basis with no supports available externally. #1. Engage patient in individual milieu and group therapy. #2. Therapeutic observation 15-minute checks on the unit. #3. Attempt to gather collateral information including previous records here. #4. Recommend sober living treatment at the highest level of care to which the patient is willing to commit. #5. Restart previous medications. Increase Cymbalta 40 mg daily to target depression and anxiety and continue Seroquel to 200 mg at night. Consider TMS on outpatient basis to target depression with hx of multiple medication failures. Involuntary Hold Information 96 Hour Hold: 96 Hour Involuntary Admission: No Attestations NPU Medical Necessity Statement*: Inpatient hospitalization is medically necessary and deemed to be the clinically appropriate intervention at this time. Medications will be initiated and adjusted as deemed necessary. The patient's likely length of stay is 4 to 6 days. Coding Level of Care Code Acute Code for [facility] Diagnoses Major depressive disorder, recurrent severe without psychotic features F33.2 Suicidal ideation R45.851 PTSD (post-traumatic stress disorder) F43.10 Social anxiety disorder F40.10
[2023-01-21 19:44] VITALS: BP 109/67; PULSE 74; RESP 18; TEMP 36.7; O2SAT 97
[2023-01-21] MEDS: quetiapine 100 mg Tablet 200 MG PO (21:21)
[2023-01-21] MEDS: gabapentin 100 mg Capsule 200 MG PO (21:21)
[2023-01-21] MEDS: temazepam 15 mg Capsule 30 MG PO (21:22)
--- NOTE | 2023-01-21 21:48 | PC.NURSE ---
Pt belligerent w/staff that it is too hot in her room that she was moved to another room to make room for a male bed. Pt became belligerent w/staff stating that she needed moved and states that staff are rude her. This nurse talked w/the pt regarding her attitude and belligerence with staff. One on one redirection unsuccessful. Pt remains belligerent.
--- NOTE | 2023-01-21 21:53 | PC.NURSE ---
Pt up to nurses station, when asked what she needed she stated you're last name , the proceeded in calling staff a bunch of rude ass bitches . Pt remains belligerent.
[2023-01-22 06:00] VITALS: BP 113/77; PULSE 75; RESP 16; TEMP 36.8; O2SAT 96
--- NOTE | 2023-01-22 06:44 | PC.NURSE ---
Patient woke up this morning still being belligerent and hateful. Patient went to demanding things from staff and Patient was asked to please be respectful. Patient stated that this staff member did not deserve to be treated with respect because You are a stupid Bitch . Patient then proceeded to tell staff that they have issues and should be locked in this facility and she should be the one that is running it.
[2023-01-22] MEDS: duloxetine 20 mg Capsule 40 MG PO (07:27)
[2023-01-22] MEDS: lisinopril 20 mg Tablet PO (07:27)
[2023-01-22] MEDS: ibuprofen 600 mg Tablet PO ×2 (07:27→14:30)
[2023-01-22] MEDS: tizanidine 4 mg Tablet 2 MG PO ×2 (07:28→14:31)
[2023-01-22] MEDS: OLANZapine 5 mg ODT PO (07:29)
--- NOTE | 2023-01-22 08:55 | PC.NURSE ---
PT CONTINUES TO BE IRRITATED ABOUT THE EVENING SHIFT. PT UPSET ABOUT MOVING ROOMS IN THE NIGHT TO MAKE ROOM FOR ANOTHER PT. PT WAS COOPERATIVE AND WILLING DURING SHIFT ASSESSMENT. PT CURRENTLY DENIES SI/HI/AH/VH. PT CURRENT NEEDS ARE MET. WILL CONTINUE TO MONITOR.
[2023-01-22 14:00] VITALS: BP 156/96; PULSE 95; RESP 18; TEMP 36.8; O2SAT 97
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
[2023-01-22 17:39] VITALS: BP 113/77; PULSE 75; RESP 16; TEMP 36.8; O2SAT 96
--- NOTE | 2023-01-22 17:59 | PC.NURSE ---
written discharge instruction discussed and given to patient pt states understanding and compliance.
== END 2023-01-22 20:03 | disposition home or self-care (01) | DRG 885 ==
LOC: ER 15:13 → NP 01-20 05:50
PROVIDERS: Admitting Provider Psychiatry & Neurology Psychiatry; Emergency Provider Emergency Medicine; PCP Family Medicine; Visit Provider Psychiatry & Neurology Psychiatry
DX: F33.2 Major depressive disorder, recurrent severe without psychotic features (principal); R45.851 Suicidal ideations; Z59.01 Sheltered homelessness; F43.10 Post-traumatic stress disorder, unspecified; F40.10 Social phobia, unspecified; L30.9 Dermatitis, unspecified; F12.10 Cannabis abuse, uncomplicated; I10 Essential (primary) hypertension; Z98.84 Bariatric surgery status; Z81.8 Family history of other mental and behavioral disorders
CPT/HCPCS: 36415; 80053; 80306; 80307; 81003; 85025; 96372; 97165; 99238; 99285; J1100; Q0163

== ENCOUNTER 2023-02-10 13:05 | Emergency (ER) | payer BC, MEDICAID, SELFPAY ==
[2023-02-10 13:09] VITALS: BP 134/86; PULSE 90; RESP 18; TEMP 36.7; O2SAT 94; BMI 31.8
--- NOTE | 2023-02-10 13:35 | XRR_ITS ---
PROCEDURE INFORMATION: Exam: XR Left Knee Exam date and time: 02/10/2023 1:43 PM Age: 57 years old Clinical indication: Injury or trauma; Fall; Blunt trauma; Knee; Left TECHNIQUE: Imaging protocol: Radiologic exam of the left knee. Views: 3 views. COMPARISON: CR XR foot LT min 3V* [id number] 11/24/2016 8:04 PM FINDINGS: Bones/joints: Mild old healed fracture deformity of the proximal left fibula. No acute fracture or acute osseous abnormality. No bone lesion or bone destruction. Joint spaces appear unremarkable. Suspect small amount of suprapatellar effusion. Soft tissues: No significant focal soft tissue abnormality. XR/XR knee LT 3V* [id number] IMPRESSION: 1. Suggestion of mild old healed fracture deformity proximal left fibula. 2. No acute fracture or dislocation.
--- NOTE | 2023-02-10 13:35 | XRR_ITS ---
PROCEDURE INFORMATION: Exam: XR Right Knee Exam date and time: 02/10/2023 1:48 PM Age: 57 years old Clinical indication: Injury or trauma; Fall; Blunt trauma; Knee; Bilateral TECHNIQUE: Imaging protocol: Radiologic exam of the right knee. Views: 3 views. COMPARISON: CR XR knees AP WB w RT lmt ORTH 12/22/2017 1:27 PM FINDINGS: Bones/joints: No fracture or dislocation. Moderate to severe joint space narrowing of the medial femoral compartment with mild osteophyte formation. No bone lesion or destruction. No significant suprapatellar fullness or effusion. Soft tissues: No significant focal soft tissue abnormality. XR/XR knee RT 3V* [id number] IMPRESSION: 1. Degenerative change or osteoarthritis, particularly of the medial femoral compartment. 2. No fracture or dislocation.
--- NOTE | 2023-02-10 13:35 | XRR_ITS ---
PROCEDURE INFORMATION: Exam: XR Right Elbow Exam date and time: 02/10/2023 1:41 PM Age: 57 years old Clinical indication: Injury or trauma; Fall; Blunt trauma (contusions or hematomas); Elbow; Right TECHNIQUE: Imaging protocol: Radiologic exam of the right elbow. Views: 3 or more views. COMPARISON: CR (UP EX, ) 10/15/2020 3:39 PM FINDINGS: Bones/joints: Comparison with October 15, 2020 exam demonstrates chronic severe arthritic change right elbow with chronic subluxation. Associated effusion suggested on the lateral view. This is similar in appearance to previous exam. Chronic impaction of the humerus on the coronoid process of the ulna and proximal radius with bony remodeling. Again this is similar in appearance to previous exam. Mild increased hypertrophic change at the radial head otherwise. No acute fracture seen. Soft tissues: Soft tissue and/or swelling. XR/XR elbow RT min 3V* [id number] IMPRESSION: 1. Chronic arthritic change with subluxation right elbow with prior exam. 2. No definite acute fracture.
--- NOTE | 2023-02-10 13:35 | XRR_ITS ---
PROCEDURE INFORMATION: Exam: XR Right Ankle Exam date and time: 02/10/2023 1:50 PM Age: 57 years old Clinical indication: Injury or trauma; Fall; Sprain or strain; Ankle; Right TECHNIQUE: Imaging protocol: Radiologic exam of the right ankle. Views: 1 or 2 views. COMPARISON: CR XR knee RT 3V* [id number] 02/10/2023 1:48 PM FINDINGS: Bones/joints: No fracture identified. Ankle joint appears maintained. Osseous structures show no acute abnormality. Mild calcaneal spur on the lateral view. Soft tissues: No significant focal soft tissue abnormality. XR/XR ankle RT 2V [id number] IMPRESSION: No fracture or acute osseous abnormality.
--- NOTE | 2023-02-10 13:37 | W.ED.FALL ---
HPI - Fall General: Chief Complaint: Fall Stated Complaint: fall, right arm, bilateral ankle pain Time Seen by Provider: 02/10/23 13:31 Source: patient Mode of arrival: ambulatory History of Present Illness: 57-year-old female presents emergency room with complaints of fall. She is pushing a shopping cart and hit some gravel shopping cart and fell over sideways she fell along with that she is complaining of pain in her knees bilaterally her right ankle and her right elbow. She has previously had an injury to her right elbow several years ago had open reduction internal fixation. She ambulated to the emergency room. She is resting her right elbow on the guardrail is able to flex and expect and active range of motion. No obvious swelling or deformity MD complaint: fall Onset (ago): minute(s) Fall from: standing Place fall occurred: street Loss of consciousness: None Prolonged down time: no Context: tripped/slipped Location of injury - extremities: Right: elbow and ankle and Bilateral: knee Severity: moderate Associated symptoms-after fall: Denies abdominal pain, chest pain, confusion, difficulty walking, headache(s), hematuria, lightheadedness, neck pain, numbness, short of breath, vertigo or weakness Review of Systems Card: Denies: chest pain or lightheadedness GI: Denies: abdominal pain : Denies: hematuria Musc: Denies: neck pain Neuro: Denies: headache(s), difficulty walking, vertigo or confusion [facility] PFSH: Medical History (Updated 02/11/23 @ 07:08 by Ariel Baer DO) Abdominal pain ABE (acute kidney injury) Complication of gastric band procedure Dehydration Gastritis Hypertension Hypokalemia Hypokalemia Leukocytosis Nausea and vomiting Pityriasis rubra pilaris Polymorphic photodermatitis Psychiatric care Upper gastrointestinal hemorrhage Urinary retention Surgical History H/O gastric sleeve History of ankle surgery History of appendectomy History of back surgery x2 History of cholecystectomy History of elbow surgery History of oophorectomy History of tubal ligation 1998 Status post gastric banding surgery We will plan to discharge patient home today Social History Smoking and tobacco status: never smoked Alcohol intake: former Year of sobriety/quit date alcohol: 3 yr Substance/Drug Use: never Physical Exam Const: GENERAL APPEARANCE: cooperative and comfortable ORIENTATION/CONSCIOUSNESS: Yes awake, Yes oriented to person, Yes oriented to place and Yes oriented to time HENMT: COMMON NORMALS: normocephalic, atraumatic and hearing grossly normal bilaterally HEAD & SCALP: normocephalic and atraumatic Resp: COMMON NORMALS: normal respiratory effort, No retractions, No use of accessory muscles and clear to auscultation bilaterally AUSCULTATION: clear to auscultation bilaterally Cardio: COMMON NORMALS: regular rate, regular rhythm and No murmurs present (Cardio) RATE: regular rate RHYTHM: regular rhythm GI: COMMON NORMALS: Soft to palpation and No hepatosplenomegaly present AUSCULTATION: Yes normoactive bowel sounds PALPATION: Yes Soft to palpation, No Tenderness to palpation present (GI), No Guarding due to palpation present (GI) and Yes No hepatosplenomegaly present Extremity: COMMON NORMALS: normal to inspection, capillary refill normal, no clubbing, cyanosis or edema, no calf tenderness and no pedal edema OTHER: No swelling or inflammation abrasion or laceration of the right elbow or the knees. Drawer and Ediht's test at the knees are negative bilaterally no obvious deformity no deformity with varus or valgus stress. Patient is able to flex and extend at the right elbow and pronate and supinate. There is deformity and scarring that appears to be chronic. Neuro: SENSORIUM/ORIENTATION: Yes oriented to person, Yes oriented to place and Yes oriented to time Skin: COMMON NORMALS: no rashes or lesions noted GENERAL SKIN EXAM: no rashes or lesions noted Course Vital Signs: Vital signs: Vital Signs Temperature 98.1 F 02/10/23 13:09 Pulse Rate 90 02/10/23 13:09 Respiratory Rate 18 02/10/23 13:09 Blood Pressure 134/86 02/10/23 13:09 Pulse Oximetry 94 02/10/23 13:09 Oxygen Delivery Me thod Room Air 02/10/23 13:09 MDM - Fall Medical Decision Making X-rays show no acute fracture. Advised patient is most likely just soft tissue injury at this point would recommend anti-inflammatory such as diclofenac. She does use ibuprofen as needed for advised her not to take ibuprofen while taking the diclofenac. Patient became angry she wanted something stronger. We advised her that for soft tissue injuries we do not usually prescribe anything beyond moderate anti-inflammatories. Reviewed with her that her x-rays did not show anything acute. Advised patient we will discharge her she became angry because of she did not receive the medication she wanted and left without waiting for her discharge instructions. She was advised she can return for the prescription if she wishes. Patient observed ambulating from the department independently with no difficulty Patient is evidently staying at a assisted assisted had called regarding her temazepam she usually takes 30 mg at bedtime they said her prescription bottle was completely empty achieved ALANIS just 4 days ago. I did asked the patient if she taken any extra or run out of her medication. She stated that she had not that she had the full prescription only takes 1 at night. When I expressed to the concern that it been relayed to her she stated that that was an old prescription bottle in her medications are in a different bottle. She denies any suicidal ideation. Medical Records I reviewed the patient's medical records. Lab Data I reviewed the patient's lab results. (X-rays) Discharge Plan Discharge Patient Disposition: Left Against Medical Advice Clinical Impression: Fall, Sprain of elbow, right, Knee sprain, bilateral, Right ankle sprain Condition: Stable Prescriptions: No Action temazepam 15 mg Capsule 30 mg PO BEDTIME tizanidine 2 mg tablet 2 mg PO TID PRN (Reason: Muscle Spasm) lisinopril 10 mg tablet 20 mg PO QAM ibuprofen 200 mg Tablet 400 mg PO Q6H PRN (Reason: Pain) quetiapine 100 mg Tablet 200 mg PO BEDTIME 30 Days Qty: 60 1RF duloxetine 60 mg Capsule,Delayed Release(Dr/Ec) 60 mg PO DAILY 30 Days Qty: 30 1RF gabapentin 100 mg Capsule 200 mg PO BEDTIME Referrals: Jacqueline Call MD [Primary Care Provider] - Discharge Diet: Usual diet Discharge Activity: Resume usual activity Coding Level of Care Code ED [employer] Up Mechanic for Dami Mendez
--- NOTE | 2023-02-10 13:47 | PC.NURSE ---
CALL FROM KEDAR MUÑOZ AT [facility] STATES THAT SHE FOUND TAMAZIPAM 15MG QUANTITY OF 60 BID LASTING 29-30 DAYS. WAS FILED 02/06. SHE FOUND THIS EMPTY IN TRASH TODAY.
[2023-02-10] MEDS: acetaminophen 500 mg Tablet 1000 MG PO (13:51)
--- NOTE | 2023-02-10 15:25 | PC.NURSE ---
to room with md to discuss discharge. pt inquiring about her prescriptions. pt became aggitated when told her medications weren't stonger stating that the prescription would not help with her pain. pt then got out of bed and ambulated out without difficulty. in pt's hurry to exit the building, she left her tablet and glasses (in case). belongings were found, bagged, and labeled by evs and then taken to registration to hold in the event of pt's return. attempts made to contact pt via listed phone numbers.
== END 2023-02-10 15:37 | disposition left against medical advice (07) ==
PROVIDERS: Emergency Provider Family Medicine; PCP Family Medicine
DX: S53.401A Unspecified sprain of right elbow, initial encounter (principal); S83.91XA Sprain of unspecified site of right knee, initial encounter; S83.92XA Sprain of unspecified site of left knee, initial encounter; S93.401A Sprain of unspecified ligament of right ankle, initial encounter; Z53.21 Procedure and treatment not carried out due to patient leaving prior to being seen by health care provider; I10 Essential (primary) hypertension; W19.XXXA Unspecified fall, initial encounter
CPT/HCPCS: 73080; 73562; 73600; 99284

== ENCOUNTER 2023-02-11 09:57 | Inpatient (IN) | payer BC, MEDICAID, SELFPAY ==
[2023-02-11 09:57] VITALS: BP 176/112; RESP 18; O2SAT 98
--- NOTE | 2023-02-11 10:06 | XRR_ITS ---
PROCEDURE INFORMATION: Exam: XR Chest Exam date and time: 02/11/2023 10:30 AM Age: 57 years old Clinical indication: Shortness of breath; Additional info: Overdose TECHNIQUE: Imaging protocol: Radiologic exam of the chest. Views: 1 view. COMPARISON: CR XR chest 1V portable [id number] 01/01/2023 10:11 AM FINDINGS: Lungs: Lungs are clear. Pleural spaces: There is no pleural effusion or pneumothorax. Heart/Mediastinum: Cardiomediastinal contours are unremarkable. Bones/joints: Bones are unremarkable. XR/XR chest 1V portable [id number] IMPRESSION: No acute findings.
--- NOTE | 2023-02-11 10:14 | PC.NURSE ---
96 hr rights reviewed with patient in accompanies of JOSE ENRIQUE gallegos, Octaviano @[id number]. Patient copy left at bedside. No questions at time of rights being served to patient.
[2023-02-11] MEDS: LORazepam 2 mg/mL INJ 1 mL IM (10:20)
[2023-02-11] MEDS: ziprasidone 20 mg/mL SDV IM (10:20)
[2023-02-11 10:21] LABS: Basophils # 0.1 10^3/uL (0.0-0.1); Basophils % 0.4 %; Eosinophils # 0.3 10^3/uL (0.0-0.8); Eosinophils % 1.7 %; Hematocrit 39.6 % (37.0-47.0); Hemoglobin 12.5 g/dL (11.5-15.3); Lymphocytes # 3.5 10^3/uL (0.8-4.8); Lymphocytes % 22.3 %; Mean Corpuscular HGB Conc 31.6 g/dL (30.0-36.0); Mean Corpuscular Hemoglobin 29.8 pg (28.0-34.0); Mean Corpuscular Volume 94.3 fl (81-99); Mean Platelet Volume 9.6 fL (7.4-10.4); Monocytes # 1.4 10^3/uL (0.2-0.9); Monocytes % 9.2 %; Neutrophils # 10.14 10^3/uL (1.8-7.7); Neutrophils % 65.5 %; Nucleated Red Blood Cells % 0 %; Platelet Count 332 10^3/cmm (130-400); Red Cell Distribution Width 13.7 % (12.1-15.1); White Blood Count 15.5 10^3/uL (4.0-10.0)
[2023-02-11 10:39] LABS: Alanine Aminotransferase 41 U/L (0-33); Albumin Level 4.4 g/dL (3.5-5.2); Alkaline Phosphatase 138 U/L (35-105); Anion Gap 18.3 (5-19); Aspartate Amino Transferase 29 U/L (0-32); Blood Urea Nitrogen 28 mg/dL (6-20); Calcium 9.4 mg/dL (8.5-10.5); Carbon Dioxide 21 mmol/L (22-29); Chloride 98 mmol/L (98-107); Glomerular Filtration Rate 46.6 mL/min (90-130); Glucose 110 mg/dL (65-115); Osmolality Calculated 282 mOsm/kg (285-295); Potassium 4.3 mmol/L (3.5-5.1); Sodium 133 mmol/L (136-145); Total Bilirubin 0.5 mg/dL (0.15-1.2); Total Protein 7.4 g/dL (6.6-8.7)
[2023-02-11 10:43] LABS: Acetaminophen < 5.0 ug/mL (10-30); Alcohol Level < 10 mg/dL (0-10); Salicylate < 0.3 mg/dL (3-10)
--- NOTE | 2023-02-11 11:18 | PC.PHAR ---
MEDICATIONS ENTERED ARE FROM THE MED BOTTLES THE PT BROUGHT IN AND WHAT WAS ON PREVIOUSLY ENTERED MED LIST-PREVIOUSLY ENTERED MED LIST HAD TIZANIDINE 2MG TID PRN EXT SHOWS LAST FILLED 12/05/22 30D/S AND TEMAZEPAM 15MG TAKE 2 CAPS (30MG) HS EXT SHOWS LAST FILLED 12/09/22 30D/S THOSE 2 MED BOTTLES WERE NOT WITH MED BOTTLES BROUGHT IN
--- NOTE | 2023-02-11 11:37 | ED.C_ITS ---
HPI - Psych General: Chief Complaint: Psychiatric Symptoms Stated Complaint: OD/ SI Time Seen by Provider: 02/11/23 10:06 Source: patient Mode of arrival: ambulatory History of Present Illness: 57-year-old female presents to the emergency room with complaint plaint of a overdose. She took multiple medications including quetiapine lisinopril ibuprofen gabapentin and duloxetine as well as temazepam. She was seen yesterday after a fall had no significant injury and was discharged home. She was [facility] the [facility] she was staying at home and took the medications in attempt to kill herself because she was frustrated with her condition. She was awake and alert upon arrival here and argumentative required sedation to help with anxiety. MD complaint: suicidal ideation Onset (ago): hour(s) History of same: Yes Relieving factors: none Exacerbating factors: none Associated symptoms: Reports depression Review of Systems Const: Denies: fever(s) or chills Card: Denies: chest pain Resp: Denies: dyspnea GI: Denies: abdominal pain : Denies: dysuria, urinary frequency or urinary urgency Musc: Denies: neck pain or back pain Neuro: Denies: headache(s) Psych: Reports: anxiety, depression and hopelessness PFSH ED PFSH: Medical History Abdominal pain ABE (acute kidney injury) Complication of gastric band procedure Dehydration Gastritis Hypertension Hypokalemia Hypokalemia Leukocytosis Nausea and vomiting Pityriasis rubra pilaris Polymorphic photodermatitis Psychiatric care Upper gastrointestinal hemorrhage Urinary retention Surgical History H/O gastric sleeve History of ankle surgery History of appendectomy History of back surgery x2 History of cholecystectomy History of elbow surgery History of oophorectomy History of tubal ligation 1998 Status post gastric banding surgery We will plan to discharge patient home today Social History Smoking and tobacco status: never smoked Alcohol intake: former Year of sobriety/quit date alcohol: 3 yr Substance/Drug Use: never Physical Exam Const: GENERAL APPEARANCE: comfortable ORIENTATION/CONSCIOUSNESS: Yes awake, Yes oriented to person, Yes oriented to place and Yes oriented to time HENMT: COMMON NORMALS: normocephalic, atraumatic and hearing grossly normal bilaterally HEAD & SCALP: normocephalic and atraumatic Resp: COMMON NORMALS: normal respiratory effort, No retractions, No use of accessory muscles and clear to auscultation bilaterally AUSCULTATION: clear to auscultation bilaterally Cardio: COMMON NORMALS: regular rate, regular rhythm and No murmurs present (Cardio) RATE: regular rate RHYTHM: regular rhythm GI: COMMON NORMALS: Soft to palpation and No hepatosplenomegaly present AUSCULTATION: Yes normoactive bowel sounds PALPATION: Yes Soft to palpation, No Tenderness to palpation present (GI), No Guarding due to palpation present (GI) and Yes No hepatosplenomegaly present Extremity: COMMON NORMALS: normal to inspection, capillary refill normal, no clubbing, cyanosis or edema, no calf tenderness and no pedal edema Neuro: SENSORIUM/ORIENTATION: Yes oriented to person, Yes oriented to place and Yes oriented to time Skin: COMMON NORMALS: no rashes or lesions noted GENERAL SKIN EXAM: no rashes or lesions noted Course Vital Signs: Vital signs: Vital Signs Temperature 97.7 F 02/11/23 18:05 Pulse Rate 80 02/12/23 06:00 Respiratory Rate 16 02/12/23 06:00 Blood Pressure 116/69 02/12/23 06:00 Pulse Oximetry 94 02/12/23 06:00 Oxygen Delivery Me thod Room Air 02/12/23 06:00 [facility] - Psych Medical Decision Making Patient placed on a 96-hour hold for suicidal ideation. She is actually somewhat aggressive and anxious when she first arrived she certainly not sedate. She is given Geodon and Ativan to help with anxiety. Once she had improved from the Geodon and Ativan we will admit her to psychiatry discussed with Dr. Matias. Her vital signs were stable on arrival she was no showing no signs of oversedation. BUN was slightly elevated she is given IV fluids. UA was negative. Drug screen positive for benzodiazepines and marijuana. Salicylates and acetaminophen undetectable. Medical Records I reviewed the patient's medical records. Lab Data I reviewed the patient's lab results. 02/11/23 09:07 02/11/23 09:07 Radiology Impressions Chest X-Ray 02/11/23 10:06 IMPRESSION: No acute findings. Laboratory Results WBC 15.5 10^3/uL (4.0-10.0) H 02/11/23 09:07 RBC 4.20 10^6/uL (4.1-5.3) 02/11/23 09:07 Hgb 12.5 g/dL (11.5-15.3) 02/11/23 09:07 Hct 39.6 % (37.0-47.0) 02/11/23 09:07 MCV 94.3 fl (81-99) 02/11/23 09:07 MCH 29.8 pg (28.0-34.0) 02/11/23 09:07 MCHC 31.6 g/dL (30.0-36.0) 02/11/23 09:07 RDW 13.7 % (12.1-15.1) 02/11/23 09:07 Plt Count 332 10^3/cmm (130-400) 02/11/23 09:07 MPV 9.6 fL (7.4-10.4) 02/11/23 09:07 Neut % (Auto) 65.5 % 02/11/23 09:07 Lymph % (Auto) 22.3 % 02/11/23 09:07 Camas % (Auto) 9.2 % 02/11/23 09:07 Eos % (Auto) 1.7 % 02/11/23 09:07 Baso % (Auto) 0.4 % 02/11/23 09:07 Neut # (Auto) 10.14 10^3/uL (1.8-7.7) H 02/11/23 09:07 Lymph # (Auto) 3.5 10^3/uL (0.8-4.8) 02/11/23 09:07 Camas # (Auto) 1.4 10^3/uL (0.2-0.9) H 02/11/23 09:07 Eos # (Auto) 0.3 10^3/uL (0.0-0.8) 02/11/23 09:07 Baso # (Auto) 0.1 10^3/uL (0.0-0.1) 02/11/23 09:07 Nucleated RBC % (auto) 0 % 02/11/23 09:07 Nucleated RBCs # 0.0 /100WBC 02/11/23 09:07 Sodium 133 mmol/L (136-145) L 02/11/23 09:07 Potassium 4.3 mmol/L (3.5-5.1) 02/11/23 09:07 Chloride 98 mmol/L (98-107) 02/11/23 09:07 Carbon Dioxide 21 mmol/L (22-29) L 02/11/23 09:07 Anion Gap 18.3 (5-19) 02/11/23 09:07 BUN 28 mg/dL (6-20) H 02/11/23 09:07 Creatinine 1.2 mg/dL (0.5-0.9) H 02/11/23 09:07 GFR Calculation 46.6 mL/min (90-130) L 02/11/23 09:07 Glucose 110 mg/dL (65-115) 02/11/23 09:07 Calculated Osmolality 282 mOsm/kg (285-295) L 02/11/23 09:07 Calcium 9.4 mg/dL (8.5-10.5) 02/11/23 09:07 Total Bilirubin 0.5 mg/dL (0.15-1.2) 02/11/23 09:07 AST 29 U/L (0-32) 02/11/23 09:07 ALT 41 U/L (0-33) H 02/11/23 09:07 Alkaline Phosphatase 138 U/L (35-105) H 02/11/23 09:07 Total Protein 7.4 g/dL (6.6-8.7) 02/11/23 09:07 Albumin 4.4 g/dL (3.5-5.2) 02/11/23 09:07 Globulin 3.0 g/dL (1.3-4.6) 02/11/23 09:07 Salicylates < 0.3 mg/dL (3-10) L 02/11/23 09:07 Acetaminophen < 5.0 ug/mL (10-30) L 02/11/23 09:07 Ethyl Alcohol < 10 mg/dL (0-10) 02/11/23 09:07 Discharge Plan Discharge Patient Disposition: Admitted As Inpatient Admit Provider: Heber Matias Clinical Impression: Suicide attempt, Major depressive disorder, recurrent severe without psychotic features, PTSD (post-traumatic stress disorder) Condition: Stable Coding Level of Care Code ED [employer] Fwd
[2023-02-11] MEDS: sodium chloride 0.9% 1,000 ML 999 ML IV (13:17)
[2023-02-11 15:01] LABS: Add Urine Microscopic? NO; Charge for UA Resulting for Rev
[2023-02-11 15:06] LABS: Bilirubin Urine Neg (Negative); Blood Urine Neg (Negative); Glucose Urine UA Norm (Normal); Ketones Urine Negative (Negative); Leukocyte Esterase Urine Negative (Negative); Nitrate Urine Negative (Negative); Protein Urine Neg (Negative); Specific Gravity, Urine 1.015 (1.005-1.030); Urine Appearance Clear (CLEAR); Urine Color Yellow (Yellow); Urobilinogen Urine Norm (Negative); pH Urine 5 (5-7)
[2023-02-11 17:32] VITALS: BP 135/87; PULSE 88; RESP 16; O2SAT 98
[2023-02-11 18:05] VITALS: BP 139/86; PULSE 72; RESP 15; TEMP 36.5; O2SAT 98
--- NOTE | 2023-02-11 19:05 | PC.NURSE ---
PT CAME TO ED WITH INTENTIONAL OVERDOSE. PT STATED I TOOK A HUGE OVERDOSE OF DIFFERENT MEDICATIONS. PT STATES THAT SHE HAS BEEN FEELING LIKE THIS FOR ABOUT A WEEK. PT WAS REPORTED TO HAVE BEEN UNCOOPERATIVE AND SEVERELY AGITATED WHILE IN THE ER. UPON GETTING TO THE NPU PT WAS CALM AND COOPERATIVE. PT ENDORSES SI AND DEPRESSION. PT DOES NOT ENDORSE HI/AH/VH. PT WAS DRESSED OUT, AND GIVEN SUPPER. PT CURRENT NEEDS ARE MET. WILL CONTINUE TO MONITOR.
[2023-02-11 20:47] LABS: Amphetamines Screen Urine Negative (Negative); Barbiturates Screen Urine Negative (Negative); Benzodiazepines Screen Urine Positive (Negative); Cocaine Screen Urine Negative (Negative); Opiate Screen Urine Negative (Negative); PCP Screen Urine Negative (Negative); THC Screen Urine Positive (Negative)
[2023-02-12] MEDS: hyDROXYzine 25 mg Capsule 50 MG PO ×2 (05:21→14:45)
[2023-02-12 06:00] VITALS: BP 116/69; PULSE 80; RESP 16; O2SAT 94
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
[2023-02-12 14:00] VITALS: BP 113/74; PULSE 69; RESP 18; TEMP 36.6; O2SAT 98
[2023-02-12] MEDS: betamethasone 0.05% Cream 15 gm 1 APPLIC TOPICAL (19:33)
[2023-02-12 21:34] VITALS: BP 121/75; PULSE 69; RESP 16; TEMP 36.8; O2SAT 96
[2023-02-12] MEDS: gabapentin 300 mg Capsule PO (22:11)
[2023-02-12] MEDS: quetiapine 100 mg Tablet 200 MG PO (22:11)
[2023-02-12] MEDS: tizanidine 4 mg Tablet 2 MG PO (22:34)
[2023-02-12] MEDS: temazepam 15 mg Capsule 30 MG PO (22:38)
[2023-02-13 06:00] VITALS: RESP 18
[2023-02-13] MEDS: betamethasone 0.05% Cream 15 gm 1 APPLIC TOPICAL ×2 (10:26→20:17)
[2023-02-13] MEDS: tizanidine 4 mg Tablet 2 MG PO ×2 (10:26→20:19)
[2023-02-13] MEDS: duloxetine 60 mg Capsule PO (10:27)
[2023-02-13] MEDS: hyDROXYzine 25 mg Capsule 50 MG PO (10:27)
[2023-02-13] MEDS: lisinopril 20 mg Tablet PO (10:27)
[2023-02-13] MEDS: ibuprofen 200 mg Tablet PO (10:28)
[2023-02-13] MEDS: fixodent 39 gm Tube 1 APPLIC DENTAL (11:47)
--- NOTE | 2023-02-13 12:22 | W.PM.NPUPNS ---
Subjective NPU Subjective: Patient presented today reporting that she is feeling a little better in some regards but the significance of her poor choices and her limited options at this point seem to be resonating way that has led to significant emotionality. She is working with the social work team to explore the options that she has. Mental Status Exam MSE Comments: This is an obese white female in hospital scrubs with limited grooming but appropriate eye contact. No abnormal movements except for mild psychomotor retardation. Cooperative with exam and mild to moderate distress. Speech was decreased rate and volume. Mood described as feeling stupid and frustrated, affect congruent. Thought process organized. Thought content: Patient denied current suicidal or homicidal ideation, there were no delusions reported or noted, she denied any auditory or visual hallucinations. Attention and concentration are intact and memory appears mostly reliable but none were formally tested. She is alert and oriented x3. Insight is fair, judgment is poor and impulse control is impaired. Vitals/I&O/Wt Last Vital Signs Temp 98.2 F 02/12/23 21:34 Pulse 69 02/12/23 21:34 Resp 18 02/13/23 06:00 BP 121/75 02/12/23 21:34 Pulse Ox 96 02/12/23 21:34 O2 Del Method Room Air 02/12/23 21:34 Data NPU 02/11/23 09:07 02/11/23 09:07 A&P Assessment and plan (1) Major depressive disorder, recurrent severe without psychotic features: (2) Suicidal ideation: (3) PTSD (post-traumatic stress disorder): (4) Social anxiety disorder: Plan The patient is a 57-year-old white female with a long history of trauma, depression and anxiety with significant psychosocial stressors discharged about 3 weeks ago returning with suicidal ideation and seeking treatment on a 96-hour hold. #1. Engage patient in individual milieu and group therapy. #2. Therapeutic observation 15-minute checks on the unit. #3. Attempt to gather collateral information including previous records here. #4. Recommend sober living treatment at the highest level of care to which the patient is willing to commit. #5. Continue current medications. We will evaluate for changes. Involuntary Hold Information 96 Hour Hold: 96 Hour Involuntary Admission: Yes 96 Hour Hold Ending Date: 02/17/23 96 Hour Hold Ending Time: 09:55 Attestations NPU Medical Necessity Statement*: Inpatient hospitalization is medically necessary and the clinically appropriate intervention at this time. We will initiate medication and make changes as indicated. The likely length of stay is 3-5 days. Coding Level of Care Code Acute Code for Chg Fwd Diagnoses Major depressive disorder, recurrent severe without psychotic features F33.2 Suicidal ideation R45.851 PTSD (post-traumatic stress disorder) F43.10 Social anxiety disorder F40.10
[2023-02-13 14:00] VITALS: BP 93/64; PULSE 70; RESP 18; TEMP 36.8; O2SAT 96
[2023-02-13] MEDS: OLANZapine 5 mg ODT PO (15:58)
[2023-02-13] MEDS: ondansetron 4 MG Tablet PO (16:41)
[2023-02-13] MEDS: temazepam 15 mg Capsule 30 MG PO (20:17)
[2023-02-13] MEDS: quetiapine 100 mg Tablet 200 MG PO (20:17)
[2023-02-13] MEDS: gabapentin 300 mg Capsule PO (20:17)
[2023-02-13 22:00] VITALS: PULSE 85; RESP 15; TEMP 36.7; O2SAT 96
[2023-02-14 06:00] VITALS: BP 98/64; PULSE 70; RESP 18; O2SAT 96
[2023-02-14] MEDS: duloxetine 60 mg Capsule PO (09:17)
[2023-02-14] MEDS: lisinopril 20 mg Tablet PO (09:17)
[2023-02-14] MEDS: tizanidine 4 mg Tablet 2 MG PO ×2 (10:51→16:39)
[2023-02-14] MEDS: ibuprofen 200 mg Tablet PO ×2 (10:53→19:58)
--- NOTE | 2023-02-14 13:36 | W.PM.NPUPNS ---
Subjective NPU Subjective: Patient presented today reporting that she is feeling a little bit better and hopeful due to a possible last-minute reprieve. She reports that she has been working with the social work team and there is a reported possibility of a bed available at one of the women[facility] shelters. We discussed working with the treatment team on Friday for likely discharge. Mental Status Exam MSE Comments: This is an obese white female in hospital scrubs with limited grooming but appropriate eye contact. No abnormal movements except for mild psychomotor retardation. Cooperative with exam and mild distress. Speech was decreased rate and volume. Mood described as a little better, affect congruent. Thought process organized. Thought content: Patient denied current suicidal or homicidal ideation, there were no delusions reported or noted, she denied any auditory or visual hallucinations. Attention and concentration are intact and memory appears mostly reliable but none were formally tested. She is alert and oriented x3. Insight is fair, judgment is poor and impulse control is impaired. Vitals/I&O/Wt Last Vital Signs Temp 98.1 F 02/13/23 22:00 Pulse 70 02/14/23 06:00 Resp 18 02/14/23 06:00 BP 98/64 02/14/23 06:00 Pulse Ox 96 02/14/23 06:00 O2 Del Method Room Air 02/14/23 06:00 Data NPU 02/11/23 09:07 02/11/23 09:07 A&P Assessment and plan (1) Major depressive disorder, recurrent severe without psychotic features: (2) Suicidal ideation: (3) PTSD (post-traumatic stress disorder): (4) Social anxiety disorder: Plan The patient is a 57-year-old white female with a long history of trauma, depression and anxiety with significant psychosocial stressors discharged about 3 weeks ago returning with suicidal ideation and seeking treatment on a 96-hour hold. #1. Engage patient in individual milieu and group therapy. #2. Therapeutic observation 15-minute checks on the unit. #3. Attempt to gather collateral information including previous records here. #4. Recommend sober living treatment at the highest level of care to which the patient is willing to commit. #5. Continue current medications. We will evaluate for changes. Involuntary Hold Information 96 Hour Hold: 96 Hour Involuntary Admission: Yes 96 Hour Hold Ending Date: 02/17/23 96 Hour Hold Ending Time: 09:55 Attestations NPU Medical Necessity Statement*: Inpatient hospitalization is medically necessary and the clinically appropriate intervention at this time. We will initiate medication and make changes as indicated. The likely length of stay is 3-4 days. Coding Level of Care Code Acute Code for Chg Fwd Diagnoses Major depressive disorder, recurrent severe without psychotic features F33.2 Suicidal ideation R45.851 PTSD (post-traumatic stress disorder) F43.10 Social anxiety disorder F40.10
[2023-02-14 14:00] VITALS: BP 93/66; PULSE 94; RESP 16; TEMP 36.6; O2SAT 96
[2023-02-14] MEDS: hyDROXYzine 25 mg Capsule 50 MG PO (16:39)
--- NOTE | 2023-02-14 16:40 | PC.NURSE ---
Patient reporting anxiety 11/27. Cause is from being here and not knowing what is to happen next. Administered Vistaril 50mg PO.
[2023-02-14 19:45] VITALS: BP 110/77; PULSE 92; RESP 18; TEMP 36.7; O2SAT 95
[2023-02-14] MEDS: gabapentin 300 mg Capsule PO (19:59)
[2023-02-14] MEDS: temazepam 15 mg Capsule 30 MG PO (19:59)
[2023-02-14] MEDS: OLANZapine 5 mg ODT PO (19:59)
[2023-02-14] MEDS: quetiapine 100 mg Tablet 200 MG PO (19:59)
[2023-02-14] MEDS: betamethasone 0.05% Cream 15 gm 1 APPLIC TOPICAL (20:01)
--- NOTE | 2023-02-14 23:21 | PC.NURSE ---
PT REQUESTED SOMETHING TO HELP WITH ALL MY ANXIETY. PT PREVIOUSLY HAD VISTARIL 50MG AT APPROXIMATELY 1638. PT WAS GIVEN ZYDIS 5 MG ORDERED AT BEDTIME. PT HAS BEEN RESTING IN BED SINCE WITH EYES CLOSED. MEDICATION WAS EFFECTIVE.
[2023-02-15 06:00] VITALS: BP 124/85; PULSE 85; RESP 16; O2SAT 95
--- NOTE | 2023-02-15 07:29 | P.NPUPN_ITS ---
Subjective NPU Subjective: Patient presented today reporting that she is feeling decent. She reports gratitude for how the treatment team has treated her and assisted her after her reported poor choices. She reports he optimistic about discharge last Friday. We discussed that Dr. Martins will be here tomorrow to manage those decisions moving forward. She denied any issues with the medication or otherwise at this time. Mental Status Exam MSE Comments: This is an obese white female in hospital scrubs with limited grooming but appropriate eye contact. No abnormal movements except for mild psychomotor retardation. Cooperative with exam and mild distress. Speech was decreased rate and volume. Mood described as a little better, affect congruent. Thought process organized. Thought content: Patient denied current suicidal or homicidal ideation, there were no delusions reported or noted, she denied any auditory or visual hallucinations. Attention and concentration are intact and memory appears mostly reliable but none were formally tested. She is alert and oriented x3. Insight is fair, judgment is poor and impulse control is impaired. Vitals/I&O/Wt Last Vital Signs Temp 98.1 F 02/14/23 19:45 Pulse 85 02/15/23 06:00 Resp 16 02/15/23 06:00 BP 124/85 02/15/23 06:00 Pulse Ox 95 02/15/23 06:00 O2 Del Method Room Air 02/15/23 06:00 Data NPU 02/11/23 09:07 02/11/23 09:07 A&P Assessment and plan (1) Major depressive disorder, recurrent severe without psychotic features: (2) Suicidal ideation: (3) PTSD (post-traumatic stress disorder): (4) Social anxiety disorder: Plan The patient is a 57-year-old white female with a long history of trauma, depression and anxiety with significant psychosocial stressors disch arged about 3 weeks ago returning with suicidal ideation and seeking treatment on a 96-hour hold. #1. Engage patient in individual milieu and group therapy. #2. Therapeutic observation 15-minute checks on the unit. #3. Attempt to gather collateral information including previous records here. #4. Recommend sober living treatment at the highest level of care to which the patient is willing to commit. #5. Continue current medications. We will evaluate for changes. Involuntary Hold Information 96 Hour Hold: 96 Hour Involuntary Admission: Yes 96 Hour Hold Ending Date: 02/17/23 96 Hour Hold Ending Time: 09:55 Attestations NPU Medical Necessity Statement*: Inpatient hospitalization is medically necessary and the clinically appropriate intervention at this time. We will initiate medication and make changes as indicated. The likely length of stay is 2-3 days. Coding Level of Care Code Acute Code for Chg Fwd Diagnoses Major depressive disorder, recurrent severe without psychotic features F33.2 Suicidal ideation R45.851 PTSD (post-traumatic stress disorder) F43.10 Social anxiety disorder F40.10
[2023-02-15] MEDS: duloxetine 60 mg Capsule PO (09:13)
[2023-02-15] MEDS: lisinopril 20 mg Tablet PO (09:13)
[2023-02-15] MEDS: tizanidine 4 mg Tablet 2 MG PO ×2 (09:14→15:08)
[2023-02-15] MEDS: betamethasone 0.05% Cream 15 gm 1 APPLIC TOPICAL ×2 (09:15→20:06)
[2023-02-15 14:00] VITALS: BP 129/80; PULSE 92; RESP 16; TEMP 36.7; O2SAT 95
[2023-02-15] MEDS: acetaminophen 325 mg Tablet 650 MG PO (15:08)
[2023-02-15] MEDS: OLANZapine 5 mg ODT PO (15:09)
--- NOTE | 2023-02-15 15:11 | PC.NURSE ---
Patient approached nurses' station asking for tylenol for her headache and something for anxiety and agitation. She states it is increasing due to us moving a patient from the other hallway to her side of the hallway that is yelling constantly. Zyprexa 10mg ODT administered.
[2023-02-15] MEDS: ondansetron 4 MG Tablet PO (16:13)
[2023-02-15 19:37] VITALS: BP 109/74; PULSE 95; RESP 17; TEMP 36.8; O2SAT 96
[2023-02-15] MEDS: fluticasone nasal spray 16gm Btl 1 SPRAY NASAL (20:06)
[2023-02-15] MEDS: gabapentin 300 mg Capsule PO (20:07)
[2023-02-15] MEDS: quetiapine 100 mg Tablet 200 MG PO (20:07)
[2023-02-15] MEDS: hyDROXYzine 25 mg Capsule 50 MG PO (20:13)
[2023-02-15] MEDS: temazepam 15 mg Capsule 30 MG PO (21:08)
[2023-02-16 06:00] VITALS: BP 102/68; PULSE 81; RESP 17; TEMP 37; O2SAT 96
[2023-02-16] MEDS: ibuprofen 200 mg Tablet PO ×2 (07:51→17:15)
[2023-02-16] MEDS: tizanidine 4 mg Tablet 2 MG PO ×2 (07:52→17:16)
[2023-02-16] MEDS: lisinopril 20 mg Tablet PO (09:10)
[2023-02-16] MEDS: fluticasone nasal spray 16gm Btl 1 SPRAY NASAL (09:10)
[2023-02-16] MEDS: duloxetine 60 mg Capsule PO (09:10)
[2023-02-16] MEDS: betamethasone 0.05% Cream 15 gm 1 APPLIC TOPICAL ×2 (09:11→20:35)
[2023-02-16] MEDS: hyDROXYzine 25 mg Capsule 50 MG PO (12:55)
[2023-02-16 13:40] VITALS: BP 154/85; PULSE 87; RESP 16; TEMP 36.8; O2SAT 95
--- NOTE | 2023-02-16 14:27 | P.NPUPN_ITS ---
Subjective NPU Subjective: 57-year-old white female recently [facility] from the [facility] earlier this month admitted after an overdose on her medication with continued depression. Patient had reported that she had been kicked out of the [facility] due to her not declaring her temazepam to the staff workers. She had continued to endorse depressed mood and reported tolerating her current medications. She had reported a conside rable amount of anxiety. She had endorsed some feelings of hopelessness. She had currently endorsed being homeless but would consider going back to a care home or some other living facility at this time when stabilized here. Mental Status Exam MSE Comments: This is an obese white female in hospital scrubs with limited grooming but appropriate eye contact. No abnormal movements except for mild psychomotor retardation. She was Cooperative with exam and in mild distress. Speech was normal in rate and volume. Mood described as okay. Her affect remained restricted. Thought process organized. Thought content: Patient denied current suicidal or homicidal ideation, there were no delusions reported or noted, she denied any auditory or visual hallucinations. Attention and concentration are intact and memory appears mostly reliable but none were formally tested. She is alert and oriented x3. Insight is fair, judgment is poor and impulse control is impaired. Vitals/I&O/Wt Last Vital Signs Temp 98.2 F 02/16/23 13:40 Pulse 87 02/16/23 13:40 Resp 16 02/16/23 13:40 BP 154/85 02/16/23 13:40 Pulse Ox 95 02/16/23 13:40 O2 Del Method Room Air 02/16/23 06:00 Weight last 48 hrs Weight 80.286 kg Weight 78.471 kg Data NPU 02/11/23 09:07 02/11/23 09:07 A&P Assessment and plan (1) Major depressive disorder, recurrent severe without psychotic features: (2) Suicidal ideation: (3) PTSD (post-traumatic stress disorder): (4) Social anxiety disorder: Plan The patient is a 57-year-old white female with a long history of trauma, depression and anxiety with significant psychosocial stressors dischar ged about 3 weeks ago returning with suicidal ideation and seeking treatment on a 96-hour hold. #1. Engage patient in individual milieu and group therapy. #2. Therapeutic observation 15-minute checks on the unit. #3. Attempt to gather collateral information including previous records here. #4. Recommend sober living treatment at the highest level of care to which the patient is willing to commit. #5. Continue Cymbalta 60 mg daily, gabapentin 300 mg daily, lisinopril 20 mg daily, Seroquel 200 mg at night, and temazepam 30mg at night as prescribed. Involuntary Hold Information 96 Hour Hold: 96 Hour Involuntary Admission: Yes 96 Hour Hold Ending Date: 02/17/23 96 Hour Hold Ending Time: 09:55 Attestations [facility]PU Medical Necessity Statement*: Inpatient hospitalization is medically necessary and the clinically appropriate intervention at this time. We will initiate medication and make changes as indicated. The likely length of stay is 3-4 days. Coding Level of Care Code Acute Code for g Fwd Diagnoses Major depressive disorder, recurrent severe without psychotic features F33.2 Suicidal ideation R45.851 PTSD (post-traumatic stress disorder) F43.10 Social anxiety disorder F40.10
[2023-02-16 20:08] VITALS: BP 132/88; PULSE 94; RESP 18; TEMP 36.8; O2SAT 94
[2023-02-16] MEDS: temazepam 15 mg Capsule 30 MG PO (20:36)
[2023-02-16] MEDS: quetiapine 100 mg Tablet 200 MG PO (20:36)
[2023-02-16] MEDS: gabapentin 300 mg Capsule PO (20:36)
[2023-02-16] MEDS: blistex lip oint 7 gm Tube 1 APPLIC TOPICAL (20:37)
[2023-02-16] MEDS: OLANZapine 5 mg ODT PO (20:37)
--- NOTE | 2023-02-16 21:13 | PC.NURSE ---
COMPLETED ASSESSMENT IN ROOM. STATES HE IS VERY ANXIOUS AND NEEDS SOMETHING. PT TOOK VISTARIL ON LAST SHIFT AND HE REPORTS IT HELPED BUT HE IS STILL RESTLESS DUE TO ANOTHER PT YELLING AND SCREAMING. DENIES PAIN. DENIES SI/HI AND AVH AT THIS TIME. PT STATES PRIOR TO COMING IN HE WAS SUICIDAL AND WANTED TO DRIVE HIS CAR INTO A TREE. PT STATES HE HAS NO PLAN AT THIS TIME AND STATES MANY REASONS TO LIVE.
[2023-02-17] MEDS: tizanidine 4 mg Tablet 2 MG PO (05:41)
[2023-02-17] MEDS: ibuprofen 200 mg Tablet PO (05:41)
[2023-02-17 06:00] VITALS: BP 132/85; PULSE 68; RESP 17; TEMP 36.4; O2SAT 100
--- NOTE | 2023-02-17 08:04 | PC.NURSE ---
SHIFT ASSESSMENT DENIES SI/HI/AVH AT THIS TIME, PLEASANT WITH STAFF INTERACTION. STATED SHE MIGHT NEED A POTASSIUM SUPPLEMENT BECAUSE SHE FEELS LIKE SHE IS GETTING CHARLEY HORSES IN HER LEGS AT NIGHT TIME THAT WILL WAKE HER UP OUT OF HER SLEEP
[2023-02-17] MEDS: lisinopril 20 mg Tablet PO (08:48)
[2023-02-17] MEDS: fluticasone nasal spray 16gm Btl 1 SPRAY NASAL (08:48)
[2023-02-17] MEDS: duloxetine 60 mg Capsule PO (08:48)
[2023-02-17] MEDS: hyDROXYzine 25 mg Capsule 50 MG PO (08:50)
--- NOTE | 2023-02-17 08:51 | PC.NURSE ---
PRN VISTARIL 50 MG GIVEN PO PER PT C/O STATED ANXIETY. PLEASANT WITH STAFF INTERACTION, SMILING A LOT
--- NOTE | 2023-02-17 09:00 | PC.NURSE ---
refused scheduled Diprolene this morning
[2023-02-17] MEDS: fixodent 39 gm Tube 1 APPLIC DENTAL (11:53)
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
[2023-02-17 12:22] VITALS: BP 132/85; PULSE 68; RESP 17; TEMP 36.4; O2SAT 100
== END 2023-02-17 13:29 | disposition home or self-care (01) | DRG 918 ==
LOC: ER 11:39 → NP 13:29
PROVIDERS: Admitting Provider Psychiatry & Neurology Psychiatry; Emergency Provider Family Medicine; PCP Family Medicine; Visit Provider Psychiatry & Neurology Psychiatry
DX: T50.992A Poisoning by other drugs, medicaments and biological substances, intentional self-harm, initial encounter (principal); F33.8 Other recurrent depressive disorders; F41.9 Anxiety disorder, unspecified; Z59.00 Homelessness unspecified; Z87.898 Personal history of other specified conditions
CPT/HCPCS: 71045; 80053; 80306; 80307; 81003; 85025; 96360; 96372; 97150; 97165; 99238; 99285; J2060; J3486; J7030; Q0162

== ENCOUNTER → 2023-02-28 09:48 | Outpatient (BNVA) | payer BC, SELFPAY | PROVIDERS: PCP Family Medicine; Visit Provider Dermatology | DX: Z01.89 Encounter for other specified special examinations (principal) | CPT/HCPCS: 86480 ==

== ENCOUNTER 2023-03-09 21:54 | Inpatient (IN) | payer BC, SELFPAY ==
[2023-03-09] VITALS (15 sets, daily range): BP systolic 153–169; BP diastolic 94–109; PULSE 70–91; RESP 12–21; TEMP 36.7; O2SAT 97–100; BMI 35.2
[2023-03-09] MEDS: sodium chloride 0.9% 1,000 ML 150 ML IV (22:35)
[2023-03-09 22:44] LABS: Basophils # 0.1 10^3/uL (0.0-0.1); Basophils % 0.6 %; Eosinophils # 0.4 10^3/uL (0.0-0.8); Eosinophils % 4.9 %; Hematocrit 34.5 % (37.0-47.0); Hemoglobin 10.9 g/dL (11.5-15.3); Lymphocytes # 2.2 10^3/uL (0.8-4.8); Lymphocytes % 27.9 %; Mean Corpuscular HGB Conc 31.6 g/dL (30.0-36.0); Mean Corpuscular Hemoglobin 29.8 pg (28.0-34.0); Mean Corpuscular Volume 94.3 fl (81-99); Mean Platelet Volume 9.5 fL (7.4-10.4); Monocytes # 0.8 10^3/uL (0.2-0.9); Monocytes % 9.3 %; Neutrophils # 4.58 10^3/uL (1.8-7.7); Neutrophils % 56.9 %; Nucleated Red Blood Cells % 0 %; Platelet Count 340 10^3/cmm (130-400); Red Blood Count 3.66 10^6/uL (4.1-5.3); Red Cell Distribution Width 13.8 % (12.1-15.1)
[2023-03-09 22:50] LABS: Acetaminophen < 5.0 ug/mL (10-30); Alanine Aminotransferase 21 U/L (0-33); Albumin Level 3.9 g/dL (3.5-5.2); Alcohol Level < 10 mg/dL (0-10); Alkaline Phosphatase 134 U/L (35-105); Anion Gap 14.3 (5-19); Aspartate Amino Transferase 19 U/L (0-32); Blood Urea Nitrogen 19 mg/dL (6-20); Carbon Dioxide 25 mmol/L (22-29); Chloride 106 mmol/L (98-107); Globulin 2.9 g/dL (1.3-4.6); Glomerular Filtration Rate 74.5 mL/min (90-130); Glucose 93 mg/dL (65-115); Osmolality Calculated 294 mOsm/kg (285-295); Potassium 4.3 mmol/L (3.5-5.1); Salicylate < 0.3 mg/dL (3-10); Sodium 141 mmol/L (136-145); Total Bilirubin 0.2 mg/dL (0.15-1.2); Total Protein 6.8 g/dL (6.6-8.7)
--- NOTE | 2023-03-09 22:50 | ECG_ITS ---
[facility] Test Date: 2023-03-09 Pat Name: Madison Maharaj Department: Room: Gender: Female Obstetrics Tech: : 1965 Requested By: Calvin Castaneda Order Number: [id number] Linh MD: Ladan Haines M.D. Measurements Intervals [place] Rate: 70 P: 57 IN: 157 QRS: 34 QRSD: 93 T: 45 QT: 402 QTc: 434 Interpretive Statements SINUS RHYTHM LOW QRS VOLTAGE IN PRECORDIAL LEADS [QRS DEFLECTION < 1.0 mV IN CHEST LEADS] POSSIBLE RIGHT VENTRICULAR CONDUCTION DELAY [RSR (QR) IN V1/V2] MODERATE ST DEPRESSION [0.05+ mV ST DEPRESSION] Compared to ECG 01/01/2023 11:56:51 Low QRS voltage now present ST (T wave) deviation now present Electronically Signed On 03-10-2023 11:08:40 CDT by Ladan Haines M.D. [id number]
[2023-03-09 23:23] LABS: Add Urine Microscopic? YES; Bilirubin Urine Neg (Negative); Blood Urine Neg (Negative); Glucose Urine UA Norm (Normal); Ketones Urine Negative (Negative); Leukocyte Esterase Urine 2+ (Negative); Nitrate Urine Negative (Negative); Protein Urine Neg (Negative); RBC Urine 0-4 /hpf (0-2); Urine Appearance SL Hazy (CLEAR); Urine Color Yellow (Yellow); Urobilinogen Urine Norm (Negative); pH Urine 7 (5-7)
[2023-03-09 23:24] LABS: Add Urine Culture? Yes; Bacteria Urine 1+ /hpf; Squamous Epithelial Cell Urine 25-40 /hpf (0-5); WBC Urine 55-80 /hpf (0-5)
[2023-03-09 23:27] LABS: Amphetamines Screen Urine Negative (Negative); Barbiturates Screen Urine Negative (Negative); Benzodiazepines Screen Urine Positive (Negative); Cocaine Screen Urine Negative (Negative); Opiate Screen Urine Negative (Negative); PCP Screen Urine Negative (Negative); THC Screen Urine Positive (Negative)
[2023-03-09] MEDS: ondansetron 2 mg/ML SDV 2 mL 4 MG IVP (23:36)
[2023-03-09] MEDS: ketorolac 30 mg/mL INJ IVP (23:39)
[2023-03-10] VITALS (39 sets, daily range): BP systolic 120–167; BP diastolic 64–109; PULSE 61–87; RESP 14–32; TEMP 36.3–36.7; O2SAT 93–99; BMI 35.2
--- NOTE | 2023-03-10 01:00 | P.HP_ITS ---
Providers/Chief Complaint Admitting Physician: Bernice Corona MD Primary Care Provider: Jacqueline Call MD Chief Complaint: Overdose History of Present Illness Madison Maharaj is a 57 year old female who presented to ER after taking approximately 60 lisinopril 10mg tablets and 60 temazepam 15mg tablets in a suicidal gesture. Denies other medications, but external records shows that she has had prescriptions for gabapentin, tizanidine, quetiapine and duloxetine in the past 2 months. Her vitals are currently stable. USD positive for benzodiazepines, THC. Acetaminophen and salicylates negative. EKG sinus rhythm at 70, QTc 434. She is tearful and remorseful. Review of Systems General: Reports: Other (ROS as per HPI or as otherwise noted here) Medications/Allergies Home Medications Medication Instructions Recorded Confirmed Last Taken Type pimecrolimus 1 % topical cream 1 applic topical 2XD 02/12/23 02/24/23 Unknown History (Elidel) pimecrolimus 1 % topical cream 1 applic topical 2XD PRN Itching 02/12/23 02/24/23 Unknown History (Elidel) duloxetine 60 mg capsule,delayed 60 mg PO DAILY 30 days #30 caps 02/17/23 02/24/23 Unknown Rx release gabapentin 300 mg capsule 300 mg PO BEDTIME 30 days #30 caps 02/17/23 02/24/23 Unknown Rx lisinopril 10 mg tablet 20 mg PO QAM 30 days #60 tabs 02/17/23 02/24/23 Unknown Rx quetiapine 100 mg tablet 200 mg PO BEDTIME 30 days #60 tabs 02/17/23 02/24/23 Unknown Rx tizanidine 2 mg tablet 2 mg PO TID PRN Muscle Spasm #90 02/17/23 02/24/23 Unknown Rx tabs temazepam 15 mg capsule 30 mg PO .q hs 02/20/23 02/24/23 Unknown History Allergies Allergy/AdvReac Type Severity Reaction Status Date / Time codeine Allergy rash Verified 02/24/23 11:00 PFSH Acute 2 PFSH: Medical History Complication of gastric band procedure Hypertension Pityriasis rubra pilaris Polymorphic photodermatitis Psychiatric care Upper gastrointestinal hemorrhage Urinary retention Surgical History H/O gastric sleeve History of ankle surgery History of appendectomy History of back surgery x2 History of cholecystectomy History of elbow surgery History of oophorectomy History of tubal ligation 1998 Status post gastric banding surgery We will plan to discharge patient home today Social History Smoking and tobacco status: never smoked Alcohol intake: former Year of sobriety/quit date alcohol: 3 yr Substance/Drug Use: never Vitals/I&O/Wt Last Vital Signs Temp 98.1 F 03/09/23 21:57 Pulse 77 03/09/23 22:40 Resp 17 03/09/23 22:40 BP 153/94 03/09/23 22:40 Pulse Ox 97 03/09/23 22:40 O2 Del Method Room Air 03/09/23 22:40 Weight last 48 hrs Weight 81.647 kg Physical Exam Narrative: Patient is [] Data 03/09/23 21:20 03/09/23 21:20 Other Labs: Laboratory Results WBC 8.0 10^3/uL (4.0-10.0) 03/09/23 21:20 RBC 3.66 10^6/uL (4.1-5.3) L 03/09/23 21:20 Hgb 10.9 g/dL (11.5-15.3) L 03/09/23 21:20 Hct 34.5 % (37.0-47.0) L 03/09/23 21:20 MCV 94.3 fl (81-99) 03/09/23 21:20 MCH 29.8 pg (28.0-34.0) 03/09/23 21:20 MCHC 31.6 g/dL (30.0-36.0) 03/09/23 21:20 RDW 13.8 % (12.1-15.1) 03/09/23 21:20 Plt Count 340 10^3/cmm (130-400) 03/09/23 21:20 MPV 9.5 fL (7.4-10.4) 03/09/23 21:20 Neut % (Auto) 56.9 % 03/09/23 21:20 Lymph % (Auto) 27.9 % 03/09/23 21:20 [place] % (Auto) 9.3 % 03/09/23 21:20 Eos % (Auto) 4.9 % 03/09/23 21:20 Baso % (Auto) 0.6 % 03/09/23 21:20 Neut # (Auto) 4.58 10^3/uL (1.8-7.7) 03/09/23 21:20 Lymph # (Auto) 2.2 10^3/uL (0.8-4.8) 03/09/23 21:20 [place] # (Auto) 0.8 10^3/uL (0.2-0.9) 03/09/23 21:20 Eos # (Auto) 0.4 10^3/uL (0.0-0.8) 03/09/23 21:20 Baso # (Auto) 0.1 10^3/uL (0.0-0.1) 03/09/23 21:20 Nucleated RBC % (auto) 0 % 03/09/23 21:20 Nucleated RBCs # 0.0 /100WBC 03/09/23 21:20 Sodium 141 mmol/L (136-145) 03/09/23 21:20 Potassium 4.3 mmol/L (3.5-5.1) 03/09/23 21:20 Chloride 106 mmol/L (98-107) 03/09/23 21:20 Carbon Dioxide 25 mmol/L (22-29) 03/09/23 21:20 Anion Gap 14.3 (5-19) 03/09/23 21:20 BUN 19 mg/dL (6-20) 03/09/23 21:20 Creatinine 0.8 mg/dL (0.5-0.9) 03/09/23 21:20 GFR Calculation 74.5 mL/min (90-130) L 03/09/23 21:20 Glucose 93 mg/dL (65-115) 03/09/23 21:20 Calculated Osmolality 294 mOsm/kg (285-295) 03/09/23 21:20 Calcium 9.0 mg/dL (8.5-10.5) 03/09/23 21:20 Total Bilirubin 0.2 mg/dL (0.15-1.2) 03/09/23 21:20 AST 19 U/L (0-32) 03/09/23 21:20 ALT 21 U/L (0-33) 03/09/23 21:20 Alkaline Phosphatase 134 U/L (35-105) H 03/09/23 21:20 Total Protein 6.8 g/dL (6.6-8.7) 03/09/23 21:20 Albumin 3.9 g/dL (3.5-5.2) 03/09/23 21:20 Globulin 2.9 g/dL (1.3-4.6) 03/09/23 21:20 Urine Color Yellow (Yellow) 03/09/23 23:09 Urine Appearance Sl hazy (CLEAR) A 03/09/23 23:09 Urine pH 7 (5-7) 03/09/23 23:09 Ur Specific [place] 1.010 (1.005-1.030) 03/09/23 23:09 Urine Protein Neg (Negative) 03/09/23 23:09 Urine Glucose (UA) Norm (Normal) 03/09/23 23:09 Urine Ketones Negative (Negative) 03/09/23 23:09 Urine Blood Neg (Negative) 03/09/23 23:09 Urine Nitrate Negative (Negative) 03/09/23 23:09 Urine Bilirubin Neg (Negative) 03/09/23 23:09 Urine Urobilinogen Norm mg/dL (Negative) 03/09/23 23:09 Ur Leukocyte Esterase 2+ (Negative) H 03/09/23 23:09 Urine RBC 0-4 /hpf (0-2) H 03/09/23 23:09 Urine WBC 55-80 /hpf (0-5) H 03/09/23 23:09 Ur Squamous Epith Cells 25-40 /hpf (0-5) H 03/09/23 23:09 Amorphous Sediment Not Reportable 03/09/23 23:09 Urine Bacteria 1+ /hpf (NONE) H 03/09/23 23:09 Urine Yeast 1+ /hpf H 03/09/23 23:09 Salicylates < 0.3 mg/dL (3-10) L 03/09/23 21:20 Urine Opiates Screen Negative ng/mL (Negative) 03/09/23 23:09 Acetaminophen < 5.0 ug/mL (10-30) L 03/09/23 21:20 Ur Barbiturates Screen Negative ng/mL (Negative) 03/09/23 23:09 Ur Phencyclidine Scrn Negative ng/mL (Negative) 03/09/23 23:09 Ur Amphetamines Screen Negative ng/mL (Negative) 03/09/23 23:09 U Benzodiazepines Scrn Positive ng/mL (Negative) H 03/09/23 23:09 Urine Cocaine Screen Negative ng/mL (Negative) 03/09/23 23:09 U Marijuana (THC) Screen Positive ng/mL (Negative) H 03/09/23 23:09 Ethyl Alcohol < 10 mg/dL (0-10) 03/09/23 21:20 A&P Assessment and plan (1) Overdose: (2) Suicide gesture: (3) Major depressive disorder, recurrent severe without psychotic features: (4) PTSD (post-traumatic stress disorder): Attestations Medical Necessity Statement*: Anticipated stay greater than two midnights []. Coding Level of Care Code Acute Code for [facility] Fwd Diagnoses Overdose T50.901A Suicide gesture X83.8XXA Major depressive disorder, recurrent severe without psychotic features F33.2 PTSD (post-traumatic stress disorder) F43.10
--- NOTE | 2023-03-10 04:00 | PC.NURSE ---
This RN and security served pt with copy of 96 Hour Hold paperwork. Rights reviewed with pt, no questions asked.
--- NOTE | 2023-03-10 04:38 | PC.NURSE ---
Received instruction from Dr Corona to contact Poison Control. Consulted Poison control at 0420 and gave the following information: Patient states she orally consumed (60) 10mg lisinopril 03/09/23 at approximately 1100 and (60) 15 mg temazapam at approximately 1400 the same day. Patient vital signs reviewed. Current vitals - teletypesetter monitor indicates Sinus Rhythm with heart rate of 62, Pt alert and oriented X4, O2 saturation 96% on room air, respirations 18 bpm, last cuff BP =137/78. Patient complaint of headache since admission. Acetaminophen and salicylates negative per patient record. 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 Suggests IVF if hypotension noted. Offered to send additional drug information via fax. Fax number given. Poison control has closed the case.
--- NOTE | 2023-03-10 05:09 | P.HP_ITS ---
Providers/Chief Complaint Admitting Physician: Bernice Corona MD Primary Care Provider: Jacqueline Call MD Chief Complaint: Overdose History of Present Illness Madison Maharaj is a 57 year old female Madison Maharaj is a 57 year old female who presented to ER after taking approximately 60 lisinopril 10mg tablets and 60 temazepam 15mg tablets in a suicidal gesture. Most recent intake of medications was about an hour prior to presentation to the emergency room. De nies taking other medications as she has in the past, but external records shows that she has had prescriptions for gabapentin, tizanidine, quetiapine and duloxetine in the past 2 months. Her vitals are currently stable. USD positive for benzodiazepines, THC. Acetaminophen and salicylates negative. EKG sinus rhythm at 70, QTc 434. She is remorseful. Denies ongoing suicidal thoughts. She has chronic issues with depression and PTSD. She has had previous stays in the psychiatric unit with the most recent being at the end of January. She reported an overdose of multiple medications at that time as well. She was hospitalized for a week. Made to her usual medications. At the present time she has complained of a headache. She has chronic issues with constipation. She has had some difficulty with a very slow urinary stream the but denies any definitive dysuria or urinary frequency. She has had some nausea and what sounds like 1 episode of vomiting after taking pills. No diarrhea. Denies abdominal pain. She has not had any fevers. No reports of chest pain or difficulty breathing. Hospitalist were contacted due to timing and quantity of medications that she had taken. 96-hour hold paperwork has been completed. Review of Systems General: Reports: Other (ROS as per HPI or as otherwise noted here) Medications/Allergies Home Medications Medication Instructions Recorded Confirmed Last Taken Type pimecrolimus 1 % topical cream 1 applic topical 2XD 02/12/23 02/24/23 Unknown History (Elidel) pimecrolimus 1 % topical cream 1 applic topical 2XD PRN Itching 02/12/23 02/24/23 Unknown History (Elidel) duloxetine 60 mg capsule,delayed 60 mg PO DAILY 30 days #30 caps 02/17/23 03/10/23 03/09/23 09:00 Rx release gabapentin 300 mg capsule 300 mg PO BEDTIME 30 days #30 caps 02/17/23 03/10/23 03/08/23 21:00 Rx lisinopril 10 mg tablet 20 mg PO QAM 30 days #60 tabs 02/17/23 03/10/23 03/09/23 11:00 Rx quetiapine 100 mg tablet 200 mg PO BEDTIME 30 days #60 tabs 02/17/23 03/10/23 03/08/23 21:00 Rx tizanidine 2 mg tablet 2 mg PO TID PRN Muscle Spasm #90 02/17/23 03/10/23 03/09/23 09:00 Rx tabs temazepam 15 mg capsule 30 mg PO .q hs 02/20/23 03/10/23 03/09/23 14:00 History Allergies Allergy/AdvReac Type Severity Reaction Status Date / Time codeine Allergy rash Verified 02/24/23 11:00 PFSH Acute PFSH: Medical History (Updated 03/10/23 @ 05:22 by Bernice Corona MD) Complication of gastric band procedure Hypertension Pityriasis rubra pilaris Polymorphic photodermatitis Psychiatric care Upper gastrointestinal hemorrhage Urinary retention Surgical History (Updated 03/10/23 @ 05:29 by Bernice Corona MD) History of ankle surgery History of appendectomy History of back surgery x2 History of cholecystectomy History of elbow surgery History of oophorectomy History of tubal ligation 1998 Status post gastric banding surgery Social History (Updated 03/10/23 @ 05:18 by Bernice Corona MD) Smoking and tobacco status: never smoked Alcohol intake: former Year of sobriety/quit date alcohol: 3 yr Household members: other Details: Has had challenging housing situation lately Vitals/I&O/Wt Last Vital Signs Temp 98.0 F 03/10/23 00:15 Pulse 62 03/10/23 04:30 Resp 25 H 03/10/23 04:30 BP 137/78 03/10/23 04:30 Pulse Ox 94 03/10/23 04:30 O2 Del Method Room Air 03/10/23 02:30 Weight last 48 hrs Weight 81.647 kg Physical Exam Narrative: Patient is asleep but easily arousable, cooperative. Able to provide history herself. Normocephalic. Extraocular movements are intact. Pupils are equal r eactive. Oropharynx with dry mucous membranes. Neck is supple. Lungs are clear to auscultation bilaterally. Regular rate and rhythm. Abdomen is soft, nontender. Extremities no pitting edema or calf tenderness. Speech is clear, face symmetric, moves all extremities. She has recently lost her IV in her left upper extremity and has some bright red blood at the site. She is oriented to person place and situation. Denies current suicidal thoughts at the time of my examination. Data 03/09/23 21:20 03/09/23 21:20 Other Labs: Laboratory Results WBC 8.0 10^3/uL (4.0-10.0) 03/09/23 21:20 RBC 3.66 10^6/uL (4.1-5.3) L 03/09/23 21:20 Hgb 10.9 g/dL (11.5-15.3) L 03/09/23 21:20 Hct 34.5 % (37.0-47.0) L 03/09/23 21:20 MCV 94.3 fl (81-99) 03/09/23 21:20 MCH 29.8 pg (28.0-34.0) 03/09/23 21:20 MCHC 31.6 g/dL (30.0-36.0) 03/09/23 21:20 RDW 13.8 % (12.1-15.1) 03/09/23 21:20 Plt Count 340 10^3/cmm (130-400) 03/09/23 21:20 MPV 9.5 fL (7.4-10.4) 03/09/23 21:20 Neut % (Auto) 56.9 % 03/09/23 21:20 Lymph % (Auto) 27.9 % 03/09/23 21:20 [place] % (Auto) 9.3 % 03/09/23 21:20 Eos % (Auto) 4.9 % 03/09/23 21:20 Baso % (Auto) 0.6 % 03/09/23 21:20 Neut # (Auto) 4.58 10^3/uL (1.8-7.7) 03/09/23 21:20 Lymph # (Auto) 2.2 10^3/uL (0.8-4.8) 03/09/23 21:20 [place] # (Auto) 0.8 10^3/uL (0.2-0.9) 03/09/23 21:20 Eos # (Auto) 0.4 10^3/uL (0.0-0.8) 03/09/23 21:20 Baso # (Auto) 0.1 10^3/uL (0.0-0.1) 03/09/23 21:20 Nucleated RBC % (auto) 0 % 03/09/23 21:20 Nucleated RBCs # 0.0 /100WBC 03/09/23 21:20 Sodium 141 mmol/L (136-145) 03/09/23 21:20 Potassium 4.3 mmol/L (3.5-5.1) 03/09/23 21:20 Chloride 106 mmol/L (98-107) 03/09/23 21:20 Carbon Dioxide 25 mmol/L (22-29) 03/09/23 21:20 Anion Gap 14.3 (5-19) 03/09/23 21:20 BUN 19 mg/dL (6-20) 03/09/23 21:20 Creatinine 0.8 mg/dL (0.5-0.9) 03/09/23 21:20 GFR Calculation 74.5 mL/min (90-130) L 03/09/23 21:20 Glucose 93 mg/dL (65-115) 03/09/23 21:20 Calculated Osmolality 294 mOsm/kg (285-295) 03/09/23 21:20 Calcium 9.0 mg/dL (8.5-10.5) 03/09/23 21:20 Total Bilirubin 0.2 mg/dL (0.15-1.2) 03/09/23 21:20 AST 19 U/L (0-32) 03/09/23 21:20 ALT 21 U/L (0-33) 03/09/23 21:20 Alkaline Phosphatase 134 U/L (35-105) H 03/09/23 21:20 Total Protein 6.8 g/dL (6.6-8.7) 03/09/23 21:20 Albumin 3.9 g/dL (3.5-5.2) 03/09/23 21:20 Globulin 2.9 g/dL (1.3-4.6) 03/09/23 21:20 Urine Color Yellow (Yellow) 03/09/23 23:09 Urine Appearance Sl hazy (CLEAR) A 08/20/23 23:09 Urine pH 7 (5-7) 03/09/23 23:09 Ur Specific [place] 1.010 (1.005-1.030) 03/09/23 23:09 Urine Protein Neg (Negative) 03/09/23 23:09 Urine Glucose (UA) Norm (Normal) 03/09/23 23:09 Urine Ketones Negative (Negative) 03/09/23 23:09 Urine Blood Neg (Negative) 03/09/23 23:09 Urine Nitrate Negative (Negative) 03/09/23 23:09 Urine Bilirubin Neg (Negative) 03/09/23 23:09 Urine Urobilinogen Norm mg/dL (Negative) 03/09/23 23:09 Ur Leukocyte Esterase 2+ (Negative) H 03/09/23 23:09 Urine RBC 0-4 /hpf (0-2) H 03/09/23 23:09 Urine WBC 55-80 /hpf (0-5) H 03/09/23 23:09 Ur Squamous Epith Cells 25-40 /hpf (0-5) H 03/09/23 23:09 Amorphous Sediment Not Reportable 03/09/23 23:09 Urine Bacteria 1+ /hpf (NONE) H 03/09/23 23:09 Urine Yeast 1+ /hpf H 03/09/23 23:09 Salicylates < 0.3 mg/dL (3-10) L 03/09/23 21:20 Urine Opiates Screen Negative ng/mL (Negative) 03/09/23 23:09 Acetaminophen < 5.0 ug/mL (10-30) L 03/09/23 21:20 Ur Barbiturates Screen Negative ng/mL (Negative) 03/09/23 23:09 Ur Phencyclidine Scrn Negative ng/mL (Negative) 03/09/23 23:09 Ur Amphetamines Screen Negative ng/mL (Negative) 03/09/23 23:09 U Benzodiazepines Scrn Positive ng/mL (Negative) H 03/09/23 23:09 Urine Cocaine Screen Negative ng/mL (Negative) 03/09/23 23:09 U Marijuana (THC) Screen Positive ng/mL (Negative) H 03/09/23 23:09 Ethyl Alcohol < 10 mg/dL (0-10) 03/09/23 21:20 A&P Assessment and plan (1) Overdose: On lisinopril and temazepam both of which are prescribed medications (2) Suicide gesture: 96-hour hold paperwork completed (3) Major depressive disorder, recurrent severe without psychotic features: On chronic duloxetine, Seroquel and temazepam (4) PTSD (post-traumatic stress disorder): On chronic treatment as noted above (5) Hypertension: On chronic lisinopril Qualifiers: Hypertension type: essential hypertension Qualified Code(s): I10 - Essential (primary) hypertension Plan Positive urinalysis but contaminated specimen with significant epithelial cells On chronic gabapentin for pain related to prior surgeries Healthcare impacted by social determinants of health Inpatient admission Telemetry monitoring One-to-one sitter Poison control was contacted In the morning should be medically clear for psychiatric evaluation and transfer to Neuropsych Unit assuming no acute issues overnight We will continue duloxetine and Seroquel Seroquel and temazepam are currently held secondary to overdose Monitor blood pressures Supportive care otherwise Plans were discussed with patient and she was given an opportunity to ask questions VTE prophylaxis: Low risk GI Prophylaxis: PPI Telemetry: Monitoring secondary to overdose [place]: Not currently indicated Line(s): Will need to replace peripheral IV Disposition plan: Once medically stable in the morning will be evaluated by psychiatry and anticipate disposition to NPU Code Status: Full code Attestations Medical Necessity Statement*: Anticipated stay greater than two midnights in a patient with suicidal gesture with overdose. Has a history of prior similar presentations and known PTSD and depression. Plans as noted above. and Moderate Time for a total of 50 minutes, includes reviewing past or interval history, examining/interviewing patient, placing orders, counseling patient/family/other support, discussing plan of care with staff and documenting encounter Diagnoses Overdose T50.901A Suicide gesture X83.8XXA Major depressive disorder, recurrent severe without psychotic features F33.2 PTSD (post-traumatic stress disorder) F43.10 Hypertension I10 Hypertension type: essential hypertension
--- NOTE | 2023-03-10 05:23 | ED_ITS ---
HPI - Overdose General: Chief Complaint: Overdose Stated Complaint: Overdose Time Seen by Provider: 03/09/23 22:25 Source: patient History of Present Illness: 57-year-old female who started taking medication around noon today, and the last pill she took was about an hour prior to arrival. She reports taking 6010 mg lisinopril, and 6015 mg temazepam pills. She did this because she wanted to . She complains of a headache, stomachache, and mild lethargy. complaint: intentional overdose Intent: suicide attempt Treatments Prior to Arrival: oxygen and IV fluids Review of Systems Const: Denies: fever(s), chills or body aches Eyes: Denies: change in vision Card: Denies: chest pain or palpitations Resp: Denies: dyspnea, productive cough, non-productive cough or wheezing GI: Reports: abdominal pain and nausea; Denies: vomiting, diarrhea or hematochezia : Denies: difficulty voiding Skin/Breast: Denies: rash Neuro: Reports: headache(s); Denies: weakness in extremities, dizziness or confusion [facility] ED PFSH: Medical History Complication of gastric band procedure Hypertension Pityriasis rubra pilaris Polymorphic photodermatitis Psychiatric care Upper gastrointestinal hemorrhage Urinary retention Surgical History H/O gastric sleeve History of ankle surgery History of appendectomy History of back surgery x2 History of cholecystectomy History of elbow surgery History of oophorectomy History of tubal ligation 1998 Status post gastric banding surgery We will plan to discharge patient home today Social History (Updated 03/10/23 @ 05:18 by Bernice Corona MD) Smoking and tobacco status: never smoked Alcohol intake: former Year of sobriety/quit date alcohol: 3 yr Household members: other Details: Has had challenging housing situation lately Physical Exam Const: COMMON NORMALS: no acute distress GENERAL APPEARANCE: cooperative and anxious; not ill appearing and not frail appearing ORIENTATION/CONSCIOUSNESS: Yes awake, Yes oriented to person, Yes oriented to place and Yes oriented to time HENMT: COMMON NORMALS: normocephalic, atraumatic and Normal external nose present HEAD & SCALP: normocephalic and atraumatic FACE & SINUS: normal facial exam and face symmetric NOSE: Normal external nose present Eye: COMMON NORMALS: Equal, round and reactive pupils present and EOMs intact bilaterally PUPIL: Yes Equal, round and reactive pupils present Neck/C-Spine: GENERAL: Yes trachea midline Chest: CHEST: Yes Symmetrical chest wall rise Resp: COMMON NORMALS: normal respiratory effort, No retractions, No use of accessory muscles and clear to auscultation bilaterally AUSCULTATION: clear to auscultation bilaterally Cardio: COMMON NORMALS: regular rate and regular rhythm RATE: regular rate RHYTHM: regular rhythm GI: COMMON NORMALS: Normal to inspection, nondistended, normoactive bowel sounds present Extremity: COMMON NORMALS: no pedal edema Neuro: NAV COMA SCALE: document GCS findings Nav coma scale eye opening: Spontaneous Nav coma scale verbal response: Orientated Nav coma scale motor response: Obey commands Nav coma scale total score: 15 SENSORIUM/ORIENTATION: Yes oriented to person, Yes oriented to place and Yes oriented to time SENSORY EXAM: Yes extremities (intact) Psych: COMMON NORMALS: speech normal SPEECH: Yes normal speech Skin: COMMON NORMALS: no rashes or lesions noted GENERAL SKIN EXAM: no rashes or lesions noted Course Consultations: Consultation #1: wilian Vital Signs: Vital signs: Vital Signs Temperature 98.0 F 03/10/23 00:15 Pulse Rate 62 03/10/23 04:30 Respiratory Rate 25 H 03/10/23 04:30 Blood Pressure 137/78 03/10/23 04:30 Pulse Oximetry 94 03/10/23 04:30 Oxygen Delivery Me thod Room Air 03/10/23 02:30 MDM - Overdose Medical Decision Making Because of the nature of this patient's ingestion, she will be placed in the ICU overnight to ensure stabilized medically. Psychiatric consult to follow. She is not hypertensive, in fact she is mildly hypertensive. Laboratory work-up is not remarkable. Lab Data 03/09/23 21:20 03/09/23 21:20 Laboratory Results WBC 8.0 10^3/uL (4.0-10.0) 03/09/23 21:20 RBC 3.66 10^6/uL (4.1-5.3) L 03/09/23 21:20 Hgb 10.9 g/dL (11.5-15.3) L 03/09/23 21:20 Hct 34.5 % (37.0-47.0) L 03/09/23 21:20 MCV 94.3 fl (81-99) 03/09/23 21:20 MCH 29.8 pg (28.0-34.0) 03/09/23 21:20 MCHC 31.6 g/dL (30.0-36.0) 03/09/23 21:20 RDW 13.8 % (12.1-15.1) 03/09/23 21:20 Plt Count 340 10^3/cmm (130-400) 03/09/23 21:20 MPV 9.5 fL (7.4-10.4) 03/09/23 21:20 Neut % (Auto) 56.9 % 03/09/23 21:20 Lymph % (Auto) 27.9 % 03/09/23 21:20 [place] % (Auto) 9.3 % 03/09/23 21:20 Eos % (Auto) 4.9 % 03/09/23 21:20 Baso % (Auto) 0.6 % 03/09/23 21:20 Neut # (Auto) 4.58 10^3/uL (1.8-7.7) 03/09/23 21:20 Lymph # (Auto) 2.2 10^3/uL (0.8-4.8) 03/09/23 21:20 [place] # (Auto) 0.8 10^3/uL (0.2-0.9) 03/09/23 21:20 Eos # (Auto) 0.4 10^3/uL (0.0-0.8) 03/09/23 21:20 Baso # (Auto) 0.1 10^3/uL (0.0-0.1) 03/09/23 21:20 Nucleated RBC % (auto) 0 % 03/09/23 21:20 Nucleated RBCs # 0.0 /100WBC 03/09/23 21:20 Sodium 141 mmol/L (136-145) 03/09/23 21:20 Potassium 4.3 mmol/L (3.5-5.1) 03/09/23 21:20 Chloride 106 mmol/L (98-107) 03/09/23 21:20 Carbon Dioxide 25 mmol/L (22-29) 03/09/23 21:20 Anion Gap 14.3 (5-19) 03/09/23 21:20 BUN 19 mg/dL (6-20) 03/09/23 21:20 Creatinine 0.8 mg/dL (0.5-0.9) 03/09/23 21:20 GFR Calculation 74.5 mL/min (90-130) L 03/09/23 21:20 Glucose 93 mg/dL (65-115) 03/09/23 21:20 Calculated Osmolality 294 mOsm/kg (285-295) 03/09/23 21:20 Calcium 9.0 mg/dL (8.5-10.5) 03/09/23 21:20 Total Bilirubin 0.2 mg/dL (0.15-1.2) 03/09/23 21:20 AST 19 U/L (0-32) 03/09/23 21:20 ALT 21 U/L (0-33) 03/09/23 21:20 Alkaline Phosphatase 134 U/L (35-105) H 03/09/23 21:20 Total Protein 6.8 g/dL (6.6-8.7) 03/09/23 21:20 Albumin 3.9 g/dL (3.5-5.2) 03/09/23 21:20 Globulin 2.9 g/dL (1.3-4.6) 03/09/23 21:20 Urine Color Yellow (Yellow) 03/09/23 23:09 Urine Appearance Sl hazy (CLEAR) A 03/09/23 23:09 Urine pH 7 (5-7) 03/09/23 23:09 Ur Specific [place] 1.010 (1.005-1.030) 03/09/23 23:09 Urine Protein Neg (Negative) 03/09/23 23:09 Urine Glucose (UA) Norm (Normal) 03/09/23 23:09 Urine Ketones Negative (Negative) 03/09/23 23:09 Urine Blood Neg (Negative) 03/09/23 23:09 Urine Nitrate Negative (Negative) 03/09/23 23:09 Urine Bilirubin Neg (Negative) 03/09/23 23:09 Urine Urobilinogen Norm mg/dL (Negative) 03/09/23 23:09 Ur Leukocyte Esterase 2+ (Negative) H 03/09/23 23:09 Urine RBC 0-4 /hpf (0-2) H 03/09/23 23:09 Urine WBC 55-80 /hpf (0-5) H 03/09/23 23:09 Ur Squamous Epith Cells 25-40 /hpf (0-5) H 03/09/23 23:09 Amorphous Sediment Not Reportable 03/09/23 23:09 Urine Bacteria 1+ /hpf (NONE) H 03/09/23 23:09 Urine Yeast 1+ /hpf H 03/09/23 23:09 Salicylates < 0.3 mg/dL (3-10) L 03/09/23 21:20 Urine Opiates Screen Negative ng/mL (Negative) 03/09/23 23:09 Acetaminophen < 5.0 ug/mL (10-30) L 03/09/23 21:20 Ur Barbiturates Screen Negative ng/mL (Negative) 03/09/23 23:09 Ur Phencyclidine Scrn Negative ng/mL (Negative) 03/09/23 23:09 Ur Amphetamines Screen Negative ng/mL (Negative) 03/09/23 23:09 U Benzodiazepines Scrn Positive ng/mL (Negative) H 03/09/23 23:09 Urine Cocaine Screen Negative ng/mL (Negative) 03/09/23 23:09 U Marijuana (THC) Screen Positive ng/mL (Negative) H 03/09/23 23:09 Ethyl Alcohol < 10 mg/dL (0-10) 03/09/23 21:20 Discharge Plan Discharge Patient Disposition: Admitted As Inpatient Admit Provider: Bernice Corona Clinical Impression: Overdose, Suicide gesture Condition: Stable Coding Level of Care Code ED Plant Physiologist for Dami Mendez
[2023-03-10] MEDS: docusate sodium 100 mg Capsule PO ×2 (08:22→21:16)
[2023-03-10] MEDS: duloxetine 60 mg Capsule PO (08:22)
[2023-03-10] MEDS: pantoprazole DR 40 mg Tablet PO (08:22)
[2023-03-10] MEDS: acetaminophen 325 mg Tablet 650 MG PO ×2 (08:24→18:48)
[2023-03-10 09:26] LABS: Basophils % 0.3 %; Eosinophils # 0.4 10^3/uL (0.0-0.8); Eosinophils % 5.6 %; Hemoglobin 11.1 g/dL (11.5-15.3); Lymphocytes # 1.2 10^3/uL (0.8-4.8); Lymphocytes % 18.7 %; Mean Corpuscular HGB Conc 30.8 g/dL (30.0-36.0); Mean Corpuscular Hemoglobin 30.5 pg (28.0-34.0); Mean Corpuscular Volume 98.9 fl (81-99); Mean Platelet Volume 9.1 fL (7.4-10.4); Monocytes # 0.4 10^3/uL (0.2-0.9); Monocytes % 6.9 %; Neutrophils # 4.34 10^3/uL (1.8-7.7); Nucleated Red Blood Cells % 0 %; Platelet Count 259 10^3/cmm (130-400); Red Blood Count 3.64 10^6/uL (4.1-5.3); Red Cell Distribution Width 13.9 % (12.1-15.1); White Blood Count 6.4 10^3/uL (4.0-10.0)
[2023-03-10 10:04] LABS: Alanine Aminotransferase 19 U/L (0-33); Albumin Level 3.8 g/dL (3.5-5.2); Alkaline Phosphatase 124 U/L (35-105); Anion Gap 13.2 (5-19); Aspartate Amino Transferase 15 U/L (0-32); Blood Urea Nitrogen 16 mg/dL (6-20); Calcium 8.2 mg/dL (8.5-10.5); Carbon Dioxide 24 mmol/L (22-29); Chloride 110 mmol/L (98-107); Globulin 2.2 g/dL (1.3-4.6); Glomerular Filtration Rate 74.5 mL/min (90-130); Glucose 139 mg/dL (65-115); Osmolality Calculated 299 mOsm/kg (285-295); Potassium 4.2 mmol/L (3.5-5.1); Sodium 143 mmol/L (136-145); Total Bilirubin 0.2 mg/dL (0.15-1.2)
--- NOTE | 2023-03-10 10:08 | ECG_ITS ---
[facility] Test Date: 2023-03-10 Pat Name: Madison Maharaj Department: Room: [id number] Gender: Female Cs Associate: : 1965 Requested By: Ronni Barbour Order Number: [id number] Linh MD: Ladan Haines M.D. Measurements Intervals [place] Rate: 58 P: 55 AK: 167 QRS: 60 QRSD: 85 T: 57 QT: 402 QTc: 396 Interpretive Statements SINUS BRADYCARDIA LOW QRS VOLTAGE IN PRECORDIAL LEADS [QRS DEFLECTION < 1.0 mV IN CHEST LEADS] Compared to ECG 03/09/2023 22:50:45 Sinus rhythm no longer present ST (T wave) deviation no longer present Electronically Signed On 03-10-2023 11:07:45 CDT by Ladan Haines M.D. [email or web address]
--- NOTE | 2023-03-10 10:56 | PC.NURSE ---
Orthostatic vitals: Layin HR, 149/100 Sittin HR, 152/95 Standin HR, 156/[address] Barbour per his request.
--- NOTE | 2023-03-10 14:01 | PC.NURSE ---
Report called to NPU, no questions. Patient and belongings wheeled to NPU.
--- NOTE | 2023-03-10 15:44 | PC.NURSE ---
pt arrived to our er for intentional overdose. pt stayed in the icu over night to monitor. pt arrived to our unit stating i overdose, i took lisinopril and temazepam, 60 of each. [facility]. pt stated i only started thinkin about hurting myself since last night.
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
[2023-03-10 18:09] LABS: Anion Gap 13.8 (5-19); Blood Urea Nitrogen 18 mg/dL (6-20); Carbon Dioxide 25 mmol/L (22-29); Chloride 107 mmol/L (98-107); Glomerular Filtration Rate 74.5 mL/min (90-130); Glucose 88 mg/dL (65-115); Osmolality Calculated 293 mOsm/kg (285-295); Potassium 4.8 mmol/L (3.5-5.1); Sodium 141 mmol/L (136-145)
[2023-03-10] MEDS: hyDROXYzine 25 mg Capsule 50 MG PO (18:48)
--- NOTE | 2023-03-10 18:48 | PC.NURSE ---
PRN VISTARIL 50 MG GIVEN PO PER PT C/O STATED ANXIETY
[2023-03-10] MEDS: quetiapine 100 mg Tablet PO (21:16)
[2023-03-10] MEDS: gabapentin 300 mg Capsule PO (21:16)
[2023-03-11 06:00] VITALS: BP 133/81; PULSE 63; RESP 16; TEMP 36.6; O2SAT 97
--- NOTE | 2023-03-11 06:00 | ECG_ITS ---
[facility] Test Date: 2023-03-11 Pat Name: Madison Maharaj Department: Room: 124 Gender: Female Thread Winder: : 1965 Requested By: Ronni Barbour Order Number: [id number] Reading MD: Maru Adamson M.D. Measurements Intervals [place] Rate: 59 P: 56 ND: 175 QRS: 61 QRSD: 83 T: 56 QT: 397 QTc: 396 Interpretive Statements SINUS BRADYCARDIA Compared to ECG 03/10/2023 10:08:58 No significant changes Electronically Signed On 03-12-2023 20:12:10 CDT by Maru Adamson M.D. [id number]
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
[2023-03-11 08:00] VITALS: BP 133/81; PULSE 63; RESP 16; TEMP 36.6
[2023-03-11] MEDS: pantoprazole DR 40 mg Tablet PO (08:14)
[2023-03-11] MEDS: duloxetine 60 mg Capsule PO (08:14)
[2023-03-11] MEDS: docusate sodium 100 mg Capsule PO ×2 (08:14→20:56)
[2023-03-11] MEDS: ibuprofen 600 mg Tablet PO ×2 (08:17→14:42)
[2023-03-11 08:20] LABS: Basophils % 0.5 %; Eosinophils # 0.4 10^3/uL (0.0-0.8); Eosinophils % 5.9 %; Hematocrit 34.3 % (37.0-47.0); Hemoglobin 10.6 g/dL (11.5-15.3); Lymphocytes # 1.3 10^3/uL (0.8-4.8); Mean Corpuscular HGB Conc 30.9 g/dL (30.0-36.0); Mean Corpuscular Hemoglobin 30.1 pg (28.0-34.0); Mean Corpuscular Volume 97.4 fl (81-99); Mean Platelet Volume 9.1 fL (7.4-10.4); Monocytes # 0.5 10^3/uL (0.2-0.9); Monocytes % 7.8 %; Neutrophils # 3.74 10^3/uL (1.8-7.7); Neutrophils % 63.3 %; Nucleated Red Blood Cells % 0 %; Platelet Count 252 10^3/cmm (130-400); Red Blood Count 3.52 10^6/uL (4.1-5.3); Red Cell Distribution Width 13.8 % (12.1-15.1); White Blood Count 5.9 10^3/uL (4.0-10.0)
[2023-03-11 08:33] LABS: Alanine Aminotransferase 15 U/L (0-33); Albumin Level 3.8 g/dL (3.5-5.2); Alkaline Phosphatase 110 U/L (35-105); Aspartate Amino Transferase 15 U/L (0-32); Blood Urea Nitrogen 12 mg/dL (6-20); Calcium 8.8 mg/dL (8.5-10.5); Carbon Dioxide 26 mmol/L (22-29); Chloride 106 mmol/L (98-107); Globulin 2.7 g/dL (1.3-4.6); Glomerular Filtration Rate 74.5 mL/min (90-130); Glucose 156 mg/dL (65-115); Magnesium 1.9 mg/dL (1.7-2.3); Osmolality Calculated 295 mOsm/kg (285-295); Phosphorus 3.5 mg/dL (2.5-4.5); Sodium 141 mmol/L (136-145); Total Bilirubin 0.2 mg/dL (0.15-1.2); Total Protein 6.5 g/dL (6.6-8.7)
[2023-03-11] MEDS: hydrocortisone 2.5% cream 28 gm 1 APPLIC TOPICAL (10:47)
[2023-03-11] MEDS: tizanidine 4 mg Tablet 2 MG PO ×2 (11:28→20:56)
[2023-03-11 14:00] VITALS: BP 115/73; PULSE 76; RESP 16; TEMP 36.6; O2SAT 96
[2023-03-11] MEDS: hyDROXYzine 25 mg Capsule 50 MG PO ×2 (14:48→20:56)
[2023-03-11] MEDS: OLANZapine 5 mg ODT PO (16:11)
[2023-03-11] MEDS: gabapentin 300 mg Capsule PO (20:56)
[2023-03-11] MEDS: quetiapine 100 mg Tablet PO (20:56)
[2023-03-11 21:36] VITALS: BP 131/83; PULSE 69; RESP 16; TEMP 36.9; O2SAT 96
[2023-03-12 06:00] VITALS: BP 137/90; PULSE 83; RESP 18; O2SAT 97
--- NOTE | 2023-03-12 06:00 | ECG_ITS ---
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 Measurements Intervals [place] Rate: 65 P: 60 TN: 165 QRS: 74 QRSD: 85 T: 67 QT: 383 QTc: 399 Interpretive Statements SINUS RHYTHM Compared to ECG 03/11/2023 05:17:25 Sinus bradycardia no longer present Electronically Signed On 03-12-2023 20:35:20 CDT by Maru Adamson M.D. [email or web address] [email or web address] health system east [email or web address] [id number]
[2023-03-12] MEDS: OLANZapine 5 mg ODT PO (06:34)
[2023-03-12] MEDS: tizanidine 4 mg Tablet 2 MG PO ×2 (06:34→20:29)
--- NOTE | 2023-03-12 06:39 | PC.NURSE ---
PT CAME TO DESK REQUESTING MUSCLE RELAXER AND PILL FOR UNDER MY TONGUE , AND SHOWER ITEMS. ZYPREXA AND ZANAFLEX GIVEN.
[2023-03-12 08:00] VITALS: BP 137/90; PULSE 83; RESP 18; TEMP 36.4
[2023-03-12] MEDS: docusate sodium 100 mg Capsule PO ×2 (08:18→20:29)
[2023-03-12] MEDS: duloxetine 60 mg Capsule PO (08:18)
[2023-03-12] MEDS: pantoprazole DR 40 mg Tablet PO (08:18)
[2023-03-12] MEDS: blistex lip oint 7 gm Tube 1 APPLIC TOPICAL (08:54)
[2023-03-12 09:45] LABS: Alanine Aminotransferase 16 U/L (0-33); Albumin Level 4.2 g/dL (3.5-5.2); Alkaline Phosphatase 119 U/L (35-105); Anion Gap 16.3 (5-19); Aspartate Amino Transferase 17 U/L (0-32); Blood Urea Nitrogen 14 mg/dL (6-20); Carbon Dioxide 23 mmol/L (22-29); Chloride 104 mmol/L (98-107); Globulin 2.5 g/dL (1.3-4.6); Glomerular Filtration Rate 74.5 mL/min (90-130); Glucose 234 mg/dL (65-115); Osmolality Calculated 296 mOsm/kg (285-295); Potassium 4.3 mmol/L (3.5-5.1); Sodium 139 mmol/L (136-145); Total Bilirubin 0.2 mg/dL (0.15-1.2); Total Protein 6.7 g/dL (6.6-8.7)
[2023-03-12] MEDS: hyDROXYzine 25 mg Capsule 50 MG PO ×2 (10:43→20:29)
[2023-03-12] MEDS: ibuprofen 600 mg Tablet PO (11:57)
[2023-03-12] MEDS: ondansetron 4 MG Tablet PO (11:57)
[2023-03-12 14:00] VITALS: BP 156/98; PULSE 89; RESP 16; TEMP 36.6; O2SAT 98
--- NOTE | 2023-03-12 17:59 | P.NPUPN_ITS ---
Subjective NPU Subjective: Patient presented today reporting that she was feeling a little more optimistic compared to this morning. Additionally inessa walters had denied her being able to return secondary to her leaving and not telling him where she was. When they found out she had been in the ICU and had limited access to phones they had a meeting and change their decision. Unfortunately we will leave the very quickly dispense of their belongings because they do not have significant space and so she is still somewhat saddened by the loss of some of her limited possessions. Mental Status Exam MSE Comments: This is an obese white female in hospital scrubs with limited grooming but appropriate eye contact. No abnormal movements except for mild psychomotor retardation. Cooperative with exam and mild distress. Speech was decreased rate and volume. Mood described as depressed, but a little more hopeful, affect congruent. Thought process organized. Thought content: Patient endorsed suicidal but denied homicidal ideation, there were no delusions reported or noted, she denied any auditory or visual hallucinations. Attention and concentration are intact and memory appears mostly reliable but none were fo rmally tested. She is alert and oriented x3. Insight is fair, judgment is poor and impulse control is impaired. Vitals/I&O/Wt Last Vital Signs Temp 98.4 F 03/12/23 20:43 Pulse 77 03/12/23 20:43 Resp 15 03/12/23 20:43 BP 152/100 03/12/23 20:43 Pulse Ox 96 03/12/23 20:43 O2 Del Method Room Air 03/12/23 20:43 Data NPU 03/11/23 08:03 03/12/23 08:59 A&P Assessment and plan (1) Major depressive disorder, recurrent severe without psychotic features: (2) Suicidal ideation: (3) PTSD (post-traumatic stress disorder): (4) Social anxiety disorder: Plan The patient is a 57-year-old white female with a long history of trauma, depression and anxiety with significant psychosocial stressors discharged about 3 weeks ago returning with suicidal ideation and seeking treatment on a 96-hour hold. #1. Engage patient in individual milieu and group therapy. #2. Therapeutic observation 15-minute checks on the unit. #3. Attempt to gather collateral information including previous records here. #4. Recommend sober living treatment at the highest level of care to which the patient is willing to commit. #5. Continue current medications. Consider changes in her antidepressants and try to see if we can identify the triggers for these overdose attempts. Involuntary Hold Information 96 Hour Hold: 96 Hour Involuntary Admission: Yes 96 Hour Hold Ending Date: 03/14/23 96 Hour Hold Ending Time: 01:00 Attestations NPU Medical Necessity Statement*: Inpatient hospitalization is medically necessary and the clinically appropriate intervention at this time. We will initiate medication and make changes as indicated. The likely length of stay is 3-5 days. Coding Level of Care Code Acute Code for g Fwd Diagnoses Major depressive disorder, recurrent severe without psychotic features F33.2 Suicidal ideation R45.851 PTSD (post-traumatic stress disorder) F43.10 Social anxiety disorder F40.10
[2023-03-12 20:00] VITALS: BP 152/100; PULSE 79; RESP 15; TEMP 36.9
[2023-03-12] MEDS: gabapentin 300 mg Capsule PO (20:29)
[2023-03-12] MEDS: quetiapine 100 mg Tablet PO (20:29)
[2023-03-12 20:43] VITALS: BP 152/100; PULSE 77; RESP 15; TEMP 36.9; O2SAT 96
--- NOTE | 2023-03-13 04:56 | ECG_ITS ---
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 Measurements Intervals [place] Rate: 53 P: 59 NC: 161 QRS: 62 QRSD: 89 T: 56 QT: 428 QTc: 403 Interpretive Statements SINUS BRADYCARDIA MODERATE T-WAVE ABNORMALITY, CONSIDER ANTERIOR ISCHEMIA [-0.1+ mV T-WAVE IN V3/V4] Compared to ECG 03/12/2023 06:02:34 T-wave abnormality now present Possible ischemia now present Sinus rhythm no longer present Electronically Signed On 03-13-2023 7:51:33 CDT by Johann Schreiber M.D. [id number]
[2023-03-13] MEDS: hyDROXYzine 25 mg Capsule 50 MG PO ×2 (05:52→20:07)
[2023-03-13] MEDS: ibuprofen 600 mg Tablet PO ×2 (05:52→18:36)
[2023-03-13] MEDS: tizanidine 4 mg Tablet 2 MG PO ×2 (05:52→20:07)
[2023-03-13 06:00] VITALS: BP 124/73; PULSE 73; RESP 16; TEMP 36.7; O2SAT 96
[2023-03-13 08:00] VITALS: BP 124/73; PULSE 73; RESP 16; TEMP 36.7
[2023-03-13] MEDS: pantoprazole DR 40 mg Tablet PO (08:18)
[2023-03-13] MEDS: docusate sodium 100 mg Capsule PO ×2 (08:18→20:07)
[2023-03-13] MEDS: duloxetine 60 mg Capsule PO (08:18)
[2023-03-13 10:05] LABS: Alanine Aminotransferase 14 U/L (0-33); Albumin Level 4.2 g/dL (3.5-5.2); Alkaline Phosphatase 106 U/L (35-105); Anion Gap 14.6 (5-19); Aspartate Amino Transferase 16 U/L (0-32); Blood Urea Nitrogen 17 mg/dL (6-20); Calcium 9.1 mg/dL (8.5-10.5); Carbon Dioxide 26 mmol/L (22-29); Chloride 104 mmol/L (98-107); Globulin 2.9 g/dL (1.3-4.6); Glucose 121 mg/dL (65-115); Osmolality Calculated 293 mOsm/kg (285-295); Potassium 4.6 mmol/L (3.5-5.1); Sodium 140 mmol/L (136-145); Total Bilirubin 0.2 mg/dL (0.15-1.2); Total Protein 7.1 g/dL (6.6-8.7)
[2023-03-13] MEDS: hydrocortisone 2.5% cream 28 gm 1 APPLIC TOPICAL (12:14)
[2023-03-13 14:00] VITALS: BP 159/92; PULSE 81; RESP 17; TEMP 36.5; O2SAT 97
--- NOTE | 2023-03-13 15:42 | W.PM.NPUPNS ---
Subjective NPU Subjective: Patient presented today reporting that she is feeling okay. She is open to the plan of returning to [facility]. We discussed the risks, benefits and alternatives of increasing Cymbalta to 90 mg p.o. daily and she understood and agreed to proceed as is documented in this note. We also did have a discussion about [facility] and [facility] as possible future treatment pathways but currently TMS is months out here at [facility] and she will need transportation otherwise in a significant way so that we will likely need to wait until they have openings. Mental Status Exam MSE Comments: This is an obese white female in hospital scrubs with limited grooming but appropriate eye contact. No abnormal movements except for mild psychomotor retardation. Cooperative with exam and mild distress. Speech was more normal rate and volume. Mood described as depressed, but a little more hopeful, affect congruent. Thought process organized. Thought content: Patient denied suicidal or homicidal ideation, there were no delusions reported or noted, she denied any auditory or visual hallucinations. Attention and concentration are intact and memory appears mostly reliable but none were formally tested. She is alert and oriented x3. Insight is fair, judgment is poor and impulse control is improving Vitals/I&O/Wt Last Vital Signs Temp 97.7 F 03/13/23 14:00 Pulse 81 03/13/23 14:00 Resp 17 03/13/23 14:00 BP 159/92 03/13/23 14:00 Pulse Ox 97 03/13/23 14:00 O2 Del Method Room Air 03/13/23 14:00 03/13/23 03/13/23 03/13/23 06:59 14:59 22:59 Intake Total 720 / 720 Balance 720 / 720 Data NPU 03/11/23 08:03 03/13/23 09:30 A&P Assessment and plan (1) Major depressive disorder, recurrent severe without psychotic features: (2) Suicidal ideation: (3) PTSD (post-traumatic stress disorder): (4) Social anxiety disorder: Plan The patient is a 57-year-old white female with a long history of trauma, depression and anxiety with significant psychosocial stressors discharged about 3 weeks ago returning with suicidal ideation and seeking treatment on a 96-hour hold. #1. Engage patient in individual milieu and group therapy. #2. Therapeutic observation 15-minute checks on the unit. #3. Attempt to gather collateral information including previous records here. #4. Recommend sober living treatment at the highest level of care to which the patient is willing to commit. #5. Continue current medications. Increase Cymbalta to 90 mg p.o. daily. Involuntary Hold Information 96 Hour Hold: 96 Hour Involuntary Admission: Yes 96 Hour Hold Ending Date: 03/14/23 96 Hour Hold Ending Time: 01:00 Attestations NPU Medical Necessity Statement*: Inpatient hospitalization is medically necessary and the clinically appropriate intervention at this time. We will initiate medication and make changes as indicated. The likely length of stay is 2-4 days. Coding Level of Care Code Acute Code for g Fwd Diagnoses Major depressive disorder, recurrent severe without psychotic features F33.2 Suicidal ideation R45.851 PTSD (post-traumatic stress disorder) F43.10 Social anxiety disorder F40.10
[2023-03-13] MEDS: duloxetine 30 mg Capsule PO (16:26)
[2023-03-13] MEDS: gabapentin 300 mg Capsule PO (20:07)
[2023-03-13] MEDS: quetiapine 100 mg Tablet PO (20:07)
[2023-03-13 20:10] VITALS: BP 162/103; PULSE 94; RESP 16; TEMP 36.7; O2SAT 96
[2023-03-14] MEDS: ibuprofen 600 mg Tablet PO (03:10)
[2023-03-14] MEDS: OLANZapine 5 mg ODT PO ×2 (03:11→13:27)
[2023-03-14] MEDS: ondansetron 4 MG Tablet PO (03:11)
[2023-03-14] MEDS: tizanidine 4 mg Tablet 2 MG PO ×2 (04:54→13:27)
[2023-03-14 06:00] VITALS: BP 96/61; PULSE 67; RESP 16; TEMP 36.8; O2SAT 95
[2023-03-14 07:32] VITALS: BP 96/61; PULSE 67; RESP 16; TEMP 36.8
[2023-03-14] MEDS: duloxetine 30 mg Capsule PO (08:26)
[2023-03-14] MEDS: docusate sodium 100 mg Capsule PO (08:26)
[2023-03-14] MEDS: duloxetine 60 mg Capsule PO (08:26)
[2023-03-14] MEDS: pantoprazole DR 40 mg Tablet PO (08:26)
[2023-03-14] MEDS: hyDROXYzine 25 mg Capsule 50 MG PO (09:04)
[2023-03-14] MEDS: fixodent 39 gm Tube 1 APPLIC DENTAL (09:41)
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
[2023-03-14 13:41] VITALS: BP 96/61; PULSE 67; RESP 16; TEMP 36.8; O2SAT 98
== END 2023-03-14 15:30 | disposition home or self-care (01) | DRG 918 ==
LOC: ER 23:12 → ICU 03-10 00:12 → NP 03-10 14:13
PROVIDERS: Admitting Provider Hospitalist; Emergency Provider Emergency Medicine; PCP Family Medicine; Visit Provider Family Medicine
DX: T42.4X2A Poisoning by benzodiazepines, intentional self-harm, initial encounter (principal); F33.9 Major depressive disorder, recurrent, unspecified; F43.10 Post-traumatic stress disorder, unspecified; I10 Essential (primary) hypertension; D64.9 Anemia, unspecified; Z62.810 Personal history of physical and sexual abuse in childhood; Z91.410 Personal history of adult physical and sexual abuse; Z81.8 Family history of other mental and behavioral disorders; F41.9 Anxiety disorder, unspecified
CPT/HCPCS: 36415; 80048; 80053; 80306; 80307; 81001; 83735; 84100; 85025; 87086; 93005; 96374; 96375; 96376; 97150; 97165; 99238; 99285; J1885; J2405; J7030; Q0162

== ENCOUNTER 2023-05-02 10:51 | Emergency (ER) | payer BC, MEDICAID, SELFPAY ==
--- NOTE | 2023-05-02 10:54 | ED_ITS ---
HPI - Fall General: Chief Complaint: Fall Stated Complaint: Fall Time Seen by Provider: 05/02/23 10:53 Source: patient Mode of arrival: EMS History of Present Illness: 58-year-old female presents emergency room via EMS after a fall. She states she has had several falls last few days she had a little bit of chest discomfort as well she is not on any anticoagulants. She denies any recent medication changes. She does not notice anything that seems to exacerbate or worsen it. She denies any injury from the falls. She has been very nauseous. complaint: fall Fall from: standing Place fall occurred: home Loss of consciousness: None Symptoms prior to fall: lightheadedness and dizziness Associated symptoms-after fall: Denies abdominal pain, chest pain, confusion, difficulty walking, headache(s), hematuria, lightheadedness, neck pain, numbness, short of breath, vertigo or weakness Review of Systems Const: Denies: fever(s) or chills Card: Denies: chest pain or lightheadedness Resp: Denies: dyspnea GI: Denies: abdominal pain : Denies: dysuria, urinary frequency, urinary urgency or hematuria Musc: Denies: neck pain or back pain Skin/Breast: Denies: rash Neuro: Denies: headache(s), difficulty walking, vertigo or confusion PFSH ED PFSH: Medical History (Updated 05/02/23 @ 14:00 by Ariel Baer DO) Complication of gastric band procedure Hypertension Pityriasis rubra pilaris Polymorphic photodermatitis Psychiatric care Upper gastrointestinal hemorrhage Urinary retention Surgical History (Updated 03/10/23 @ 05:29 by Bernice Corona MD) History of ankle surgery History of appendectomy History of back surgery x2 History of cholecystectomy History of elbow surgery History of oophorectomy History of tubal ligation 1998 Status post gastric banding surgery Social History (Updated 03/10/23 @ 05:18 by Bernice Corona MD) Smoking and tobacco/nicotine status: never used tobacco/nicotine Alcohol intake: former Year of sobriety/quit date alcohol: 3 yr Household members: other Details: Has had challenging housing situation lately Physical Exam Const: COMMON NORMALS: no acute distress GENERAL APPEARANCE: cooperative and comfortable ORIENTATION/CONSCIOUSNESS: Yes awake HENMT: COMMON NORMALS: normocephalic, atraumatic and hearing grossly normal bilaterally HEAD & SCALP: normocephalic and atraumatic Resp: COMMON NORMALS: normal respiratory effort, No retractions, No use of accessory muscles and clear to auscultation bilaterally AUSCULTATION: clear to auscultation bilaterally Cardio: COMMON NORMALS: regular rate, regular rhythm and No murmurs present (Cardio) RATE: regular rate RHYTHM: regular rhythm GI: COMMON NORMALS: Soft to palpation and No hepatosplenomegaly present AUSCULTATION: Yes normoactive bowel sounds PALPATION: Yes Soft to palpation, No Tenderness to palpation present (GI), No Guarding due to palpation present (GI) and Yes No hepatosplenomegaly present Extremity: COMMON NORMALS: normal to inspection, capillary refill normal, no clubbing, cyanosis or edema, no calf tenderness and no pedal edema Skin: COMMON NORMALS: no rashes or lesions noted GENERAL SKIN EXAM: no rashes or lesions noted Course Vital Signs: Vital signs: Vital Signs Temperature 97.7 F 05/02/23 10:58 Pulse Rate 73 05/02/23 13:35 Respiratory Rate 15 05/02/23 13:35 Blood Pressure 112/84 05/02/23 13:35 Pulse Oximetry 96 05/02/23 13:35 Oxygen Delivery Me thod Room Air 05/02/23 10:58 MDM - Fall Medical Decision Making Exam and imaging negative. Patient started on anti-inflammatories follow-up as needed Medical Records I reviewed the patient's medical records. Lab Data I reviewed the patient's lab results. 05/02/23 11:31 05/02/23 11:31 Laboratory Results WBC 7.24 10^3/uL (3.29-11.43) 05/02/23 11:31 RBC 3.57 10^6/uL (3.85-5.65) L 05/02/23 11:31 Hgb 10.50 g/dL (11.27-16.99) L 05/02/23 11:31 Hct 32.9 % (36-47) L 05/02/23 11:31 MCV 92.2 fl (85-98) 05/02/23 11:31 MCH 29.4 pg (27-33) 05/02/23 11:31 MCHC 31.9 g/dL (30-55) 05/02/23 11:31 RDW 13.2 % (12.1-15.1) 05/02/23 11:31 Plt Count 207 10^3/cmm (157-399) 05/02/23 11:31 MPV 8.9 fL (7.4-10.4) 05/02/23 11:31 Neut % (Auto) 64.3 % 05/02/23 11:31 Lymph % (Auto) 22.9 % 05/02/23 11:31 Dauphin % (Auto) 9.3 % 05/02/23 11:31 Eos % (Auto) 2.6 % 05/02/23 11:31 Baso % (Auto) 0.6 % 05/02/23 11:31 Neut # (Auto) 4.66 10^3/uL (1.8-7.7) 05/02/23 11:31 Lymph # (Auto) 1.7 10^3/uL (0.8-4.8) 05/02/23 11:31 Dauphin # (Auto) 0.7 10^3/uL (0.2-0.9) 05/02/23 11:31 Eos # (Auto) 0.2 10^3/uL (0.0-0.8) 05/02/23 11:31 Baso # (Auto) 0.0 10^3/uL (0.0-0.1) 05/02/23 11:31 Nucleated RBC % (auto) 0 % 05/02/23 11:31 Nucleated RBCs # 0.0 /100WBC 05/02/23 11:31 Sodium 131 mmol/L (136-145) L 05/02/23 11:31 Potassium 4.4 mmol/L (3.5-5.1) 05/02/23 11:31 Chloride 100 mmol/L (98-107) 05/02/23 11:31 Carbon Dioxide 17 mmol/L (22-29) L 05/02/23 11:31 Anion Gap 18.4 (5-19) 05/02/23 11:31 BUN 33 mg/dL (6-20) H 05/02/23 11:31 Creatinine 2.1 mg/dL (0.5-0.9) H 05/02/23 11:31 GFR Calculation 24.4 mL/min (90-130) L 05/02/23 11:31 Glucose 80 mg/dL (65-115) 05/02/23 11:31 Calculated Osmolality 278 mOsm/kg (285-295) L 05/02/23 11:31 Calcium 8.8 mg/dL (8.5-10.5) 05/02/23 11:31 Total Bilirubin 0.7 mg/dL (0.15-1.2) 05/02/23 11:31 AST 129 U/L (0-32) H 05/02/23 11:31 ALT 128 U/L (0-33) H 05/02/23 11:31 Alkaline Phosphatase 153 U/L (35-105) H 05/02/23 11:31 Creatine Kinase 123 U/L (26-192) 05/02/23 11:31 Total Protein 7.2 g/dL (6.6-8.7) 05/02/23 11:31 Albumin 4.4 g/dL (3.5-5.2) 05/02/23 11:31 Globulin 2.8 g/dL (1.3-4.6) 05/02/23 11:31 Urine Color Yellow (Yellow) 05/02/23 11:56 Urine Appearance Clear (CLEAR) 05/02/23 11:56 Urine pH 5 (5-7) 05/02/23 11:56 Ur Specific Plummer 1.010 (1.005-1.030) 05/02/23 11:56 Urine Protein Neg (Negative) 05/02/23 11:56 Urine Glucose (UA) Norm (Normal) 05/02/23 11:56 Urine Ketones Negative (Negative) 05/02/23 11:56 Urine Blood Neg (Negative) 05/02/23 11:56 Urine Nitrate Negative (Negative) 05/02/23 11:56 Urine Bilirubin Neg (Negative) 05/02/23 11:56 Urine Urobilinogen Norm mg/dL (Negative) 05/02/23 11:56 Ur Leukocyte Esterase Trace (Negative) H 05/02/23 11:56 Urine RBC 0-4 /hpf (0-2) H 05/02/23 11:56 Urine WBC 5-10 /hpf (0-5) H 05/02/23 11:56 Ur Squamous Epith Cells 0-4 /hpf (0-5) H 05/02/23 11:56 Amorphous Sediment Not Reportable 05/02/23 11:56 Urine Bacteria Trace /hpf (NONE) 05/02/23 11:56 All radiology interpretation(s) finalized by discharge Discharge Plan Discharge Patient Disposition: Home Clinical Impression: Muscle spasm of right leg Condition: Stable Prescriptions: New tizanidine 4 mg tablet 4 mg PO Q6H PRN (Reason: muscle spasticity) Qty: 20 0RF Rx Instructions: do not exceed 3 doses per 24 hrs No Action temazepam 15 mg capsule 15 mg PO BEDTIME PRN (Reason: Anxiety) hydroxyzine pamoate 50 mg capsule 50 mg PO BID PRN (Reason: anxiety) Qty: 60 1RF Rx Instructions: Take one capsule up to twice a day, if needed, for anxiety; at least 4 to 6 hours apart pimecrolimus [Elidel] 1 % cream 1 applic TOPICAL BID PRN (Reason: Itching) gabapentin 300 mg Capsule 300 mg PO BEDTIME 30 Days Qty: 30 1RF lisinopril 20 mg tablet 20 mg PO QAM quetiapine 200 mg tablet 200 mg PO BEDTIME clobetasol 0.05 % cream See Rx Instructions .ROUTE .COMPLEX Rx Instructions: APPLY TWICE DAILY UP TO 2 WEEKS PER MONTH NEEED ibuprofen 200 mg Tablet 800 mg PO TID PRN (Reason: Pain) tizanidine 2 mg tablet 4 mg PO BID PRN (Reason: Muscle Spasm) duloxetine 30 mg capsule,delayed release(DR/EC) 30 mg PO QAM Rx Instructions: Take with 60 mg for 90 mg total duloxetine 60 mg capsule,delayed release(DR/EC) 60 mg PO QAM Rx Instructions: Take with 30 mg tab for 90 mg total Discharge Orders: Discharge ED (Routine); Ordered 05/02/23 Ordered By: Ariel Baer Referrals: Jacqueline Call MD [Primary Care Provider] - Discharge Diet: Usual diet Discharge Activity: Limit activity as instructed Patient Instructions: Opioid Safety, Pain Management Activity Restrictions/Additional Instructions: physician relations manager will make arrangements with neurology. Use tizanidine as needed for muscle spasms Coding Level of Care Code ED Home Health Physical Therapist for Dami Mendez
--- NOTE | 2023-05-02 10:57 | XR_ITS ---
WS: [id number] Cervical spine, 3 views, 05/02/2023 Clinical Data: trauma Comparison: None. Findings: No compression fractures are seen. The disc heights are normal. There is no prevertebral so ft tissue swelling. The odontoid is unremarkable. The soft tissues of the neck and the lung apices ar e normal. The C7 vertebral body is obscured by the shoulders on the lateral view Impression: Negative cervical spine.
--- NOTE | 2023-05-02 10:57 | CT_ITS ---
WS: [id number] CT HEAD NONCONTRAST HISTORY: trauma/headache TECHNIQUE: Contiguous axial imaging performed through the brain in 2.5 mm imaging. Bone and soft tiss ue windows. Sagittal and coronal reformats reviewed. All CT scans at [facility] use at least one of these dose optimization techniques: automated exposure control; mA and/or kV adjustment per pa tient size (includes targeted exams where dose is matched to clinical indication); or iterative recon struction. DLP: 1031.48 mGy.cm COMPARISON: 06/25/2019 No acute intracranial hemorrhage, midline shift or mass effect. No atrophy or prior infarcts or herniation. Ventricles: Normal size with no hydrocephalus. No inferior displacement of the cerebellar tonsils. Paranasal sinuses: As visualized are clear. Mastoid air cells: Well pneumatized. Calvarium and scalp: Skull is intact with no soft tissue edema or swelling. IMPRESSION: Negative head CT.
[2023-05-02 10:58] VITALS: BP 137/101; PULSE 70; RESP 16; TEMP 36.5; O2SAT 100
[2023-05-02 11:36] LABS: Basophils % 0.6 %; Eosinophils # 0.2 10^3/uL (0.0-0.8); Eosinophils % 2.6 %; Hematocrit 32.9 % (36-47); Lymphocytes # 1.7 10^3/uL (0.8-4.8); Lymphocytes % 22.9 %; Mean Corpuscular HGB Conc 31.9 g/dL (30-55); Mean Corpuscular Hemoglobin 29.4 pg (27-33); Mean Corpuscular Volume 92.2 fl (85-98); Mean Platelet Volume 8.9 fL (7.4-10.4); Monocytes # 0.7 10^3/uL (0.2-0.9); Monocytes % 9.3 %; Neutrophils # 4.66 10^3/uL (1.8-7.7); Neutrophils % 64.3 %; Nucleated Red Blood Cells % 0 %; Platelet Count 207 10^3/cmm (157-399); Red Blood Count 3.57 10^6/uL (3.85-5.65); Red Cell Distribution Width 13.2 % (12.1-15.1); White Blood Count 7.24 10^3/uL (3.29-11.43)
[2023-05-02 11:56] LABS: Alanine Aminotransferase 128 U/L (0-33); Albumin Level 4.4 g/dL (3.5-5.2); Alkaline Phosphatase 153 U/L (35-105); Anion Gap 18.4 (5-19); Aspartate Amino Transferase 129 U/L (0-32); Blood Urea Nitrogen 33 mg/dL (6-20); Calcium 8.8 mg/dL (8.5-10.5); Carbon Dioxide 17 mmol/L (22-29); Chloride 100 mmol/L (98-107); Creatine Phosphokinase 123 U/L (26-192); Globulin 2.8 g/dL (1.3-4.6); Glomerular Filtration Rate 24.4 mL/min (90-130); Glucose 80 mg/dL (65-115); Osmolality Calculated 278 mOsm/kg (285-295); Potassium 4.4 mmol/L (3.5-5.1); Sodium 131 mmol/L (136-145); Total Bilirubin 0.7 mg/dL (0.15-1.2); Total Protein 7.2 g/dL (6.6-8.7)
[2023-05-02 12:05] VITALS: BP 137/89; PULSE 75; RESP 16; O2SAT 100
[2023-05-02 12:19] LABS: Add Urine Culture? No; Add Urine Microscopic? YES; Bacteria Urine TRACE /hpf; Bilirubin Urine Neg (Negative); Blood Urine Neg (Negative); Glucose Urine UA Norm (Normal); Ketones Urine Negative (Negative); Leukocyte Esterase Urine Trace (Negative); Nitrate Urine Negative (Negative); Protein Urine Neg (Negative); RBC Urine 0-4 /hpf (0-2); Squamous Epithelial Cell Urine 0-4 /hpf (0-5); Urine Appearance Clear (CLEAR); Urine Color Yellow (Yellow); Urobilinogen Urine Norm (Negative); pH Urine 5 (5-7)
[2023-05-02 13:05] VITALS: BP 146/89; PULSE 75; RESP 18; O2SAT 100
[2023-05-02 13:35] VITALS: BP 112/84; PULSE 73; RESP 15; O2SAT 96
--- NOTE | 2023-05-02 13:36 | PC.NURSE ---
PT PLACED ON CONTINUOS NIBP, SPO2, AND CM
[2023-05-02] MEDS: acetaminophen 500 mg Tablet 1000 MG PO (13:57)
== END 2023-05-02 14:28 | disposition home or self-care (01) ==
PROVIDERS: Emergency Provider Family Medicine; PCP Family Medicine
DX: M62.838 Other muscle spasm (principal); I10 Essential (primary) hypertension
CPT/HCPCS: 36415; 70450; 72040; 80053; 81001; 82550; 85025; 99284

== ENCOUNTER → 2023-08-26 13:17 | Outpatient (BNVA) | payer OTHER, SELFPAY | PROVIDERS: PCP Family Medicine; Visit Provider Nurse Practitioner Psychiatric/Mental Health | DX: F33.2 Major depressive disorder, recurrent severe without psychotic features (principal); Z79.899 Other long term (current) drug therapy | CPT/HCPCS: 80061; 83036 ==

== ENCOUNTER → 2023-10-08 09:36 | Outpatient (BNVA) | payer BC, MEDICAID, SELFPAY ==
[2023-09-04 16:40] VITALS: BMI 35.7
== END ==
PROVIDERS: PCP Family Medicine; Referring Provider Family Medicine; Visit Provider Nurse Practitioner
DX: M25.539 Pain in unspecified wrist (principal); G56.02 Carpal tunnel syndrome, left upper limb; Z01.818 Encounter for other preprocedural examination
CPT/HCPCS: 73110

== ENCOUNTER → 2023-11-03 12:05 | Outpatient (BNVA) | payer BC, SELFPAY ==
[2023-09-04 16:40] VITALS: BMI 35.7
== END ==
PROVIDERS: PCP Family Medicine; Visit Provider Family Medicine
DX: Z01.818 Encounter for other preprocedural examination (principal)
CPT/HCPCS: 80053; 85025

== ENCOUNTER 2023-11-13 05:47 | Day surgery (SDC) | payer BC, MEDICAID, SELFPAY ==
[2023-09-04 16:40] VITALS: BMI 35.7
[2023-11-13] VITALS (11 sets, daily range): BP systolic 93–154; BP diastolic 69–93; PULSE 66–92; RESP 16–18; TEMP 36.1–36.3; O2SAT 95–100
[2023-11-13] MEDS: sodium chloride 0.9% 1,000 ML 30 ML IV (06:22)
[2023-11-13] MEDS: acetaminophen 1,000 MG/100 ML PIGGYBACK 400 MG IV (06:24)
[2023-11-13] MEDS: CELEcoxib 200 mg Capsule 400 MG PO (06:24)
[2023-11-13] MEDS: gabapentin 300 mg Capsule PO (06:24)
--- NOTE | 2023-11-13 06:45 | P.ANESASSM_ITS ---
Pre-Anesthetic Assessment Height/Weight: Height 1.52 m Weight 87.09 kg Temp Pulse Resp BP Pulse Ox O2 Del Method 97.4 F L 71 16 122/73 99 Room Air 11/13/23 05:57 11/13/23 05:57 11/13/23 05:57 11/13/23 05:57 11/13/23 05:57 11/13/23 05:57 Operation Date: 11/13/23 07:00 Proposed Procedures p Carpal Tunnel Release(Left) - Lnyda Castillo MD Familial anesthetic complications: None Was Beta Demetra taken within 24 hours: N/A Was Clonidine taken within 24 hours: N/A Last intake: Intake Last Liquid Date 11/12/23 Last Liquid Time 00:00 Last Solid Date 11/12/23 Last Solid Time 20:00 Social No alcohol and No tobacco Exam alert, oriented x 3, clear to auscultation bilaterally and regular rate & rhythm Airway Mallampati: Class I Dentition: false CV/HEM Hypertension GI Gastroesophageal Reflux Disease Anesthetic Plan ASA status: 2 Anesthesia: General Risk of > 500 ml blood loss (7ml/kg in children): No Medications/Allergies Home Medications Medication Instructions Recorded Confirmed Last Taken Type pimecrolimus 1 % topical cream 1 applic topical BID PRN Itching 02/12/23 11/12/23 Unknown History ([facility]) gabapentin 300 mg capsule 300 mg PO BEDTIME 30 days #30 caps 02/17/23 11/12/23 11/11/23 Rx temazepam 15 mg capsule 15 mg PO BEDTIME PRN Anxiety 04/21/23 11/12/23 11/11/23 History clobetasol 0.05 % topical cream See Rx Instructions .Route .COMPLEX 05/02/23 11/12/23 Unknown History ibuprofen 200 mg tablet 800 mg PO TID PRN Pain 05/02/23 11/12/23 Unknown History lisinopril 20 mg tablet 20 mg PO QAM 05/02/23 11/12/23 11/11/23 History tizanidine 2 mg tablet 4 mg PO BID PRN Muscle Spasm 05/02/23 11/12/23 11/11/23 History hydroxyzine pamoate 50 mg capsule 50 mg PO BID PRN anxiety #60 caps 10/28/23 11/12/23 11/11/23 Rx quetiapine 200 mg tablet 200 mg PO .q hs #30 tabs 10/28/23 11/12/23 11/11/23 Rx quetiapine 50 mg tablet 50 mg PO .q hs #30 tabs 10/28/23 11/12/23 11/11/23 Rx pantoprazole 40 mg tablet,delayed 40 mg PO DAILY 11/03/23 11/12/23 11/11/23 History release Allergies Allergy/AdvReac Type Severity Reaction Status Date / Time codeine Allergy gi upset Verified 11/12/23 10:22 Current Medications Generic Name Dose Route Start Last Admin Trade Name Freq PRN Reason Stop Dose Admin Sodium Chloride 1,000 mls @ 30 mls/hr 11/13/23 06:00 11/13/23 06:22 Sodium Chloride 0.9% IV 11/14/23 05:59 30 mls/hr .Q24H EILEEN Administration PFSH Anesthesia Medical History Major depressive disorder, recurrent, in partial remission MDD (recurrent major depressive disorder) in remission Psychiatric care Pityriasis rubra pilaris Polymorphic photodermatitis Urinary retention Complication of gastric band procedure Hypertension Upper gastrointestinal hemorrhage Surgical History History of back surgery x2 History of tubal ligation 1997 History of cholecystectomy History of oophorectomy History of appendectomy History of ankle surgery History of elbow surgery Status post gastric banding surgery Family History Other Cancer Emphysema lung Psychiatric illness Social History Smoking and tobacco/nicotine status: never used tobacco/nicotine Second hand smoke exposure: No Alcohol intake: current Alcohol intake frequency: holidays/special occasions only Substance/Drug Use: current Substance/Drug use frequency: daily Other substance/drug use details: 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 Adopted: No Caregiver/support person: No Lives independently: Yes Household members: none Housing: Apartment Marital status: Marital status details: for 20 years Number of children: 2 Number of grandchildren: 0 Highest education level completed: Associate Degree: Occupational, Technical, Vocational Program Education level details: Mill 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
--- NOTE | 2023-11-13 07:02 | P.HPUD_ITS ---
Surgery/Procedure H&P Update DATE OF PROCEDURE: November 13, 2023 DATE H&P PERFORMED: 11/03/23 H&P UPDATE INFORMATION: I have reviewed H&P completed within last 30 days, I have examined patient prior to procedure, No changes to prior documentation and H&P is in [facility] EMR on date indicated PLANNED PROCEDURE: Operation Date: 11/13/23 07:00 Proposed Procedures p Carpal Tunnel Release(Left) - Lynda Castillo MD Related Problem List Diagnoses (1) Carpal tunnel syndrome, left:
[2023-11-13] MEDS: ceFAZolin 2,000 MG in sodium chloride 0.9% (plus) 50 ML 100 MG IV (07:05)
[2023-11-13] MEDS: BUPivacaine 0.5% INJ 30 mL XX (07:39)
--- NOTE | 2023-11-13 08:08 | PM.OP ---
Operative Report Date of procedure: November 13, 2023 Pre-op diagnosis: Left carpal tunnel syndrome Post-op diagnosis: Left carpal tunnel syndrome Post-op findings: Significant compression across the carpal canal Procedure done: Right carpal tunnel syndrome Specimens removed/disposition: None Surgeon: Lynda Castillo MD Children'S Service Worker: None Anesthesia: General (Per LMA, ASA 2) Estimated blood loss (mL): 1 Tourniquet time (min): 11 (At 250 mmHg) IV fluids: 400 Urine output (mL): 0 (No Hawkins) Complications: None Findings: Significant compression across the carpal canal. Hourglass deformity to the median nerve Condition: stable Disposition: PACU (Then return to same-day surgery for discharge to home) Brief History: This 58-year-old woman presented to the office for evaluation where she was seen by Yanely Montero, nurse practitioner. The patient had symptoms for several years. She had nerve conduction studies at [facility] which demonstrated carpal tunnel syndrome. She had classic symptoms for carpal tunnel syndrome as well. After being seen and evaluated in the office, she wished to proceed with carpal tunnel release. Risks and complications were discussed with the patient and consents were signed. Procedure: The patient was brought to the operating theater. The patient had a general anesthesia per LMA, ASA 2. The tourniquet was elevated to 250 mmHg for a total tourniquet time of 11 minutes. The patient was also given Ancef 2 g preoperatively. The arm was then prepped and draped with DuraPrep in usual fashion with the arm draped free. A surgical pause was performed. At the time, the surgical pause, we confirmed the site and side of surgery. We also confirmed the patient's identity, appropriate and timely administration of preoperative antibiotics and preoperative surgical markings. An incision was then made along the thenar crease. The incision crossed the wrist joint in a curvilinear fashion. Dissection continued through skin and soft tissues using a scalpel. The palmaris longus was identified along with the transverse carpal ligament. Each of these was released carefully to avoid injury to the median nerve. We were able to dissect gently into the carpal canal which was noted to be quite tight with significant compression across the median nerve. The nerve was visualized and was an hourglass shape. The canal was subsequently palpated to assure there was no bony encroachment upon the canal. There was a quite thickened fibrous tissue within the canal, and this was opened longitudinally as well. The canal was then palpated distally and proximally to assure that my small finger was passed easily without impingement. Finding this to be so, attention was directed to closure. The wound was irrigated with ropivacaine plain. It was then closed with 3-0 nylon in an interrupted mattress fashion. Sterile dressing was then placed consisting of Dermabond, OpSite, fluffed fluffs, sterile soft roll, and an Ethan wrap. The tourniquet was released after 11 minutes. There were no complications. There were no specimens. The procedure was well tolerated. Plan is the patient will be discharged home. Related Problem List Diagnoses (1) Carpal tunnel syndrome, left:
[2023-11-13] MEDS: TRAMadol 50 mg Tablet PO (08:59)
--- NOTE | 2023-11-13 09:15 | ANE.PACU2 ---
Inpatient post-anesthesia follow up: Airway intact: Yes Vital signs: Temperature 97.2 F Pulse Rate 66 Respiratory Rate 16 Blood Pressure 128/93 Pulse Oximetry 97 Oxygen Delivery Me thod Room Air Oxygen Flow Rate Fraction of Inspir ed Oxygen Hydration adequate: Yes Nausea and vomiting: No Pain level: 1 Mental status: Baseline
== END 2023-11-13 09:15 | disposition home or self-care (01) ==
PROVIDERS: PCP Family Medicine; Visit Provider Specialist
PROC: (CPT 64721; principal; 2023-11-13 07:00)
DX: G56.02 Carpal tunnel syndrome, left upper limb (principal); I10 Essential (primary) hypertension; K21.9 Gastro-esophageal reflux disease without esophagitis
CPT/HCPCS: 64721; J0131; J0690; J1100; J2405; J2704; J3010; J3490; J7030

== ENCOUNTER → 2023-11-25 13:52 | Outpatient (BNVA) | payer BC, MEDICAID, SELFPAY ==
[2023-09-04 16:40] VITALS: BMI 35.7
== END ==
PROVIDERS: PCP Family Medicine; Visit Provider Podiatrist Foot & Ankle Surgery
DX: M20.41 Other hammer toe(s) (acquired), right foot; M21.611 Bunion of right foot
CPT/HCPCS: 73630

== ENCOUNTER 2024-07-05 09:33 | Outpatient (CLI) | payer BC, MEDICAID, SELFPAY ==
[2023-09-04 16:40] VITALS: BMI 35.7
--- NOTE | 2024-07-05 09:35 | MM_ITS ---
WS: [id number] BILATERAL SCREENING DIGITAL TOMOSYNTHESIS MAMMOGRAM WITH CAD HISTORY: SCREENING COMPARISON: 03/04/2016 Bilateral CC and MLO views with tomosynthesis and synthetic mammography submitted. Computer aided det ection analyzed. Breast composition: The breasts are almost entirely fatty. No suspicious masses, microcalcifications or architectural distortion. MM/MM scr BI tomosynthesis [id number] IMPRESSION: BI-RADS: 1 - Negative. FOLLOW UP: 1 Year Follow-up
== END 2024-07-05 09:34 | disposition home or self-care (01) ==
LOC: RAD 09:34
PROVIDERS: PCP Family Medicine; Visit Provider Family Medicine
DX: Z12.31 Encounter for screening mammogram for malignant neoplasm of breast (principal); R92.313 Mammographic fatty tissue density, bilateral breasts
CPT/HCPCS: 77063; 77067

== ENCOUNTER → 2025-02-25 13:58 | Outpatient (BNVA) | payer BC, SELFPAY ==
[2023-09-04 16:40] VITALS: BMI 35.7
== END ==
PROVIDERS: PCP Family Medicine; Visit Provider Nurse Practitioner Psychiatric/Mental Health
DX: Z79.899 Other long term (current) drug therapy (principal)
CPT/HCPCS: 80053; 80061; 83036

== ENCOUNTER 2025-04-08 11:08 | Outpatient (CLI) | payer BC, MEDICAID, SELFPAY ==
[2023-09-04 16:40] VITALS: BMI 35.7
[2025-03-02 16:00] VITALS: BP 145/88; BMI 36.8
--- NOTE | 2025-04-08 11:15 | USCV_ITS ---
Madison Maharaj Age: 59 Gender: F : 1965 Exam Date: 04/08/2025 11:40 Ordering Phys: Summer Hercules NP Technologist: Isauro Ramirez Exam Location[place] [facility] [place] Indication: cardiac murmur BP: 138 / 88 HR: 54 Rhythm: Sinus Technical Quality: Adequate MEASUREMENTS (Male / Female) Normal Values 2D ECHO LV Diastolic Diameter PLAX 4.3 cm 4.2 - 5.9 / 3.9 - 5.3 cm IVS Diastolic Thickness 1.3 cm 0.6 - 1.0 / 0.6 - 0.9 cm IVS Systolic Thickness 1.1 cm LVPW Diastolic Thickness 0.9 cm 0.6 - 1.0 / 0.6 - 0.9 cm LVPW Systolic Thickness 1.8 cm LVOT Diameter 2.0 cm LV Ejection Fraction 2D Teich 57.7 % LV Ejection Fraction MOD 4C 63.6 % LV Ejection Fraction MOD 2C 78.0 % LV Ejection Fraction 2C AL 78.1 % LA Diameter 3.1 cm RA Systolic Volume 4C AL 28.5 ml RA Systolic Volume 4C MOD 29.3 ml LA Sys Volume AL 44.3 cm cubed LA Sys Volume Index AL 23.1 cm cubed/m squared Aorta at Sinotubular Diameter 2.5 cm IVC Diameter 1.9 cm M-MODE LA Ao Ratio MM 1.4 AV Cusp Separation MM 2.2 cm DOPPLER AV Peak Velocity 132.3 cm/s LVOT Peak Velocity 117.0 cm/s AV Area Cont Eq vti 3.2 cm squared AV Area Cont Eq pk 2.8 cm squared MV Peak Velocity 109.0 cm/s MV Area PHT 5.1 cm squared Mitral E to A Ratio 1.4 TV Peak Velocity 282.7 cm/s TR Peak Velocity 341.0 cm/s TR Peak Gradient 46.5 mmHg TR Mean Velocity 253.0 cm/s TR Mean Gradient 28.6 mmHg TR Velocity Time Integral 90.1 cm PV Peak Velocity 109.0 cm/s RV Ejection Time 0.3 s FINDINGS Left Ventricle Normal left ventricular size and systolic function, EF 78%. No regional wall motion abnormalities. Right Ventricle The right ventricle is normal in size and function. Right Atrium The right atrium is normal in size. Left Atrium The left atrium is normal in size. Mitral Valve Trace mitral valve regurgitation. Aortic Valve Trace to mild aortic valve regurgitation. Thickened aortic valve. Tricuspid Valve Mild tricuspid valve regurgitation. Pulmonic Valve Pulmonic valve not well visualized. Pericardium Normal pericardium without effusion. Aorta Normal ascending aorta dimension. IVC Normal inferior vena cava. CONCLUSIONS Normal left ventricular size and systolic function, EF 78%. No regional wall motion abnormalities. Trace to mild aortic valve regurgitation. Thickened aortic valve. Trace mitral valve regurgitation. Mild tricuspid valve regurgitation. Estimated pulmonary artery peak systolic pressure 32 mmHg There is no pericardial effusion. There are no intracardiac masses. Compared to the study from 03/16/2013, there may not be a significant change Dr Maru Adamson MD [facility] (Electronically Signed) Final Date: 08 April 2025 13:31 S
== END 2025-04-08 11:09 | disposition home or self-care (01) ==
PROVIDERS: PCP Family Medicine; Visit Provider Nurse Practitioner Family
DX: R01.1 Cardiac murmur, unspecified (principal); I35.1 Nonrheumatic aortic (valve) insufficiency; I35.8 Other nonrheumatic aortic valve disorders; I07.1 Rheumatic tricuspid insufficiency
CPT/HCPCS: 93306